=== PATIENT | male | born 1935 | race Caucasian/White ===

== ENCOUNTER → 2020-04-14 13:41 | Outpatient (BNVA) | payer MEDICARE, SELFPAY | PROVIDERS: PCP Internal Medicine; Visit Provider Internal Medicine Cardiovascular Disease | DX: Z76.89 Persons encountering health services in other specified circumstances (principal) ==

== ENCOUNTER 2020-10-08 14:13 | Emergency (ER) | payer MEDICARE, SELFPAY ==
[2020-10-08] VITALS (7 sets, daily range): BP systolic 139–155; BP diastolic 69–92; PULSE 60–75; RESP 14–16; TEMP 36.8–36.9; O2SAT 96–97; BMI 23.7
--- NOTE | ~2020-10-08 | CT_ITS ---
EXAMINATION: CT HEAD WITHOUT CONTRAST CLINICAL INFORMATION: Weakness and dizziness. On analysis. COMPARISON: None TECHNIQUE: Contiguous axial imaging was performed from the skull base to vertex without intravenous administration of contrast. This CT examination was performed using dose optimization techniques as appropriate, variously including the following: *Automated exposure control *Adjustment of mA and/or kV according to patient size (this includes techniques or standardized protocols for targeted exams where dose is matched to indication/reason for exam; i.e. extremities or head) *Use of iterative reconstruction technique DLP: 757 mGy-cm FINDINGS: There is no evidence of acute intracranial hemorrhage or territorial infarction. No abnormal mass effect or midline shift is appreciated. Wong-white differentiation is well preserved. No extra-axial fluid collections. The ventricular system and cortical sulci are prominent, consistent with age-appropriate volume loss. There are areas of low density in the periventricular and subcortical white matter, most consistent with sequelae of microvascular ischemic change. The osseous structures and soft tissues are normal. There are calcifications of the cavernous internal carotid arteries. Polypoid mucosal disease of the left maxillary sinus, partially visualized. Other visualized paranasal sinuses are well aerated. CT/CT head/brain wo con IMPRESSION: Chronic microvascular ischemic changes with no CT evidence of acute intracranial abnormality.
--- NOTE | ~2020-10-08 | XR_ITS ---
EXAMINATION: XR CHEST CLINICAL INFORMATION: Weakness COMPARISON: Chest radiograph 11/26/2016 TECHNIQUE: Portable upright AP view of the chest was obtained. FINDINGS: There are postsurgical changes since prior study with sternotomy wires, surgical clips, left atrial appendage clamp, and multilead AICD. The heart is normal in size and the vascularity is normal. There is no airspace consolidation or groundglass opacity or effusion. The hilar and mediastinal contours are unremarkable. No visible acute bony abnormality. XR/XR chest 1V IMPRESSION: Postsurgical changes. No acute intrathoracic disease.
--- NOTE | 2020-10-08 14:29 | ED_ITS ---
HPI - Weakness General Chief complaint: General Medical Stated complaint: WEAKNESS,? 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 denies falls notes chills and malaise MD Complaint: generalized weakness, lack of energy and difficulty walking Onset (ago): day(s) (about 1 hour ago per him) Duration: intermittent Location: generalized Migration: none Severity: moderate Quality: dull Relieving factors: none Exacerbating factors: movement Associated symptoms: fever/chills, loss of appetite and myalgias Related Data Home Medications Medication Instructions Recorded Confirmed apixaban [Eliquis] 5 mg PO BID 10/08/20 10/08/20 atorvastatin 10 mg PO DAILY 10/08/20 10/08/20 multivitamin 1 tab PO DAILY 10/08/20 10/08/20 zolpidem 5 mg PO BEDTIME 10/08/20 10/08/20 Previous Rx's Medication Instructions Recorded carvedilol 6.25 mg tablet 6.25 mg PO BID 90 Days #180 tab 05/04/20 lisinopril 10 mg tablet 10 mg PO DAILY 90 Days #90 tab 05/04/20 Allergies Allergy/AdvReac Type Severity Reaction Status Date / Time dust Allergy Unknown sneeze Uncoded 01/23/20 00:00 lawn Allergy Unknown sneeze Uncoded 01/23/20 00:00 Review of Systems Review of Systems: Constitutional : No Weight loss, No Fever, pos Chills, pos Fatigue, pos Malaise ENT/Mouth : No sore throat, No Rhinorrhea Eyes: No Eye Pain, No Swelling, No Redness Cardiovascular : No Chest Pain, No SOB, No Dyspnea on Exertion, No Orthopnea, No Edema, No Palpitations Respiratory : No Cough, No Sputum, No Wheezing Gastrointestinal : No Nausea, No Vomiting, No Diarrhea, No Constipation, No abdominal Pain, No Hematochezia, No Melena Genitourinary : No Dysuria, No Urinary Frequency, No Hematuria, Musculoskeletal : No joint pain, pos Myalgias, No Joint Swelling Skin : No Skin Lesions, No rash Neuro : pos Weakness, No Numbness, pos Dizziness, No Headache Psych : No Anxiety/Panic, No Depression Heme/Lymph: No Bruising, No Bleeding,No Lymphadenopathy Endocrine : No Polyuria, No Polydipsia All other systems reviewed and are negative [facility] Past Medical History Attestation statement: The following information was validated with the patient. Medical History High cholesterol HTN (hypertension) Hx of nursing home use of blood thinners Pacemaker Social History Social History (Updated 10/08/20 @ 14:48 by Marcia Mann DO) Alcohol intake: never Smoking Status: Never smoker Use of substances other than those prescribed or required for medical reasons: No Advance Directives: No Advance Directives Information Provided: No Physical Exam Vital Signs: Vital Signs: Last Vital Signs Temp 98.4 F 10/08/20 16:39 Pulse 64 10/08/20 16:39 Resp 16 10/08/20 16:39 BP 139/69 10/08/20 16:39 Pulse Ox 97 10/08/20 16:39 Body Mass Index 23.7 Appearance: Alert. Oriented X3. No acute distress. Feels warm to touch Eyes: Pupils equal, round and reactive to light. ENT: Pharynx normal. Neck: Normal inspection. Neck supple. CVS: Normal heart rate and rhythm. Pulses normal. Respiratory: No respiratory distress. Breath sounds normal. Abdomen: Soft and nontender. Skin: Skin warm and dry. Normal skin color. Normal skin turgor. Extremities: No lower extremity edema. No calf ttp Neuro: Oriented X 3. No motor deficit. No sensory deficit. no drift Course Course Course Narrative: pending UA and CT scan, repeat trop at 530pm no other source of weakness at this time will need ambulation trial prior to DC signed out to Dr. Howell pos change in BP with standing MDM - Weakness MDM Narrative Medical decision making narrative: 84 yo male with defib, cardiomyopathy, HPL, HTN here with feeling weak and dizzy, denies GIB symptoms, feels chills at this time will need labs, CXR, UA, COVID swab - orthostatic VS dispo per results and findings. Lab Data Result diagrams: 10/08/20 15:10 10/08/20 15:10 Labs: Lab Results 10/08/20 10/08/20 10/08/20 Range/Units 15:10 15:10 15:10 WBC 7.1 (4.8-10.8) X10*3/uL RBC 4.20 L (4.60-5.80) X10*6/uL Hgb 13.2 L (14.0-18.0) g/dl Hct 39.6 L (42-52) % MCV 94.3 (80-98) fL MCH 31.4 (27.0-33.0) pg MCHC 33.3 (31.0-36.0) g/dl RDW 12.9 (11.0-16.0) % Plt Count 217 (160-400) X10*3/uL MPV 9.3 L (9.4-12.4) fL Immature Gran % (Auto) 0.3 (0.0-0.4) % Neut % (Auto) 69.3 (45-73) % Lymph % (Auto) 18.4 L (20-40) % [place] % (Auto) 10.6 (2-11) % Eos % (Auto) 1.0 (0-4) % Baso % (Auto) 0.4 (0-2) % Lymph # (Auto) 1.3 (1.2-4.9) X10*3/uL [place] # (Auto) 0.8 (0.1-1.2) X10*3/uL Eos # (Auto) 0.1 (0.0-0.4) X10*3/uL Baso # (Auto) 0.0 (0.0-0.2) X10*3/uL Abs Immat Gran (auto) 0.02 (0.00-0.03) X10*3/uL Absolute Neuts (auto) 4.9 (2.0-8.3) X10*3/uL Absolute Nucleated RBC 0.000 (0.0-0.012) X10*3/uL Nucleated RBC % (auto) 0.0 (0.0-0.2) /100WBC PT (10.8-13.0) SEC INR (0.9-1.1) APTT (24.1-38.0) SEC Sodium 139 (135-145) mmol/L Potassium 4.2 (3.3-5.1) mmol/L Chloride 106 (96-108) mmol/L Carbon Dioxide 25 (22-29) mmol/L Anion Gap 12 (12-20) BUN 16 (9-16) mg/dL Creatinine 0.85 (0.5-1.4) mg/dL Estim Creat Clear Calc 78.7 Estimated GFR > 60 Random Glucose 106 (60-115) mg/dL Lactic Acid (0.5-2.0) mmol/L Calcium 9.0 (8.4-10.2) mg/dL Magnesium 2.1 (1.6-2.6) mg/dL Total Bilirubin 0.6 (0.0-1.0) mg/dL Direct Bilirubin 0.3 (0.0-0.5) mg/dL AST 22 (5-37) U/L ALT 15 (0-40) U/L Alkaline Phosphatase 79 (39-117) U/L Troponin I High Sens (<3.5-35.0) ng/L Total Protein 7.2 (6.5-8.0) g/dL Albumin 4.1 (3.5-5.0) g/dL Lipase (8-78) U/L COVID-19 (JF) Negative (Negative) COVID-19 Clin Com See Note 10/08/20 10/08/20 10/08/20 Range/Units 15:10 15:10 15:10 WBC (4.8-10.8) X10*3/uL RBC (4.60-5.80) X10*6/uL Hgb (14.0-18.0) g/dl Hct (42-52) % MCV (80-98) fL MCH (27.0-33.0) pg MCHC (31.0-36.0) g/dl RDW (11.0-16.0) % Plt Count (160-400) X10*3/uL MPV (9.4-12.4) fL Immature Gran % (Auto) (0.0-0.4) % Neut % (Auto) (45-73) % Lymph % (Auto) (20-40) % [place] % (Auto) (2-11) % Eos % (Auto) (0-4) % Baso % (Auto) (0-2) % Lymph # (Auto) (1.2-4.9) X10*3/uL [place] # (Auto) (0.1-1.2) X10*3/uL Eos # (Auto) (0.0-0.4) X10*3/uL Baso # (Auto) (0.0-0.2) X10*3/uL Abs Immat Gran (auto) (0.00-0.03) X10*3/uL Absolute Neuts (auto) (2.0-8.3) X10*3/uL Absolute Nucleated RBC (0.0-0.012) X10*3/uL Nucleated RBC % (auto) (0.0-0.2) /100WBC PT 18.0 H (10.8-13.0) SEC INR 1.5 H (0.9-1.1) APTT 45.8 H (24.1-38.0) SEC Sodium (135-145) mmol/L Potassium (3.3-5.1) mmol/L Chloride (96-108) mmol/L Carbon Dioxide (22-29) mmol/L Anion Gap (12-20) BUN (9-16) mg/dL Creatinine (0.5-1.4) mg/dL Estim Creat Clear Calc Estimated GFR Random Glucose (60-115) mg/dL Lactic Acid 0.9 (0.5-2.0) mmol/L Calcium (8.4-10.2) mg/dL Magnesium (1.6-2.6) mg/dL Total Bilirubin (0.0-1.0) mg/dL Direct Bilirubin (0.0-0.5) mg/dL AST (5-37) U/L ALT (0-40) U/L Alkaline Phosphatase (39-117) U/L Troponin I High Sens 6.9 (<3.5-35.0) ng/L Total Protein (6.5-8.0) g/dL Albumin (3.5-5.0) g/dL Lipase (8-78) U/L COVID-19 (JF) (Negative) COVID-19 Clin Com 10/08/20 Range/Units 15:10 WBC (4.8-10.8) X10*3/uL RBC (4.60-5.80) X10*6/uL Hgb (14.0-18.0) g/dl Hct (42-52) % MCV (80-98) fL MCH (27.0-33.0) pg MCHC (31.0-36.0) g/dl RDW (11.0-16.0) % Plt Count (160-400) X10*3/uL MPV (9.4-12.4) fL Immature Gran % (Auto) (0.0-0.4) % Neut % (Auto) (45-73) % Lymph % (Auto) (20-40) % [place] % (Auto) (2-11) % Eos % (Auto) (0-4) % Baso % (Auto) (0-2) % Lymph # (Auto) (1.2-4.9) X10*3/uL [place] # (Auto) (0.1-1.2) X10*3/uL Eos # (Auto) (0.0-0.4) X10*3/uL Baso # (Auto) (0.0-0.2) X10*3/uL Abs Immat Gran (auto) (0.00-0.03) X10*3/uL Absolute Neuts (auto) (2.0-8.3) X10*3/uL Absolute Nucleated RBC (0.0-0.012) X10*3/uL Nucleated RBC % (auto) (0.0-0.2) /100WBC PT (10.8-13.0) SEC INR (0.9-1.1) APTT (24.1-38.0) SEC Sodium (135-145) mmol/L Potassium (3.3-5.1) mmol/L Chloride (96-108) mmol/L Carbon Dioxide (22-29) mmol/L Anion Gap (12-20) BUN (9-16) mg/dL Creatinine (0.5-1.4) mg/dL Estim Creat Clear Calc Estimated GFR Random Glucose (60-115) mg/dL Lactic Acid (0.5-2.0) mmol/L Calcium (8.4-10.2) mg/dL Magnesium (1.6-2.6) mg/dL Total Bilirubin (0.0-1.0) mg/dL Direct Bilirubin (0.0-0.5) mg/dL AST (5-37) U/L ALT (0-40) U/L Alkaline Phosphatase (39-117) U/L Troponin I High Sens (<3.5-35.0) ng/L Total Protein (6.5-8.0) g/dL Albumin (3.5-5.0) g/dL Lipase 98 H (8-78) U/L COVID-19 (JF) (Negative) COVID-19 Clin Com ECG Data Attestation: I personally reviewed and interpreted this ECG as follows: ECG interpretation date: 10/08/20 ECG interpretation time: 15:59 Interpretation: Rate: 67 Rhythm: AV continuous paced [place]: left Normal P waves. Normal AAMIR. wide QRS complex. ST T wave : nonspecific, no DAVID qTC: prolonged prior studies: no acute ischemia The study has been interpreted contemporaneously by me. . Discharge Plan Discharge Clinical Impression: Weakness Instructions: Weakness (ED) Additional Instructions: return to ED for any worsening symptoms or concerns Prescriptions: No Action carvedilol 6.25 mg tablet 6.25 mg PO BID 90 Days Qty: 180 RF: 1 lisinopril 10 mg tablet 10 mg PO DAILY 90 Days Qty: 90 RF: 1 atorvastatin 10 mg tablet 10 mg PO DAILY RF: 0 zolpidem 5 mg tablet 5 mg PO BEDTIME RF: 0 Eliquis 5 mg tablet 5 mg PO BID RF: 0 multivitamin Tablet 1 tab PO DAILY RF: 0
--- NOTE | 2020-10-08 14:38 | ECG_ITS ---
Test Reason : SYNCOPE Blood Pressure : / mmHG Vent. Rate : 067 BPM Atrial Rate : 062 BPM P-R Int : 124 ms QRS Dur : 176 ms QT Int : 494 ms P-R-T Axes : 000 231 086 degrees QTc Int : 521 ms AV dual-paced rhythm Abnormal ECG When compared with ECG of 04-FEB-2017 05:05, Electronic ventricular pacemaker has replaced Sinus rhythm Referred By: Marcia Mann Electronically Signed By:CRISTIANO BRAVO
[2020-10-08 15:17] LABS: MANUAL DIFF FLAG NO
[2020-10-08 15:21] LABS: Basophils Percent Auto 0.4 % (0-2); Eosinophils Absolute Auto 0.1 X10*3/uL (0.0-0.4); Hematocrit 39.6 % (42-52); Hemoglobin 13.2 g/dl (14.0-18.0); Imm Gran Abs Auto 0.02 X10*3/uL (0.00-0.03); Imm Gran Pct Auto 0.3 % (0.0-0.4); Lymphocytes Absolute Auto 1.3 X10*3/uL (1.2-4.9); Lymphocytes Percent Auto 18.4 % (20-40); Mean Corpuscular HGB Conc 33.3 g/dl (31.0-36.0); Mean Corpuscular Hemoglobin 31.4 pg (27.0-33.0); Mean Corpuscular Volume 94.3 fL (80-98); Mean Platelet Volume 9.3 fL (9.4-12.4); Monocytes Absolute Auto 0.8 X10*3/uL (0.1-1.2); Monocytes Percent Auto 10.6 % (2-11); Neutrophils Absolute Auto 4.9 X10*3/uL (2.0-8.3); Neutrophils Percent Auto 69.3 % (45-73); Platelet Count 217 X10*3/uL (160-400); Red Cell Distribution Width 12.9 % (11.0-16.0); White Blood Count 7.1 X10*3/uL (4.8-10.8)
[2020-10-08 15:39] LABS: Lactic Acid 0.9 mmol/L (0.5-2.0)
[2020-10-08 15:42] LABS: COVID-19 Test Negative (Negative); IDNOW Serial# 9DD0AD1C
[2020-10-08 15:43] LABS: INTERNATIONAL NORM RATIO 1.5 (0.9-1.1)
[2020-10-08 15:44] LABS: Alanine Aminotransferase 15 U/L (0-40); Albumin Level 4.1 g/dL (3.5-5.0); Alkaline Phosphatase 79 U/L (39-117); Anion Gap 12 (12-20); Aspartate Amino Transferase 22 U/L (5-37); Bilirubin Direct 0.3 mg/dL (0.0-0.5); Bilirubin Total 0.6 mg/dL (0.0-1.0); Blood Urea Nitrogen 16 mg/dL (9-16); Carbon Dioxide 25 mmol/L (22-29); Chloride 106 mmol/L (96-108); Creatinine Clr Calc Pharmacy 78.7; Estimated Glomerular Filt Rate > 60; Glucose Random 106 mg/dL (60-115); Magnesium 2.1 mg/dL (1.6-2.6); Potassium 4.2 mmol/L (3.3-5.1); Sodium 139 mmol/L (135-145); Total Protein 7.2 g/dL (6.5-8.0)
[2020-10-08 15:46] LABS: Partial Thromboplastin Time 45.8 SEC (24.1-38.0)
[2020-10-08 15:49] LABS: Troponin-I High Sensitivity 6.9 ng/L (<3.5-35.0)
[2020-10-08 15:59] LABS: Lipase 98 U/L (8-78)
--- NOTE | 2020-10-08 16:58 | PC.NURSE ---
pt to ct at this time. urine sample being sent. pt aware of plan of care and denied having any questions.
[2020-10-08 17:08] LABS: Glucose Urine UA NEG (NEG); Leukocyte Esterase Urine NEG (NEG); Nitrite Urine NEG (NEG); PH 5.5 (5.0-8.0); Urine Blood TRACE (NEG); Urine Ketones NEG (NEG); Urine Protein NEG (NEG-TRACE)
--- NOTE | 2020-10-08 17:12 | PC.NURSE ---
nikunj- sandra called. updated on plan of care.
[2020-10-08] MEDS: 0.9 % Sodium Chloride 500 ML IV (17:17)
[2020-10-08 17:18] LABS: Appearance Urine CLEAR; Color Urine YELLOW
[2020-10-08 17:52] LABS: RBC Urine 0 /HPF (0); WBC Urine 0 /HPF (0-4)
[2020-10-08 18:20] LABS: Troponin-I High Sensitivity 8.5 ng/L (<3.5-35.0)
[2020-10-08] MEDS: Apixaban 5 MG TABLET PO (23:41)
[2020-10-08] MEDS: carvediloL 6.25 MG TABLET PO (23:41)
[2020-10-09] VITALS (7 sets, daily range): BP systolic 120–132; BP diastolic 57–65; PULSE 58–67; RESP 15–18; TEMP 36.8; O2SAT 96–98
[2020-10-09] MEDS: Zolpidem Tartrate 5 MG TABLET PO (01:08)
[2020-10-09] MEDS: Loratadine 10 MG TABLET PO (01:08)
[2020-10-09] MEDS: Acetaminophen 325 MG TABLET 650 MG PO (03:32)
--- NOTE | 2020-10-09 03:38 | PC.NURSE ---
patient requested tylenol for a mild headache, verbal order received from Dr Arevalo. Patient is aware that this RN attempted to contact a [facility] about his cat at home, with no answer, will attempt again in the morning.
--- NOTE | 2020-10-09 06:46 | PC.NURSE ---
Pt's niece Elva Resendez called for update, requests to be updated with plan for STR placement when information is available.
--- NOTE | 2020-10-09 09:10 | PC.NURSE ---
physical therapy at bedside to aleja soto
[2020-10-09] MEDS: carvediloL 6.25 MG TABLET PO (09:43)
[2020-10-09] MEDS: Multivitamin TABLET 1 TAB PO (09:43)
[2020-10-09] MEDS: Apixaban 5 MG TABLET PO (09:43)
[2020-10-09] MEDS: Atorvastatin Calcium 10 MG TABLET PO (09:43)
[2020-10-09] MEDS: lisinopriL 10 MG TABLET PO (09:44)
[2020-10-09] MEDS: Acetaminophen 325 MG TABLET 975 MG PO (11:41)
--- NOTE | 2020-10-09 13:02 | MHC.CM.ED ---
Received case management consult from Dr Mann. Patient came to the ER with weakness and dizziness. Work up essentially negative. Physical therapy eval completed. Acute rehab is recommended. Patient requested referral to [facility]. Referral made via [employer]. Patient can leave at 3pm. [facility] BLS booked. [facility] with chart. Patient, Mitra MARROQUIN and Dr Mann aware. Attempted to notify patient's niece, Elva via telephone at [phone]. Left message requesting return telephone call. Continue to monitor for d/c needs.
== END 2020-10-09 15:18 | disposition skilled nursing facility (03) ==
PROVIDERS: Emergency Provider Emergency Medicine; PCP Internal Medicine
DX: R53.1 Weakness (principal); R42 Dizziness and giddiness; Z20.822 Contact with and (suspected) exposure to COVID-19; R51.9 Headache, unspecified; R50.9 Fever, unspecified; I10 Essential (primary) hypertension; E78.5 Hyperlipidemia, unspecified; Z95.0 Presence of cardiac pacemaker; Z79.01 Long term (current) use of anticoagulants; Z79.02 Long term (current) use of antithrombotics/antiplatelets
CPT/HCPCS: 36415; 70450; 71045; 80048; 80076; 81001; 83605; 83690; 83735; 84484; 85025; 85610; 85730; 87040; 87147; 87205; 87635; 93005; 96360; 97162; 99284; 99285

== ENCOUNTER 2020-10-30 11:23 | Outpatient (REF) | payer MEDICARE, SELFPAY ==
[2020-10-30 12:22] LABS: MANUAL DIFF FLAG NO
[2020-10-30 12:26] LABS: Basophils Percent Auto 0.3 % (0-2); Eosinophils Absolute Auto 0.2 X10*3/uL (0.0-0.4); Eosinophils Percent Auto 2.3 % (0-4); Hematocrit 41.1 % (42-52); Hemoglobin 13.4 g/dl (14.0-18.0); Imm Gran Abs Auto 0.03 X10*3/uL (0.00-0.03); Imm Gran Pct Auto 0.4 % (0.0-0.4); Lymphocytes Absolute Auto 1.4 X10*3/uL (1.2-4.9); Lymphocytes Percent Auto 19.9 % (20-40); Mean Corpuscular HGB Conc 32.6 g/dl (31.0-36.0); Mean Corpuscular Hemoglobin 31.3 pg (27.0-33.0); Mean Platelet Volume 9.6 fL (9.4-12.4); Monocytes Absolute Auto 0.8 X10*3/uL (0.1-1.2); Neutrophils Absolute Auto 4.6 X10*3/uL (2.0-8.3); Neutrophils Percent Auto 66.1 % (45-73); Platelet Count 230 X10*3/uL (160-400); Red Blood Count 4.28 X10*6/uL (4.60-5.80); Red Cell Distribution Width 12.9 % (11.0-16.0); White Blood Count 6.9 X10*3/uL (4.8-10.8)
[2020-10-30 13:12] LABS: Alanine Aminotransferase 14 U/L (0-40); Albumin Level 4.2 g/dL (3.5-5.0); Alkaline Phosphatase 106 U/L (39-117); Anion Gap 12 (12-20); Aspartate Amino Transferase 22 U/L (5-37); Bilirubin Total 0.4 mg/dL (0.0-1.0); Blood Urea Nitrogen 14 mg/dL (9-16); C Reactive Protein 0.73 mg/dL (< or = 0.50); Calcium 9.2 mg/dL (8.4-10.2); Carbon Dioxide 24 mmol/L (22-29); Chloride 110 mmol/L (96-108); Estimated Glomerular Filt Rate > 60; Glucose Random 116 mg/dL (60-115); Potassium 4.3 mmol/L (3.3-5.1); Sodium 142 mmol/L (135-145); Total Protein 7.3 g/dL (6.5-8.0)
[2020-10-30 13:27] LABS: Free T4 (Free Thyroxine) 0.77 ng/dL (0.71-1.85); Thyroid Stimulating Hormone 0.76 uIU/mL (0.32-4.0)
== END 2020-10-30 11:24 | disposition home or self-care (01) ==
LOC: HO.LAB 11:23
PROVIDERS: PCP Internal Medicine; Visit Provider Internal Medicine
DX: R19.7 Diarrhea, unspecified (principal); K21.9 Gastro-esophageal reflux disease without esophagitis; I42.9 Cardiomyopathy, unspecified
CPT/HCPCS: 36415; 80053; 84439; 84443; 85025; 86140

== ENCOUNTER 2021-05-17 11:30 | Emergency (ER) | payer MEDICARE, SELFPAY ==
[2021-05-17 11:39] VITALS: BP 117/55; PULSE 63; RESP 19; TEMP 36.8; O2SAT 97; BMI 24.7
--- NOTE | 2021-05-17 14:06 | ED_ITS ---
HPI - General Adult General Chief complaint: General Medical Stated complaint: rectal bleeding, unbalance Time Seen by Provider: 05/17/21 14:06 Source: patient Mode of arrival: ambulatory Limitations: no limitations History of Present Illness HPI narrative: patient with rectal bleeding, has had problems with hemorrhoids in the past. Patient feels a mass there. He has had some constipation. There is a lot of irritation. Onset (ago): day(s) Severity: mild Pain Consistency: intermittent Relieving factors: none Exacerbating factors: none Related Data Home Medications Medication Instructions Recorded Confirmed apixaban 5 mg tablet (Eliquis) 5 mg PO BID 10/08/20 10/08/20 atorvastatin 10 mg tablet 10 mg PO DAILY 10/08/20 10/08/20 multivitamin 1 tab PO DAILY 10/08/20 10/08/20 zolpidem 5 mg tablet 5 mg PO BEDTIME 10/08/20 10/08/20 Previous Rx's Medication Instructions Recorded carvedilol 6.25 mg tablet 6.25 mg PO BID 90 Days #180 tab 05/04/20 lisinopril 10 mg tablet 10 mg PO DAILY 90 Days #90 tab 05/04/20 clotrimazole 1 % topical cream 1 appl TOPICAL BID 28 Days #90 g 05/17/21 (Clotrimazole AF) Allergies Allergy/AdvReac Type Severity Reaction Status Date / Time dust Allergy Unknown sneeze Uncoded 01/23/20 00:00 lawn Allergy Unknown sneeze Uncoded 01/23/20 00:00 Review of Systems Constitutional: Constitutional: Reports no additional constitutional complaints Eyes: Eyes: Reports no additional eye complaints ENT: Denies dizziness Cardiovascular: Cardiovascular: Reports no additional cardiovascular complaints Respiratory: Respiratory: Reports as per HPI Gastrointestinal: Gastrointestinal: Reports no additional gastrointestinal complaints Musculoskeletal: Musculoskeletal: Reports no additional musculoskeletal complaints Integumentary/Breasts: Skin/Breast: Denies rash Neurologic: Reports system reviewed and no additional complaints, except as documented, Denies dizziness and Denies Sensory deficit (Neuro) Psychiatric: Psychiatric: Denies anxiety PMFSH Past Medical History Medical History Bradycardia High cholesterol HTN (hypertension) Hx of halfway use of blood thinners Pacemaker Surgical History H/O hemorrhoidectomy History of colonoscopy Social History Social History Alcohol intake: never Use of substances other than those prescribed or required for medical reasons: No Advance Directives: No Advance Directives Information Provided: Yes Physical Exam Vital Signs: Vital Signs: Last Vital Signs Temp 98.2 F 05/17/21 11:39 Pulse 63 05/17/21 11:39 Resp 19 05/17/21 11:39 BP 117/55 L 05/17/21 11:39 Pulse Ox 97 05/17/21 11:39 Body Mass Index 24.7 Const: Other: elderly male, well appearing Nutritional Appearance: average body habitus Orientation/consciousness: oriented to person and patient oriented x3 Limitations: no limitations HENMT: Head: Yes normal to inspection Ears: external ears normal General nose exam: Normal external nose present Mouth: Normal oral and palatal mucosa present and oropharynx normal Throat: Yes posterior oropharynx normal Eyes: General: appearance normal, both eyes and all related structures Neck: Other: supple Neck: Yes normal visual inspection Chest: Chest palpation & inspection: normal inspection of the chest Resp: Auscultation: clear to auscultation bilaterally Cardio: Jugular venous distension: no JVD Rate: regular rate Rhythm: regular rhythm Heart sounds: S1 normal heart sound present and S2 normal heart sound present GI: Inspection: Yes normal to inspection Palpation (GI): Soft to palpation, nontender and No hepatosplenomegaly present Auscultation: normal bowel sounds : Other: rectal area with a lot of irritation/excoriation consistent with maya. Rectal exam negative for mass or fecal impaction Skin: General skin exam: no rashes or lesions noted Neuro: General: oriented to person and patient oriented x3 Cranial nerves: Yes CN's II-XII intact bilaterally Motor exam (neuro): 5/5 motor strength present throughout Sensory Exam: No Sensory deficit (Neuro) Extrem: General: Yes normal to inspection Psych: Appearance: grossly normal Course Reevaluation(s) Reevaluation #1: patient with evidence of perirectal candidiasis. will start lotrimin cream, no evidence of fecal impaction, hemorrhoids or GI bleed Time: 15:33 Medical Decision Making Lab Data Result diagrams: 05/17/21 14:43 05/17/21 14:43 Labs: Lab Results 05/17/21 05/17/21 Range/Units 14:43 14:43 WBC 8.4 (4.8-10.8) X10*3/uL RBC 4.11 L (4.60-5.80) X10*6/uL Hgb 12.8 L (14.0-18.0) g/dl Hct 38.7 L (42.0-52.0) % MCV 94.2 (80.0-98.0) fL MCH 31.1 (27.0-33.0) pg MCHC 33.1 (31.0-36.0) g/dl RDW 13.5 (11.0-16.0) % Plt Count 211 (160-400) X10*3/uL MPV 9.3 L (9.4-12.4) fL Immature Gran % (Auto) 0.2 (0.0-0.4) % Neut % (Auto) 71.8 (45-73) % Lymph % (Auto) 15.5 L (20-40) % [place] % (Auto) 10.8 (2-11) % Eos % (Auto) 1.5 (0-4) % Baso % (Auto) 0.2 (0-2) % Lymph # (Auto) 1.3 (1.2-4.9) X10*3/uL [place] # (Auto) 0.9 (0.1-1.2) X10*3/uL Eos # (Auto) 0.1 (0.0-0.4) X10*3/uL Baso # (Auto) 0.0 (0.0-0.2) X10*3/uL Abs Immat Gran (auto) 0.02 (0.00-0.03) X10*3/uL Absolute Neuts (auto) 6.0 (2.0-8.3) x10*3/uL Absolute Nucleated RBC 0.000 (0.0-0.012) X10*3/uL Nucleated RBC % (auto) 0.0 (0.0-0.2) /100WBC Sodium 138 (135-145) mmol/L Potassium 4.7 (3.3-5.1) mmol/L Chloride 109 H (96-108) mmol/L Carbon Dioxide 20 L (22-29) mmol/L Anion Gap 14 (12-20) BUN 19 H (9-16) mg/dL Creatinine 0.95 (0.5-1.4) mg/dL Estim Creat Clear Calc 67.2 Estimated GFR > 60 Random Glucose 95 (60-115) mg/dL Calcium 9.0 (8.4-10.2) mg/dL Discharge Plan Discharge Clinical Impression: Candidiasis of anus Patient Disposition: Home, Self-Care Instructions: Skin Yeast Infection (ED) Prescriptions: New clotrimazole [Clotrimazole AF] 1 % cream 1 appl topical BID 28 Days Qty: 90 RF: 0 No Action carvedilol 6.25 mg tablet 6.25 mg PO BID 90 Days Qty: 180 RF: 1 lisinopril 10 mg tablet 10 mg PO DAILY 90 Days Qty: 90 RF: 1 atorvastatin 10 mg tablet 10 mg PO DAILY RF: 0 zolpidem 5 mg tablet 5 mg PO BEDTIME RF: 0 Eliquis 5 mg tablet 5 mg PO BID RF: 0 multivitamin Tablet 1 tab PO DAILY RF: 0
[2021-05-17 14:50] LABS: MANUAL DIFF FLAG NO
[2021-05-17 14:53] LABS: Basophils Percent Auto 0.2 % (0-2); Eosinophils Absolute Auto 0.1 X10*3/uL (0.0-0.4); Eosinophils Percent Auto 1.5 % (0-4); Hematocrit 38.7 % (42.0-52.0); Hemoglobin 12.8 g/dl (14.0-18.0); Imm Gran Abs Auto 0.02 X10*3/uL (0.00-0.03); Imm Gran Pct Auto 0.2 % (0.0-0.4); Lymphocytes Absolute Auto 1.3 X10*3/uL (1.2-4.9); Lymphocytes Percent Auto 15.5 % (20-40); Mean Corpuscular HGB Conc 33.1 g/dl (31.0-36.0); Mean Corpuscular Hemoglobin 31.1 pg (27.0-33.0); Mean Corpuscular Volume 94.2 fL (80.0-98.0); Mean Platelet Volume 9.3 fL (9.4-12.4); Monocytes Absolute Auto 0.9 X10*3/uL (0.1-1.2); Monocytes Percent Auto 10.8 % (2-11); Neutrophils Percent Auto 71.8 % (45-73); Platelet Count 211 X10*3/uL (160-400); Red Blood Count 4.11 X10*6/uL (4.60-5.80); Red Cell Distribution Width 13.5 % (11.0-16.0); White Blood Count 8.4 X10*3/uL (4.8-10.8)
[2021-05-17 15:14] LABS: Anion Gap 14 (12-20); Blood Urea Nitrogen 19 mg/dL (9-16); Carbon Dioxide 20 mmol/L (22-29); Chloride 109 mmol/L (96-108); Creatinine Clr Calc Pharmacy 67.2; Estimated Glomerular Filt Rate > 60; Glucose Random 95 mg/dL (60-115); Potassium 4.7 mmol/L (3.3-5.1); Sodium 138 mmol/L (135-145)
[2021-05-17] MEDS: Clotrimazole 1 % Cream 15 GM TUBE 1 APPL TOPICAL (15:47)
== END 2021-05-17 15:52 | disposition home or self-care (01) ==
PROVIDERS: Emergency Provider Emergency Medicine; PCP Internal Medicine
DX: B37.2 Candidiasis of skin and nail (principal); I10 Essential (primary) hypertension; Z95.0 Presence of cardiac pacemaker
CPT/HCPCS: 36415; 80048; 85025; 99283; 99284

== ENCOUNTER 2022-03-09 12:34 | Day surgery (SDC) | payer MEDICARE, SELFPAY ==
[2022-03-03 13:27] VITALS: BMI 23.1
--- NOTE | 2022-03-08 10:48 | HO.ANESPROP2 ---
Documented by User: Suzette Mujica NP 03/08/22 14:49 HPI - Anesthesia Eval Consult details Narrative: 86yo M for Colonoscopy ICD in situ - last interrogation 06/2021. Nml function, no shocks. Was having diaphragmatic stimulation that resolved with adjustment. No problems according to 01/2022 telemedicine cardiac visit. Reviewed with Dr Baig. Rani for afib (ok to hold per PCP) Stable at 01/2022 cardiac visit (telemedicine) [facility] Past Medical History Medical History Atrial fibrillation Bradycardia CAD (coronary artery disease) High cholesterol HTN (hypertension) Hx of roasterman use of blood thinners Ischemic cardiomyopathy Pacemaker Surgical History Surgical History AICD (automatic cardioverter/defibrillator) present H/O hemorrhoidectomy History of colonoscopy History of esophagogastroduodenoscopy (EGD) History of surgery Hx laparoscopic cholecystectomy Hx of CABG Hx of endoscopic retrograde cholangiopancreatography Hx of hernia repair Hx of nasal septoplasty Social History Social History Alcohol intake: never Patient Tobacco Use Status: Former Tobacco user Are you DNR?: No Advance Directives: No Advance Directives Information Provided: Yes Recently lost weight without trying: No Nutrition Risks: No Nutritional Risk Meds Allergies Allergy/AdvReac Type Severity Reaction Status Date / Time grass pollen Allergy Intermediate Sneezing Verified 03/03/22 12:38 mite-Dermatophagoides Allergy Intermediate Sneezing Verified 03/03/22 12:38 farsavannah, alexis [dust mite - [place]] Home Medications Medication Instructions Recorded Confirmed Last Taken Type apixaban 5 mg tablet (Eliquis) 5 mg PO BID 10/08/20 03/03/22 03/06/22 History atorvastatin 10 mg tablet 10 mg PO DAILY 10/08/20 03/03/22 03/08/22 History multivitamin 1 tab PO DAILY 10/08/20 03/03/22 03/08/22 History zolpidem 5 mg tablet 5 mg PO BEDTIME 10/08/20 03/03/22 03/08/22 History Exam Exam Date and Time: March 08, 2022 1048 Height,Weight and Vital Signs: Height 6 ft 2 in Weight 81.647 kg Narrative Narrative: EKG 05/2021 A-sensed, V-paced with occasional PVC's ECHO 04/2021 LV poorly visualized. Apical views are foreshortened. LV size is normal. LV wall thickness is normal. Systolic function is moderately reduced. LVEF 30-40%. Moderate globabl hypokinesis of LV. LV filling pressures are indeterminate. MV appears mildly thickened. Mitral leaflet excursion is mildly reduced. Trace MR. No signif mitral stenosis. RV is normal in size. RV systolic function is moderately reduced. Pacer/ICD wire is seen in the RV Decreased LV systolic function compared with 08/2019 study ICD Interr 06/2021 on chart A-sensed, V-paced Mode: DDDR - 60 Was having diaphragmatic stimulation. Reprogrammed and resolved Assessment and Plan Assessment Anesthesia Assessment: Chart Reviewed Documented by User: Adrianna Cannon MD 03/09/22 13:58 [facility] Past Medical History Medical History Atrial fibrillation Bradycardia CAD (coronary artery disease) High cholesterol HTN (hypertension) Hx of roasterman use of blood thinners Ischemic cardiomyopathy Pacemaker Surgical History Surgical History AICD (automatic cardioverter/defibrillator) present H/O hemorrhoidectomy History of colonoscopy History of esophagogastroduodenoscopy (EGD) History of surgery Hx laparoscopic cholecystectomy Hx of CABG Hx of endoscopic retrograde cholangiopancreatography Hx of hernia repair Hx of nasal septoplasty History of Problems with Anesthesia: No Social History Social History Alcohol intake: never Patient Tobacco Use Status: Former Tobacco user Are you DNR?: No Advance Directives: No Advance Directives Information Provided: Yes Recently lost weight without trying: No Nutrition Risks: No Nutritional Risk Meds Allergies Allergy/AdvReac Type Severity Reaction Status Date / Time grass pollen Allergy Intermediate Sneezing Verified 03/03/22 12:38 mite-Dermatophagoides Allergy Intermediate Sneezing Verified 03/03/22 12:38 farinaealexis [dust mite - [place]] Home Medications Medication Instructions Recorded Confirmed Last Taken Type apixaban 5 mg tablet (Eliquis) 5 mg PO BID 10/08/20 03/03/22 03/06/22 History atorvastatin 10 mg tablet 10 mg PO DAILY 10/08/20 03/03/22 03/08/22 History multivitamin 1 tab PO DAILY 10/08/20 03/03/22 03/08/22 History zolpidem 5 mg tablet 5 mg PO BEDTIME 10/08/20 03/03/22 03/08/22 History Exam Airway Mallampati Class: III TM Dist: >3cm Neck ROM: Full Denture: Upper Partial: Lower Loose/Missing/Broken Teeth: Yes, Upper and Lower Heart: RRR Lungs: CTA Assessment and Plan Assessment Anesthesia Assessment: Anesthesia Plan Discussed Final Anesthetic Review History of Problems with Anesthesia: No NPO: Yes ASA Class: III Final Preanesthetic Review: Meds/Allgs Chart Reviewed, Consent Obtained/Reviewed and Anes Risks/Benef Reviewed Patient Risk: Intermediate Procedure Risk: Low Anesthetic Plan Anesthetic Plan: MAC: Disposition: Standard PACU
--- NOTE | 2022-03-09 | ECG_ITS ---
Test Reason : PREOP Blood Pressure : / mmHG Vent. Rate : 067 BPM Atrial Rate : 067 BPM P-R Int : 166 ms QRS Dur : 142 ms QT Int : 476 ms P-R-T Axes : 027 166 083 degrees QTc Int : 502 ms AV dual-paced rhythm Abnormal ECG When compared with ECG of 08-OCT-2020 15:44, No significant change was found Referred By: Suzette Mujica Electronically Signed By:MADISON RODRIGUEZ
[2022-03-09 13:14] LABS: Hematocrit 43.8 % (42.0-52.0); Hemoglobin 14.3 g/dl (14.0-18.0); Mean Corpuscular HGB Conc 32.6 g/dl (31.0-36.0); Mean Corpuscular Hemoglobin 30.8 pg (27.0-33.0); Mean Corpuscular Volume 94.4 fL (80.0-98.0); Mean Platelet Volume 9.3 fL (9.4-12.4); Platelet Count 230 X10*3/uL (160-400); Red Blood Count 4.64 X10*6/uL (4.60-5.80); Red Cell Distribution Width 12.8 % (11.0-16.0); White Blood Count 7.4 X10*3/uL (4.8-10.8)
[2022-03-09 13:21] VITALS: BP 112/54; PULSE 79; RESP 17; TEMP 36.1; O2SAT 98
[2022-03-09] MEDS: Lactated Ringers 1,000 ML 50 ML IVCONT (13:28)
[2022-03-09 13:34] LABS: Anion Gap 17 (12-20); Blood Urea Nitrogen 18 mg/dL (9-16); Calcium 9.4 mg/dL (8.4-10.2); Carbon Dioxide 23 mmol/L (22-29); Chloride 105 mmol/L (96-108); Creatinine Clr Calc Pharmacy 63.6; Estimated Glomerular Filt Rate > 60; Glucose Fasting 99 mg/dL (60-99); Potassium 4.2 mmol/L (3.3-5.1); Sodium 141 mmol/L (135-145)
--- NOTE | 2022-03-09 13:54 | MHC.SHP ---
Pre-Procedural Eval Section A Date of Service: 03/09/22 The patient is an INPATIENT: No Changes since office visit: No Cold of Flu in the past 2 weeks, No New Medical Problems, No Changes in Medication and No Patient answered all questions The History & Physical has been completed within 30 days and I have reviewed it.: Yes Section B Chief Complaint: rectal pain Allergies: Allergies Allergy/AdvReac Type Severity Reaction Status Date / Time grass pollen Allergy Intermediate Sneezing Verified 03/03/22 12:38 mite-Dermatophagoides Allergy Intermediate Sneezing Verified 03/03/22 12:38 farinae, alexis [dust mite - [place] Citizen [place]] Plan I have reviewed the history and physical and performed a pertinent physical examination on my patient. No changes have occurred unless specified.
--- NOTE | 2022-03-09 14:25 | PM.OP ---
Brief Operative Note Date of Service: 03/09/22 Pre-op diagnosis: rectal pain Post-op diagnosis: same Procedure: colonosocpy Surgeon: Mynor Aiken Anesthesia: MAC Was an Mobile Home Set Up Person used for this Procedure?: No Estimated blood loss (mL): 2 Pathology: other Condition: stable Disposition: PACU
[2022-03-09 14:28] VITALS: BP 86/32; PULSE 66; RESP 16; TEMP 37.2; O2SAT 97
[2022-03-09 14:43] VITALS: BP 115/57; PULSE 60; RESP 16; O2SAT 98
[2022-03-09 14:58] VITALS: BP 115/64; PULSE 60; RESP 16; O2SAT 98
[2022-03-09 15:13] VITALS: BP 129/58; PULSE 60; RESP 18; TEMP 36.6; O2SAT 99
--- NOTE | 2022-03-09 23:45 | OP_ITS ---
SURGEON: Mynor Aiken MD INDICATIONS: Rectal pain. PREOPERATIVE DIAGNOSIS: POSTOPERATIVE DIAGNOSIS: PROCEDURE PERFORMED: Colonoscopy with biopsy on 03/09/22. ESTIMATED BLOOD LOSS: COMPLICATIONS: ANESTHESIA: Monitored anesthesia care. ASSISTANTS: SPECIMENS: DESCRIPTION OF PROCEDURE: History and physical performed. The risks and benefits of the procedure were explained to the patient. Informed consent was obtained. The patient was placed in the left lateral decubitus position. A digital rectal exam was performed and was found to be normal. The Olympus pediatric video colonoscope was introduced into the rectum and advanced to the cecum without difficulty. The cecum was identified by transillumination, palpation, and identification of ileocecal valve. Examination was performed. The scope was removed. He tolerated the procedure well and was taken to recovery area in stable condition. FINDINGS: The terminal ileum was normal. The visualized colonic mucosa was normal. The quality of the prep was good. A single polyp measuring less than 5 mm was identified at the cecum. This was removed with the biopsy forceps. No other polyps were identified. There was moderate diverticulosis involving the sigmoid. Retroflexed examination was normal. IMPRESSION: Colon polyp. RECOMMENDATION: Follow up the biopsy results. MD IMTIAZ Plata/LUPE / [id number] MTDD
== END 2022-03-09 15:43 | disposition home or self-care (01) ==
PROVIDERS: Nurse Practitioner; PCP Internal Medicine; Visit Provider Internal Medicine Gastroenterology
PROC: 0DJD8ZZ Inspection of Lower Intestinal Tract, Via Natural or Artificial Opening Endoscopic (ICD-10-PCS; CPT 45378; principal; 2022-03-09 13:40)
DX: K62.89 Other specified diseases of anus and rectum (principal); D12.0 Benign neoplasm of cecum; K57.30 Diverticulosis of large intestine without perforation or abscess without bleeding; I25.10 Atherosclerotic heart disease of native coronary artery without angina pectoris; I10 Essential (primary) hypertension; Z95.1 Presence of aortocoronary bypass graft; Z95.810 Presence of automatic (implantable) cardiac defibrillator; I25.5 Ischemic cardiomyopathy; I48.91 Unspecified atrial fibrillation; E78.00 Pure hypercholesterolemia, unspecified; Z79.01 Long term (current) use of anticoagulants; Z79.899 Other long term (current) drug therapy; Z87.891 Personal history of nicotine dependence; Z98.890 Other specified postprocedural states
CPT/HCPCS: 45380; 36415; 80048; 85027; 88305; 93005

== ENCOUNTER 2022-07-09 04:45 | Observation (INO) | payer MEDICARE, SELFPAY ==
[2022-07-09] VITALS (13 sets, daily range): BP systolic 74–159; BP diastolic 44–75; PULSE 60–80; RESP 14–20; TEMP 36.6–36.9; O2SAT 96–98; BMI 24.0
--- NOTE | ~2022-07-09 | CT_ITS ---
EXAMINATION: NONCONTRAST HEAD CT NONCONTRAST CERVICAL SPINE CT INDICATION INFORMATION: Fall on blood thinners. COMPARISON: 10/08/2020 TECHNIQUE: Separate noncontrast CT examinations of the head and cervical spine were performed. Coronal and sagittal images were created for each examination at the technologist workstation. This CT examination was performed using dose optimization techniques as appropriate, variously including the following: *Automated exposure control *Adjustment of mA and/or kV according to patient size (this includes techniques or standardized protocols for targeted exams where dose is matched to indication/reason for exam; i.e. extremities or head) *Use of iterative reconstruction technique DLP: 1113 mGy-cm FINDINGS: Head: There is no evidence of acute intracranial hemorrhage or territorial infarction. No abnormal mass effect or midline shift is seen. Wong to white matter differentiation is well preserved. No extra-axial fluid collections are identified. No hydrocephalus. No significant volume loss. Patchy periventricular and deep white matter hypoattenuation is consistent with mild small vessel ischemic changes. Chronic left inferior temporal lobe infarct. Cavernous carotid calcifications. No acute osseous or soft tissue abnormality. The mastoid air cells and visualized portions of the paranasal sinuses are well aerated. Cervical spine: There is anatomic alignment of the vertebral bodies and posterior elements. The atlantoaxial and atlantooccipital articulations are intact. Vertebral body heights are maintained. Osseous and disc space height associated endplate osteophytes present C4-C5-C6 and C6-C7. Facet arthropathy throughout the cervical spine. No evidence of acute fracture. No prevertebral soft tissue swelling. Visualized portions of the lung apices are unremarkable. The thyroid gland is unremarkable. CT/CT cervical spine wo IV con IMPRESSION: * No acute intracranial findings. * No acute fracture or malalignment of the cervical spine.
--- NOTE | ~2022-07-09 | XR_ITS ---
EXAMINATION: XR CHEST CLINICAL INFORMATION: Cough COMPARISON: Chest x-ray October 08, 2020 TECHNIQUE: Frontal view of the chest was obtained. FINDINGS: Cardiac silhouette is normal in size. Multi lead pacemaker is stable in orientation. Left atrial appendage clip again noted. The lungs are adequately aerated. There is no lobar consolidation. No pleural effusion or pneumothorax. Degenerative changes of the spine and shoulders. XR/XR chest 1V IMPRESSION: No acute pulmonary pathology.
--- NOTE | 2022-07-09 04:48 | ECG_ITS ---
Test Reason : SYNCHOPE Blood Pressure : / mmHG Vent. Rate : 059 BPM Atrial Rate : 059 BPM P-R Int : 166 ms QRS Dur : 150 ms QT Int : 494 ms P-R-T Axes : 000 152 089 degrees QTc Int : 489 ms AV dual-paced rhythm with occasional ventricular-paced complexes Abnormal ECG When compared with ECG of 09-MAR-2022 12:50, Vent. rate has decreased BY 8 BPM Referred By: Adrianna Arevalo Electronically Signed By:CRISTIANO BRAVO
--- NOTE | 2022-07-09 05:24 | PC.NURSE ---
Patient is alert and oriented x4. Stated that he been having diarrhea for about 3 days now, mlft2xar been taking Immodium which wasn't very effective. Pt been also having sore throat for about a week now.
--- NOTE | 2022-07-09 05:33 | PC.NURSE ---
Patient is alert and oriented x4. Stated that he was using the bathroom and was ready to get up but fainted and fell He is not sure if he hit his head. Pt appears to be very pleasant and cooperative.
[2022-07-09] MEDS: 0.9 % Sodium Chloride 1,000 ML 999 ML IV ×2 (05:39→08:48)
--- NOTE | 2022-07-09 05:41 | PC.NURSE ---
Patient is on IV fluids, vitals WNL. Labs were drawn, unable to obtain urine. Patient belongings are placed in the bag and on the table next to his bed. No signs of resp distress, safety maintained.
[2022-07-09 05:44] LABS: Hematocrit 33.6 % (42.0-52.0); Hemoglobin 10.9 g/dl (14.0-18.0); Mean Corpuscular HGB Conc 32.4 g/dl (31.0-36.0); Mean Corpuscular Hemoglobin 31.1 pg (27.0-33.0); Platelet Count 167 X10*3/uL (160-400); Red Cell Distribution Width 13.4 % (11.0-16.0); White Blood Count 8.4 X10*3/uL (4.8-10.8)
[2022-07-09 05:51] LABS: COVID-19 Test Positive (Negative); IDNOW Serial# BCCEAD1C
[2022-07-09 05:52] LABS: INTERNATIONAL NORM RATIO 1.9 (0.9-1.1); Prothrombin Time 22.2 SEC (10.0-13.1)
[2022-07-09 05:56] LABS: Lactic Acid 1.7 mmol/L (0.5-2.0)
[2022-07-09 05:59] LABS: IDNOW Serial# 16C4AD1C; Influenza A Negative (Negative); Influenza B2 Negative (Negative)
--- NOTE | 2022-07-09 06:00 | ED_ITS ---
HPI - General Adult General Chief complaint: Nausea/Vomiting/Diarrhea Stated complaint: Syncopal Time Seen by Provider: 07/09/22 04:49 Source: patient Mode of arrival: EMS History of Present Illness HPI narrative: 86-year-old male who arrives via EMS with passing out on the toilet while he was having a bowel movement and positive loss of consciousness. Patient reports that he has had diarrhea in felt unwell for the past 3 days to included decrease in appetite. Patient also reports that he is on anticoagulation. EMS gave 1 L IVF. Related Data Home Medications Medication Instructions Recorded Confirmed apixaban 5 mg tablet (Eliquis) 5 mg PO BID 10/08/20 03/03/22 atorvastatin 10 mg tablet 10 mg PO DAILY 10/08/20 03/03/22 multivitamin 1 tab PO DAILY 10/08/20 03/03/22 zolpidem 5 mg tablet 5 mg PO BEDTIME 10/08/20 03/03/22 Previous Rx's Medication Instructions Recorded carvedilol 6.25 mg tablet 6.25 mg PO BID 90 days #180 tabs 05/04/20 clotrimazole 1 % topical cream 1 appl topical BID 4 weeks #90 05/17/21 (Clotrimazole AF) grams lisinopril 10 mg tablet 10 mg PO DAILY 30 days #30 tabs 09/13/21 Allergies Allergy/AdvReac Type Severity Reaction Status Date / Time grass pollen Allergy Intermediate Sneezing Verified 03/03/22 12:38 mite-Dermatophagoides Allergy Intermediate Sneezing Verified 03/03/22 12:38 farinae, alexis [dust mite - [place]] Review of Systems Review of Systems: Pertinent positives and negatives as stated in HPI PMFSH Past Medical History Source: nursing notes reviewed Medical History Atrial fibrillation Bradycardia CAD (coronary artery disease) High cholesterol HTN (hypertension) Hx of retirement use of blood thinners Ischemic cardiomyopathy Pacemaker Surgical History AICD (automatic cardioverter/defibrillator) present H/O hemorrhoidectomy History of colonoscopy History of esophagogastroduodenoscopy (EGD) History of surgery Hx laparoscopic cholecystectomy Hx of CABG Hx of endoscopic retrograde cholangiopancreatography Hx of hernia repair Hx of nasal septoplasty Social History Social History Alcohol intake: never Patient Tobacco Use Status: Former Tobacco user Advance Directives: No Advance Directives Information Provided: No Physical Exam ED Vital Signs: Vital Signs - 24 hr 07/09/22 04:56 07/09/22 06:14 Temperature 97.9 F 97.8 F Pulse Rate 61 64 Respiratory Rate 16 16 Blood Pressure 113/47 L Pulse Oximetry 96 Oxygen Delivery Method Room Air BMI result Body Mass Index 24.0 VITAL SIGNS: Reviewed. GENERAL: Chronically ill, frail, in no acute distress. HEAD: Normocephalic/atraumatic EYES: PERRLA, EOMI EARS: Ext canals without abnormality, TMs non-bulging and non-erythematous NOSE: Nares patent bilateral OROPHARYNX: no oral lesions noted, posterior pharynx clear NECK: Supple, no adenopathy LUNGS: Normal breath sounds. No adventitious sounds or accessory muscle use. SpO2<96> CARDIOVASCULAR: Paced rhythm without noted murmurs, no JVD or lower extremity edema. ABDOMEN: Soft, non-tender, non-distended with bowel sounds. PELVIS: Stable, nontender MUSCULOSKELETAL: No tenderness, deformities, or effusions noted on gross in spection. EXTREMITIES: No cyanosis, clubbing or edema. SKIN: Inspection of the skin reveals no rashes NEUROLOGIC: Alert and oriented x 4. Strength and sensation to light touch were grossly intact x 4. Medications Administered Discontinued Medications Generic Name Dose Route Start Last Admin Trade Name Freq PRN Reason Stop Dose Admin Sodium Chloride 1,000 mls @ 999 mls/hr 07/09/22 05:00 07/09/22 06:19 Ns IV 07/09/22 06:00 Infused .Q1H1M STEFANIA Infusion Medical Decision Making Medical Decision Making MDM Narrative: 86-year-old male presents after syncopal episode with loss of consciousness. Signed out to Dr Pacheco. Differential Diagnosis Differential Diagnoses: The differential diagnosis associated with the presentation includes Viral illness, dehydration Lab Data [facility] Lab Attestation statement: I reviewed the patient's lab results. Please see the discussion above 07/09/22 05:31 07/09/22 05:31 Labs: Lab Results 07/09/22 07/09/22 07/09/22 Range/Units 05:31 05:31 05:31 WBC 8.4 (4.8-10.8) X10*3/uL RBC 3.50 L D (4.60-5.80) X10*6/uL Hgb 10.9 L D (14.0-18.0) g/dl Hct 33.6 L D (42.0-52.0) % MCV 96.0 (80.0-98.0) fL MCH 31.1 (27.0-33.0) pg MCHC 32.4 (31.0-36.0) g/dl RDW 13.4 (11.0-16.0) % Plt Count 167 D (160-400) X10*3/uL MPV 9.0 L (9.4-12.4) fL Immature Gran % (Auto) Cancelled Neut % (Auto) Cancelled Lymph % (Auto) Cancelled [place] % (Auto) Cancelled Eos % (Auto) Cancelled Baso % (Auto) Cancelled Lymph # (Auto) Cancelled [place] # (Auto) Cancelled Eos # (Auto) Cancelled Baso # (Auto) Cancelled Abs Immat Gran (auto) Cancelled Absolute Neuts (auto) Cancelled Absolute Nucleated RBC 0.000 (0.0-0.012) X10*3/uL Nucleated RBC % (auto) 0.0 (0.0-0.2) /100WBC Neutrophils % (Manual) 87 H (45-73) % Band Neutrophils % 5 (3-5) % Lymphocytes % (Manual) 4 L (20-40) % Monocytes % (Manual) 4 (2-11) % Abs Neuts (Manual) 7.7 (2.0-8.3) X10*3/uL Lymphocytes # (Manual) 0.3 L (1.2-4.9) X10*3/uL Monocytes # (Manual) 0.3 (0.1-1.2) X10*3/uL Platelet Estimate NORMAL (NORMAL) Plt Morphology Comment NORMAL RBC Morphology NORMAL PT (10.0-13.1) SEC INR (0.9-1.1) Sodium 136 (135-145) mmol/L Potassium 4.5 (3.3-5.1) mmol/L Chloride 108 (96-108) mmol/L Carbon Dioxide 20 L (22-29) mmol/L Anion Gap 13 (12-20) BUN 14 (9-16) mg/dL Creatinine 1.10 (0.5-1.4) mg/dL Estim Creat Clear Calc 58.6 Estimated GFR > 60 Random Glucose 115 (60-115) mg/dL Lactic Acid (0.5-2.0) mmol/L Calcium 8.0 L D (8.4-10.2) mg/dL Magnesium 2.0 (1.6-2.6) mg/dL Total Bilirubin 0.5 (0.0-1.0) mg/dL AST 19 (5-37) U/L ALT 9 (0-40) U/L Alkaline Phosphatase 61 (39-117) U/L Troponin I High Sens (<3.5-35.0) ng/L Total Protein 6.1 L (6.5-8.0) g/dL Albumin 3.4 L (3.5-5.0) g/dL COVID-19 (JF) (Negative) COVID-19 Clin Com Influenza Type A (ANANDA) Negative (Negative) Influenza Type B (ANANDA) Negative (Negative) Influenza A & B Note See Note 07/09/22 07/09/22 07/09/22 Range/Units 05:31 05:31 05:31 WBC (4.8-10.8) X10*3/uL RBC (4.60-5.80) X10*6/uL Hgb (14.0-18.0) g/dl Hct (42.0-52.0) % MCV (80.0-98.0) fL MCH (27.0-33.0) pg MCHC (31.0-36.0) g/dl RDW (11.0-16.0) % Plt Count (160-400) X10*3/uL MPV (9.4-12.4) fL Immature Gran % (Auto) Neut % (Auto) Lymph % (Auto) [place] % (Auto) Eos % (Auto) Baso % (Auto) Lymph # (Auto) [place] # (Auto) Eos # (Auto) Baso # (Auto) Abs Immat Gran (auto) Absolute Neuts (auto) Absolute Nucleated RBC (0.0-0.012) X10*3/uL Nucleated RBC % (auto) (0.0-0.2) /100WBC Neutrophils % (Manual) (45-73) % Band Neutrophils % (3-5) % Lymphocytes % (Manual) (20-40) % Monocytes % (Manual) (2-11) % Abs Neuts (Manual) (2.0-8.3) X10*3/uL Lymphocytes # (Manual) (1.2-4.9) X10*3/uL Monocytes # (Manual) (0.1-1.2) X10*3/uL Platelet Estimate (NORMAL) Plt Morphology Comment RBC Morphology PT 22.2 H (10.0-13.1) SEC INR 1.9 H (0.9-1.1) Sodium (135-145) mmol/L Potassium (3.3-5.1) mmol/L Chloride (96-108) mmol/L Carbon Dioxide (22-29) mmol/L Anion Gap (12-20) BUN (9-16) mg/dL Creatinine (0.5-1.4) mg/dL Estim Creat Clear Calc Estimated GFR Random Glucose (60-115) mg/dL Lactic Acid 1.7 (0.5-2.0) mmol/L Calcium (8.4-10.2) mg/dL Magnesium (1.6-2.6) mg/dL Total Bilirubin (0.0-1.0) mg/dL AST (5-37) U/L ALT (0-40) U/L Alkaline Phosphatase (39-117) U/L Troponin I High Sens (<3.5-35.0) ng/L Total Protein (6.5-8.0) g/dL Albumin (3.5-5.0) g/dL COVID-19 (JF) Positive A (Negative) COVID-19 Clin Com See Note Influenza Type A (ANANDA) (Negative) Influenza Type B (ANANDA) (Negative) Influenza A & B Note 07/09/22 Range/Units 05:31 WBC (4.8-10.8) X10*3/uL RBC (4.60-5.80) X10*6/uL Hgb (14.0-18.0) g/dl Hct (42.0-52.0) % MCV (80.0-98.0) fL MCH (27.0-33.0) pg MCHC (31.0-36.0) g/dl RDW (11.0-16.0) % Plt Count (160-400) X10*3/uL MPV (9.4-12.4) fL Immature Gran % (Auto) Neut % (Auto) Lymph % (Auto) [place] % (Auto) Eos % (Auto) Baso % (Auto) Lymph # (Auto) [place] # (Auto) Eos # (Auto) Baso # (Auto) Abs Immat Gran (auto) Absolute Neuts (auto) Absolute Nucleated RBC (0.0-0.012) X10*3/uL Nucleated RBC % (auto) (0.0-0.2) /100WBC Neutrophils % (Manual) (45-73) % Band Neutrophils % (3-5) % Lymphocytes % (Manual) (20-40) % Monocytes % (Manual) (2-11) % Abs Neuts (Manual) (2.0-8.3) X10*3/uL Lymphocytes # (Manual) (1.2-4.9) X10*3/uL Monocytes # (Manual) (0.1-1.2) X10*3/uL Platelet Estimate (NORMAL) Plt Morphology Comment RBC Morphology PT (10.0-13.1) SEC INR (0.9-1.1) Sodium (135-145) mmol/L Potassium (3.3-5.1) mmol/L Chloride (96-108) mmol/L Carbon Dioxide (22-29) mmol/L Anion Gap (12-20) BUN (9-16) mg/dL Creatinine (0.5-1.4) mg/dL Estim Creat Clear Calc Estimated GFR Random Glucose (60-115) mg/dL Lactic Acid (0.5-2.0) mmol/L Calcium (8.4-10.2) mg/dL Magnesium (1.6-2.6) mg/dL Total Bilirubin (0.0-1.0) mg/dL AST (5-37) U/L ALT (0-40) U/L Alkaline Phosphatase (39-117) U/L Troponin I High Sens 9.0 (<3.5-35.0) ng/L Total Protein (6.5-8.0) g/dL Albumin (3.5-5.0) g/dL COVID-19 (JF) (Negative) COVID-19 Clin Com Influenza Type A (ANANDA) (Negative) Influenza Type B (ANANDA) (Negative) Influenza A & B Note Independent Interpretation I performed an independent interpretation of an: EKG Interpretation: AV dual paced rhythm, HR -59, no STEMI, IL is within normal limits, [id number] Radiology Impression Radiologist Impression: My interpretation is in agreement with radiology's impression of the imaging study. Chronic Conditions Patient?s care impacted by: Hypertension Critical Care Time Critical Care Time Critical Care Time: Yes Total Critical Care Time: 30 Attestation: I personally attest to this time spent taking care of the patient. Discharge Plan Discharge Clinical Impression: Syncope, vasovagal, Viral syndrome, Lab test positive for detection of COVID-19 virus, Moderate dehydration, Loss of consciousness Patient Disposition: Still a Patient Prescriptions: No Action carvedilol 6.25 mg tablet 6.25 mg PO BID 90 Days Qty: 180 1RF Rx Instructions: must administer with a meal/food lisinopril 10 mg tablet 10 mg PO DAILY 30 Days Qty: 30 0RF Rx Instructions: Must make cardiology appt for refills atorvastatin 10 mg tablet 10 mg PO DAILY zolpidem 5 mg tablet 5 mg PO BEDTIME Eliquis 5 mg tablet 5 mg PO BID multivitamin Tablet 1 tab PO DAILY clotrimazole [Clotrimazole AF] 1 % cream 1 appl topical BID 28 Days Qty: 90 0RF
[2022-07-09 06:01] LABS: Alanine Aminotransferase 9 U/L (0-40); Albumin Level 3.4 g/dL (3.5-5.0); Alkaline Phosphatase 61 U/L (39-117); Anion Gap 13 (12-20); Aspartate Amino Transferase 19 U/L (5-37); Bilirubin Total 0.5 mg/dL (0.0-1.0); Blood Urea Nitrogen 14 mg/dL (9-16); Carbon Dioxide 20 mmol/L (22-29); Chloride 108 mmol/L (96-108); Creatinine Clr Calc Pharmacy 58.6; Estimated Glomerular Filt Rate > 60; Glucose Random 115 mg/dL (60-115); Potassium 4.5 mmol/L (3.3-5.1); Sodium 136 mmol/L (135-145); Total Protein 6.1 g/dL (6.5-8.0)
--- NOTE | 2022-07-09 06:04 | PC.NURSE ---
Patient is alert and oriented. Tested positive for COVID, precautions initiated. Vitals are being monitored, no signs of resp distress. Patient remains to be on IV fluids, site looks dry and clean. So signs of infiltrations. Safety maintained
[2022-07-09 06:10] LABS: Band Neutrophils Percent 5 % (3-5); Lymphocytes Absolute Manual 0.3 X10*3/uL (1.2-4.9); Lymphocytes Percent Manual 4 % (20-40); Monocytes Absolute Manual 0.3 X10*3/uL (0.1-1.2); Monocytes Percent Manual 4 % (2-11); Neutrophils Absolute Manual 7.7 X10*3/uL (2.0-8.3); Neutrophils Percent Manual 87 % (45-73); Platelet Estimate NORMAL (NORMAL); Platelet Morphology Comment NORMAL; RBC Morphology NORMAL
--- NOTE | 2022-07-09 06:51 | PC.NURSE ---
pt has 141.00 inside his date book inside a clear plastic bag with his keys. verified with another rn and witness with ct.
--- NOTE | 2022-07-09 07:12 | PC.NURSE ---
C collar was removed
[2022-07-09 08:05] LABS: Appearance Urine Clear; Color Urine Yellow; Glucose Urine UA Negative (Negative); Leukocyte Esterase Urine Negative (Negative); Nitrite Urine Negative (Negative); PH 5.5 (5.0-9.0); Specific Gravity - Urine 1.015 (1.005-1.025); Urine Blood Negative (Negative); Urine Ketones Negative (Negative); Urine Protein Negative (Neg-Trace)
--- NOTE | 2022-07-09 08:30 | PHA.MEDREC ---
Pharmacy Consult ? Medication Reconciliation Pharmacy has completed the medication reconciliation.
[2022-07-09] MEDS: 0.9 % Sodium Chloride 1,000 ML 125 ML IVCONT ×2 (08:48→18:38)
[2022-07-09] MEDS: Acetaminophen 325 MG TABLET 975 MG PO (08:51)
[2022-07-09 09:36] LABS: Troponin-I High Sensitivity 10.1 ng/L (<3.5-35.0)
--- NOTE | 2022-07-09 10:11 | P.HPHOSP_ITS ---
History of Present Illness Date of Service: 07/09/22 Attending physician on admission: [facility] Chief Complaint: syncope 86-year-old male with history of paroxysmal atrial fibrillation anticoagulated with Eliquis, ischemic cardiomyopathy, AICD in place, hypertension, hyperlipidemia, coronary artery disease presented to the ED earlier this morning via EMS following a syncopal episode. The patient lives at home by himself and states that he was having a large bowel movement of watery diarrhea when he felt lightheaded and fell forward. He is unsure if he hit his head but feels he was unconscious for a brief period before he awoke and dragged himself to the phone to call 911. He feels he was on the ground for about 10 minutes total but cannot confirm this. States that over the last few days he has felt very weak, fatigued, with sore throat, dry cough, anorexia, decreased p.o. intake, and multiple episodes of watery diarrhea for about 3 days. 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 Most recently completed 10 day course of doxycycline on 06/17. Stool studies were ordered in the ED but have yet to be collected as he has not had a BM since arrival. He denies any fevers, chills, abdominal pain, nausea, vomiting, headache, melena, hematochezia, dysuria, increased urinary frequency, hematuria, shortness of breath, further episodes of lightheadedness, palpitations, or chest pains. In the ED, vital signs have been stable, no hypotension, hypoxia. EKG showed showed dual paced rhythm with occasional PVCs, rate 59. No leukocytosis. Mild normocytic anemia with H/H 10.9/33.6. Renal f unction electrolyte levels baseline except for CO2 of 20 likely related to diarrhea. Troponin unremarkable. Head and cervical CT without any acute abnormality. CXR negative. He is positive for COVID-19 but negative for influenza. He reports that he is vaccinated for COVID-19 with 2 boosters. Review of Systems Review of Systems: General: +fatigue, +generalized weakness. No fevers, malaise, unintentional weight loss HEENT: +sore throat. No nasal congestion, rhinorrhea, sinus pain, ear pain Cardiovascular: No chest pain, palpitations, or leg edema Respiratory: +cough. No shortness of breath, wheezing GI: +diarrhea. 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 Ischemic cardiomyopathy Pacemaker Surgical History AICD (automatic cardioverter/defibrillator) present H/O hemorrhoidectomy History of colonoscopy History of esophagogastroduodenoscopy (EGD) History of surgery Hx laparoscopic cholecystectomy Hx of CABG Hx of endoscopic retrograde cholangiopancreatography Hx of hernia repair Hx of nasal septoplasty Social History (Updated 07/09/22 @ 10:20 by ARIANNA Hilton) Household Members: None Housing: House Alcohol intake: never Patient Tobacco Use Status: Former Tobacco user Use of substances other than those prescribed or required for medical reasons: No Advance Directives: No Advance Directives Information Provided: No Meds Allergies Allergy/AdvReac Type Severity Reaction Status Date / Time grass pollen Allergy Intermediate Sneezing Verified 03/03/22 12:38 mite-Dermatophagoides Allergy Intermediate Sneezing Verified 03/03/22 12:38 farinae, alexis [dust mite - [place]] Active Medications: Current Medications Acetaminophen (Acetaminophen 325 Mg Tablet) 650 mg PO Q6H PRN PRN Reason: Pain, Mild (Pain Scale 1-3) Apixaban (Apixaban 5 Mg Tablet) 5 mg PO BID [facility] Atorvastatin Calcium (Atorvastatin Calcium 10 Mg Tablet) 10 mg PO DAILY [facility] Carvedilol (Carvedilol 6.25 Mg Tablet) 6.25 mg PO BID [facility]; Protocol Guaifenesin (Guaifenesin 200 Mg/10 Ml 10 Ml Liquid) 10 ml PO Q4H PRN PRN Reason: Cough Sodium Chloride (Ns) 1,000 mls @ 80 mls/hr IVCONT .[id number] [facility] Last Admin: 07/09/22 08:48 Dose: 125 mls/hr Lisinopril (Lisinopril 10 Mg Tablet) 10 mg PO DAILY [facility]; Protocol Multi-Ingred Medicated Throat Brewster (Throat Brewster, Medicated 177 Ml Bottle) 1 spray MUCOUS MEM Q2H PRN PRN Reason: Sore Throat Multivitamins/Vitamin C (Multivitamin Tablet) 1 tab PO DAILY [facility] Nystatin (Nystatin Cream 15 Gm Tube) 1 appl TOPICAL BID PRN; Protocol PRN Reason: Rash Ondansetron HCl (Ondansetron Hcl 4 Mg/2 Ml Vial) 4 mg IVPUSH Q8H PRN PRN Reason: Nausea and Vomiting Pharmacy Consult (Consult Rx Perform Med Rec) 1 each MISCELLANE ONCE PRN PRN Reason: Consult order Pharmacy Consult (Consult Rx Perform Med Rec) 1 each MISCELLANE ONCE PRN PRN Reason: Consult order Sodium Chloride (0.9 % Sodium Chloride Flush 3 Ml Syringe) 3 ml IVFLUSH QSHIFT [facility] Zolpidem Tartrate (Zolpidem Tartrate 5 Mg Tablet) 5 mg PO BEDTIME [facility] Home Medications Medication Instructions Recorded Confirmed Last Taken Type apixaban 5 mg tablet (Eliquis) 5 mg PO BID 10/08/20 07/09/22 03/06/22 History atorvastatin 10 mg tablet 10 mg PO DAILY 10/08/20 07/09/22 03/08/22 History multivitamin 1 tab PO DAILY 10/08/20 07/09/22 03/08/22 History zolpidem 5 mg tablet 5 mg PO BEDTIME 10/08/20 07/09/22 03/08/22 History nystatin 100,000 unit/gram topical 1 appl topical BID PRN Rash 07/09/22 07/09/22 Unknown History cream Physical Exam Vital Signs and Narrative: Vital Signs: Last Vital Signs Temp 98.2 F 07/09/22 09:20 Pulse 61 07/09/22 09:20 Resp 15 07/09/22 09:20 BP 117/53 L 07/09/22 09:20 Pulse Ox 98 07/09/22 09:20 O2 Del Method 07/09/22 09:20 BMI result Body Mass Index 24.0 Constitutional - Awake and Alert, No apparent distress Eyes - PERRLA, EOMI Mouth- Lips, tongue dry Cardiovascular - S1S2, RRR, No edema Respiratory - Normal lung expansion, Normal respiratory effort, No respiratory distress, CTA bilaterally Gastrointestinal - NT / ND; +BS; No rebound or guarding Extremities - no calf tenderness bilaterally, no swelling Skin - Warm/Dry, turgor appropriate Neurological - Alert & oriented x3, CN II-XII in tact, 5/5 strength BUE and BLE Psychological - Appropriate affect Results Labs 07/09/22 05:31 07/09/22 05:31 Labs: Laboratory Results - last 24 hr 07/09/22 07/09/22 07/09/22 05:31 05:31 05:31 MCV 96.0 MCH 31.1 MCHC 32.4 RDW 13.4 Plt Count 167 D MPV 9.0 L Immature Gran % (Auto) Cancelled Neut % (Auto) Cancelled Lymph % (Auto) Cancelled [place] % (Auto) Cancelled Eos % (Auto) Cancelled Baso % (Auto) Cancelled Lymph # (Auto) Cancelled [place] # (Auto) Cancelled Eos # (Auto) Cancelled Baso # (Auto) Cancelled Abs Immat Gran (auto) Cancelled Absolute Neuts (auto) Cancelled Absolute Nucleated RBC 0.000 Nucleated RBC % (auto) 0.0 Neutrophils % (Manual) 87 H Band Neutrophils % 5 Lymphocytes % (Manual) 4 L Monocytes % (Manual) 4 Abs Neuts (Manual) 7.7 Lymphocytes # (Manual) 0.3 L Monocytes # (Manual) 0.3 Platelet Estimate NORMAL Plt Morphology Comment NORMAL RBC Morphology NORMAL PT INR Anion Gap 13 Estim Creat Clear Calc 58.6 Estimated GFR > 60 Random Glucose 115 Lactic Acid Calcium 8.0 L D Magnesium 2.0 Total Bilirubin 0.5 AST 19 ALT 9 Alkaline Phosphatase 61 Total Creatine Kinase 122 Troponin I High Sens Total Protein 6.1 L Albumin 3.4 L Urine Color Urine Appearance Urine pH Ur Specific [place] Urine Protein Urine Glucose (UA) Urine Ketones Urine Blood Urine Nitrite Ur Leukocyte Esterase COVID-19 (JF) COVID-19 Clin Com Influenza Type A (ANANDA) Negative Influenza Type B (ANANDA) Negative Influenza A & B Note See Note 07/09/22 07/09/22 07/09/22 05:31 05:31 05:31 MCV MCH MCHC RDW Plt Count MPV Immature Gran % (Auto) Neut % (Auto) Lymph % (Auto) [place] % (Auto) Eos % (Auto) Baso % (Auto) Lymph # (Auto) [place] # (Auto) Eos # (Auto) Baso # (Auto) Abs Immat Gran (auto) Absolute Neuts (auto) Absolute Nucleated RBC Nucleated RBC % (auto) Neutrophils % (Manual) Band Neutrophils % Lymphocytes % (Manual) Monocytes % (Manual) Abs Neuts (Manual) Lymphocytes # (Manual) Monocytes # (Manual) Platelet Estimate Plt Morphology Comment RBC Morphology PT 22.2 H INR 1.9 H Anion Gap Estim Creat Clear Calc Estimated GFR Random Glucose Lactic Acid 1.7 Calcium Magnesium Total Bilirubin AST ALT Alkaline Phosphatase Total Creatine Kinase Troponin I High Sens Total Protein Albumin Urine Color Urine Appearance Urine pH Ur Specific [place] Urine Protein Urine Glucose (UA) Urine Ketones Urine Blood Urine Nitrite Ur Leukocyte Esterase COVID-19 (JF) Positive A COVID-19 Clin Com See Note Influenza Type A (ANANDA) Influenza Type B (ANANDA) Influenza A & B Note 07/09/22 07/09/22 07/09/22 05:31 07:57 09:06 MCV MCH MCHC RDW Plt Count MPV Immature Gran % (Auto) Neut % (Auto) Lymph % (Auto) [place] % (Auto) Eos % (Auto) Baso % (Auto) Lymph # (Auto) [place] # (Auto) Eos # (Auto) Baso # (Auto) Abs Immat Gran (auto) Absolute Neuts (auto) Absolute Nucleated RBC Nucleated RBC % (auto) Neutrophils % (Manual) Band Neutrophils % Lymphocytes % (Manual) Monocytes % (Manual) Abs Neuts (Manual) Lymphocytes # (Manual) Monocytes # (Manual) Platelet Estimate Plt Morphology Comment RBC Morphology PT INR Anion Gap Estim Creat Clear Calc Estimated GFR Random Glucose Lactic Acid Calcium Magnesium Total Bilirubin AST ALT Alkaline Phosphatase Total Creatine Kinase Troponin I High Sens 9.0 10.1 Total Protein Albumin Urine Color Yellow Urine Appearance Clear Urine pH 5.5 Ur Specific [place] 1.015 Urine Protein Negative Urine Glucose (UA) Negative Urine Ketones Negative Urine Blood Negative Urine Nitrite Negative Ur Leukocyte Esterase Negative COVID-19 (JF) COVID-19 Clin Com Influenza Type A (ANANDA) Influenza Type B (ANANDA) Influenza A & B Note Imaging Radiologist's Impressions: Impressions Cervical Spine CT 07/09/22 04:57 IMPRESSION: * No acute intracranial findings. * No acute fracture or malalignment of the cervical spine. Head CT 07/09/22 04:57 IMPRESSION: * No acute intracranial findings. * No acute fracture or malalignment of the cervical spine. Chest X-Ray 07/09/22 08:21 IMPRESSION: No acute pulmonary pathology. Assessment and Plan (1) Syncope, vasovagal: Status: Acute (2) Lab test positive for detection of COVID-19 virus: Status: Acute (3) Acute diarrhea: Status: Acute (4) Moderate dehydration: Status: Acute Plan 86-year-old male with history of paroxysmal atrial fibrillation anticoagulated with Eliquis, ischemic cardiomyopathy, AICD in place, hypertension, hyperlipidemia, coronary artery disease to be observed for vasovagal syncope. #Vasovagal syncope- secondary to dehydration/diarrhea - Orthostatics pending - EKG without significant arrhythmia, troponin negative. No significant anemia. Renal function and electrolytes unremarkable - continue IVF - observe on telemetry # acute diarrhea- ? Related to viral syndrome from COVID-19 versus infectious versus antibiotic related -Treated with multiple courses doxycycline over the last 3 months for foot infection, last completed 10 day course of doxycycline on 06/17 -stool studies pending -continue IVF for dehydration. Renal function and electrolyte levels normal except CO2 of 20 -follow BMP # COVID-19 -No hypoxia. Hold on remdesivir at this time due to mild symptoms. Decadron not indicated -Symptomatic management -PT eval # paroxysmal atrial fibrillation-rate controlled -continue carvedilol, Eliquis # CAD/ischemic cardiomyopathy -no anginal chest pain, troponin negative x2 -continue carvedilol, atorvastatin # hypertension-BP soft -continue carvedilol. Hold lisinopril for now, resume on discharge DVT prophylaxis-Eliquis Full code Time Spent With Patient Time: Total time managing care of this patient today ____ minutes. Quality Stroke Does the patient have a stroke diagnosis?: No VTE Prior VTE?: No VTE Risk Level:: Medical - moderate - high VTE Device Contraindication: Treatment Not Indicated VTE Drug Contraindication: N/A - Med Ordered
[2022-07-09] MEDS: carvediloL 6.25 MG TABLET PO ×2 (11:23→21:17)
[2022-07-09] MEDS: Atorvastatin Calcium 10 MG TABLET PO (11:23)
[2022-07-09] MEDS: Apixaban 5 MG TABLET PO ×2 (11:23→21:17)
[2022-07-09] MEDS: Throat Lozenge, Medicated LOZENGE 1 LOZENGE MUCOUS MEM (11:26)
[2022-07-09] MEDS: Zolpidem Tartrate 5 MG TABLET PO (21:17)
[2022-07-09] MEDS: Acetaminophen 325 MG TABLET 650 MG PO (21:21)
[2022-07-09] MEDS: guaiFENesin 200 MG/10 ML 10 ML LIQUID PO (21:21)
[2022-07-10] MEDS: guaiFENesin 200 MG/10 ML 10 ML LIQUID PO ×3 (02:11→18:41)
[2022-07-10 03:50] VITALS: BP 145/69; PULSE 80; RESP 18; TEMP 37.3; O2SAT 98
[2022-07-10 06:45] LABS: Alanine Aminotransferase 12 U/L (0-40); Albumin Level 3.5 g/dL (3.5-5.0); Alkaline Phosphatase 71 U/L (39-117); Anion Gap 12 (12-20); Aspartate Amino Transferase 27 U/L (5-37); Bilirubin Total 0.3 mg/dL (0.0-1.0); Blood Urea Nitrogen 18 mg/dL (9-16); Calcium 8.2 mg/dL (8.4-10.2); Carbon Dioxide 22 mmol/L (22-29); Chloride 108 mmol/L (96-108); Creatinine Clr Calc Pharmacy 83.8; Estimated Glomerular Filt Rate > 60; Glucose Random 103 mg/dL (60-115); Potassium 4.2 mmol/L (3.3-5.1); Sodium 138 mmol/L (135-145); Total Protein 6.3 g/dL (6.5-8.0)
[2022-07-10 08:00] VITALS: BP 140/87; PULSE 78; RESP 18; TEMP 37.2; O2SAT 98
[2022-07-10] MEDS: Multivitamin TABLET 1 TAB PO (08:54)
[2022-07-10] MEDS: Atorvastatin Calcium 10 MG TABLET PO (08:54)
[2022-07-10] MEDS: lisinopriL 10 MG TABLET PO (08:54)
[2022-07-10] MEDS: Apixaban 5 MG TABLET PO ×2 (08:54→21:22)
[2022-07-10] MEDS: carvediloL 6.25 MG TABLET PO ×2 (08:54→21:22)
[2022-07-10] MEDS: Throat Lozenge, Medicated LOZENGE 1 LOZENGE MUCOUS MEM ×2 (09:13→18:41)
[2022-07-10] MEDS: 0.9 % Sodium Chloride 1,000 ML 125 ML IVCONT (09:14)
--- NOTE | 2022-07-10 10:28 | MHC.CM.PN ---
Attempted to connect w/both listed HCP and primary contact in chart. Neither answered phone, nor do either have personalized voice mail for confidential voice message. CM to re-approach at a later date/time.
--- NOTE | 2022-07-10 11:04 | P.PNIM_ITS ---
Subjective Subjective Date of Service: 07/10/22 Interval History: Seen in follow up for vasovagal syncope, COVID-19 Interval history: Denies lightheadedness, syncope, sob, chest pain. Had single episode watery stool last night. Tolerating PO. Complains of cough, sore throat, nasal congestion Review of Systems Review of Systems: Yes all other systems are reviewed and are negative Physical Exam Vital Signs: Vital Signs: Last Vital Signs Temp 98.9 F 07/10/22 08:00 Pulse 78 07/10/22 08:00 Resp 18 07/10/22 08:00 BP 140/87 H 07/10/22 08:00 Pulse Ox 98 07/10/22 08:00 O2 Del Method 07/10/22 08:00 BMI result Body Mass Index 24.0 Constitutional - Awake and Alert, No apparent distress Eyes - PERRLA, EOMI Cardiovascular - S1S2, RRR, No edema Respiratory - Normal lung expansion, Normal respiratory effort, No respiratory distress, CTA bilaterally Gastrointestinal - NT / ND; +BS; No rebound or guarding Extremities - no calf tenderness bilaterally, no swelling Skin - Warm/Dry Neurological - Alert & oriented x3 Psychological - Appropriate affect Objective Data Active Medications Acetaminophen (Acetaminophen 325 Mg Tablet) 650 mg PO Q6H PRN PRN Reason: Pain, Mild (Pain Scale 1-3) Last Admin: 07/09/22 21:21 Dose: 650 mg Documented By: HAYLEE Apixaban (Apixaban 5 Mg Tablet) 5 mg PO BID [facility] Last Admin: 07/10/22 08:54 Dose: 5 mg Documented By: CORI Atorvastatin Calcium (Atorvastatin Calcium 10 Mg Tablet) 10 mg PO DAILY [facility] Last Admin: 07/10/22 08:54 Dose: 10 mg Documented By: CORI Benzocaine (Throat Lozenge, Medicated Lozenge) 1 lozenge MUCOUS MEM Q2H PRN PRN Reason: Sore Throat Last Admin: 07/10/22 09:13 Dose: 1 lozenge Documented By: CORI Carvedilol (Carvedilol 6.25 Mg Tablet) 6.25 mg PO BID [facility]; Protocol Last Admin: 07/10/22 08:54 Dose: 6.25 mg Documented By: CORI Guaifenesin (Guaifenesin 200 Mg/10 Ml 10 Ml Liquid) 10 ml PO Q4H PRN PRN Reason: Cough Last Admin: 07/10/22 09:13 Dose: 10 ml Documented By: CORI Sodium Chloride (Ns) 1,000 mls @ 80 mls/hr IVCONT .[id number] [facility] Last Admin: 07/10/22 09:14 Dose: 125 mls/hr Documented By: CORI Lisinopril (Lisinopril 10 Mg Tablet) 10 mg PO DAILY [facility]; Protocol Last Admin: 07/10/22 08:54 Dose: 10 mg Documented By: CORI Multivitamins/Vitamin C (Multivitamin Tablet) 1 tab PO DAILY [facility] Last Admin: 07/10/22 08:54 Dose: 1 tab Documented By: CORI Nystatin (Nystatin Cream 15 Gm Tube) 1 appl TOPICAL BID PRN; Protocol PRN Reason: Rash Ondansetron HCl (Ondansetron Hcl 4 Mg/2 Ml Vial) 4 mg IVPUSH Q8H PRN PRN Reason: Nausea and Vomiting Pharmacy Consult (Consult Rx Perform Med Rec) 1 each MISCELLANE ONCE PRN PRN Reason: Consult order Pharmacy Consult (Consult Rx Perform Med Rec) 1 each MISCELLANE ONCE PRN PRN Reason: Consult order Sodium Chloride (0.9 % Sodium Chloride Flush 3 Ml Syringe) 3 ml IVFLUSH QSHIFT [facility] Last Admin: 07/10/22 08:55 Dose: Not Given Documented By: CORI Non-Admin Reason: IV Running Zolpidem Tartrate (Zolpidem Tartrate 5 Mg Tablet) 5 mg PO BEDTIME [facility] Last Admin: 07/09/22 21:17 Dose: 5 mg Documented By: HAYLEE Labs 07/09/22 05:31 07/10/22 06:04 Labs: Laboratory Results - last 24 hr 07/10/22 06:04 Anion Gap 12 Estim Creat Clear Calc 83.8 Estimated GFR > 60 Random Glucose 103 Calcium 8.2 L Total Bilirubin 0.3 AST 27 ALT 12 Alkaline Phosphatase 71 Total Protein 6.3 L Albumin 3.5 Microbiology Microbiology Results: Microbiology 07/09/22 06:48 Blood Culture - Preliminary Blood - Venous No growth after 24 hours. 07/09/22 06:48 Blood Culture - Preliminary Blood - Venous No growth after 24 hours. Assessment and Plan (1) Syncope, vasovagal: Status: Acute (2) Acute diarrhea: Status: Acute (3) Lab test positive for detection of COVID-19 virus: Status: Acute Plan 86-year-old male with history of paroxysmal atrial fibrillation anticoagulated with Eliquis, ischemic cardiomyopathy, AICD in place, hypertension, hyperlipidemia, coronary artery disease to be observed for vasovagal syncope. #Vasovagal syncope- secondary to dehydration/diarrhea - Orthostatics negative - continue IVF - observe on telemetry- no arrhythmia noted # acute diarrhea- ?? Related to viral syndrome from COVID-19 versus infectious versus antibiotic related -Treated with multiple courses doxycycline over the last 3 months for foot infection, last completed 10 day course of doxycycline on 06/17 -stool studies pending -Renal function/lytes normal. Tolerating PO. DC IVF # COVID-19 -No hypoxia. Hold on remdesivir at this time due to mild symptoms. Decadron not indicated -Symptomatic management -PT eval # paroxysmal atrial fibrillation-rate controlled -continue carvedilol, Eliquis # CAD/ischemic cardiomyopathy -no anginal chest pain, troponin negative x2 -continue carvedilol, atorvastatin # hypertension-BP soft -continue home meds DVT prophylaxis- lovenox Full code Plan to dc later today likely pending stool studies. Will be home with services per PT Time Spent With Patient Time: Total time managing care of this patient today 25 minutes. Quality Stroke Does the patient have a stroke diagnosis?: No VTE Prior VTE?: No VTE Risk Level:: Medical - moderate - high VTE Device Contraindication: Treatment Not Indicated VTE Drug Contraindication: N/A - Med Ordered
[2022-07-10 12:00] VITALS: BP 120/70; PULSE 80; RESP 18; TEMP 37.1; O2SAT 98
[2022-07-10 16:00] VITALS: BP 129/69; PULSE 73; RESP 18; TEMP 36.9; O2SAT 98
--- NOTE | 2022-07-10 17:57 | PC.NURSE ---
pt was displaying high levels of anxiety around the bed alarm. Aftyer some discussion, it was agreed that the pt is refusing the alarm, but will ring appropriately
[2022-07-10 18:38] VITALS: TEMP 36.3
[2022-07-10 20:00] VITALS: BP 129/60; PULSE 77; RESP 20; TEMP 38.1; O2SAT 97
[2022-07-10] MEDS: Acetaminophen 325 MG TABLET 650 MG PO (21:22)
[2022-07-10] MEDS: Zolpidem Tartrate 5 MG TABLET PO (21:22)
[2022-07-11] VITALS (8 sets, daily range): BP systolic 110–155; BP diastolic 51–73; PULSE 61–80; RESP 20; TEMP 36.3–37.3; O2SAT 94–98
[2022-07-11] MEDS: 0.9 % Sodium Chloride Flush 3 ML SYRINGE IVFLUSH ×4 (00:18→21:37)
[2022-07-11 07:52] LABS: Glucose, Whole Blood 108 mg/dL (60-115)
[2022-07-11] MEDS: lisinopriL 10 MG TABLET PO (08:24)
[2022-07-11] MEDS: Apixaban 5 MG TABLET PO ×2 (08:24→21:37)
[2022-07-11] MEDS: carvediloL 6.25 MG TABLET PO ×2 (08:24→21:37)
[2022-07-11] MEDS: Fluticasone Propionate Nasal 16 GM SPRAY 1 SPRAY NOSTRIL-B (08:24)
[2022-07-11] MEDS: Multivitamin TABLET 1 TAB PO (08:24)
[2022-07-11] MEDS: Atorvastatin Calcium 10 MG TABLET PO (08:24)
--- NOTE | 2022-07-11 09:10 | MHC.CM.PN ---
Patient is Covid positive and not reachable by phone at room Extension 5[address]; CM spoke with Primary Contact/Niece/Nena @ [phone] and addressed GREWAL with her (original to be mailed to Nena and a copy to be placed on the chart). Patient lives alone in an apartment and PT is recommending home with services. CM has initiated and will follow for dc planning. PCP is Dr. Jan Deng.
--- NOTE | 2022-07-11 09:13 | MHC.CM.PN ---
CORRECTION! PATIENT IS HERE UNDER OBSERVATION, NOT INPATIENT.
--- NOTE | 2022-07-11 14:46 | MHC.CM.PN ---
PT is now recommending STR; CM will follow.
--- NOTE | 2022-07-11 15:10 | HO.PM.IMPN ---
Subjective Subjective Date of Service: 07/11/22 Interval History: Seen in follow up for COVID-19, vasovagal syncope Interval history: reports feeling unwell with chills, febrile to 100.6 last night. Has cough, sore throat, headache. Now feeling weak and unsteady on his feet. Review of Systems Review of Systems: Yes all other systems are reviewed and are negative Physical Exam Vital Signs: Vital Signs: Last Vital Signs Temp 97.8 F 07/11/22 11:41 Pulse 61 07/11/22 13:45 Resp 20 07/11/22 11:41 BP 129/67 07/11/22 13:45 Pulse Ox 97 07/11/22 13:45 O2 Del Method 07/11/22 11:41 BMI result Body Mass Index 24.0 Constitutional - Awake and Alert, No apparent distress Eyes - PERRLA, EOMI Cardiovascular - S1S2, RRR, No edema Respiratory - Normal lung expansion, Normal respiratory effort, No respiratory distress, CTA bilaterally Gastrointestinal - NT / ND; +BS; No rebound or guarding Extremities - no calf tenderness bilaterally, no swelling Skin - Warm/Dry Neurological - Alert & oriented x3 Psychological - Appropriate affect Objective Data Active Medications Acetaminophen (Acetaminophen 325 Mg Tablet) 650 mg PO Q6H PRN PRN Reason: Pain, Mild (Pain Scale 1-3) Last Admin: 07/10/22 21:22 Dose: 650 mg Documented By: USMAN Apixaban (Apixaban 5 Mg Tablet) 5 mg PO BID [facility] Last Admin: 07/11/22 08:24 Dose: 5 mg Documented By: ANIL Atorvastatin Calcium (Atorvastatin Calcium 10 Mg Tablet) 10 mg PO DAILY [facility] Last Admin: 07/11/22 08:24 Dose: 10 mg Documented By: ANIL Benzocaine (Throat Lozenge, Medicated Lozenge) 1 lozenge MUCOUS MEM Q2H PRN PRN Reason: Sore Throat Last Admin: 07/10/22 18:41 Dose: 1 lozenge Documented By: CORI Carvedilol (Carvedilol 6.25 Mg Tablet) 6.25 mg PO BID [facility]; Protocol Last Admin: 07/11/22 08:24 Dose: 6.25 mg Documented By: ANIL Fluticasone Propionate (Fluticasone Propionate Nasal 16 Gm [place]) 1 spray NOSTRIL-B DAILY [facility] Last Admin: 07/11/22 08:24 Dose: 1 spray Documented By: ANIL Guaifenesin (Guaifenesin 200 Mg/10 Ml 10 Ml Liquid) 10 ml PO Q4H PRN PRN Reason: Cough Last Admin: 07/10/22 18:41 Dose: 10 ml Documented By: SOLMAYEPE Lisinopril (Lisinopril 10 Mg Tablet) 10 mg PO DAILY [facility]; Protocol Last Admin: 07/11/22 08:24 Dose: 10 mg Documented By: ANIL Multivitamins/Vitamin C (Multivitamin Tablet) 1 tab PO DAILY [facility] Last Admin: 07/11/22 08:24 Dose: 1 tab Documented By: ANIL Nystatin (Nystatin Cream 15 Gm Tube) 1 appl TOPICAL BID PRN; Protocol PRN Reason: Rash Ondansetron HCl (Ondansetron Hcl 4 Mg/2 Ml Vial) 4 mg IVPUSH Q8H PRN PRN Reason: Nausea and Vomiting Pharmacy Consult (Consult Rx Perform Med Rec) 1 each MISCELLANE ONCE PRN PRN Reason: Consult order Pharmacy Consult (Consult Rx Perform Med Rec) 1 each MISCELLANE ONCE PRN PRN Reason: Consult order Sodium Chloride (0.9 % Sodium Chloride Flush 3 Ml Syringe) 3 ml IVFLUSH QSHIFT [facility] Last Admin: 07/11/22 08:25 Dose: 3 ml Documented By: ANIL Zolpidem Tartrate (Zolpidem Tartrate 5 Mg Tablet) 5 mg PO BEDTIME [facility] Last Admin: 07/10/22 21:22 Dose: 5 mg Documented By: USMAN Labs 07/09/22 05:31 07/10/22 06:04 Labs: Laboratory Results - last 24 hr 07/11/22 07:24 POC Glucose 108 Microbiology Microbiology Results: Microbiology 07/09/22 06:48 Blood Culture - Preliminary Blood - Venous No growth after 48 hours. 07/09/22 06:48 Blood Culture - Preliminary Blood - Venous No growth after 48 hours. Assessment and Plan (1) Syncope, vasovagal: Status: Acute (2) Acute diarrhea: Status: Acute (3) Lab test positive for detection of COVID-19 virus: Status: Acute Plan 86-year-old male with history of paroxysmal atrial fibrillation anticoagulated with Eliquis, ischemic cardiomyopathy, AICD in place, hypertension, hyperlipidemia, coronary artery disease to be observed for vasovagal syncope. #Vasovagal syncope- secondary to dehydration/diarrhea - Orthostatics negative. No recurrent episodes - continue IVF - observe on telemetry- no arrhythmia noted # acute diarrhea- resolved. Likely r/t COVID-19 -Treated with multiple courses doxycycline over the last 3 months for foot infection, last completed 10 day course of doxycycline on 06/17 -stool studies discontinued due to no BM x 24 hours -Renal function/lytes normal. Tolerating PO. # COVID-19 -No hypoxia. Hold on remdesivir at this time due to mild symptoms. Decadron not indicated -Symptomatic management -PT eval recommending STR # paroxysmal atrial fibrillation-rate controlled -continue carvedilol, Eliquis # CAD/ischemic cardiomyopathy -no anginal chest pain, troponin negative x2 -continue carvedilol, atorvastatin # hypertension-BP soft -continue home meds DVT prophylaxis- lovenox Full code Pt requires inpt stay at least 2 midnights for management of COVID-19 associated weakness pending placement to STR Time Spent With Patient Time: Total time managing care of this patient today 25 minutes. Quality Stroke Does the patient have a stroke diagnosis?: No VTE Prior VTE?: No VTE Risk Level:: Medical - moderate - high VTE Device Contraindication: Treatment Not Indicated VTE Drug Contraindication: N/A - Med Ordered
[2022-07-11] MEDS: Zolpidem Tartrate 5 MG TABLET PO (21:37)
[2022-07-11] MEDS: Acetaminophen 325 MG TABLET 650 MG PO (21:44)
[2022-07-11] MEDS: guaiFENesin 200 MG/10 ML 10 ML LIQUID PO (21:44)
[2022-07-12] MEDS: Throat Lozenge, Medicated LOZENGE 1 LOZENGE MUCOUS MEM ×2 (01:19→05:40)
[2022-07-12 03:33] VITALS: BP 138/65; PULSE 60; RESP 18; TEMP 37.1; O2SAT 97
[2022-07-12] MEDS: Acetaminophen 325 MG TABLET 650 MG PO ×2 (05:40→21:37)
[2022-07-12] MEDS: guaiFENesin 200 MG/10 ML 10 ML LIQUID PO ×2 (05:40→21:37)
[2022-07-12 07:56] VITALS: BP 146/74; PULSE 62; RESP 16; TEMP 36.2; O2SAT 98
[2022-07-12] MEDS: Atorvastatin Calcium 10 MG TABLET PO (10:21)
[2022-07-12] MEDS: lisinopriL 10 MG TABLET PO (10:21)
[2022-07-12] MEDS: carvediloL 6.25 MG TABLET PO ×2 (10:21→21:37)
[2022-07-12] MEDS: 0.9 % Sodium Chloride Flush 3 ML SYRINGE IVFLUSH ×2 (10:22→21:38)
[2022-07-12] MEDS: Multivitamin TABLET 1 TAB PO (10:22)
[2022-07-12] MEDS: Apixaban 5 MG TABLET PO ×2 (10:22→21:37)
[2022-07-12 11:41] VITALS: BP 133/76; PULSE 67; RESP 16; TEMP 36.5; O2SAT 97
--- NOTE | 2022-07-12 12:57 | MHC.CM.PN ---
PT is recommending STR. CM met with Patient at bedside to discuss dc planning. Patient is working with the Manager [employer] of his apartment complex to make arrangements for the feces to be cleaned up in his apartment. Patient is willing to go to STR and broad snf search referrals have been updated. No bed offers at this time. CM will follow. CM has updated [employer]/Claudia.
--- NOTE | 2022-07-12 14:09 | MHC.CM.PN ---
CM attempted to return a call to Patient at EXT [phone] but Patient did not answer the phone; CM will try again if time allows.
--- NOTE | 2022-07-12 14:34 | P.PNIM_ITS ---
Subjective Subjective Date of Service: 07/12/22 Interval History: Seen in follow up for COVID-19, vasovagal syncope Review of Systems Review of Systems: Yes all other systems are reviewed and are negative Physical Exam Vital Signs: Vital Signs: Last Vital Signs Temp 97.7 F 07/12/22 11:41 Pulse 67 07/12/22 11:41 Resp 16 07/12/22 11:41 BP 133/76 07/12/22 11:41 Pulse Ox 97 07/12/22 11:41 O2 Del Method 07/12/22 11:41 BMI result Body Mass Index 24.0 Appearing in no acute distress lung sounds are clear to auscultation heart regular rate rhythm, clear S1, S2 positive bowel sounds, abdomen is soft, nontender neuro patient is alert x3, no focal deficits Objective Data Active Medications Acetaminophen (Acetaminophen 325 Mg Tablet) 650 mg PO Q6H PRN PRN Reason: Pain, Mild (Pain Scale 1-3) Last Admin: 07/12/22 05:40 Dose: 650 mg Documented By: SHAUN Apixaban (Apixaban 5 Mg Tablet) 5 mg PO BID [facility] Last Admin: 07/12/22 10:22 Dose: 5 mg Documented By: VAMSI Atorvastatin Calcium (Atorvastatin Calcium 10 Mg Tablet) 10 mg PO DAILY [facility] Last Admin: 07/12/22 10:21 Dose: 10 mg Documented By: VAMSI Benzocaine (Throat Lozenge, Medicated Lozenge) 1 lozenge MUCOUS MEM Q2H PRN PRN Reason: Sore Throat Last Admin: 07/12/22 05:40 Dose: 1 lozenge Documented By: SHAUN Carvedilol (Carvedilol 6.25 Mg Tablet) 6.25 mg PO BID [facility]; Protocol Last Admin: 07/12/22 10:21 Dose: 6.25 mg Documented By: VAMSI Fluticasone Propionate (Fluticasone Propionate Nasal 16 Gm [place]) 1 spray NOSTRIL-B DAILY [facility] Last Admin: 07/12/22 10:23 Dose: Not Given Documented By: VAMSI Non-Admin Reason: na Guaifenesin (Guaifenesin 200 Mg/10 Ml 10 Ml Liquid) 10 ml PO Q4H PRN PRN Reason: Cough Last Admin: 07/12/22 05:40 Dose: 10 ml Documented By: SHAUN Lisinopril (Lisinopril 10 Mg Tablet) 10 mg PO DAILY [facility]; Protocol Last Admin: 07/12/22 10:21 Dose: 10 mg Documented By: VAMSI Multivitamins/Vitamin C (Multivitamin Tablet) 1 tab PO DAILY [facility] Last Admin: 07/12/22 10:22 Dose: 1 tab Documented By: VAMSI Nystatin (Nystatin Cream 15 Gm Tube) 1 appl TOPICAL BID PRN; Protocol PRN Reason: Rash Ondansetron HCl (Ondansetron Hcl 4 Mg/2 Ml Vial) 4 mg IVPUSH Q8H PRN PRN Reason: Nausea and Vomiting Pharmacy Consult (Consult Rx Perform Med Rec) 1 each MISCELLANE ONCE PRN PRN Reason: Consult order Pharmacy Consult (Consult Rx Perform Med Rec) 1 each MISCELLANE ONCE PRN PRN Reason: Consult order Sodium Chloride (0.9 % Sodium Chloride Flush 3 Ml Syringe) 3 ml IVFLUSH QSHIFT [facility] Last Admin: 07/12/22 10:22 Dose: 3 ml Documented By: VAMSI Zolpidem Tartrate (Zolpidem Tartrate 5 Mg Tablet) 5 mg PO BEDTIME [facility] Last Admin: 07/11/22 21:37 Dose: 5 mg Documented By: JANICEFS Labs 07/09/22 05:31 07/10/22 06:04 Assessment and Plan (1) Syncope, vasovagal: Status: Acute (2) Acute diarrhea: Status: Acute (3) Lab test positive for detection of COVID-19 virus: Status: Acute Plan 86-year-old male with history of paroxysmal atrial fibrillation anticoagulated with Eliquis, ischemic cardiomyopathy, AICD in place, hypertension, hyperlipidemia, coronary artery disease to be observed for vasovagal syncope. Vasovagal syncope- secondary to dehydration/diarrhea Orthostatics negative. No recurrent episodes Stop IVF observe on telemetry- no arrhythmia noted acute diarrhea- resolved. Likely r/t COVID-19 Treated with multiple courses doxycycline over the last 3 months for foot infection, last completed 10 day course of doxycycline on 06/17 stool studies discontinued due to no BM x 24 hours Renal function/lytes normal. Tolerating PO. COVID-19 pos 07/09/22 No hypoxia. Hold on remdesivir at this time due to mild symptoms. Decadron not indicated Symptomatic management PT eval recommending STR paroxysmal atrial fibrillation-rate controlled continue carvedilol, Eliquis CAD/ischemic cardiomyopathy no anginal chest pain, troponin negative x2 continue carvedilol, atorvastatin hypertension-BP soft continue home meds DVT prophylaxis- lovenox attending Dr. Arreguin Full code DISPO plan for dc to rehab continued hospitalization for management of COVID-19 associated weakness pending placement to STR Time Spent With Patient Time: Total time managing care of this patient today ____ minutes. Quality Stroke Does the patient have a stroke diagnosis?: No VTE Prior VTE?: No VTE Risk Level:: Medical - moderate - high VTE Device Contraindication: Treatment Not Indicated VTE Drug Contraindication: N/A - Med Ordered
[2022-07-12 15:14] VITALS: BP 139/62; PULSE 59; RESP 20; TEMP 36.3; O2SAT 96
[2022-07-12 19:08] VITALS: BP 122/60; PULSE 66; RESP 20; TEMP 36.6; O2SAT 98
[2022-07-12] MEDS: Zolpidem Tartrate 5 MG TABLET PO (21:37)
[2022-07-12 23:47] VITALS: BP 119/59; PULSE 80; RESP 20; TEMP 36.4; O2SAT 98
[2022-07-13 03:57] VITALS: BP 133/60; PULSE 73; RESP 20; TEMP 36.6; O2SAT 98
[2022-07-13 07:36] VITALS: BP 133/66; PULSE 77; RESP 12; TEMP 36.8; O2SAT 99
[2022-07-13] MEDS: Atorvastatin Calcium 10 MG TABLET PO (09:03)
[2022-07-13] MEDS: carvediloL 6.25 MG TABLET PO ×2 (09:03→20:47)
[2022-07-13] MEDS: Multivitamin TABLET 1 TAB PO (09:03)
[2022-07-13] MEDS: 0.9 % Sodium Chloride Flush 3 ML SYRINGE IVFLUSH (09:03)
[2022-07-13] MEDS: lisinopriL 10 MG TABLET PO (09:03)
[2022-07-13] MEDS: Apixaban 5 MG TABLET PO ×2 (09:03→20:47)
[2022-07-13] MEDS: Fluticasone Propionate Nasal 16 GM SPRAY 1 SPRAY NOSTRIL-B (09:04)
[2022-07-13 11:38] VITALS: BP 124/59; PULSE 75; RESP 12; TEMP 37.1; O2SAT 96
--- NOTE | 2022-07-13 11:40 | P.PNIM_ITS ---
Subjective Subjective Date of Service: 07/13/22 Interval History: Seen in follow up for COVID-19, vasovagal syncope Review of Systems Review of Systems: Yes all other systems are reviewed and are negative Physical Exam Vital Signs: Vital Signs: Last Vital Signs Temp 98.7 F 07/13/22 11:38 Pulse 75 07/13/22 11:38 Resp 12 07/13/22 11:38 BP 124/59 L 07/13/22 11:38 Pulse Ox 96 07/13/22 11:38 O2 Del Method 07/13/22 11:38 BMI result Body Mass Index 24.0 Appearing in no acute distress lung sounds are clear to auscultation heart regular rate rhythm, clear S1, S2 positive bowel sounds, abdomen is soft, nontender neuro patient is alert x3, no focal deficits Objective Data Active Medications Acetaminophen (Acetaminophen 325 Mg Tablet) 650 mg PO Q6H PRN PRN Reason: Pain, Mild (Pain Scale 1-3) Last Admin: 07/12/22 21:37 Dose: 650 mg Documented By: HAYLEE Apixaban (Apixaban 5 Mg Tablet) 5 mg PO BID [facility] Last Admin: 07/13/22 09:03 Dose: 5 mg Documented By: AGUSTO Atorvastatin Calcium (Atorvastatin Calcium 10 Mg Tablet) 10 mg PO DAILY [facility] Last Admin: 07/13/22 09:03 Dose: 10 mg Documented By: AGUSTO Benzocaine (Throat Lozenge, Medicated Lozenge) 1 lozenge MUCOUS MEM Q2H PRN PRN Reason: Sore Throat Last Admin: 07/12/22 05:40 Dose: 1 lozenge Documented By: SHAUN Carvedilol (Carvedilol 6.25 Mg Tablet) 6.25 mg PO BID [facility]; Protocol Last Admin: 07/13/22 09:03 Dose: 6.25 mg Documented By: AGUSTO Fluticasone Propionate (Fluticasone Propionate Nasal 16 Gm [place]) 1 spray NOSTRIL-B DAILY [facility] Last Admin: 07/13/22 09:04 Dose: 1 spray Documented By: AGUSTO Guaifenesin (Guaifenesin 200 Mg/10 Ml 10 Ml Liquid) 10 ml PO Q4H PRN PRN Reason: Cough Last Admin: 07/12/22 21:37 Dose: 10 ml Documented By: HAYLEE Lisinopril (Lisinopril 10 Mg Tablet) 10 mg PO DAILY [facility]; Protocol Last Admin: 07/13/22 09:03 Dose: 10 mg Documented By: AGUSTO Multivitamins/Vitamin C (Multivitamin Tablet) 1 tab PO DAILY [facility] Last Admin: 07/13/22 09:03 Dose: 1 tab Documented By: AGUSTO Nystatin (Nystatin Cream 15 Gm Tube) 1 appl TOPICAL BID PRN; Protocol PRN Reason: Rash Ondansetron HCl (Ondansetron Hcl 4 Mg/2 Ml Vial) 4 mg IVPUSH Q8H PRN PRN Reason: Nausea and Vomiting Pharmacy Consult (Consult Rx Perform Med Rec) 1 each MISCELLANE ONCE PRN PRN Reason: Consult order Pharmacy Consult (Consult Rx Perform Med Rec) 1 each MISCELLANE ONCE PRN PRN Reason: Consult order Sodium Chloride (0.9 % Sodium Chloride Flush 3 Ml Syringe) 3 ml IVFLUSH QSHIFT [facility] Last Admin: 07/13/22 09:03 Dose: 3 ml Documented By: AGUSTO Zolpidem Tartrate (Zolpidem Tartrate 5 Mg Tablet) 5 mg PO BEDTIME [facility] Last Admin: 07/12/22 21:37 Dose: 5 mg Documented By: HAYLEE Labs 07/09/22 05:31 07/10/22 06:04 Assessment and Plan (1) Syncope, vasovagal: Status: Acute (2) Acute diarrhea: Status: Acute (3) Lab test positive for detection of COVID-19 virus: Status: Acute Plan 86-year-old male with history of paroxysmal atrial fibrillation anticoagulated with Eliquis, ischemic cardiomyopathy, AICD in place, hypertension, hyperlipidemia, coronary artery disease to be observed for vasovagal syncope. Vasovagal syncope- secondary to dehydration/diarrhea. no further episodes Orthostatics negative. No recurrent episodes no arrhythmia noted on telemetry acute diarrhea Likely r/t COVID-19 Treated with multiple courses doxycycline over the last 3 months for foot infection, last completed 10 day course of doxycycline on 06/17 Renal function/lytes normal. Tolerating PO. check cdiff and stool studies COVID-19 pos 07/09/22, covid recovered 07/20/22 No hypoxia. Hold on remdesivir at this time due to mild symptoms. Decadron not indicated Symptomatic management PT eval recommending STR paroxysmal atrial fibrillation-rate controlled continue carvedilol, Eliquis CAD/ischemic cardiomyopathy no anginal chest pain, troponin negative x2 continue carvedilol, atorvastatin hypertension-BP soft continue home meds DVT prophylaxis- [place] attending Dr. Arreguin Full code DISPO plan for dc to rehab continued hospitalization for management of COVID-19 associated weakness pending placement to STR Time Spent With Patient Time: Total time managing care of this patient today ____ minutes. Quality Stroke Does the patient have a stroke diagnosis?: No VTE Prior VTE?: No VTE Risk Level:: Medical - moderate - high VTE Device Contraindication: Treatment Not Indicated VTE Drug Contraindication: N/A - Med Ordered
[2022-07-13 15:38] VITALS: BP 102/52; PULSE 72; RESP 15; TEMP 36.8; O2SAT 97
[2022-07-13] MEDS: Acetaminophen 325 MG TABLET 650 MG PO (15:55)
[2022-07-13] MEDS: guaiFENesin 200 MG/10 ML 10 ML LIQUID PO (15:55)
[2022-07-13 19:36] VITALS: BP 120/57; PULSE 64; RESP 17; TEMP 37; O2SAT 97
[2022-07-13] MEDS: Zolpidem Tartrate 5 MG TABLET PO (20:47)
[2022-07-14] VITALS (7 sets, daily range): BP systolic 104–140; BP diastolic 57–98; PULSE 66–74; RESP 16–20; TEMP 36.8–37; O2SAT 95–98
[2022-07-14 01:54] LABS: CDiff Gene PCR NEGATIVE (Negative)
[2022-07-14 09:49] LABS: Campylobacter Not Detected (Not Detect.)
[2022-07-14 09:50] LABS: Adenovirus F 40/41 Not Detected (Not Detect.); Astrovirus Not Detected (Not Detect.); Cryptosporidium Not Detected (Not Detect.); Cyclospora cayetanensis Not Detected (Not Detect.); E. coli EAEC Not Detected (Not Detect.); E. coli EPEC Not Detected (Not Detect.); E. coli ETEC Not Detected (Not Detect.); E. coli STEC Not Detected (Not Detect.); Entamoeba histolytica Not Detected (Not Detect.); Giardia lamblia Not Detected (Not Detect.); Plesiomonas shigelloides Not Detected (Not Detect.); Rotavirus A Not Detected (Not Detect.); Salmonella Not Detected (Not Detect.); Sapovirus Not Detected (Not Detect.); Shigella sp./EIEC Not Detected (Not Detect.); Vibrio Not Detected (Not Detect.); Vibrio Cholerae Not Detected (Not Detect.); Yersinia enterocolitica Not Detected (Not Detect.)
[2022-07-14] MEDS: Fluticasone Propionate Nasal 16 GM SPRAY 1 SPRAY NOSTRIL-B (09:53)
[2022-07-14] MEDS: lisinopriL 10 MG TABLET PO (09:53)
[2022-07-14] MEDS: Multivitamin TABLET 1 TAB PO (09:53)
[2022-07-14] MEDS: Atorvastatin Calcium 10 MG TABLET PO (09:53)
[2022-07-14] MEDS: carvediloL 6.25 MG TABLET PO ×2 (09:53→21:30)
[2022-07-14] MEDS: 0.9 % Sodium Chloride Flush 3 ML SYRINGE IVFLUSH (09:53)
[2022-07-14] MEDS: Apixaban 5 MG TABLET PO ×2 (09:53→21:30)
--- NOTE | 2022-07-14 09:55 | MHC.IC ---
Notified by lab, patient positive for Norovirus, has been on Contact isolation, strict adherence to gowns and gloves, hands must be washed with soap and water, patient equipment and surfaces should be cleaned with bleach.
[2022-07-14 10:03] LABS: Norovirus GI/GII Detected (Not Detect.)
--- NOTE | 2022-07-14 10:53 | MHC.IC ---
Patient is NOROVIRUS positive. Please use meticulous hand washing with soap and water after all contact and use BLEACH when sanitizing surfaces/equipment.
[2022-07-14 13:22] LABS: COVID-19 Test Positive (Negative); IDNOW Serial# BCCEAD1C
--- NOTE | 2022-07-14 14:16 | HO.PM.IMPN ---
Subjective Subjective Date of Service: 07/14/22 Interval History: seen and examined this morning Follow-up for COVID-19, diarrhea, syncope no further syncopal events. Patient denies shortness of breath, does report ongoing cough Reports persistent diarrhea we seems to be occurring 1-2 times daily. Denies associated abdominal pain, nausea, vomiting GI panel returned + for norovirus Review of Systems Review of Systems: Yes all other systems are reviewed and are negative Constitutional Constitutional: Denies chills and Denies fever(s) ENT Ears, Nose, Mouth, and Throat: Denies dizziness Cardiovascular Cardiovascular: Denies chest pain, Denies palpitations and Denies dyspnea Respiratory Respiratory: Reports cough and Denies dyspnea Gastrointestinal Gastrointestinal: Denies abdominal pain, Reports diarrhea, Denies nausea and Denies vomiting Neurologic Neurologic: Denies dizziness Endocrine Endocrine: Denies palpitations Physical Exam Vital Signs: Vital Signs: Last Vital Signs Temp 98.3 F 07/14/22 11:26 Pulse 67 07/14/22 11:26 Resp 20 07/14/22 11:26 BP 123/58 L 07/14/22 11:26 Pulse Ox 97 07/14/22 11:26 O2 Del Method 07/14/22 11:26 BMI result Body Mass Index 24.0 Const: General: cooperative, comfortable, no acute distress, alert and awake Nutritional Appearance: average body habitus Orientation/consciousness: patient oriented x3 Resp: Effort & Inspection: normal respiratory effort and able to speak in complete sentences Cardio: Rate: regular rate Heart sounds: S1 normal heart sound present and S2 normal heart sound present GI: Inspection: No distended Palpation (GI): Soft to palpation and nontender Neuro: General: patient oriented x3 and CN's II-XI intact bilaterally Extrem: General: Yes no pedal edema Objective Data Active Medications Acetaminophen (Acetaminophen 325 Mg Tablet) 650 mg PO Q6H PRN PRN Reason: Pain, Mild (Pain Scale 1-3) Last Admin: 07/13/22 15:55 Dose: 650 mg Documented By: AGUSTO Apixaban (Apixaban 5 Mg Tablet) 5 mg PO BID [facility] Last Admin: 07/14/22 09:53 Dose: 5 mg Documented By: AGUSTO Artificial Tears (Artificial Tears 15 Ml Drops) 2 drop EYE-BOTH Q4H PRN PRN Reason: Dry Eyes Atorvastatin Calcium (Atorvastatin Calcium 10 Mg Tablet) 10 mg PO DAILY [facility] Last Admin: 07/14/22 09:53 Dose: 10 mg Documented By: AGUSTO Benzocaine (Throat Lozenge, Medicated Lozenge) 1 lozenge MUCOUS MEM Q2H PRN PRN Reason: Sore Throat Last Admin: 07/12/22 05:40 Dose: 1 lozenge Documented By: SHAUN Carvedilol (Carvedilol 6.25 Mg Tablet) 6.25 mg PO BID [facility]; Protocol Last Admin: 07/14/22 09:53 Dose: 6.25 mg Documented By: AGUSTO Fluticasone Propionate (Fluticasone Propionate Nasal 16 Gm [place]) 1 spray NOSTRIL-B DAILY [facility] Last Admin: 07/14/22 09:53 Dose: 1 spray Documented By: AGUSTO Guaifenesin (Guaifenesin 200 Mg/10 Ml 10 Ml Liquid) 10 ml PO Q4H PRN PRN Reason: Cough Last Admin: 07/13/22 15:55 Dose: 10 ml Documented By: AGUSTO Lisinopril (Lisinopril 10 Mg Tablet) 10 mg PO DAILY [facility]; Protocol Last Admin: 07/14/22 09:53 Dose: 10 mg Documented By: AGUSTO Multivitamins/Vitamin C (Multivitamin Tablet) 1 tab PO DAILY [facility] Last Admin: 07/14/22 09:53 Dose: 1 tab Documented By: AGUSTO Nystatin (Nystatin Cream 15 Gm Tube) 1 appl TOPICAL BID PRN; Protocol PRN Reason: Rash Ondansetron HCl (Ondansetron Hcl 4 Mg/2 Ml Vial) 4 mg IVPUSH Q8H PRN PRN Reason: Nausea and Vomiting Pharmacy Consult (Consult Rx Perform Med Rec) 1 each MISCELLANE ONCE PRN PRN Reason: Consult order Pharmacy Consult (Consult Rx Perform Med Rec) 1 each MISCELLANE ONCE PRN PRN Reason: Consult order Sodium Chloride (0.9 % Sodium Chloride Flush 3 Ml Syringe) 3 ml IVFLUSH QSHIFT [facility] Last Admin: 07/14/22 13:59 Dose: Not Given Documented By: YESENIA-MARISELA Non-Admin Reason: No Access Zolpidem Tartrate (Zolpidem Tartrate 5 Mg Tablet) 5 mg PO BEDTIME [facility] Last Admin: 07/13/22 20:47 Dose: 5 mg Documented By: HARINDER Labs 07/09/22 05:31 07/10/22 06:04 Labs: Laboratory Results - last 24 hr 07/14/22 07/14/22 07/14/22 00:53 00:53 12:35 Stl C. cayetanensis PCR Not Detected Stool Rotavirus A PCR Not Detected Stl Adenov F 40/41 PCR Not Detected Stool Astrovirus (PCR) Not Detected Stool Campylobacter PCR Not Detected Stool Cryptosporidium PCR Not Detected Stl Sh Tox Pr E STEC PCR Not Detected Stool E coli O157 PCR Not applicable Stl Enterotoxigenic E PCR Not Detected Stool EPEC (PCR) Not Detected Stool EAEC (PCR) Not Detected Stl E. histolytica PCR Not Detected Stool Giardia Lamblia PCR Not Detected Stl P. shigelloides PCR Not Detected Stool Salmonella PCR Not Detected Stool Sapovirus (PCR) Not Detected Stl Shigella/EIEC PCR Not Detected St Y.enterocolitica PCR Not Detected Stool Vibrio (PCR) Not Detected Stl Vibrio cholerae PCR Not Detected Stl Norovirus GI/GII PCR Detected A C. difficile Tox B Gene NEGATIVE COVID-19 (JF) Positive A COVID-19 Clin Com See Note Microbiology Microbiology Results: Microbiology 07/09/22 06:48 Blood Culture - Final Blood - Venous No growth after 5 days. 07/09/22 06:48 Blood Culture - Final Blood - Venous No growth after 5 days. Assessment and Plan (1) Lab test positive for detection of COVID-19 virus: Status: Acute (2) Syncope, vasovagal: Status: Acute (3) Acute diarrhea: Status: Acute Plan 86-year-old male with history of paroxysmal atrial fibrillation anticoagulated with Eliquis, ischemic cardiomyopathy, AICD in place, hypertension, hyperlipidemia, coronary artery disease to be observed for vasovagal syncope. Vasovagal syncope- secondary to dehydration/diarrhea. no further episodes Orthostatics negative. No recurrent episodes no arrhythmia noted on telemetry acute diarrhea r/t Norovirus cdif negative GI panel +for norovirus treat symptomatically COVID-19 pos 07/09/22, covid recovered 07/20/22 repeat covid 07/14, still + No hypoxia. Hold on remdesivir at this time due to mild symptoms. Decadron not indicated Symptomatic management paroxysmal atrial fibrillation-rate controlled continue carvedilol, Eliquis CAD/ischemic cardiomyopathy no anginal chest pain, troponin negative x2 continue carvedilol, atorvastatin hypertension- continue lisiopril DVT prophylaxis- R[facility] attending Dr. Arreguin Full code DISPO plan for dc to rehab continued hospitalization for management of COVID-19 associated weakness pending placement to STR Time Spent With Patient Time: Total time managing care of this patient today ____ minutes. Quality Stroke Does the patient have a stroke diagnosis?: No VTE Prior VTE?: No VTE Risk Level:: Medical - moderate - high VTE Device Contraindication: Treatment Not Indicated VTE Drug Contraindication: N/A - Med Ordered
--- NOTE | 2022-07-14 16:48 | MHC.CM.PN ---
DP STR Joel recovered 07/20. PT REC [facility]harat [place] [facility]. Referral have been sent locally and east. Patient will transport via BLS.
[2022-07-14] MEDS: guaiFENesin 200 MG/10 ML 10 ML LIQUID PO (21:30)
[2022-07-14] MEDS: Acetaminophen 325 MG TABLET 650 MG PO (21:30)
[2022-07-15] VITALS (7 sets, daily range): BP systolic 105–131; BP diastolic 51–78; PULSE 61–76; RESP 18; TEMP 36.3–37.2; O2SAT 94–99
[2022-07-15] MEDS: Apixaban 5 MG TABLET PO ×2 (08:57→20:20)
[2022-07-15] MEDS: Multivitamin TABLET 1 TAB PO (09:00)
[2022-07-15] MEDS: Atorvastatin Calcium 10 MG TABLET PO (09:00)
[2022-07-15] MEDS: carvediloL 6.25 MG TABLET PO ×2 (09:00→20:20)
[2022-07-15] MEDS: lisinopriL 10 MG TABLET PO (09:00)
[2022-07-15] MEDS: Acetaminophen 325 MG TABLET 650 MG PO ×2 (09:07→20:20)
[2022-07-15] MEDS: guaiFENesin 200 MG/10 ML 10 ML LIQUID PO ×2 (09:08→20:20)
--- NOTE | 2022-07-15 11:54 | P.PNIM_ITS ---
Subjective Subjective Date of Service: 07/15/22 Interval History: seen and examined this morning follow up for covid 19, norovirus no Shortness of breath, cough no abdominal pain, vomiting, still with multiple episodes of nonbloody diarrhea Review of Systems Review of Systems: Yes all other systems are reviewed and are negative Constitutional Constitutional: Denies chills and Denies fever(s) Cardiovascular Cardiovascular: Denies chest pain, Denies palpitations and Denies dyspnea Respiratory Respiratory: Denies cough and Denies dyspnea Gastrointestinal Gastrointestinal: Denies abdominal pain and Reports diarrhea Endocrine Endocrine: Denies palpitations Physical Exam Vital Signs: Vital Signs: Last Vital Signs Temp 97.4 F 07/15/22 11:53 Pulse 72 07/15/22 11:53 Resp 18 07/15/22 11:53 BP 122/78 07/15/22 11:53 Pulse Ox 97 07/15/22 11:53 O2 Del Method 07/15/22 11:53 BMI result Body Mass Index 24.0 Const: General: cooperative, comfortable, no acute distress, alert and awake Nutritional Appearance: average body habitus Orientation/consciousness: patient oriented x3 Resp: Effort & Inspection: normal respiratory effort and able to speak in complete sentences Auscultation: clear to auscultation bilaterally Cardio: Rate: regular rate Heart sounds: S1 normal heart sound present and S2 normal heart sound present GI: Inspection: No distended Palpation (GI): Soft to palpation and nontender Neuro: General: patient oriented x3 and CN's II-XI intact bilaterally Extrem: General: Yes no pedal edema Objective Data Active Medications Acetaminophen (Acetaminophen 325 Mg Tablet) 650 mg PO Q6H PRN PRN Reason: Pain, Mild (Pain Scale 1-3) Last Admin: 07/15/22 09:07 Dose: 650 mg Documented By: BERTRAND Apixaban (Apixaban 5 Mg Tablet) 5 mg PO BID [facility] Last Admin: 07/15/22 08:57 Dose: 5 mg Documented By: BERTRAND Artificial Tears (Artificial Tears 15 Ml Drops) 2 drop EYE-BOTH Q4H PRN PRN Reason: Dry Eyes Atorvastatin Calcium (Atorvastatin Calcium 10 Mg Tablet) 10 mg PO DAILY [facility] Last Admin: 07/15/22 09:00 Dose: 10 mg Documented By: BERTRAND Benzocaine (Throat Lozenge, Medicated Lozenge) 1 lozenge MUCOUS MEM Q2H PRN PRN Reason: Sore Throat Last Admin: 07/12/22 05:40 Dose: 1 lozenge Documented By: SHAUN Carvedilol (Carvedilol 6.25 Mg Tablet) 6.25 mg PO BID [facility]; Protocol Last Admin: 07/15/22 09:00 Dose: 6.25 mg Documented By: BERTRAND Fluticasone Propionate (Fluticasone Propionate Nasal 16 Gm [place]) 1 spray NOSTRIL-B DAILY [facility] Last Admin: 07/14/22 09:53 Dose: 1 spray Documented By: AGUSTO Guaifenesin (Guaifenesin 200 Mg/10 Ml 10 Ml Liquid) 10 ml PO Q4H PRN PRN Reason: Cough Last Admin: 07/15/22 09:08 Dose: 10 ml Documented By: BERTRAND Lisinopril (Lisinopril 10 Mg Tablet) 10 mg PO DAILY [facility]; Protocol Last Admin: 07/15/22 09:00 Dose: 10 mg Documented By: BERTRAND Loperamide HCl (Loperamide Hcl 2 Mg Capsule) 2 mg PO TID [facility] Multivitamins/Vitamin C (Multivitamin Tablet) 1 tab PO DAILY [facility] Last Admin: 07/15/22 09:00 Dose: 1 tab Documented By: BERTRAND Nystatin (Nystatin Cream 15 Gm Tube) 1 appl TOPICAL BID PRN; Protocol PRN Reason: Rash Ondansetron HCl (Ondansetron Hcl 4 Mg/2 Ml Vial) 4 mg IVPUSH Q8H PRN PRN Reason: Nausea and Vomiting Pharmacy Consult (Consult Rx Perform Med Rec) 1 each MISCELLANE ONCE PRN PRN Reason: Consult order Pharmacy Consult (Consult Rx Perform Med Rec) 1 each MISCELLANE ONCE PRN PRN Reason: Consult order Sodium Chloride (0.9 % Sodium Chloride Flush 3 Ml Syringe) 3 ml IVFLUSH QSHIFT [facility] Last Admin: 07/15/22 09:05 Dose: Not Given Documented By: BERTRAND Non-Admin Reason: No Access Labs 07/09/22 05:31 07/10/22 06:04 Labs: Laboratory Results - last 24 hr 07/14/22 12:35 COVID-19 (JF) Positive A COVID-19 Clin Com See Note Microbiology Microbiology Results: Microbiology 07/09/22 06:48 Blood Culture - Final Blood - Venous No growth after 5 days. 07/09/22 06:48 Blood Culture - Final Blood - Venous No growth after 5 days. Assessment and Plan (1) Acute diarrhea: Status: Acute (2) Lab test positive for detection of COVID-19 virus: Status: Acute Plan 86-year-old male with history of paroxysmal atrial fibrillation anticoagulated with Eliquis, ischemic cardiomyopathy, AICD in place, hypertension, hyperlipidemia, coronary artery disease to be observed for vasovagal syncope. Vasovagal syncope- secondary to dehydration/diarrhea. no further episodes Orthostatics negative. No recurrent episodes no arrhythmia noted on telemetry acute diarrhea GI panel +for norovirus cdif negative treat symptomatically COVID-19 pos 07/09/22, covid recovered 07/20/22 repeat covid 07/14, still + No hypoxia. no hypoxia, decadron/remdesivir not indicated Symptomatic management paroxysmal atrial fibrillation-rate controlled continue carvedilol, Eliquis CAD/ischemic cardiomyopathy no anginal chest pain, troponin negative x2 continue carvedilol, atorvastatin hypertension- continue lisiopril DVT prophylaxis- Rani attending Dr. Arreguin Full code DISPO plan for dc to rehab continued hospitalization for management of COVID-19 associated weakness pending placement to [facility] Time Spent With Patient Time: Total time managing care of this patient today ____ minutes. Quality Stroke Does the patient have a stroke diagnosis?: No VTE Prior VTE?: No VTE Risk Level:: Medical - moderate - high VTE Device Contraindication: Treatment Not Indicated VTE Drug Contraindication: N/A - Med Ordered
[2022-07-15] MEDS: Loperamide HCl 2 MG CAPSULE PO ×3 (12:01→20:20)
--- NOTE | 2022-07-15 13:28 | MHC.CM.PN ---
Per [facility], who spoke with Niece/Nena today, HCP on file that names Agent as MIRI is not the most recent HCP(apparently Miri has and Nena is the HCP now). CM spoke with Patient (Joel calvo) at room extension [phone] regarding dc planning. Patient has a SNF bed offer at [facility] but Patient expressed his preference to return home with services instead. Patient did indicate that his Friend has paid a $300 bill for the cleaning bill for his apartment that Patient will repay at some point. CM relayed Patient's desire to go home to [facility] who indicated that Patient needs to be re-evaluated by PT and his diarrhea needs to improve before he is ready to be dc'd. CM will relay this information to Patient and continue to follow.
[2022-07-15] MEDS: Artificial Tears 15 ML DROPS 2 DROP EYE-BOTH (16:18)
[2022-07-15] MEDS: Zolpidem Tartrate 5 MG TABLET PO (20:20)
[2022-07-16 03:49] VITALS: BP 134/62; PULSE 61; RESP 18; TEMP 37; O2SAT 97
[2022-07-16 06:55] LABS: Hemoglobin 11.8 g/dl (14.0-18.0); Mean Corpuscular HGB Conc 32.8 g/dl (31.0-36.0); Mean Corpuscular Hemoglobin 30.7 pg (27.0-33.0); Mean Corpuscular Volume 93.8 fL (80.0-98.0); Mean Platelet Volume 9.1 fL (9.4-12.4); Platelet Count 268 X10*3/uL (160-400); Red Blood Count 3.84 X10*6/uL (4.60-5.80); Red Cell Distribution Width 13.2 % (11.0-16.0); White Blood Count 7.3 X10*3/uL (4.8-10.8)
[2022-07-16 07:12] LABS: Anion Gap 11 (12-20); Blood Urea Nitrogen 18 mg/dL (9-16); Calcium 9.1 mg/dL (8.4-10.2); Carbon Dioxide 25 mmol/L (22-29); Chloride 108 mmol/L (96-108); Creatinine Clr Calc Pharmacy 79.6; Estimated Glomerular Filt Rate > 60; Glucose Random 88 mg/dL (60-115); Potassium 4.2 mmol/L (3.3-5.1); Sodium 140 mmol/L (135-145)
[2022-07-16 07:51] VITALS: BP 127/60; PULSE 62; RESP 20; TEMP 36.8; O2SAT 98
[2022-07-16] MEDS: 0.9 % Sodium Chloride Flush 3 ML SYRINGE IVFLUSH (08:06)
[2022-07-16] MEDS: Atorvastatin Calcium 10 MG TABLET PO (08:06)
[2022-07-16] MEDS: Apixaban 5 MG TABLET PO ×2 (08:06→20:41)
[2022-07-16] MEDS: Loperamide HCl 2 MG CAPSULE PO ×3 (08:06→20:41)
[2022-07-16] MEDS: lisinopriL 10 MG TABLET PO (08:07)
[2022-07-16] MEDS: carvediloL 6.25 MG TABLET PO ×2 (08:07→20:41)
[2022-07-16] MEDS: Multivitamin TABLET 1 TAB PO (08:08)
[2022-07-16 12:00] VITALS: BP 163/79; PULSE 80; RESP 20; TEMP 36.6; O2SAT 98
--- NOTE | 2022-07-16 13:25 | P.PNIM_ITS ---
Subjective Subjective Date of Service: 07/16/22 Interval History: seen and examined this morning follow up for norovirus, covid 19 diarrhea improving no abdominal pain Review of Systems Review of Systems: Yes all other systems are reviewed and are negative Constitutional Constitutional: Denies chills and Denies fever(s) Cardiovascular Cardiovascular: Denies chest pain, Denies palpitations and Denies dyspnea Respiratory Respiratory: Reports cough and Denies dyspnea Gastrointestinal Gastrointestinal: Denies abdominal pain, Reports diarrhea, Denies nausea and Denies vomiting Endocrine Endocrine: Denies palpitations Physical Exam Vital Signs: Vital Signs: Last Vital Signs Temp 97.9 F 07/16/22 12:00 Pulse 80 07/16/22 12:00 Resp 20 07/16/22 12:00 BP 163/79 H 07/16/22 12:00 Pulse Ox 98 07/16/22 12:00 O2 Del Method 07/16/22 12:00 BMI result Body Mass Index 24.0 Const: General: cooperative, comfortable, no acute distress, alert and awake Nutritional Appearance: average body habitus Orientation/consciousness: patient oriented x3 Resp: Effort & Inspection: normal respiratory effort and able to speak in complete sentences Auscultation: clear to auscultation bilaterally Cardio: Rate: regular rate Heart sounds: S1 normal heart sound present and S2 normal heart sound present GI: Inspection: No distended Palpation (GI): Soft to palpation and nontender Neuro: General: patient oriented x3 and CN's II-XI intact bilaterally Extrem: General: Yes no pedal edema Objective Data Active Medications Acetaminophen (Acetaminophen 325 Mg Tablet) 650 mg PO Q6H PRN PRN Reason: Pain, Mild (Pain Scale 1-3) Last Admin: 07/15/22 20:20 Dose: 650 mg Documented By: AUSTYN Apixaban (Apixaban 5 Mg Tablet) 5 mg PO BID [facility] Last Admin: 07/16/22 08:06 Dose: 5 mg Documented By: NICK Artificial Tears (Artificial Tears 15 Ml Drops) 2 drop EYE-BOTH Q4H PRN PRN Reason: Dry Eyes Last Admin: 07/15/22 16:18 Dose: 2 drop Documented By: BERTRAND Atorvastatin Calcium (Atorvastatin Calcium 10 Mg Tablet) 10 mg PO DAILY [facility] Last Admin: 07/16/22 08:06 Dose: 10 mg Documented By: NICK Benzocaine (Throat Lozenge, Medicated Lozenge) 1 lozenge MUCOUS MEM Q2H PRN PRN Reason: Sore Throat Last Admin: 07/12/22 05:40 Dose: 1 lozenge Documented By: SHAUN Carvedilol (Carvedilol 6.25 Mg Tablet) 6.25 mg PO BID [facility]; Protocol Last Admin: 07/16/22 08:07 Dose: 6.25 mg Documented By: NICK Fluticasone Propionate (Fluticasone Propionate Nasal 16 Gm [place]) 1 spray NOSTRIL-B DAILY [facility] Last Admin: 07/15/22 18:01 Dose: Not Given Documented By: PHANLYM Non-Admin Reason: Previously Administered Guaifenesin (Guaifenesin 200 Mg/10 Ml 10 Ml Liquid) 10 ml PO Q4H PRN PRN Reason: Cough Last Admin: 07/15/22 20:20 Dose: 10 ml Documented By: AUSTYN Lisinopril (Lisinopril 10 Mg Tablet) 10 mg PO DAILY [facility]; Protocol Last Admin: 07/16/22 08:07 Dose: 10 mg Documented By: NICK Loperamide HCl (Loperamide Hcl 2 Mg Capsule) 2 mg PO TID [facility] Last Admin: 07/16/22 08:06 Dose: 2 mg Documented By: NICK Multivitamins/Vitamin C (Multivitamin Tablet) 1 tab PO DAILY [facility] Last Admin: 07/16/22 08:08 Dose: 1 tab Documented By: NICK Nystatin (Nystatin Cream 15 Gm Tube) 1 appl TOPICAL BID PRN; Protocol PRN Reason: Rash Ondansetron HCl (Ondansetron Hcl 4 Mg/2 Ml Vial) 4 mg IVPUSH Q8H PRN PRN Reason: Nausea and Vomiting Pharmacy Consult (Consult Rx Perform Med Rec) 1 each MISCELLANE ONCE PRN PRN Reason: Consult order Pharmacy Consult (Consult Rx Perform Med Rec) 1 each MISCELLANE ONCE PRN PRN Reason: Consult order Sodium Chloride (0.9 % Sodium Chloride Flush 3 Ml Syringe) 3 ml IVFLUSH QSHIFT [facility] Last Admin: 07/16/22 08:06 Dose: 3 ml Documented By: NICK Zolpidem Tartrate (Zolpidem Tartrate 5 Mg Tablet) 5 mg PO BEDTIME [facility] Last Admin: 07/15/22 20:20 Dose: 5 mg Documented By: AUSTYN Labs 07/16/22 06:16 07/16/22 06:16 Labs: Laboratory Results - last 24 hr 07/16/22 07/16/22 06:16 06:16 MCV 93.8 MCH 30.7 MCHC 32.8 RDW 13.2 Plt Count 268 D MPV 9.1 L Absolute Nucleated RBC 0.000 Nucleated RBC % (auto) 0.0 Anion Gap 11 L Estim Creat Clear Calc 79.6 Estimated GFR > 60 Random Glucose 88 Calcium 9.1 D Assessment and Plan (1) Norovirus: Status: Acute (2) Lab test positive for detection of COVID-19 virus: Status: Acute Plan 86-year-old male with history of paroxysmal atrial fibrillation anticoagulated with Eliquis, ischemic cardiomyopathy, AICD in place, hypertension, hyperlipidemia, coronary artery disease to be observed for vasovagal syncope. Vasovagal syncope- secondary to dehydration/diarrhea. no further episodes Orthostatics negative. No recurrent episodes no arrhythmia noted on telemetry acute diarrhea GI panel +for norovirus cdif negative treat symptomatically COVID-19 pos 07/09/22, covid recovered 07/20/22 repeat covid 07/14, still + No hypoxia. decadron/remdesivir not indicated Symptomatic management paroxysmal atrial fibrillation-rate controlled continue carvedilol, Eliquis CAD/ischemic cardiomyopathy no anginal chest pain, troponin negative x2 continue carvedilol, atorvastatin hypertension- continue lisinopril DVT prophylaxis- Rani attending Dr. Alexandra Full code DISPO plan for dc to rehab continued hospitalization for management of COVID-19 associated weakness pending placement to [facility] Time Spent With Patient Time: Total time managing care of this patient today ____ minutes. Quality Stroke Does the patient have a stroke diagnosis?: No VTE Prior VTE?: No VTE Risk Level:: Medical - moderate - high VTE Device Contraindication: Treatment Not Indicated VTE Drug Contraindication: N/A - Med Ordered
[2022-07-16 15:19] VITALS: BP 118/54; PULSE 61; RESP 20; TEMP 36.8; O2SAT 97
[2022-07-16] MEDS: Fluticasone Propionate Nasal 16 GM SPRAY 1 SPRAY NOSTRIL-B (16:30)
[2022-07-16 19:05] VITALS: BP 119/51; PULSE 63; RESP 20; TEMP 36.6; O2SAT 97
[2022-07-16] MEDS: guaiFENesin 200 MG/10 ML 10 ML LIQUID PO (20:41)
[2022-07-16] MEDS: Acetaminophen 325 MG TABLET 650 MG PO (20:41)
[2022-07-16] MEDS: Zolpidem Tartrate 5 MG TABLET PO (20:42)
[2022-07-16 23:45] VITALS: BP 119/49; PULSE 68; RESP 18; TEMP 36.6; O2SAT 98
[2022-07-17 03:03] VITALS: BP 102/48; PULSE 62; RESP 14; TEMP 36.7; O2SAT 94
[2022-07-17 08:00] VITALS: BP 133/65; PULSE 74; RESP 16; TEMP 36.3; O2SAT 98
[2022-07-17] MEDS: carvediloL 6.25 MG TABLET PO ×2 (09:24→20:28)
[2022-07-17] MEDS: Atorvastatin Calcium 10 MG TABLET PO (09:25)
[2022-07-17] MEDS: Apixaban 5 MG TABLET PO ×2 (09:25→20:28)
[2022-07-17] MEDS: Multivitamin TABLET 1 TAB PO (09:25)
[2022-07-17] MEDS: Loperamide HCl 2 MG CAPSULE PO ×3 (09:25→20:28)
[2022-07-17] MEDS: lisinopriL 10 MG TABLET PO (09:25)
[2022-07-17] MEDS: Fluticasone Propionate Nasal 16 GM SPRAY 1 SPRAY NOSTRIL-B (09:29)
--- NOTE | 2022-07-17 11:40 | P.PNIM_ITS ---
Subjective Subjective Date of Service: 07/17/22 Interval History: seen and examined this morning follow up for covid 19, norovirus diarrhea improving, no abdominal pain Review of Systems Review of Systems: Yes all other systems are reviewed and are negative Constitutional Constitutional: Denies chills and Denies fever(s) Cardiovascular Cardiovascular: Denies chest pain, Denies palpitations and Denies dyspnea Respiratory Respiratory: Denies cough and Denies dyspnea Gastrointestinal Gastrointestinal: Denies abdominal pain, Denies nausea and Denies vomiting Endocrine Endocrine: Denies palpitations Physical Exam Vital Signs: Vital Signs: Last Vital Signs Temp 97.3 F 07/17/22 08:00 Pulse 74 07/17/22 08:00 Resp 16 07/17/22 08:00 BP 133/65 07/17/22 08:00 Pulse Ox 98 07/17/22 08:00 O2 Del Method 07/17/22 08:00 BMI result Body Mass Index 24.0 Const: General: cooperative, comfortable, no acute distress, alert and awake Nutritional Appearance: average body habitus Orientation/consciousness: patient oriented x3 Resp: Effort & Inspection: normal respiratory effort and able to speak in complete sentences Auscultation: clear to auscultation bilaterally Cardio: Rate: regular rate Heart sounds: S1 normal heart sound present and S2 normal heart sound present GI: Inspection: No distended Palpation (GI): Soft to palpation and nontende r Neuro: General: patient oriented x3 and CN's II-XI intact bilaterally Extrem: General: Yes no pedal edema Objective Data Active Medications Acetaminophen (Acetaminophen 325 Mg Tablet) 650 mg PO Q6H PRN PRN Reason: Pain, Mild (Pain Scale 1-3) Last Admin: 07/16/22 20:41 Dose: 650 mg Documented By: AUSTYN Apixaban (Apixaban 5 Mg Tablet) 5 mg PO BID [facility] Last Admin: 07/17/22 09:25 Dose: 5 mg Documented By: NICK Artificial Tears (Artificial Tears 15 Ml Drops) 2 drop EYE-BOTH Q4H PRN PRN Reason: Dry Eyes Last Admin: 07/15/22 16:18 Dose: 2 drop Documented By: BERTRAND Atorvastatin Calcium (Atorvastatin Calcium 10 Mg Tablet) 10 mg PO DAILY [facility] Last Admin: 07/17/22 09:25 Dose: 10 mg Documented By: NICK Benzocaine (Throat Lozenge, Medicated Lozenge) 1 lozenge MUCOUS MEM Q2H PRN PRN Reason: Sore Throat Last Admin: 07/12/22 05:40 Dose: 1 lozenge Documented By: SHAUN Carvedilol (Carvedilol 6.25 Mg Tablet) 6.25 mg PO BID [facility]; Protocol Last Admin: 07/17/22 09:24 Dose: 6.25 mg Documented By: NICK Fluticasone Propionate (Fluticasone Propionate Nasal 16 Gm [place]) 1 spray NOSTRIL-B DAILY [facility] Last Admin: 07/17/22 09:29 Dose: 1 spray Documented By: NICK Guaifenesin (Guaifenesin 200 Mg/10 Ml 10 Ml Liquid) 10 ml PO Q4H PRN PRN Reason: Cough Last Admin: 07/16/22 20:41 Dose: 10 ml Documented By: AUSTYN Lisinopril (Lisinopril 10 Mg Tablet) 10 mg PO DAILY [facility]; Protocol Last Admin: 07/17/22 09:25 Dose: 10 mg Documented By: NICK Loperamide HCl (Loperamide Hcl 2 Mg Capsule) 2 mg PO TID [facility] Last Admin: 07/17/22 09:25 Dose: 2 mg Documented By: NICK Multivitamins/Vitamin C (Multivitamin Tablet) 1 tab PO DAILY [facility] Last Admin: 07/17/22 09:25 Dose: 1 tab Documented By: NICK Nystatin (Nystatin Cream 15 Gm Tube) 1 appl TOPICAL BID PRN; Protocol PRN Reason: Rash Ondansetron HCl (Ondansetron Hcl 4 Mg/2 Ml Vial) 4 mg IVPUSH Q8H PRN PRN Reason: Nausea and Vomiting Pharmacy Consult (Consult Rx Perform Med Rec) 1 each MISCELLANE ONCE PRN PRN Reason: Consult order Pharmacy Consult (Consult Rx Perform Med Rec) 1 each MISCELLANE ONCE PRN PRN Reason: Consult order Sodium Chloride (0.9 % Sodium Chloride Flush 3 Ml Syringe) 3 ml IVFLUSH QSHIFT [facility] Last Admin: 07/17/22 09:28 Dose: Not Given Documented By: NICK Non-Admin Reason: No Access Zolpidem Tartrate (Zolpidem Tartrate 5 Mg Tablet) 5 mg PO BEDTIME [facility] Last Admin: 07/16/22 20:42 Dose: 5 mg Documented By: AUSTYN Abarca 07/16/22 06:16 07/16/22 06:16 Assessment and Plan (1) Norovirus: Status: Acute (2) Lab test positive for detection of COVID-19 virus: Status: Acute Plan 86-year-old male with history of paroxysmal atrial fibrillation anticoagulated with Eliquis, ischemic cardiomyopathy, AICD in place, hypertension, hyperlipidemia, coronary artery disease to be observed for vasovagal syncope. Vasovagal syncope- secondary to dehydration/diarrhea. no further episodes Orthostatics negative. No recurrent episodes no arrhythmia noted on telemetry acute diarrhea. diarrhea improving GI panel +for norovirus cdif negative continue symptomatic treatment COVID-19 pos 07/09/22, covid recovered 07/20/22 repeat covid 07/14, still + No hypoxia. decadron/remdesivir not indicated Symptomatic management paroxysmal atrial fibrillation-rate controlled continue carvedilol, Eliquis CAD/ischemic cardiomyopathy no anginal chest pain, troponin negative x2 continue carvedilol, atorvastatin hypertension continue lisinopril DVT prophylaxis- Rani attending Dr. Vanegas Full code DISPO plan for dc to rehab continued hospitalization for management of COVID-19 associated weakness pending placement to [facility]. covid recovered 07/20 Time Spent With Patient Time: Total time managing care of this patient today ____ minutes. Quality Stroke Does the patient have a stroke diagnosis?: No VTE Prior VTE?: No VTE Risk Level:: Medical - moderate - high VTE Device Contraindication: Treatment Not Indicated VTE Drug Contraindication: N/A - Med Ordered
[2022-07-17 12:00] VITALS: BP 117/55; PULSE 63; RESP 14; TEMP 36.6; O2SAT 98
[2022-07-17 15:10] VITALS: BP 118/53; PULSE 69; RESP 20; TEMP 36.4; O2SAT 99
[2022-07-17 18:58] VITALS: BP 129/65; PULSE 72; RESP 20; TEMP 36.6; O2SAT 99
[2022-07-17] MEDS: Zolpidem Tartrate 5 MG TABLET PO (20:28)
[2022-07-18] VITALS (8 sets, daily range): BP systolic 102–140; BP diastolic 49–71; PULSE 60–74; RESP 15–19; TEMP 36.3–37.1; O2SAT 97–100
[2022-07-18] MEDS: Acetaminophen 325 MG TABLET 650 MG PO ×2 (00:34→15:07)
[2022-07-18] MEDS: guaiFENesin 200 MG/10 ML 10 ML LIQUID PO ×2 (00:37→15:06)
[2022-07-18] MEDS: lisinopriL 10 MG TABLET PO (09:49)
[2022-07-18] MEDS: Apixaban 5 MG TABLET PO ×2 (09:49→21:49)
[2022-07-18] MEDS: Loperamide HCl 2 MG CAPSULE PO ×3 (09:49→21:49)
[2022-07-18] MEDS: Multivitamin TABLET 1 TAB PO (09:49)
[2022-07-18] MEDS: carvediloL 6.25 MG TABLET PO ×2 (09:49→21:50)
[2022-07-18] MEDS: Atorvastatin Calcium 10 MG TABLET PO (09:49)
[2022-07-18] MEDS: Fluticasone Propionate Nasal 16 GM SPRAY 1 SPRAY NOSTRIL-B (09:51)
--- NOTE | 2022-07-18 12:35 | P.PNIM_ITS ---
Subjective Subjective Date of Service: 07/18/22 Interval History: seen and examined this morning follow up for covid 19, norovirus diarrhea resolved , no abdominal pain Review of Systems Review of Systems: Yes all other systems are reviewed and are negative Constitutional Constitutional: Denies chills and Denies fever(s) Cardiovascular Cardiovascular: Denies chest pain, Denies palpitations and Denies dyspnea Respiratory Respiratory: Denies cough and Denies dyspnea Gastrointestinal Gastrointestinal: Denies abdominal pain, Denies nausea and Denies vomiting Endocrine Endocrine: Denies palpitations Physical Exam Vital Signs: Vital Signs: Last Vital Signs Temp 97.3 F 07/18/22 11:48 Pulse 65 07/18/22 11:48 Resp 19 07/18/22 11:48 BP 112/49 L 07/18/22 11:48 Pulse Ox 100 07/18/22 11:48 O2 Del Method 07/18/22 11:48 O2 Flow Rate 3 07/18/22 00:00 BMI result Body Mass Index 24.0 Appearing in no acute distress lung sounds are clear to auscultation heart regular rate rhythm, clear S1, S2 positive bowel sounds, abdomen is soft, nontender neuro patient is alert x3, no focal deficits Objective Data Active Medications Acetaminophen (Acetaminophen 325 Mg Tablet) 650 mg PO Q6H PRN PRN Reason: Pain, Mild (Pain Scale 1-3) Last Admin: 07/18/22 00:34 Dose: 650 mg Documented By: HARINDER Apixaban (Apixaban 5 Mg Tablet) 5 mg PO BID [facility] Last Admin: 07/18/22 09:49 Dose: 5 mg Documented By: LAURA Artificial Tears (Artificial Tears 15 Ml Drops) 2 drop EYE-BOTH Q4H PRN PRN Reason: Dry Eyes Last Admin: 07/15/22 16:18 Dose: 2 drop Documented By: BERTRAND Atorvastatin Calcium (Atorvastatin Calcium 10 Mg Tablet) 10 mg PO DAILY [facility] Last Admin: 07/18/22 09:49 Dose: 10 mg Documented By: LAURA Benzocaine (Throat Lozenge, Medicated Lozenge) 1 lozenge MUCOUS MEM Q2H PRN PRN Reason: Sore Throat Last Admin: 07/12/22 05:40 Dose: 1 lozenge Documented By: SHAUN Carvedilol (Carvedilol 6.25 Mg Tablet) 6.25 mg PO BID [facility]; Protocol Last Admin: 07/18/22 09:49 Dose: 6.25 mg Documented By: LAURA Fluticasone Propionate (Fluticasone Propionate Nasal 16 Gm [place]) 1 spray NOSTRIL-B DAILY [facility] Last Admin: 07/18/22 09:51 Dose: 1 spray Documented By: LAURA Guaifenesin (Guaifenesin 200 Mg/10 Ml 10 Ml Liquid) 10 ml PO Q4H PRN PRN Reason: Cough Last Admin: 07/18/22 00:37 Dose: 10 ml Documented By: HARINDER Lisinopril (Lisinopril 10 Mg Tablet) 10 mg PO DAILY [facility]; Protocol Last Admin: 07/18/22 09:49 Dose: 10 mg Documented By: LAURA Loperamide HCl (Loperamide Hcl 2 Mg Capsule) 2 mg PO TID [facility] Last Admin: 07/18/22 09:49 Dose: 2 mg Documented By: LAURA Multivitamins/Vitamin C (Multivitamin Tablet) 1 tab PO DAILY [facility] Last Admin: 07/18/22 09:49 Dose: 1 tab Documented By: LAURA Nystatin (Nystatin Cream 15 Gm Tube) 1 appl TOPICAL BID PRN; Protocol PRN Reason: Rash Ondansetron HCl (Ondansetron Hcl 4 Mg/2 Ml Vial) 4 mg IVPUSH Q8H PRN PRN Reason: Nausea and Vomiting Pharmacy Consult (Consult Rx Perform Med Rec) 1 each MISCELLANE ONCE PRN PRN Reason: Consult order Pharmacy Consult (Consult Rx Perform Med Rec) 1 each MISCELLANE ONCE PRN PRN Reason: Consult order Sodium Chloride (0.9 % Sodium Chloride Flush 3 Ml Syringe) 3 ml IVFLUSH QSHIFT [facility] Last Admin: 07/18/22 09:59 Dose: Not Given Documented By: LAURA Non-Admin Reason: No Access Zolpidem Tartrate (Zolpidem Tartrate 5 Mg Tablet) 5 mg PO BEDTIME [facility] Last Admin: 07/17/22 20:28 Dose: 5 mg Documented By: HARINDER Labs 07/16/22 06:16 07/16/22 06:16 Assessment and Plan (1) Norovirus: Status: Acute (2) Lab test positive for detection of COVID-19 virus: Status: Acute Plan 86-year-old male with history of paroxysmal atrial fibrillation anticoagulated with Eliquis, ischemic cardiomyopathy, AICD in place, hypertension, hyperlipidemia, coronary artery disease to be observed for vasovagal syncope. Vasovagal syncope- secondary to dehydration/diarrhea. no further episodes Orthostatics negative. No recurrent episodes no arrhythmia noted on telemetry acute diarrhea. diarrhea resolved GI panel +for norovirus cdif negative continue symptomatic treatment COVID-19 pos 07/09/22, covid recovered 07/20/22 repeat covid 07/14, still + No hypoxia. decadron/remdesivir not indicated Symptomatic management paroxysmal atrial fibrillation-rate controlled continue carvedilol, Eliquis CAD/ischemic cardiomyopathy no anginal chest pain, troponin negative x2 continue carvedilol, atorvastatin hypertension continue lisinopril DVT prophylaxis- Rani attending Dr. Arreguin Full code DISPO plan for dc to rehab continued hospitalization for management of COVID-19 associated weakness pending placement to [facility]. covid recovered 07/20 Time Spent With Patient Time: Total time managing care of this patient today ____ minutes. Quality Stroke Does the patient have a stroke diagnosis?: No VTE Prior VTE?: No VTE Risk Level:: Medical - moderate - high VTE Device Contraindication: Treatment Not Indicated VTE Drug Contraindication: N/A - Med Ordered
[2022-07-18] MEDS: Zolpidem Tartrate 5 MG TABLET PO (21:50)
[2022-07-19 03:20] VITALS: BP 112/54; PULSE 66; RESP 18; TEMP 36.8; O2SAT 98
[2022-07-19 08:00] VITALS: BP 125/58; PULSE 71; RESP 20; TEMP 36.6; O2SAT 97
[2022-07-19] MEDS: Atorvastatin Calcium 10 MG TABLET PO (08:55)
[2022-07-19] MEDS: Loperamide HCl 2 MG CAPSULE PO (08:55)
[2022-07-19] MEDS: carvediloL 6.25 MG TABLET PO ×2 (08:55→21:29)
[2022-07-19] MEDS: Multivitamin TABLET 1 TAB PO (08:55)
[2022-07-19] MEDS: Apixaban 5 MG TABLET PO ×2 (08:55→21:29)
[2022-07-19] MEDS: lisinopriL 10 MG TABLET PO (08:55)
[2022-07-19 11:24] VITALS: BP 98/55; PULSE 74; RESP 20; TEMP 37; O2SAT 98
--- NOTE | 2022-07-19 11:29 | HO.PM.IMPN ---
Subjective Subjective Date of Service: 07/19/22 Interval History: seen and examined this morning follow up for covid 19, norovirus diarrhea resolved , no abdominal pain Review of Systems Review of Systems: Yes all other systems are reviewed and are negative Constitutional Constitutional: Denies chills and Denies fever(s) Cardiovascular Cardiovascular: Denies chest pain, Denies palpitations and Denies dyspnea Respiratory Respiratory: Denies cough and Denies dyspnea Gastrointestinal Gastrointestinal: Denies abdominal pain, Denies nausea and Denies vomiting Endocrine Endocrine: Denies palpitations Physical Exam Vital Signs: Vital Signs: Last Vital Signs Temp 97.9 F 07/19/22 08:00 Pulse 71 07/19/22 08:00 Resp 20 07/19/22 08:00 BP 125/58 L 07/19/22 08:00 Pulse Ox 97 07/19/22 08:00 O2 Del Method 07/19/22 08:00 O2 Flow Rate 3 07/18/22 00:00 BMI result Body Mass Index 24.0 Appearing in no acute distress lung sounds are clear to auscultation heart regular rate rhythm, clear S1, S2 positive bowel sounds, abdomen is soft, nontender neuro patient is alert x3, no focal deficits Objective Data Active Medications Acetaminophen (Acetaminophen 325 Mg Tablet) 650 mg PO Q6H PRN PRN Reason: Pain, Mild (Pain Scale 1-3) Last Admin: 07/18/22 15:07 Dose: 650 mg Documented By: LAURA Apixaban (Apixaban 5 Mg Tablet) 5 mg PO BID [facility] Last Admin: 07/19/22 08:55 Dose: 5 mg Documented By: KARO Artificial Tears (Artificial Tears 15 Ml Drops) 2 drop EYE-BOTH Q4H PRN PRN Reason: Dry Eyes Last Admin: 07/15/22 16:18 Dose: 2 drop Documented By: BERTRAND Atorvastatin Calcium (Atorvastatin Calcium 10 Mg Tablet) 10 mg PO DAILY [facility] Last Admin: 07/19/22 08:55 Dose: 10 mg Documented By: KARO Benzocaine (Throat Lozenge, Medicated Lozenge) 1 lozenge MUCOUS MEM Q2H PRN PRN Reason: Sore Throat Last Admin: 07/12/22 05:40 Dose: 1 lozenge Documented By: SHAUN Carvedilol (Carvedilol 6.25 Mg Tablet) 6.25 mg PO BID [facility]; Protocol Last Admin: 07/19/22 08:55 Dose: 6.25 mg Documented By: KARO Fluticasone Propionate (Fluticasone Propionate Nasal 16 Gm Deridder) 1 spray NOSTRIL-B DAILY [facility] Last Admin: 07/19/22 08:56 Dose: Not Given Documented By: KARO Non-Admin Reason: Patient Refused Guaifenesin (Guaifenesin 200 Mg/10 Ml 10 Ml Liquid) 10 ml PO Q4H PRN PRN Reason: Cough Last Admin: 07/18/22 15:06 Dose: 10 ml Documented By: LAURA Lisinopril (Lisinopril 10 Mg Tablet) 10 mg PO DAILY [facility]; Protocol Last Admin: 07/19/22 08:55 Dose: 10 mg Documented By: KARO Loperamide HCl (Loperamide Hcl 2 Mg Capsule) 2 mg PO TID [facility] Last Admin: 07/19/22 08:55 Dose: 2 mg Documented By: KARO Multivitamins/Vitamin C (Multivitamin Tablet) 1 tab PO DAILY [facility] Last Admin: 07/19/22 08:55 Dose: 1 tab Documented By: KARO Nystatin (Nystatin Cream 15 Gm Tube) 1 appl TOPICAL BID PRN; Protocol PRN Reason: Rash Ondansetron HCl (Ondansetron Hcl 4 Mg/2 Ml Vial) 4 mg IVPUSH Q8H PRN PRN Reason: Nausea and Vomiting Pharmacy Consult (Consult Rx Perform Med Rec) 1 each MISCELLANE ONCE PRN PRN Reason: Consult order Pharmacy Consult (Consult Rx Perform Med Rec) 1 each MISCELLANE ONCE PRN PRN Reason: Consult order Sodium Chloride (0.9 % Sodium Chloride Flush 3 Ml Syringe) 3 ml IVFLUSH QSHIFT [facility] Last Admin: 07/19/22 07:14 Dose: Not Given Documented By: KARO Non-Admin Reason: See Note Zolpidem Tartrate (Zolpidem Tartrate 5 Mg Tablet) 5 mg PO BEDTIME [facility] Last Admin: 07/18/22 21:50 Dose: 5 mg Documented By: JANNETH Abarca 07/16/22 06:16 07/16/22 06:16 Assessment and Plan (1) Norovirus: Status: Acute (2) Lab test positive for detection of COVID-19 virus: Status: Acute Plan 86-year-old male with history of paroxysmal atrial fibrillation anticoagulated with Eliquis, ischemic cardiomyopathy, AICD in place, hypertension, hyperlipidemia, coronary artery disease to be observed for vasovagal syncope. Vasovagal syncope- secondary to dehydration/diarrhea. no further episodes Orthostatics negative. No recurrent episodes no arrhythmia noted on telemetry acute diarrhea. diarrhea resolved GI panel +for norovirus cdif negative continue symptomatic treatment COVID-19 pos 07/09/22, covid recovered 07/20/22 repeat covid 07/14, still + No hypoxia. decadron/remdesivir not indicated Symptomatic management paroxysmal atrial fibrillation-rate controlled continue carvedilol, Eliquis CAD/ischemic cardiomyopathy no anginal chest pain, troponin negative x2 continue carvedilol, atorvastatin hypertension continue lisinopril DVT prophylaxis- [facility]ani attending Dr. Arreguin Full code DISPO plan for dc to rehab, covid recovered 07/20/22 continued hospitalization for management of COVID-19 associated weakness pending placement to STR. covid recovered 07/20 Time Spent With Patient Time: Total time managing care of this patient today ____ minutes. Quality Stroke Does the patient have a stroke diagnosis?: No VTE Prior VTE?: No VTE Risk Level:: Medical - moderate - high VTE Device Contraindication: Treatment Not Indicated VTE Drug Contraindication: N/A - Med Ordered
--- NOTE | 2022-07-19 14:34 | MHC.CM.PN ---
Patient will be considered Covid recovered tomorrow. Patient is anticipated to be medically cleared for dc tomorrow to SNF/STR. Patient will dc to his first choice SNF/[facility] of his 3 options ([facility] [place] also offered)tomorrow at 1 PM, via [facility]. Patient and his Niece/HCP/Nena @ [phone] are aware of and in agreement with the dc plan.
[2022-07-19 15:27] VITALS: BP 99/51; PULSE 70; RESP 16; TEMP 36.7; O2SAT 96
[2022-07-19] MEDS: Acetaminophen 325 MG TABLET 650 MG PO (16:00)
[2022-07-19] MEDS: guaiFENesin 200 MG/10 ML 10 ML LIQUID PO (16:01)
[2022-07-19 19:22] VITALS: BP 119/58; PULSE 62; RESP 17; TEMP 36.6; O2SAT 98
[2022-07-19] MEDS: Zolpidem Tartrate 5 MG TABLET PO (21:29)
[2022-07-19] MEDS: polyethylene glycoL 3350 17 GM POWD.PACK PO (21:29)
--- NOTE | 2022-07-19 22:04 | PC.NURSE ---
Patient in the bathroom digitally dis impacting himself ,stated that he is constipated now and has to remove the hard stool from his rectum. Pt stated that he has done it before at home. He refused fleet enema , DR. Piña was notified , Immodium was dc's and Miralax ordered x 1 dose for tonight. Pt agreed to Miralax .
[2022-07-19 23:03] VITALS: BP 134/62; PULSE 63; RESP 18; TEMP 36.8; O2SAT 99
[2022-07-20] MEDS: guaiFENesin 200 MG/10 ML 10 ML LIQUID PO (01:45)
[2022-07-20 03:59] VITALS: BP 141/67; PULSE 63; RESP 20; TEMP 36.7; O2SAT 98
[2022-07-20 07:41] VITALS: BP 119/58; PULSE 63; RESP 12; TEMP 36.6; O2SAT 97
--- NOTE | 2022-07-20 10:37 | P.DS_ITS ---
DS: Providers Provider Date of Service: 07/20/22 <Heather Jiang MD - Last Filed: 07/20/22 10:37> Date of admission: 07/09/22 10:05 <Claudia Cordova NP - Last Filed: 07/22/22 12:16> Primary care physician: Jan Deng MD <Claudia Cordova NP - Last Filed: 07/22/22 12:16> DS: Diagnosis Discharge Diagnosis (1) Norovirus: Status: Acute <Claudia Cordova NP - Last Filed: 07/22/22 12:16> (2) Lab test positive for detection of COVID-19 virus: Status: Acute <Claudia Cordova NP - Last Filed: 07/22/22 12:16> DS: Summary Hospital Course Hospital Course: HP as per admitting provider 86-year-old male with history of paroxysmal atrial fibrillation anticoagulated with Eliquis, ischemic cardiomyopathy, AICD in place, hypertension, hyperlipidemia, coronary artery disease presented to the ED earlier this morning via EMS following a syncopal episode.? The patient lives at home by himself and states that he was having a large bowel movement of watery diarrhea when he felt lightheaded and fell forward.? He is unsure if he hit his head but feels he was unconscious for a brief period before he awoke and dragged himself to the phone to call 911.? He feels he was on the ground for about 10 minutes total but cannot confirm this.? States that over the last few days he has felt very weak, fatigued, with sore throat, dry cough, anorexia, decreased p.o. intake, and multiple episodes of watery diarrhea for about 3 days.? Over last 3 months, he has been on multiple courses of doxycycline for a foot infection prescribed by his automatic maintainer.? Most recently completed 10 day course of doxycycline on 06/17.? Stool studies were ordered in the ED but have yet to be collected as he has not had a BM since arrival.? He denies any fevers, chills, abdominal pain, nausea, vomiting, headache, melena, hematochezia, dysuria, increased urinary frequency, hematuria, shortness of breath, further episodes of lightheadedness, palpitations, or chest pains.? In the ED, vital si gns have been stable, no hypotension, hypoxia.? EKG showed showed dual paced rhythm with occasional PVCs, rate 59.? No leukocytosis.? Mild normocytic anemia with H/H 10.9/33.6.? Renal function electrolyte levels baseline except for CO2 of 20 likely related to diarrhea.? Troponin unremarkable.? Head and cervical CT without any acute abnormality.? CXR negative.? He is positive for COVID-19 but negative for influenza.? He reports that he is vaccinated for COVID-19 with 2 boosters . Vasovagal syncope- secondary to dehydration/diarrhea. no further episodes, patient treated with IV fluids Orthostatics negative. No recurrent episodes,no arrhythmia noted on telemetry acute diarrhea.? diarrhea resolved., GI panel positive for norovirus patient was treated symptomatically with IV fluids, C diff negative , tolerating diet. COVID-19 pos 07/09/22, ,No hypoxia.? decadron/remdesivir not indicated. paroxysmal atrial fibrillation-rate controlled continue carvedilol, Eliquis CAD/ischemic cardiomyopathy no anginal chest pain, troponin negative x2 continue carvedilol, atorvastatin hypertension continue lisinopril <Claudia Cordova NP - Last Filed: 07/22/22 12:16> Time Spent with Patient Time attestation: Total time managing care of this patient today ____ minutes. <Claudia Cordova NP - Last Filed: 07/22/22 12:16> Discharge coordination time: Greater than 30 minutes <Heather Jiang MD - Last Filed: 07/20/22 10:37> Quality: Safe Use of Opioids Does Pt have an Active Cancer Diagnosis on the Problem List?: No <Heather Jiang MD - Last Filed: 07/20/22 10:37> Quality: Stroke Does the patient have a stroke diagnosis?: No <Heather Jiang MD - Last Filed: 07/20/22 10:37> Physical Exam Vital Signs: Vital Signs: Last Vital Signs Temp 98.1 F 07/19/22 15:27 Pulse 70 07/19/22 15:27 Resp 16 07/19/22 15:27 BP 99/51 L 07/19/22 15:27 Pulse Ox 96 07/19/22 15:27 O2 Del Method 07/19/22 15:27 O2 Flow Rate 3 07/18/22 00:00 BMI result Body Mass Index 24.0 <Claudia Cordova NP - Last Filed: 07/22/22 12:16> Const: Other: ?General awake alert x3, in no acute distress Neck no JVD ?lung sounds are clear to auscultation ?heart regular rate rhythm, clear? S1, S2 ?Abdomen soft nontender bowel sounds audible ?neuro patient is alert x3, no focal deficits Extremities no edema <Heather Jiang MD - Last Filed: 07/20/22 10:37> Discharge Plan Discharge Patient Disposition: er [facility] <Claudia Cordova NP - Last Filed: 07/22/22 12:16> Discharge Diagnosis: Vasovagal syncope Diarrhea COVID-19 Paroxysmal atrial fibrillation <Claudia Cordova NP - Last Filed: 07/22/22 12:16> Vasovagal syncope Diarrhea COVID-19 Paroxysmal atrial fibrillation <Heather Jiang MD - Last Filed: 07/20/22 10:37> [facility] [Outside] - 1 Week Jan Deng MD [Primary Care Provider] - 1 Week <Claudia Cordova NP - Last Filed: 07/22/22 12:16> Discharge Medications: New zolpidem 5 mg tablet 5 mg PO BEDTIME Qty: 14 0RF Continued carvedilol 6.25 mg tablet 6.25 mg PO BID 90 Days Qty: 180 1RF Rx Instructions: must administer with a meal/food lisinopril 10 mg tablet 10 mg PO DAILY 30 Days Qty: 30 0RF Rx Instructions: Must make cardiology appt for refills atorvastatin 10 mg tablet 10 mg PO DAILY zolpidem 5 mg tablet 5 mg PO BEDTIME Eliquis 5 mg tablet 5 mg PO BID multivitamin Tablet 1 tab PO DAILY nystatin 100,000 unit/gram cream 1 appl topical BID PRN (Reason: Rash) <Claudia Cordova NP - Last Filed: 07/22/22 12:16> Discharge Orders: Discharge Order (Routine); Ordered 07/20/22 Ordered By: Heather Jiang <Claudia Cordova NP - Last Filed: 07/22/22 12:16> Diet: Advance to usual diet <Claudia Cordova NP - Last Filed: 07/22/22 12:16> Advance to usual diet <Heather Jiang MD - Last Filed: 07/20/22 10:37> Activity on Discharge: As tolerated <Claudia Cordova NP - Last Filed: 07/22/22 12:16> As tolerated <Heather Jiang MD - Last Filed: 07/20/22 10:37> Stand Alone Forms: Patient Portal Discharge page <Claudia Cordova NP - Last Filed: 07/22/22 12:16> Care Plan Goals: complete resolution of symptoms <Claudia Cordova NP - Last Filed: 07/22/22 12:16> Health Concerns: Vasovagal syncope Diarrhea COVID-19 Paroxysmal atrial fibrillation <Claudia Cordova NP - Last Filed: 07/22/22 12:16> Plan of Treatment: Follow-up with primary care provider when discharged from short-term rehab Continue all medications intake as prescribed <Claudia Cordova NP - Last Filed: 07/22/22 12:16> Assessment: see discharge summary <Claudia Cordova NP - Last Filed: 07/22/22 12:16> Discharge Date/Time: 07/20/22 14:00 <Claudia Cordova NP - Last Filed: 07/22/22 12:16>
[2022-07-20] MEDS: lisinopriL 10 MG TABLET PO (11:09)
[2022-07-20] MEDS: Apixaban 5 MG TABLET PO (11:09)
[2022-07-20] MEDS: Atorvastatin Calcium 10 MG TABLET PO (11:09)
[2022-07-20] MEDS: carvediloL 6.25 MG TABLET PO (11:09)
[2022-07-20] MEDS: Multivitamin TABLET 1 TAB PO (11:10)
[2022-07-20] MEDS: Fluticasone Propionate Nasal 16 GM SPRAY 1 SPRAY NOSTRIL-B (11:10)
[2022-07-20 11:40] VITALS: BP 126/62; PULSE 63; RESP 20; TEMP 36.1; O2SAT 99
[2022-07-20 11:53] LABS: COVID-19 Test Positive (Negative); IDNOW Serial# 16C4AD1C
== END 2022-07-20 14:00 | disposition skilled nursing facility (03) ==
LOC: HO.ED 06:58 → HO.EDOVER 10:35 → HO.IMC 17:12
PROVIDERS: Internal Medicine; Nurse Practitioner Acute Care; Physician Assistant Medical; Student in an Organized Health Care Education/Training Program; Admitting Provider Physician Assistant; Emergency Provider Emergency Medicine Emergency Medical Services; PCP Internal Medicine; Visit Provider Hospitalist
DX: U07.1 COVID-19 (principal); R55 Syncope and collapse; R19.7 Diarrhea, unspecified; E86.0 Dehydration; R53.1 Weakness; D64.9 Anemia, unspecified; I10 Essential (primary) hypertension; E78.5 Hyperlipidemia, unspecified; I48.0 Paroxysmal atrial fibrillation; Z90.49 Acquired absence of other specified parts of digestive tract; Z95.0 Presence of cardiac pacemaker; Z95.1 Presence of aortocoronary bypass graft; Z79.2 Long term (current) use of antibiotics; Z79.01 Long term (current) use of anticoagulants; Z79.02 Long term (current) use of antithrombotics/antiplatelets; Z87.891 Personal history of nicotine dependence
CPT/HCPCS: 36415; 70450; 71045; 72125; 80048; 80053; 81003; 82550; 82947; 83605; 83735; 84484; 85007; 85025; 85027; 85610; 87040; 87493; 87502; 87507; 87635; 93005; 96360; 96361; 97116; 97161; 97530; 99222; 99285

== ENCOUNTER 2022-08-20 15:52 | Observation (INO) | payer MEDICARE, SELFPAY ==
--- NOTE | ~2022-08-20 | CT_ITS ---
EXAMINATION: CT ABDOMEN AND PELVIS WITHOUT CONTRAST CLINICAL INFORMATION: Diffuse abdominal pain COMPARISON: Previous CT of the abdomen and pelvis July 2016 TECHNIQUE: Multidetector volumetric imaging was performed from the superior aspect of the liver through the pubic symphysis. Sagittal and coronal reformatted images were obtained on the technologist's workstation. This CT examination was performed using dose optimization techniques as appropriate, variously including the following: *Automated exposure control *Adjustment of mA and/or kV according to patient size (this includes techniques or standardized protocols for targeted exams where dose is matched to indication/reason for exam; i.e. extremities or head) *Use of iterative reconstruction technique DLP: 509 mGy-cm FINDINGS: LUNG BASES: The visualized lung bases are clear. Pacemaker AICD devices partially visualized. LIVER, GALLBLADDER, AND BILIARY TREE: The liver is normal in size, shape, and attenuation. No focal hepatic lesion or biliary ductal dilatation is present. The gallbladder has been removed. PANCREAS: Unremarkable. SPLEEN: Unremarkable. ADRENAL GLANDS: Unremarkable. KIDNEYS AND URETERS: The right kidney is normal appearing. There is a 3 cm cyst in the upper pole of the left kidney. There is a 2.6 cm lesion exophytic to the posterior left kidney. Hounsfield units without contrast measure 14. This has small focus of wall calcification. This is slightly decreased in size from 2017 exam when this measured 3 cm. This may represent a minimally complex cyst. BLADDER: Unremarkable. GASTROINTESTINAL TRACT: There is severe constipation. There is diverticulosis of the colon. There is long segment wall thickening of the distal left colon and sigmoid colon. There is stranding of the surrounding fat and increased vascularity. Differential would include colitis and diverticulitis. No evidence of perforation or abscess. Small and large bowel is otherwise normal. The appendix is normal. ABDOMINAL WALL: No significant hernia is appreciated. LYMPH NODES: Normal. VASCULAR: Atherosclerotic disease. PELVIC VISCERA: Unremarkable. OSSEOUS STRUCTURES: Degenerative changes of the spine and hip joints. Right trochanteric bursitis. CT/CT abdomen pelvis wo IV con IMPRESSION: Severe constipation. Colitis or diverticulitis of the distal colon. Probable complex and simple left renal cysts. Follow-up renal ultrasound could be considered if clinically indicated. Fleischner guidelines were followed.
[2022-08-20 16:02] VITALS: BP 160/100; PULSE 88; O2SAT 97
[2022-08-20 16:07] VITALS: BP 111/50; PULSE 61; RESP 22; TEMP 36.6; O2SAT 96; BMI 21.9
--- NOTE | 2022-08-20 16:10 | ECG_ITS ---
Test Reason : WEAKNESS Blood Pressure : / mmHG Vent. Rate : 059 BPM Atrial Rate : 059 BPM P-R Int : 000 ms QRS Dur : 130 ms QT Int : 490 ms P-R-T Axes : 000 142 080 degrees QTc Int : 485 ms AV dual-paced rhythm Abnormal ECG When compared with ECG of 09-JUL-2022 04:59, No significant change was found Referred By: Generic ED Physician Electronically Signed By:Vicente Tellez
[2022-08-20 16:23] LABS: MANUAL DIFF FLAG NO
[2022-08-20 16:24] LABS: Basophils Percent Auto 0.4 % (0-2); Eosinophils Absolute Auto 0.1 X10*3/uL (0.0-0.4); Eosinophils Percent Auto 1.2 % (0-4); Hematocrit 40.4 % (42.0-52.0); Hemoglobin 13.4 g/dl (14.0-18.0); Imm Gran Abs Auto 0.03 X10*3/uL (0.00-0.03); Imm Gran Pct Auto 0.3 % (0.0-0.4); Lymphocytes Absolute Auto 1.6 X10*3/uL (1.2-4.9); Lymphocytes Percent Auto 16.1 % (20-40); Mean Corpuscular HGB Conc 33.2 g/dl (31.0-36.0); Mean Corpuscular Hemoglobin 31.2 pg (27.0-33.0); Mean Platelet Volume 8.9 fL (9.4-12.4); Monocytes Absolute Auto 0.9 X10*3/uL (0.1-1.2); Monocytes Percent Auto 9.5 % (2-11); Neutrophils Absolute Auto 7.1 x10*3/uL (2.0-8.3); Neutrophils Percent Auto 72.5 % (45-73); Platelet Count 265 X10*3/uL (160-400); Red Cell Distribution Width 12.9 % (11.0-16.0); White Blood Count 9.8 X10*3/uL (4.8-10.8)
--- NOTE | 2022-08-20 16:26 | ED.ABDPAIN ---
HPI - Abdominal Pain General Chief Complaint: Abdominal Pain Stated Complaint: abdominal pain Time Seen by Provider: 08/20/22 16:16 Source: patient, EMS, RN notes reviewed and old records reviewed Mode of arrival: EMS Limitations: no limitations History of Present Illness HPI narrative: 86-year-old male with history of paroxysmal AFib on Eliquis, ischemic cardiomyopathy, the ICD in place, HTN, hyperlipidemia, CAD, patient normally lives in independent living recently was hospitalized and discharged to rehab then discharged back to his independent living place started today with abdominal pain the patient described it as lower abdominal dull aching pain localized to the lower abdomen that has been constant all day today, associated with nausea and vomiting, no relieving factor, no aggravating factor, patient had a normal bowel movement yesterday that he required to self disimpact himself for constipation but had full bowel movement after, patient declines eating bad food or sick contact. Past surgical history is significant for cholecystectomy and hernia repair. Related Data Home Medications Medication Instructions Recorded Confirmed apixaban 5 mg tablet (Eliquis) 5 mg PO BID 10/08/20 07/09/22 atorvastatin 10 mg tablet 10 mg PO DAILY 10/08/20 07/09/22 multivitamin 1 tab PO DAILY 10/08/20 07/09/22 zolpidem 5 mg tablet 5 mg PO BEDTIME 10/08/20 07/09/22 nystatin 100,000 unit/gram topical 1 appl topical BID PRN Rash 07/09/22 07/09/22 cream ketoconazole 2 % topical cream 1 appl topical DAILY PRN Rash 08/20/22 Previous Rx's Medication Instructions Recorded carvedilol 6.25 mg tablet 6.25 mg PO BID 90 days #180 tabs 05/04/20 lisinopril 10 mg tablet 10 mg PO DAILY 30 days #30 tabs 09/13/21 Allergies Allergy/AdvReac Type Severity Reaction Status Date / Time grass pollen Allergy Intermediate Sneezing Verified 03/03/22 12:38 mite-Dermatophagoides Allergy Intermediate Sneezing Verified 03/03/22 12:38 alexis vaca [dust mite - [place]] Review of Systems Review of Systems All other systems are reviewed and are negative Constitutional: Reports as per HPI and Reports no additional constitutional complaints Eyes: Reports as per HPI and Reports no additional eye complaints Reports system reviewed and no additional complaints, except as documented Cardiovascular: Reports as per HPI and Reports no additional cardiovascular complaints Respiratory: Reports as per HPI and Reports no additional respiratory complaints Gastrointestinal: Reports as per HPI and Reports no additional gastrointestinal complaints Genitourinary: Reports no additional female genitourinary complaints Musculoskeletal: Reports no additional musculoskeletal complaints Skin/Breast: Reports system reviewed and no additional complaints, except as docu Psychiatric: Reports no additional psychiatric complaints Endocrine: Reports no additional endocrine complaints Hematologic/Lymphatic: Reports no additional hematologic/lymphatic complaints Allergic/Immunologic: Reports no additional allergic/immunologic complaints Reports system reviewed and no additional complaints, except as documented and Reports Abnormal speech present COUNT INCLUDES THE [facility] Past Medical History Medical History Atrial fibrillation Bradycardia CAD (coronary artery disease) High cholesterol HTN (hypertension) Hx of halfway use of blood thinners Ischemic cardiomyopathy Lab test positive for detection of COVID-19 virus Pacemaker Surgical History AICD (automatic cardioverter/defibrillator) present H/O hemorrhoidectomy History of colonoscopy History of esophagogastroduodenoscopy (EGD) History of surgery Hx laparoscopic cholecystectomy Hx of CABG Hx of endoscopic retrograde cholangiopancreatography Hx of hernia repair Hx of nasal septoplasty Social History Social History Household Members: None Housing: House Alcohol intake: never Patient Tobacco Use Status: Former Tobacco user Advance Directives: No Advance Directives Information Provided: No service: Yes Current occupational status: retired Physical Exam ED Vital Signs: Vital Signs - 24 hr 08/20/22 16:07 Temperature 97.8 F Pulse Rate 61 Respiratory Rate 22 H Blood Pressure 111/50 L Pulse Oximetry 96 Oxygen Delivery Method Room Air BMI result Body Mass Index 21.9 Vital signs have been reviewed as appeared to be correct. Blood pressure normal. Heart rate normal. Respiration rate normal. Temperature normal. Oxygen saturation normal. Appearance: Alert. Oriented X3. No acute distress. Head: Normal external exam. Normocephalic. Atraumatic. No Ervin signs noted. No raccoon eyes noted Eyes: PERRLA. EOMI. Conjunctiva and sclera normal. Eyelids normal. ENT: TM's Normal. Pharynx normal. Uvula midline. Moist mucous membranes. No trismus noted. No drooling noted. No muffled voice noted. Neck: Normal inspection. Neck supple. FROM. No adenopathy. Thyroid Normal. No meningeal signs. No neck mass noted. CVS: Normal heart rate and rhythm. Heart sound normal. No murmurs noted. Pulses normal throughout. Respiratory: No respiratory distress. Painless inspiration. Breath sounds normal. No wheezes/rales/rhonchi noted. Chest nontender. No accessory muscle usage noted or decreased air movement noted. Abdomen: Soft, no tenderness, no rebound tenderness, no guarding.. Bowel sounds normal in all 4 quadrants. No distention noted. No organomegaly noted. No visible injury noted. Back: No CVA tenderness. Full range of motion noted. Skin: Skin warm and dry. Normal skin color. Normal skin turgor. No rashes/lesions/lacerations noted. Extremities: No lower extremity edema. Extremities exhibit normal range of motion. Extremities nontender. Neuro: Oriented X 3. Cranial nerve exam: II-XII are grossly intact No motor deficit. No sensory deficit. Reflexes normal. Course Course Course Narrative: 86-year-old male came for evaluation of abdominal pain, workup revealed severe constipation and diverticulitis. Patient has no sepsis or septic shock will start the patient on Levaquin and Flagyl. Medical Decision Making Differential Diagnosis Differential Diagnoses: The differential diagnosis associated with the presentation includes Acute appendicitis, colitis, acute diverticulitis, small-bowel obstruction, incarcerated hernia. Admission/Observation Consideration of admission/observation: Escalation of care including admission/observation considered Consult Healthcare Provider Management of the patient was discussed with: Hospitalist Lab Data MDM Lab Attestation statement: I reviewed the patient's lab results. 08/20/22 16:17 08/20/22 16:17 Labs: Lab Results 08/20/22 08/20/22 08/20/22 Range/Units 16:17 16:17 16:17 WBC 9.8 (4.8-10.8) X10*3/uL RBC 4.30 L (4.60-5.80) X10*6/uL Hgb 13.4 L (14.0-18.0) g/dl Hct 40.4 L (42.0-52.0) % MCV 94.0 (80.0-98.0) fL MCH 31.2 (27.0-33.0) pg MCHC 33.2 (31.0-36.0) g/dl RDW 12.9 (11.0-16.0) % Plt Count 265 (160-400) X10*3/uL MPV 8.9 L (9.4-12.4) fL Immature Gran % (Auto) 0.3 (0.0-0.4) % Neut % (Auto) 72.5 (45-73) % Lymph % (Auto) 16.1 L (20-40) % Cowley % (Auto) 9.5 (2-11) % Eos % (Auto) 1.2 (0-4) % Baso % (Auto) 0.4 (0-2) % Lymph # (Auto) 1.6 (1.2-4.9) X10*3/uL Cowley # (Auto) 0.9 (0.1-1.2) X10*3/uL Eos # (Auto) 0.1 (0.0-0.4) X10*3/uL Baso # (Auto) 0.0 (0.0-0.2) X10*3/uL Abs Immat Gran (auto) 0.03 (0.00-0.03) X10*3/uL Absolute Neuts (auto) 7.1 (2.0-8.3) x10*3/uL Absolute Nucleated RBC 0.000 (0.0-0.012) X10*3/uL Nucleated RBC % (auto) 0.0 (0.0-0.2) /100WBC PT (10.0-13.1) SEC INR (0.9-1.1) Sodium 142 (135-145) mmol/L Potassium 4.7 (3.3-5.1) mmol/L Chloride 107 (96-108) mmol/L Carbon Dioxide 22 (22-29) mmol/L Anion Gap 18 (12-20) BUN 19 H (9-16) mg/dL Creatinine 1.03 (0.5-1.4) mg/dL Estim Creat Clear Calc 59.2 Estimated GFR > 60 Random Glucose 119 H (60-115) mg/dL Lactic Acid 2.3 H* (0.5-2.0) mmol/L Calcium 9.3 (8.4-10.2) mg/dL Total Bilirubin 0.9 (0.0-1.0) mg/dL Direct Bilirubin 0.2 (0.0-0.5) mg/dL AST 21 (5-37) U/L ALT 12 (0-40) U/L Alkaline Phosphatase 87 (39-117) U/L Troponin I High Sens (<3.5-35.0) ng/L Total Protein 7.4 (6.5-8.0) g/dL Albumin 4.1 (3.5-5.0) g/dL Lipase 22 (8-78) U/L COVID-19 (JF) (Negative) COVID-19 Clin Com 08/20/22 08/20/22 08/20/22 Range/Units 16:17 16:17 16:18 WBC (4.8-10.8) X10*3/uL RBC (4.60-5.80) X10*6/uL Hgb (14.0-18.0) g/dl Hct (42.0-52.0) % MCV (80.0-98.0) fL MCH (27.0-33.0) pg MCHC (31.0-36.0) g/dl RDW (11.0-16.0) % Plt Count (160-400) X10*3/uL MPV (9.4-12.4) fL Immature Gran % (Auto) (0.0-0.4) % Neut % (Auto) (45-73) % Lymph % (Auto) (20-40) % Cowley % (Auto) (2-11) % Eos % (Auto) (0-4) % Baso % (Auto) (0-2) % Lymph # (Auto) (1.2-4.9) X10*3/uL Cowley # (Auto) (0.1-1.2) X10*3/uL Eos # (Auto) (0.0-0.4) X10*3/uL Baso # (Auto) (0.0-0.2) X10*3/uL Abs Immat Gran (auto) (0.00-0.03) X10*3/uL Absolute Neuts (auto) (2.0-8.3) x10*3/uL Absolute Nucleated RBC (0.0-0.012) X10*3/uL Nucleated RBC % (auto) (0.0-0.2) /100WBC PT 14.2 H (10.0-13.1) SEC INR 1.2 H (0.9-1.1) Sodium (135-145) mmol/L Potassium (3.3-5.1) mmol/L Chloride (96-108) mmol/L Carbon Dioxide (22-29) mmol/L Anion Gap (12-20) BUN (9-16) mg/dL Creatinine (0.5-1.4) mg/dL Estim Creat Clear Calc Estimated GFR Random Glucose (60-115) mg/dL Lactic Acid (0.5-2.0) mmol/L Calcium (8.4-10.2) mg/dL Total Bilirubin (0.0-1.0) mg/dL Direct Bilirubin (0.0-0.5) mg/dL AST (5-37) U/L ALT (0-40) U/L Alkaline Phosphatase (39-117) U/L Troponin I High Sens 7.1 (<3.5-35.0) ng/L Total Protein (6.5-8.0) g/dL Albumin (3.5-5.0) g/dL Lipase (8-78) U/L COVID-19 (JF) Negative (Negative) COVID-19 Clin Com See Note Independent Interpretation I performed an independent interpretation of an: CT Scan (Abdomen:Severe constipation. Colitis or diverticulitis of the distal colon. Probable complex and simple left renal cysts. Follow-up renal ultrasound could be considered if clinically indicated. ) Radiology Impression Discussion of test interpretation with radiology: I have reviewed the radiologist's reading. Medications Administered Generic Name Dose Route Start Last Admin Trade Name Freq PRN Reason Stop Dose Admin Levofloxacin 750 mg in 150 mls @ 100 mls/hr 08/20/22 18:31 08/20/22 19:01 Levaquin IV 08/20/22 20:00 100 mls/hr ONCE ONE Administration Discontinued Medications Generic Name Dose Route Start Last Admin Trade Name Freq PRN Reason Stop Dose Admin Sodium Chloride 1,000 mls @ 999 mls/hr 08/20/22 16:42 08/20/22 18:18 Ns IV 08/20/22 17:42 999 mls/hr .Q1H1M ONE Administration Magnesium Hydroxide 30 ml 08/20/22 18:38 08/20/22 19:02 Milk Of Magnesia 30 Ml Oral.Susp PO 08/20/22 18:39 30 ml ONCE ONE Administration Metronidazole 500 mg 08/20/22 18:31 08/20/22 19:02 Metronidazole 500 Mg Tablet PO 08/20/22 18:32 500 mg ONCE ONE Administration Morphine Sulfate 2 mg 08/20/22 16:26 08/20/22 18:17 Morphine Sulfate 2 Mg/Ml Cartridge IVPUSH 08/20/22 16:27 2 mg ONCE ONE Administration Protocol Ondansetron HCl 4 mg 08/20/22 16:26 08/20/22 18:18 Ondansetron Hcl 4 Mg/2 Ml Vial IVPUSH 08/20/22 16:27 4 mg ONCE ONE Administration Discharge Plan Discharge Clinical Impression: Constipation, Diverticulitis Patient Disposition: Admitted As Inpatient
[2022-08-20 16:33] LABS: INTERNATIONAL NORM RATIO 1.2 (0.9-1.1); Prothrombin Time 14.2 SEC (10.0-13.1)
[2022-08-20 16:39] LABS: Lactic Acid 2.3 mmol/L (0.5-2.0)
[2022-08-20 16:46] LABS: COVID-19 Test Negative (Negative); IDNOW Serial# 16C4AD1C
[2022-08-20 16:46] LABS: Troponin-I High Sensitivity 7.1 ng/L (<3.5-35.0)
[2022-08-20 16:56] LABS: Anion Gap 18 (12-20)
[2022-08-20 16:57] LABS: Blood Urea Nitrogen 19 mg/dL (9-16); Calcium 9.3 mg/dL (8.4-10.2); Carbon Dioxide 22 mmol/L (22-29); Chloride 107 mmol/L (96-108); Creatinine Clr Calc Pharmacy 59.2; Estimated Glomerular Filt Rate > 60; Glucose Random 119 mg/dL (60-115); Lipase 22 U/L (8-78); Potassium 4.7 mmol/L (3.3-5.1); Sodium 142 mmol/L (135-145)
[2022-08-20 17:43] LABS: Alanine Aminotransferase 12 U/L (0-40); Albumin Level 4.1 g/dL (3.5-5.0); Alkaline Phosphatase 87 U/L (39-117); Aspartate Amino Transferase 21 U/L (5-37); Bilirubin Direct 0.2 mg/dL (0.0-0.5); Bilirubin Total 0.9 mg/dL (0.0-1.0); Total Protein 7.4 g/dL (6.5-8.0)
[2022-08-20] MEDS: Morphine Sulfate 2 MG/ML CARTRIDGE IVPUSH ×2 (18:17→22:32)
[2022-08-20] MEDS: 0.9 % Sodium Chloride 1,000 ML 999 ML IV (18:18)
[2022-08-20] MEDS: ondansetron HCL 4 MG/2 ML VIAL IVPUSH ×2 (18:18→22:32)
[2022-08-20 18:21] LABS: Reflex Lactate? Lactic Acid Added
[2022-08-20] MEDS: levoFLOXacin/D5W 750 MG/150 ML PIGGYBACK 100 MG IV (19:01)
[2022-08-20] MEDS: Milk of Magnesia 30 ML ORAL.SUSP PO (19:02)
[2022-08-20] MEDS: metroNIDAZOLE 500 MG TABLET PO (19:02)
--- NOTE | 2022-08-20 19:23 | PM.IMHP ---
History of Present Illness Date of Service: 08/20/22 Attending physician on admission: Anshul Piña Chief Complaint: abd pain 86-year-old male with history of paroxysmal atrial fibrillation anticoagulated with Eliquis, ischemic cardiomyopathy, AICD in place, hypertension, hyperlipidemia, coronary artery disease presented to the ED earlier today from home for evaluation of bilateral lower abdominal pain that started this morning. This is described as a dull ache that has been constant all day. There is associated nausea and vomiting and he is unable to identify any alleviating or exacerbating factors. Patient has been constipated and did manually disimpact himself yesterday followed by a full normal bowel movement. He denies eating any bad foods or sick contacts. On arrival VSS. No leukocytosis. Renal function baseline, electrolyte levels normal. Glucose 119, lactic acid 2.3. CT of the abdomen/pelvis shows severe constipation as well as colitis or diverticulitis of the distal colon. There is also incidentally seen complex and simple left renal cysts. In the ED, given Levaquin and metronidazole IV along with milk of magnesia and ondansetron. Unfortunately, pain has not been well controlled despite morphine administration and as result will be observed for further management of diverticulitis. Recent colonoscopy in 03/2022 did show moderate diverticulosis involving the sigmoid colon as well as a cecal polyp which was negative for high-grade dysplasia or carcinoma. Review of Systems Review of Systems: General: No fevers, malaise, unintentional weight loss HEENT: No blurred vision, diplopia. No sore throat, nasal congestion, rhinorrhea, sinus pain, ear pain Cardiovascular: No chest pain, palpitations, or leg edema Respiratory: No shortness of breath, wheezing, cough GI: + nausea + vomiting, + abdominal pain, + constipation. No diarrhea, melena, hematochezia : No dysuria, hematuria, increased urinary frequency, decreased urinary output MSK: No myalgia, back pain Neuro: No headaches, weakness, paresthesias Skin: No rashes or lesions 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 Ischemic cardiomyopathy Lab test positive for detection of COVID-19 virus Pacemaker Surgical History AICD (automatic cardioverter/defibrillator) present H/O hemorrhoidectomy History of colonoscopy History of esophagogastroduodenoscopy (EGD) History of surgery Hx laparoscopic cholecystectomy Hx of CABG Hx of endoscopic retrograde cholangiopancreatography Hx of hernia repair Hx of nasal septoplasty Social History Household Members: None Housing: House Alcohol intake: never Patient Tobacco Use Status: Former Tobacco user Advance Directives: No Advance Directives Information Provided: No service: Yes Current occupational status: retired Meds Allergies Allergy/AdvReac Type Severity Reaction Status Date / Time grass pollen Allergy Intermediate Sneezing Verified 03/03/22 12:38 mite-Dermatophagoides Allergy Intermediate Sneezing Verified 03/03/22 12:38 farinae, alexis [dust mite - [place]] Active Medications: Current Medications Levofloxacin (Levaquin) 750 mg in 150 mls @ 100 mls/hr IV ONCE ONE Stop: 08/20/22 20:00 Last Admin: 08/20/22 19:01 Dose: 100 mls/hr Pharmacy Consult (Consult Rx Perform Med Rec) 1 each MISCELLANE ONCE PRN PRN Reason: Consult order Home Medications Medication Instructions Recorded Confirmed Last Taken Type apixaban 5 mg tablet (Eliquis) 5 mg PO BID 10/08/20 07/09/22 03/06/22 History atorvastatin 10 mg tablet 10 mg PO DAILY 10/08/20 07/09/22 03/08/22 History multivitamin 1 tab PO DAILY 10/08/20 07/09/22 03/08/22 History zolpidem 5 mg tablet 5 mg PO BEDTIME 10/08/20 07/09/22 03/08/22 History nystatin 100,000 unit/gram topical 1 appl topical BID PRN Rash 07/09/22 07/09/22 Unknown History cream ketoconazole 2 % topical cream 1 appl topical DAILY PRN Rash 08/20/22 Unknown History Physical Exam Vital Signs and Narrative: Vital Signs: Last Vital Signs Temp 97.8 F 08/20/22 16:07 Pulse 61 08/20/22 16:07 Resp 22 H 08/20/22 16:07 BP 111/50 L 08/20/22 16:07 Pulse Ox 96 08/20/22 16:07 O2 Del Method 08/20/22 16:07 BMI result Body Mass Index 21.9 Constitutional - Awake and Alert, No apparent distress Eyes - PERRLA, EOMI Cardiovascular - S1S2, RRR, No edema Respiratory - Normal lung expansion, Normal respiratory effort, No respiratory distress, CTA bilaterally Gastrointestinal - mild LLQ ttp without guarding or rebound. ND; +BS Extremities - no calf tenderness bilaterally, no swelling Skin - Warm/Dry Neurological - Alert & oriented x3 Psychological - Appropriate affect Results Labs 08/20/22 16:17 08/20/22 16:17 Labs: Laboratory Results - last 24 hr 08/20/22 08/20/22 08/20/22 16:17 16:17 16:17 MCV 94.0 MCH 31.2 MCHC 33.2 RDW 12.9 Plt Count 265 MPV 8.9 L Immature Gran % (Auto) 0.3 Neut % (Auto) 72.5 Lymph % (Auto) 16.1 L Archer % (Auto) 9.5 Eos % (Auto) 1.2 Baso % (Auto) 0.4 Lymph # (Auto) 1.6 Archer # (Auto) 0.9 Eos # (Auto) 0.1 Baso # (Auto) 0.0 Abs Immat Gran (auto) 0.03 Absolute Neuts (auto) 7.1 Absolute Nucleated RBC 0.000 Nucleated RBC % (auto) 0.0 PT INR Anion Gap 18 Estim Creat Clear Calc 59.2 Estimated GFR > 60 Random Glucose 119 H Lactic Acid 2.3 H* Calcium 9.3 Total Bilirubin 0.9 Direct Bilirubin 0.2 AST 21 ALT 12 Alkaline Phosphatase 87 Troponin I High Sens Total Protein 7.4 Albumin 4.1 Lipase 22 COVID-19 (JF) COVID-19 Clin Com 08/20/22 08/20/22 08/20/22 16:17 16:17 16:18 MCV MCH MCHC RDW Plt Count MPV Immature Gran % (Auto) Neut % (Auto) Lymph % (Auto) Archer % (Auto) Eos % (Auto) Baso % (Auto) Lymph # (Auto) Archer # (Auto) Eos # (Auto) Baso # (Auto) Abs Immat Gran (auto) Absolute Neuts (auto) Absolute Nucleated RBC Nucleated RBC % (auto) PT 14.2 H INR 1.2 H Anion Gap Estim Creat Clear Calc Estimated GFR Random Glucose Lactic Acid Calcium Total Bilirubin Direct Bilirubin AST ALT Alkaline Phosphatase Troponin I High Sens 7.1 Total Protein Albumin Lipase COVID-19 (JF) Negative COVID-19 Clin Com See Note Imaging Radiologist's Impressions: Impressions Abdomen/Pelvis CT 08/20/22 17:20 IMPRESSION: Severe constipation. Colitis or diverticulitis of the distal colon. Probable complex and simple left renal cysts. Follow-up renal ultrasound could be considered if clinically indicated. Fleischner guidelines were followed. Assessment and Plan (1) Constipation: Status: Acute (2) Diverticulitis: Status: Acute Plan 86-year-old male with history of paroxysmal atrial fibrillation anticoagulated with Eliquis, ischemic cardiomyopathy, AICD in place, hypertension, hyperlipidemia, coronary artery disease to be observed for uncomplicated diverticulitis # acute uncomplicated diverticulitis -CT abdomen/pelvis showing severe constipation as well as colitis or diverticulitis of the distal colon. Patient known to have moderate diverticulosis on most recent colonoscopy in 03/2022 -continue IV Levaquin and metronidazole X 10 days (initiated 08/20) -to be observed given poorly controlled pain levels. Continue morphine 2 mg p.r.n. for severe pain -clear liquid diet, advanced as tolerated -ondansetron p.r.n. for nausea/vomiting # severe constipation -noted on CT abdomen/pelvis. Patient reports he self disimpact himself yesterday with a full bowel movement following -given milk of magnesia in the ED -Colace scheduled BID -Miralax prn # paroxysmal atrial fibrillation-rate controlled -continue carvedilol, Eliquis # CAD/ischemic cardiomyopathy -no anginal chest pain, troponin negative x2 -continue carvedilol, atorvastatin # hypertension-BP soft -continue carvedilol.? Hold lisinopril for now, resume on discharge DVT prophylaxis-Eliquis Full code Time Spent With Patient Time: Total time managing care of this patient today ____ minutes. Quality Stroke Does the patient have a stroke diagnosis?: No VTE Prior VTE?: No VTE Risk Level:: Medical - moderate - high VTE Device Contraindication: Treatment Not Indicated VTE Drug Contraindication: N/A - Med Ordered
[2022-08-20 19:57] VITALS: BP 129/76; PULSE 62; RESP 16; TEMP 36.3; O2SAT 99
[2022-08-20] MEDS: Docusate Sodium 100 MG CAPSULE PO (21:22)
[2022-08-20] MEDS: Apixaban 5 MG TABLET PO (21:22)
[2022-08-20 21:34] VITALS: BP 123/54; PULSE 66; RESP 16; TEMP 36.5; O2SAT 99
[2022-08-20 21:40] LABS: Appearance Urine Clear; Color Urine Yellow; Glucose Urine UA Negative (Negative); Leukocyte Esterase Urine Negative (Negative); Nitrite Urine Negative (Negative); PH 6.5 (5.0-9.0); Specific Gravity - Urine 1.015 (1.005-1.025); Urine Blood Negative (Negative); Urine Ketones Negative (Negative); Urine Protein Negative (Neg-Trace)
[2022-08-20] MEDS: Zolpidem Tartrate 5 MG TABLET PO (22:32)
--- NOTE | 2022-08-20 22:59 | PC.NURSE ---
attempted to give report call parked.
--- NOTE | 2022-08-20 23:03 | PC.NURSE ---
Report given to angélica ghotra.
[2022-08-20 23:34] VITALS: BMI 22.7
[2022-08-20 23:41] VITALS: BP 148/64; PULSE 65; RESP 18; TEMP 36.4; O2SAT 98
[2022-08-21 03:27] VITALS: BP 112/60; PULSE 62; RESP 17; TEMP 36.3; O2SAT 97
[2022-08-21] MEDS: metroNIDAZOLE/NS 500 MG/100 ML PIGGYBACK 100 MG IV ×3 (04:27→18:29)
[2022-08-21 06:38] LABS: MANUAL DIFF FLAG NO
[2022-08-21 06:42] LABS: Basophils Percent Auto 0.4 % (0-2); Eosinophils Absolute Auto 0.1 X10*3/uL (0.0-0.4); Eosinophils Percent Auto 1.5 % (0-4); Hematocrit 35.6 % (42.0-52.0); Hemoglobin 11.4 g/dl (14.0-18.0); Imm Gran Abs Auto 0.02 X10*3/uL (0.00-0.03); Imm Gran Pct Auto 0.2 % (0.0-0.4); Lymphocytes Absolute Auto 1.3 X10*3/uL (1.2-4.9); Lymphocytes Percent Auto 16.2 % (20-40); Mean Corpuscular Hemoglobin 30.5 pg (27.0-33.0); Mean Corpuscular Volume 95.2 fL (80.0-98.0); Monocytes Absolute Auto 0.9 X10*3/uL (0.1-1.2); Monocytes Percent Auto 10.3 % (2-11); Neutrophils Absolute Auto 5.9 x10*3/uL (2.0-8.3); Neutrophils Percent Auto 71.4 % (45-73); Platelet Count 214 X10*3/uL (160-400); Red Blood Count 3.74 X10*6/uL (4.60-5.80); White Blood Count 8.3 X10*3/uL (4.8-10.8)
[2022-08-21 06:59] LABS: Anion Gap 13 (12-20); Blood Urea Nitrogen 17 mg/dL (9-16); Calcium 8.4 mg/dL (8.4-10.2); Carbon Dioxide 24 mmol/L (22-29); Chloride 109 mmol/L (96-108); Creatinine Clr Calc Pharmacy 72.4; Estimated Glomerular Filt Rate > 60; Glucose Random 90 mg/dL (60-115); Potassium 4.1 mmol/L (3.3-5.1); Sodium 142 mmol/L (135-145)
[2022-08-21 08:33] VITALS: BP 139/65; PULSE 60; RESP 17; TEMP 36.8; O2SAT 98
--- NOTE | 2022-08-21 08:42 | PHA.MEDREC ---
Pharmacy Consult ? Medication Reconciliation Pharmacy has completed the medication reconciliation. Patient was somewhat unclear on home medications but was able to confirm when I asked him names based on claim history. He states he doesn't know doses but takes as directed by pharmacy so med rec was done using directions in claim history.
[2022-08-21] MEDS: Atorvastatin Calcium 10 MG TABLET PO (08:57)
[2022-08-21] MEDS: carvediloL 6.25 MG TABLET PO ×2 (08:57→19:40)
[2022-08-21] MEDS: polyethylene glycoL 3350 17 GM POWD.PACK PO (08:57)
[2022-08-21] MEDS: Apixaban 5 MG TABLET PO ×2 (08:57→19:40)
[2022-08-21] MEDS: 0.9 % Sodium Chloride Flush 3 ML SYRINGE IVFLUSH ×3 (08:57→16:52)
--- NOTE | 2022-08-21 11:42 | P.PNIM_ITS ---
Subjective Subjective Date of Service: 08/21/22 Review of Systems Follow-up diverticulitis Denies nausea, vomiting, diarrhea Intermittent abdominal pain Physical Exam Vital Signs: Vital Signs: Last Vital Signs Temp 98.2 F 08/21/22 08:33 Pulse 60 08/21/22 08:33 Resp 17 08/21/22 08:33 BP 139/65 08/21/22 08:33 Pulse Ox 98 08/21/22 08:33 O2 Del Method 08/21/22 08:33 BMI result Body Mass Index 22.7 Appearing in no acute distress lung sounds are clear to auscultation heart regular rate rhythm, clear S1, S2 positive bowel sounds, abdomen is soft, nontender neuro patient is alert x3, no focal deficits Objective Data Active Medications Acetaminophen (Acetaminophen 325 Mg Tablet) 650 mg PO Q6H PRN PRN Reason: Pain, Mild (Pain Scale 1-3) Apixaban (Apixaban 5 Mg Tablet) 5 mg PO BID [facility] Last Admin: 08/21/22 08:57 Dose: 5 mg Documented By: DANNA Atorvastatin Calcium (Atorvastatin Calcium 10 Mg Tablet) 10 mg PO DAILY [facility] Last Admin: 08/21/22 08:57 Dose: 10 mg Documented By: DANNA Carvedilol (Carvedilol 6.25 Mg Tablet) 6.25 mg PO BID [facility]; Protocol Last Admin: 08/21/22 08:57 Dose: 6.25 mg Documented By: DANNA Metronidazole (Flagyl) 500 mg in 100 mls @ 100 mls/hr IV Q8H [facility] Stop: 08/30/22 19:59 Last Infusion: 08/21/22 05:31 Dose: 0 mls/hr Documented By: ERICKSON Levofloxacin (Levaquin) 750 mg in 150 mls @ 100 mls/hr IV Q24H [facility] Morphine Sulfate (Morphine Sulfate 2 Mg/Ml Cartridge) 2 mg IVPUSH Q4H PRN; Protocol PRN Reason: Pain, Severe (Pain Scale 7-10) Last Admin: 08/20/22 22:32 Dose: 2 mg Documented By: RADHA Ondansetron HCl (Ondansetron Hcl 4 Mg/2 Ml Vial) 4 mg IVPUSH Q6H PRN PRN Reason: Nausea and Vomiting Last Admin: 02/18/23 22:32 Dose: 4 mg Documented By: RADHA Pharmacy Consult (Consult Rx Perform Med Rec) 1 each MISCELLANE ONCE PRN PRN Reason: Consult order Polyethylene Glycol (Polyethylene Glycol 3350 17 Gm Powd.Pack) 17 gm PO DAILY [facility] Last Admin: 08/21/22 08:57 Dose: 17 gm Documented By: DANNA Sodium Chloride (0.9 % Sodium Chloride Flush 3 Ml Syringe) 3 ml IVFLUSH QSHIFT [facility] Last Admin: 08/21/22 08:57 Dose: 3 ml Documented By: DANNA Zolpidem Tartrate (Zolpidem Tartrate 5 Mg Tablet) 5 mg PO BEDTIME [facility] Last Admin: 08/20/22 22:32 Dose: 5 mg Documented By: RADHA Labs 08/21/22 06:00 08/21/22 06:00 Labs: Laboratory Results - last 24 hr 08/20/22 08/20/22 08/20/22 16:17 16:17 16:17 MCV 94.0 MCH 31.2 MCHC 33.2 RDW 12.9 Plt Count 265 MPV 8.9 L Immature Gran % (Auto) 0.3 Neut % (Auto) 72.5 Lymph % (Auto) 16.1 L Barnes % (Auto) 9.5 Eos % (Auto) 1.2 Baso % (Auto) 0.4 Lymph # (Auto) 1.6 Barnes # (Auto) 0.9 Eos # (Auto) 0.1 Baso # (Auto) 0.0 Abs Immat Gran (auto) 0.03 Absolute Neuts (auto) 7.1 Absolute Nucleated RBC 0.000 Nucleated RBC % (auto) 0.0 PT INR Anion Gap 18 Estim Creat Clear Calc 59.2 Estimated GFR > 60 Random Glucose 119 H Lactic Acid 2.3 H* Lactic Acid F/U @ 2Hr Calcium 9.3 Total Bilirubin 0.9 Direct Bilirubin 0.2 AST 21 ALT 12 Alkaline Phosphatase 87 Troponin I High Sens Total Protein 7.4 Albumin 4.1 Lipase 22 Urine Color Urine Appearance Urine pH Ur Specific [place] Urine Protein Urine Glucose (UA) Urine Ketones Urine Blood Urine Nitrite Ur Leukocyte Esterase COVID-19 (JF) COVID-19 Clin Com 08/20/22 08/20/22 08/20/22 16:17 16:17 16:18 MCV MCH MCHC RDW Plt Count MPV Immature Gran % (Auto) Neut % (Auto) Lymph % (Auto) Barnes % (Auto) Eos % (Auto) Baso % (Auto) Lymph # (Auto) Barnes # (Auto) Eos # (Auto) Baso # (Auto) Abs Immat Gran (auto) Absolute Neuts (auto) Absolute Nucleated RBC Nucleated RBC % (auto) PT 14.2 H INR 1.2 H Anion Gap Estim Creat Clear Calc Estimated GFR Random Glucose Lactic Acid Lactic Acid F/U @ 2Hr Calcium Total Bilirubin Direct Bilirubin AST ALT Alkaline Phosphatase Troponin I High Sens 7.1 Total Protein Albumin Lipase Urine Color Urine Appearance Urine pH Ur Specific [place] Urine Protein Urine Glucose (UA) Urine Ketones Urine Blood Urine Nitrite Ur Leukocyte Esterase COVID-19 (JF) Negative COVID-19 [facility] Com See Note 08/20/22 08/20/22 08/20/22 20:30 21:33 21:33 MCV MCH MCHC RDW Plt Count MPV Immature Gran % (Auto) Neut % (Auto) Lymph % (Auto) Barnes % (Auto) Eos % (Auto) Baso % (Auto) Lymph # (Auto) Barnes # (Auto) Eos # (Auto) Baso # (Auto) Abs Immat Gran (auto) Absolute Neuts (auto) Absolute Nucleated RBC Nucleated RBC % (auto) PT INR Anion Gap Estim Creat Clear Calc Estimated GFR Random Glucose Lactic Acid Lactic Acid F/U @ 2Hr Cancelled 2.0 Calcium Total Bilirubin Direct Bilirubin AST ALT Alkaline Phosphatase Troponin I High Sens Total Protein Albumin Lipase Urine Color Yellow Urine Appearance Clear Urine pH 6.5 Ur Specific [place] 1.015 Urine Protein Negative Urine Glucose (UA) Negative Urine Ketones Negative Urine Blood Negative Urine Nitrite Negative Ur Leukocyte Esterase Negative COVID-19 (JF) COVID-[facility] 08/21/22 08/21/22 06:00 06:00 MCV 95.2 MCH 30.5 MCHC 32.0 RDW 13.0 Plt Count 214 MPV 9.0 L Immature Gran % (Auto) 0.2 Neut % (Auto) 71.4 Lymph % (Auto) 16.2 L Barnes % (Auto) 10.3 Eos % (Auto) 1.5 Baso % (Auto) 0.4 Lymph # (Auto) 1.3 Barnes # (Auto) 0.9 Eos # (Auto) 0.1 Baso # (Auto) 0.0 Abs Immat Gran (auto) 0.02 Absolute Neuts (auto) 5.9 Absolute Nucleated RBC 0.000 Nucleated RBC % (auto) 0.0 PT INR Anion Gap 13 Estim Creat Clear Calc 72.4 Estimated GFR > 60 Random Glucose 90 Lactic Acid Lactic Acid F/U @ 2Hr Calcium 8.4 D Total Bilirubin Direct Bilirubin AST ALT Alkaline Phosphatase Troponin I High Sens Total Protein Albumin Lipase Urine Color Urine Appearance Urine pH Ur Specific [place] Urine Protein Urine Glucose (UA) Urine Ketones Urine Blood Urine Nitrite Ur Leukocyte Esterase COVID-19 (JF) COVID-19 Clin Com Assessment and Plan (1) Norovirus: Status: Resolved (2) Lab test positive for detection of COVID-19 virus: Status: Inactive (3) Diverticulitis: Status: Acute Plan 86-year-old male with history of paroxysmal atrial fibrillation anticoagulated with Eliquis, ischemic cardiomyopathy, AICD in place, hypertension, hyperlipidemia, coronary artery disease to be observed for uncomplicated d iverticulitis Acute uncomplicated diverticulitis CT abdomen/pelvis showing severe constipation as well as colitis or diverticulitis of the distal colon.? continue IV Levaquin and metronidazole X 10 days (initiated 08/20) GI consult clear liquid diet pain management Severe constipation noted on CT abdomen/pelvis.? Patient reports he self disimpact himself yesterday with a full bowel movement following given milk of magnesia in the ED Colace scheduled BID Miralax prn paroxysmal atrial fibrillation-rate controlled continue carvedilol, Eliquis CAD/ischemic cardiomyopathy no anginal chest pain, troponin negative x2 continue carvedilol, atorvastatin hypertension-BP soft continue carvedilol.? Hold lisinopril for now, resume on discharge DVT prophylaxis-Rani Attending Dr. Thomas Full code OBS Time Spent With Patient Time: Total time managing care of this patient today ____ minutes. Quality Stroke Does the patient have a stroke diagnosis?: No VTE Prior VTE?: No VTE Risk Level:: Medical - moderate - high VTE Device Contraindication: Treatment Not Indicated VTE Drug Contraindication: N/A - Med Ordered
--- NOTE | 2022-08-21 15:25 | PM.GICN ---
History of Present Illness Data of Consult Service Date: 08/21/22 Requesting physician: Claudia Cordova Primary Care Provider: Jan Deng MD [facility] Reason for consult: Diverticulitis 86y.o M with PMH paroxysmal atrial fibrillation anticoagulated with Eliquis, ischemic cardiomyopathy, AICD in place, hypertension, hyperlipidemia, coronary artery disease who is currently admitted to the hospital for abdominal pain and was found to have abnormal CT imaging. History was obtained from the pt who states that he frequently develops constipation and fecal impaction. He was constipated leading up to the hospital admission as well despite an attempt to self disimpact, when he developed severe cramping and stabbing lower abdominal pain associated with nausea and vomiting. Also reported chills on the day of admission. Has known hx of diverticulosis and reports pain was reminscent of diverticulitis that occured almost 7 years ago. On arrival to the ER he was found to have evidence of hemoconcentration and ZEN along with a mildly elevated lactate. CT abd/pel showed FOS with colon wall thickening on the left side. He is currently being managed for both colitis as well as uncomplicated diverticulitis. Reports considerable improvement in sx with passage of 3-4 BMs since admission. Has been tolerating diet without any difficulty. Last colonoscopy was in 03/2022 (Dr Aiken): L sided diverticulosis. 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 Ischemic cardiomyopathy Lab test positive for detection of COVID-19 virus Pacemaker Surgical History Surgical History AICD (automatic cardioverter/defibrillator) present H/O hemorrhoidectomy History of colonoscopy History of esophagogastroduodenoscopy (EGD) History of surgery Hx laparoscopic cholecystectomy Hx of CABG Hx of endoscopic retrograde cholangiopancreatography Hx of hernia repair Hx of nasal septoplasty Social History Social History Household Members: None Housing: Apartment Do you presently have visiting nurse or other home services: Yes (twice a week) Alcohol intake: never Patient Tobacco Use Status: Former Tobacco user Quit Date: 30 years ago Tobacco use type: Cigarette and Cigar Years Smoked: 20 e-Cigarette/Vaping Use: Never Used Second Hand Smoke Exposure: No service: Yes Current occupational status: retired Meds Allergies Allergy/AdvReac Type Severity Reaction Status Date / Time grass pollen Allergy Intermediate Sneezing Verified 03/03/22 12:38 mite-Dermatophagoides Allergy Intermediate Sneezing Verified 03/03/22 12:38 farinae, alexis [dust mite - [place]] Active Medications: Current Medications Acetaminophen (Acetaminophen 325 Mg Tablet) 650 mg PO Q6H PRN PRN Reason: Pain, Mild (Pain Scale 1-3) Apixaban (Apixaban 5 Mg Tablet) 5 mg PO BID [facility] Last Admin: 08/21/22 08:57 Dose: 5 mg Atorvastatin Calcium (Atorvastatin Calcium 10 Mg Tablet) 10 mg PO DAILY [facility] Last Admin: 08/21/22 08:57 Dose: 10 mg Carvedilol (Carvedilol 6.25 Mg Tablet) 6.25 mg PO BID [facility]; Protocol Last Admin: 08/21/22 08:57 Dose: 6.25 mg Metronidazole (Flagyl) 500 mg in 100 mls @ 100 mls/hr IV Q8H [facility] Stop: 08/30/22 19:59 Last Infusion: 08/21/22 14:23 Dose: Infused Levofloxacin (Levaquin) 750 mg in 150 mls @ 100 mls/hr IV Q24H [facility] Morphine Sulfate (Morphine Sulfate 2 Mg/Ml Cartridge) 2 mg IVPUSH Q4H PRN; Protocol PRN Reason: Pain, Severe (Pain Scale 7-10) Last Admin: 08/20/22 22:32 Dose: 2 mg Ondansetron HCl (Ondansetron Hcl 4 Mg/2 Ml Vial) 4 mg IVPUSH Q6H PRN PRN Reason: Nausea and Vomiting Last Admin: 08/20/22 22:32 Dose: 4 mg Pharmacy Consult (Consult Rx Perform Med Rec) 1 each MISCELLANE ONCE PRN PRN Reason: Consult order Polyethylene Glycol (Polyethylene Glycol 3350 17 Gm Powd.Pack) 17 gm PO DAILY [facility] Last Admin: 08/21/22 08:57 Dose: 17 gm Sodium Chloride (0.9 % Sodium Chloride Flush 3 Ml Syringe) 3 ml IVFLUSH QSHIFT [facility] Last Admin: 08/21/22 08:57 Dose: 3 ml Zolpidem Tartrate (Zolpidem Tartrate 5 Mg Tablet) 5 mg PO BEDTIME [facility] Last Admin: 08/20/22 22:32 Dose: 5 mg Home Medications Medication Instructions Recorded Confirmed Last Taken Type apixaban 5 mg tablet (Eliquis) 5 mg PO BID 10/08/20 08/21/22 08/19/22 History atorvastatin 10 mg tablet 10 mg PO DAILY 10/08/20 08/21/22 08/19/22 History multivitamin 1 tab PO DAILY 10/08/20 08/21/22 08/19/22 History zolpidem 5 mg tablet 5 mg PO BEDTIME 10/08/20 08/21/22 08/19/22 History nystatin 100,000 unit/gram topical 1 appl topical BID PRN Rash 07/09/22 08/21/22 08/19/22 History cream ketoconazole 2 % topical cream 1 appl topical DAILY PRN Rash 08/20/22 08/21/22 08/19/22 History cetirizine 10 mg tablet 10 mg PO DAILY PRN Allergy Symptoms 08/21/22 08/21/22 Unknown History polyvinyl alcohol 1.4 % eye drops 1 drp ophthalmic (eye) BID PRN Dry 08/21/22 08/21/22 Unknown History Eye(S) Physical Exam Vital Signs: Vital Signs: Last Vital Signs Temp 98.2 F 08/21/22 08:33 Pulse 60 08/21/22 08:33 Resp 17 08/21/22 08:33 BP 139/65 08/21/22 08:33 Pulse Ox 98 08/21/22 08:33 O2 Del Method 08/21/22 08:33 BMI result Body Mass Index 22.7 Gen appear: NAD HEENT: nonicteric, no cervical lymphadenopathy Chest: CTA CVS: Regular S1/S2 Abd: soft, nontender, nondistended, bowel sounds + Ext: no peripheral edema Neuro: A/Ox3, noted to move all extremities spontaneously Psych: interacting appropriately Results Labs 08/21/22 06:00 08/21/22 06:00 Labs: Short CBC 08/20/22 08/21/22 Range/Units 16:17 06:00 WBC 9.8 8.3 (4.8-10.8) X10*3/uL Hgb 13.4 L 11.4 L (14.0-18.0) g/dl Hct 40.4 L 35.6 L (42.0-52.0) % Plt Count 265 214 (160-400) X10*3/uL BMP 08/20/22 08/21/22 16:17 06:00 Sodium 142 142 Potassium 4.7 4.1 Chloride 107 109 H Carbon Dioxide 22 24 BUN 19 H 17 H Creatinine 1.03 0.87 Calcium 9.3 8.4 D Liver Function 08/20/22 Range/Units 16:17 Total Bilirubin 0.9 (0.0-1.0) mg/dL Direct Bilirubin 0.2 (0.0-0.5) mg/dL AST 21 (5-37) U/L ALT 12 (0-40) U/L Alkaline Phosphatase 87 (39-117) U/L Albumin 4.1 (3.5-5.0) g/dL Urine 08/20/22 Range/Units 21:33 Urine Color Yellow Urine Appearance Clear Urine pH 6.5 (5.0-9.0) Ur Specific [place] 1.015 (1.005-1.025) Urine Protein Negative (Neg-Trace) mg/dL Urine Glucose (UA) Negative (Negative) mg/dL Assessment and Plan (1) Abdominal pain: Status: Acute (2) Constipation: Status: Acute (3) Abnormal abdominal CT scan: Status: Acute (4) Diverticulitis: Status: Acute (5) Colitis: Status: Acute Plan Ddx include stercoral colitis vs uncomplicated diverticulitis. Less likely to be infectious colitis as he did not have any assoc diarrhea (current diarrhea is post tx for constipation) or colon ischemia in the absence of hematochezia and similarly inflammatory colitis also low on DDx given findings on recent colonoscopy. Reassuring clinical course so far. Recommendations: - Agree with cont Abx - can be switched to PO as pt is tolerating oral intake. - Advance diet. - Currently pt reporting diarrhea since getting MOM. Can skip next 1-2 doses of miralax and then resume once daily. - Add fiber 20-25g daily - Consider addition of stimulant laxative such as bisacodyl or senna at the time of discharge to proactively avoid recurrent constipation. - No indication for repeat colonoscopy at this time. - Follow up with Dr Aiken as needed. Thank you for allowing me to participate in his care. Please do not hesitate to reach out for any questions or concerns. Time Spent With Patient Time: Total time managing care of this patient today ____ minutes. Procedures Date of Service Date of Service: 08/21/22
[2022-08-21 15:55] VITALS: BP 139/71; PULSE 66; RESP 15; TEMP 36.6; O2SAT 94
[2022-08-21] MEDS: levoFLOXacin/D5W 750 MG/150 ML PIGGYBACK 100 MG IV (19:40)
[2022-08-21] MEDS: Zolpidem Tartrate 5 MG TABLET PO (19:40)
[2022-08-21 19:45] VITALS: BP 149/69; PULSE 71; RESP 18; TEMP 37; O2SAT 98
--- NOTE | 2022-08-21 20:06 | PC.NURSE ---
Patient [id number] complained to the color making supervisor about not being treated well since he came to the [facility] from the ED. He was admitted to the floor last night (08/20) by the night nurse. During my shift today, first thing in the morning when I got in the room, he complained/he was mad about bed alarm since he had been put in high fall risk during admission. He said he is stable, has been walking at home without any device, and can frequent to the bathroom, so he doesn't need the alarm. I told him I would assess how he walks, in which he did walk steadily with a walker. I then put him on low fall risk, took the bed alarm off and informed the UPTWIST SPINNER. He also told the truck terminal manager and I that he doesn't want anybody frequenting his room because he needed to be left alone. We got in whenever there was need, responded all call bells whenever he called, did rounds all day and I constantly asked if he needed anything whenever I got into the room rounding or when giving medication. He at all times said he was fine and needed nothing, no pain. At no time did he mention any of these issues to either the CNAs or myself all day. He has been having cold attitude all along.
[2022-08-22] MEDS: 0.9 % Sodium Chloride Flush 3 ML SYRINGE IVFLUSH ×2 (00:33→10:08)
[2022-08-22] MEDS: Acetaminophen 325 MG TABLET 650 MG PO (00:33)
[2022-08-22 03:35] VITALS: BP 152/69; PULSE 60; RESP 18; TEMP 36.5; O2SAT 96
[2022-08-22] MEDS: metroNIDAZOLE/NS 500 MG/100 ML PIGGYBACK 100 MG IV (05:18)
[2022-08-22 08:00] VITALS: BP 156/73; PULSE 63; RESP 18; TEMP 36.5; O2SAT 100
--- NOTE | 2022-08-22 10:04 | PM.DS ---
DS: Providers Provider Date of Service: 08/22/22 Date of admission: 08/20/22 19:55 Primary care physician: Jan Deng MD Consults: 08/21/22 11:41 Consult to Gastroenterology Routine Consulting Provider: Marielena Loving Reason for consultation: diverticulitis Has provider been notified: No Attending physician on discharge: Fabricio Arreguin Discharging clinician: Claudia Cordova DS: Diagnosis Discharge Diagnosis (1) Abdominal pain: Status: Acute (2) Constipation: Status: Acute (3) Abnormal abdominal CT scan: Status: Acute (4) Diverticulitis: Status: Acute (5) Colitis: Status: Acute DS: Summary Hospital Course Hospital Course: HP as per admitting provider 86-year-old male with history of paroxysmal atrial fibrillation anticoagulated with Eliquis, ischemic cardiomyopathy, AICD in place, hypertension, hyperlipidemia, coronary artery disease presented to the ED earlier today from home for evaluation of bilateral lower abdominal pain that started this morning.? This is described as a dull ache that has been constant all day.? There is associated nausea and vomiting and he is unable to identify any alleviating or exacerbating factors.? Patient has been constipated and did manually disimpact himself yesterday followed by a full normal bowel movement.? He denies eating any bad foods or sick contacts. On arrival VSS.? No leukocytosis.? Renal function baseline, electrolyte levels normal.? Glucose 119, lactic acid 2.3.? CT of the abdomen/pelvis shows severe constipation as well as colitis or diverticulitis of the distal colon.? There is also incidentally seen complex and simple left renal cysts.? In the ED, given Levaquin and metronidazole IV along with milk of magnesia and ondansetron.? Unfortunately, pain has not been well controlled despite morphine administration and as result will be observed for further management of diverticulitis.? Recent colonoscopy in 03/2022 did show moderate diverticulosis involving the sigmoid colon as well as a cecal polyp which was negative for high-grade dysplasia or carcinoma . Acute uncomplicated diverticulitis. Symptoms more likely related to severe constipation versus diverticulitis. Treated with IV Levaquin and Flagyl. Will continue oral Levaquin and Flagyl for 5 more days. Seen and evaluated by GI, can follow up outpatient. Severe constipation. noted on CT abdomen/pelvis.? Patient reports he self disimpact himself yesterday with a full bowel movement following. given milk of magnesia in the ED bisacodyl to avoid constipation daily at bedtime paroxysmal atrial fibrillation-rate controlled. Continue carvedilol and Eliquis CAD/ischemic cardiomyopathy. Continue carvedilol on atorvastatin hypertension. Continue home medications Time Spent with Patient Time attestation: Total time managing care of this patient today ____ minutes. Discharge coordination time: Greater than 30 minutes Quality: Safe Use of Opioids Does Pt have an Active Cancer Diagnosis on the Problem List?: No Quality: Stroke Does the patient have a stroke diagnosis?: No Physical Exam Vital Signs: Vital Signs: Last Vital Signs Temp 97.7 F 08/22/22 08:00 Pulse 63 08/22/22 08:00 Resp 18 08/22/22 08:00 BP 156/73 H 08/22/22 08:00 Pulse Ox 100 08/22/22 08:00 O2 Del Method 08/22/22 08:00 BMI result Body Mass Index 22.7 Appearing in no acute distress head is normocephalic atraumatic eyes pupils are PERRLA sclera is anicteric mouth throat mucous membranes are intact and moist neck is supple no lymphadenopathy, no JVD noted lung sounds are clear to auscultation heart regular rate rhythm, clear S1, S2 positive bowel sounds, abdomen is soft, nontender neuro patient is alert x3, no focal deficits DS: Data Data Completed and Pending Labs on day of discharge: Preliminary micro results at discharge 08/20/22 17:57 Blood Culture - Preliminary Blood - Venous No growth after 24 hours. 08/20/22 16:17 Blood Culture - Preliminary Blood - Venous No growth after 24 hours. Discharge Plan Discharge Anticipated Discharge Date/Time: 08/22/22 09:52 Patient Disposition: Home, Self-Care Discharge Diagnosis: stercoral colitis versus colitis Referrals: Jan Deng MD [Primary Care Provider] - 1 Week Discharge Medications: New bisacodyl 5 mg tablet 5 mg PO BEDTIME 30 Days Qty: 30 0RF levofloxacin 500 mg tablet 500 mg PO DAILY Qty: 5 0RF metronidazole 500 mg tablet 500 mg PO Q8H Qty: 15 0RF Continued carvedilol 6.25 mg tablet 6.25 mg PO BID 90 Days Qty: 180 1RF Rx Instructions: must administer with a meal/food lisinopril 10 mg tablet 10 mg PO DAILY 30 Days Qty: 30 0RF Rx Instructions: Must make cardiology appt for refills atorvastatin 10 mg tablet 10 mg PO DAILY zolpidem 5 mg tablet 5 mg PO BEDTIME Eliquis 5 mg tablet 5 mg PO BID multivitamin Tablet 1 tab PO DAILY ketoconazole 2 % cream 1 appl topical DAILY PRN (Reason: Rash) cetirizine 10 mg Tablet 10 mg PO DAILY PRN (Reason: Allergy Symptoms) polyvinyl alcohol 1.4 % Drops 1 drp OPHTHALMIC (EYE) BID PRN (Reason: Dry Eye(S)) nystatin 100,000 unit/gram cream 1 appl topical BID PRN (Reason: Rash) Discharge Orders: Discharge Order (Routine); Ordered 08/22/22 Ordered By: Claudia Cordova Diet: Advance to usual diet Activity on Discharge: As tolerated Stand Alone Forms: Patient Portal Discharge page Care Plan Goals: complete resolution of symptoms Health Concerns: stercoral colitis versus colitis Plan of Treatment: follow-up with primary care provider as needed take all medications as prescribed Take bisacodyl to avoid constipation, increase fiber in diet Assessment: see discharge summary
[2022-08-22] MEDS: Atorvastatin Calcium 10 MG TABLET PO (10:08)
[2022-08-22] MEDS: Apixaban 5 MG TABLET PO (10:08)
[2022-08-22] MEDS: polyethylene glycoL 3350 17 GM POWD.PACK PO (10:08)
[2022-08-22] MEDS: carvediloL 6.25 MG TABLET PO (10:08)
--- NOTE | 2022-08-22 12:28 | MHC.CM.PN ---
PT BEING DISCHARGED TODAY HE LIVES ALONE AND IS INDEPENDENT WITH CARE NO DME AND NO SERVICES MING ARRANGED FOR 1240 PM OBS NOTICE DELIVERED
--- NOTE | 2022-09-12 13:29 | W.MHC.F2F ---
Service Date Service Date: 09/12/22 Encounter Date of encounter: 08/22/22 Reasons for Services Signs and symptoms assessed: Diverticulitis Reason for correction: CV/CP assess and/or care Reason for physical therapy: home safety and mobility Homebound: Leaving the home is medically contraindicated at this time without the asist of a device and/or another person due th the listed conditions above and below. Reason homebound: unsteady gait / fall risk Certification: Based on the above findings, I certify that this patient is confined to the home and needs intermittent correction care, physical therapy and/or speech therapy, or continues to need occupational therapy. The patient is under my care, and I have initiated the establishment of the plan of care. The patient will be followed by a physician who will periodically review the plan of care. Time Spent With Patient Time: Total time managing care of this patient today ____ minutes.
== END 2022-08-22 12:28 | disposition home or self-care (01) ==
LOC: HO.ED 19:40 → HO.EDOVER 20:11 → HO.S3 22:31
PROVIDERS: Admitting Provider Physician Assistant; Emergency Provider Emergency Medicine; PCP Internal Medicine; Visit Provider Nurse Practitioner Acute Care
DX: R10.9 Unspecified abdominal pain (principal); K59.00 Constipation, unspecified; K57.32 Diverticulitis of large intestine without perforation or abscess without bleeding; R93.5 Abnormal findings on diagnostic imaging of other abdominal regions, including retroperitoneum; K52.9 Noninfective gastroenteritis and colitis, unspecified; I48.0 Paroxysmal atrial fibrillation; I25.5 Ischemic cardiomyopathy; I10 Essential (primary) hypertension; I25.10 Atherosclerotic heart disease of native coronary artery without angina pectoris; E78.5 Hyperlipidemia, unspecified; Z79.01 Long term (current) use of anticoagulants; Z95.810 Presence of automatic (implantable) cardiac defibrillator; Z20.822 Contact with and (suspected) exposure to COVID-19
CPT/HCPCS: 36415; 74176; 80048; 80076; 81003; 83605; 83690; 84484; 85025; 85610; 87040; 87635; 93005; 96365; 96366; 96367; 96375; 99221; 99285; J1956; J2270; J2405

== ENCOUNTER 2023-05-15 08:51 | Inpatient (IN) | payer MEDICARE, SELFPAY ==
--- NOTE | ~2023-05-15 | XR_ITS ---
EXAMINATION: PORTABLE CHEST 1 VIEW CLINICAL INFORMATION: picc line placement. COMPARISON: 07/09/2022. TECHNIQUE: Portable frontal view of the chest was obtained. FINDINGS: The lungs are well expanded. No focal infiltrate, effusion, edema, or pneumothorax. Cardiac and mediastinal silhouettes are within normal limits for size. Patient is status post sternotomy and CABG with atrial appendage clip noted. Biventricular pacemaker/AICD is again seen with lead tips overlying the expected right atrium, right ventricle, and coronary sinus. Right arm PICC line tip projecting over the superior vena cava. No acute bony abnormality seen. XR/XR chest 1V IMPRESSION: Right arm PICC line tip projecting over the superior vena cava. Chronic appearing and postoperative changes otherwise.
--- NOTE | ~2023-05-15 | CT_ITS ---
EXAMINATION: CT of the left lower extremity without contrast INDICATION: Reason for Exam left leg pain swelling/cellulitis -r/o abscess COMPARISON: None TECHNIQUE: Multidetector volumetric imaging was obtained through the left lower extremity from the knee through the ankle without intravenous contrast. Multiplanar reformatted images in coronal and sagittal orientations were submitted. This CT examination was performed using dose optimization techniques as appropriate, variously including the following: *Automated exposure control *Adjustment of mA and/or kV according to patient size (this includes techniques or standardized protocols for targeted exams where dose is matched to indication/reason for exam; i.e. extremities or head) *Use of iterative reconstruction technique DLP: 346 mGy-cm FINDINGS: There is generalized soft tissue swelling in the left lower leg with marked edema signal in the subcutaneous fat. No subcutaneous gas. No discrete fluid collections are identified. Moderate fatty atrophy of the posterior compartment calf musculature and more mild to moderate fatty replacement of the anterior compartment musculature. No significant fascial fluid or pronounced inflammatory changes in the musculature and intramuscular fascial planes of the lower leg. There is thickening of the Achilles tendon at its mid substance consistent with tendinosis. No appreciable tendon tears on these images. Calcific atherosclerosis is present in the popliteal and runoff arteries. Osteoarthritis is present in the left knee. No acute osseous findings in this region. No appreciable knee joint effusion. No acute osseous findings in the tibia and fibula. There is mild osteoarthritis of the talocrural joint. Valgus angulation is present in the hindfoot. CT/CT lower leg LT wo IV con IMPRESSION: 1. Generalized soft tissue swelling in the left lower leg, most pronounced in the subcutaneous fat, consistent with the provided history of cellulitis. No appreciable abscess. No subcutaneous gas. 2. Achilles tendinosis. 3. 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
--- NOTE | ~2023-05-15 | US_ITS ---
EXAMINATION: LEFT LOWER EXTREMITY DEEP VENOUS ULTRASOUND CLINICAL INFORMATION: Left lower extremity pain and edema. COMPARISON: None. TECHNIQUE: Duplex Doppler imaging with compression maneuvers were performed of the left lower extremity deep venous system. Today's examination is mildly limited secondary to patient pain with compression. FINDINGS: The visualized common femoral, femoral and popliteal veins demonstrate normal compressibility and color flow without evidence of venous thrombosis. Visualized portions of the calf veins demonstrate normal color fill-in suggesting patency. There is no evidence of a Kathleen's cyst. US/US venous duplex LE LT IMPRESSION: No evidence of deep venous thrombosis involving the left lower extremity.
--- NOTE | ~2023-05-15 | XR_ITS ---
EXAMINATION: XR FOOT, LEFT CLINICAL INFORMATION: Great toe wound. Evaluate for osteomyelitis. COMPARISON: None available. TECHNIQUE: AP, lateral, and oblique views of the left foot. FINDINGS: Soft tissue swelling of the first toe with subcutaneous emphysema consistent with reported history of wound. The tuft of the first toe is mildly foreshortened with irregular cortical margins and erosive changes. There are moderate degenerative changes of the midfoot with a moderate sized plantar calcaneal enthesophytes. Prominent vascular calcifications. No gross ankle joint effusion. XR/XR foot LT 2V IMPRESSION: Soft tissue swelling of the first toe with subcutaneous emphysema. The tuft of the first toe is mildly foreshortened with irregular cortical margins and erosive changes. Findings are concerning for osteomyelitis. Clinical correlation recommended. MRI imaging can be obtained as clinically indicated.
[2023-05-15 08:52] VITALS: BP 127/61; PULSE 71; RESP 18; TEMP 36.6; O2SAT 98; BMI 23.1
--- NOTE | 2023-05-15 09:26 | ED_ITS ---
HPI - Extremity Problem General Chief complaint: Extremity Problem Stated complaint: L leg swelling/Bilateral leg pain Time Seen by Provider: 05/15/23 09:07 Source: patient Mode of arrival: ambulatory Limitations: no limitations History of Present Illness HPI Narrative: This is an 87-year-old male who has a past medical history of hypertension, high cholesterol, afib on eliquis, ischemic cardiomyopathy with ICD, coronary artery disease presents to the ER with complaints of left lower extremity pain increasing over the last 1 week. Patient reports pain is worse night time he is unable to sleep due to pain. He does report chronic swelling and discoloration to the left lower extremity. He does not believe that that is worse today. He denies any fevers, chills, chest pain, shortness of breath. Related Data Home Medications Medication Instructions Recorded Confirmed apixaban 5 mg tablet (Eliquis) 5 mg PO BID 10/08/20 08/21/22 atorvastatin 10 mg tablet 10 mg PO DAILY 10/08/20 08/21/22 multivitamin 1 tab PO DAILY 10/08/20 08/21/22 zolpidem 5 mg tablet 5 mg PO BEDTIME 10/08/20 08/21/22 nystatin 100,000 unit/gram topical 1 appl topical BID PRN Rash 07/09/22 08/21/22 cream ketoconazole 2 % topical cream 1 appl topical DAILY PRN Rash 08/20/22 08/21/22 cetirizine 10 mg tablet 10 mg PO DAILY PRN Allergy Symptoms 08/21/22 08/21/22 polyvinyl alcohol 1.4 % eye drops 1 drp ophthalmic (eye) BID PRN Dry 08/21/22 08/21/22 Eye(S) Previous Rx's Medication Instructions Recorded carvedilol 6.25 mg tablet 6.25 mg PO BID 90 days #180 tabs 05/04/20 lisinopril 10 mg tablet 10 mg PO DAILY 30 days #30 tabs 09/13/21 bisacodyl 5 mg tablet 5 mg PO BEDTIME 30 days #30 tabs 08/22/22 levofloxacin 500 mg tablet 500 mg PO DAILY #5 tabs 08/22/22 metronidazole 500 mg tablet 500 mg PO Q8H #15 tabs 08/22/22 Allergies Allergy/AdvReac Type Severity Reaction Status Date / Time grass pollen Allergy Intermediate Sneezing Verified 03/03/22 12:38 mite-Dermatophagoides Allergy Intermediate Sneezing Verified 03/03/22 12:38 alexis vaca [dust mite - [place]] Review of Systems 2 Review of Systems: Yes all other systems are reviewed and are negative Constitutional: Constitutional: Reports no additional constitutional complaints, Denies body ache(s), Denies chills, Denies fever(s), Denies headache(s) and Denies weakness Eyes: Eyes: Reports no additional eye complaints and Denies change in vision ENT: Reports system reviewed and no additional complaints, except as documented, Denies dizziness, Denies headache(s), Denies nasal congestion, Denies nasal discharge and Denies neck pain Cardiovascular: Cardiovascular: Reports no additional cardiovascular complaints, Denies chest pain, Reports leg edema and Denies dyspnea Respiratory: Respiratory: Reports no additional respiratory complaints, Denies cough and Denies dyspnea Gastrointestinal: Gastrointestinal: Reports no additional gastrointestinal complaints, Denies abdominal pain, Denies diarrhea, Denies nausea and Denies vomiting Genitourinary: Genitourinary: Denies urinary incontinence Musculoskeletal: Musculoskeletal: Reports no additional musculoskeletal complaints, Denies back pain, Denies arthralgias, Denies joint swelling, Denies neck pain, Denies numbness and Denies tingling Integumentary/Breasts: Skin/Breast: Reports system reviewed and no additional complaints, except as docu and Denies rash Neurologic: Reports system reviewed and no additional complaints, except as documented, Denies Abnormal speech present, Denies dizziness, Denies headache(s), Denies numbness, Denies tingling and Denies weakness [facility] Past Medical History Attestation statement: The following information was validated with the patient. 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 Pacemaker Surgical History Hx of nasal septoplasty History of esophagogastroduodenoscopy (EGD) Hx of endoscopic retrograde cholangiopancreatography Hx laparoscopic cholecystectomy History of surgery Hx of hernia repair AICD (automatic cardioverter/defibrillator) present Hx of CABG History of colonoscopy H/O hemorrhoidectomy Social History Social History Household Members: None Housing: Apartment Do you presently have visiting nurse or other home services: Yes (twice a week) Alcohol intake: never Patient Tobacco Use Status: Former Tobacco user Quit Date: 30 years ago Tobacco use type: Cigarette and Cigar Years Smoked: 20 e-Cigarette/Vaping Use: Never Used Second Hand Smoke Exposure: No Advance Directives: Yes Advance Directives on File: Yes Advance Directives Date on File: 03/10/22 service: Yes Current occupational status: retired Physical Exam 2 Vital Signs: Vital Signs: Last Vital Signs Temp 97.4 F 05/15/23 11:35 Pulse 64 05/15/23 11:35 Resp 15 05/15/23 11:35 BP 132/64 05/15/23 11:35 Pulse Ox 100 05/15/23 11:35 O2 Del Method Room Air 05/15/23 11:35 BMI result Body Mass Index 23.1 Const: General: cooperative, healthy appearing, comfortable and no acute distress Orientation/consciousness: patient oriented x3 Limitations: no limitations HEENT: Head: Yes normal to inspection Ears: hearing grossly normal bilaterally General nose exam: Normal external nose present Face and sinus: Yes normal facial exam Mouth: Normal oral and palatal mucosa present Throat: Yes posterior oropharynx normal Eyes: General: appearance normal, both eyes and all related structures P upils: Equal, round and reactive pupils present Neck: Neck: Yes normal visual inspection Chest: Chest palpation & inspection: normal inspection of the chest Resp: Effort & Inspection: normal respiratory effort Auscultation: clear to auscultation bilaterally Cardio: Rate: regular rate Rhythm: regular rhythm Peripheral pulses: P eripheral pulses 2+ throughout GI: Inspection: Yes normal to inspection Palpation (GI): Soft to palpation and nontender Auscultation: normal bowel sounds Back/Spine/Pelvis: Thoracic/Lumbar Spine: thoracic and lumbar spine normal to inspection Skin: General skin exam: no rashes or lesions noted Neuro: General: patient oriented x3, no focal motor deficits and normal sensation to monofilament Cranial nerves: Yes Equal, round and reactive pupils present Cognition (Neuro): normal cognition Speech: No Abnormal speech present Gait exam (Neuro): Normal gait present Motor exam (neuro): 5/5 motor strength present throughout Extrem: Other: The compartments are soft and compressible. There are normal DP and PT pulses. Normal sensation. Normal active and passive range of motion of the left lower extremity General: Yes normal to inspection Course Course Course Narrative: 1059- X-ray concerning for left great toe osteomyelitis. At this time infection is suspected. Antibiotics ordered. Medications Administered Generic Name Dose Route Start Last Admin Trade Name Freq PRN Reason Stop Dose Admin Vancomycin HCl 2,000 mg in 500 mls @ 250 mls/hr 05/15/23 10:59 05/15/23 11:37 Vancomycin/Ns IV 05/15/23 12:58 250 mls/hr ONCE ONE Administration Discontinued Medications Generic Name Dose Route Start Last Admin Trade Name Freq PRN Reason Stop Dose Admin Acetaminophen 975 mg 05/15/23 11:32 05/15/23 11:40 Acetaminophen 325 Mg Tablet PO 05/15/23 11:33 975 mg ONCE ONE Administration Oxycodone HCl 5 mg 05/15/23 11:32 05/15/23 11:40 Oxycodone Hcl Immed Release 5 Mg Tablet PO 05/15/23 11:33 5 mg ONCE ONE Administration Medical Decision Making Medical Decision Making [facility] Narrative: This is an 87-year-old male who has a past medical history of hypertension, high cholesterol, afib on eliquis, ischemic cardiomyopathy with ICD, coronary artery disease presents to the ER with complaints of left lower extremity pain increasing over the last 1 week. Patient reports pain is worse night time he is unable to sleep due to pain. He does report chronic swelling and discoloration to the left lower extremity. He does not believe that that is worse today. He denies any fevers, chills, chest pain, shortness of breath. See pictures in PE The compartments are soft and compressible. There are normal DP and PT pulses. Normal sensation. Normal active and passive range of motion of the left lower extremity patient reports he has been compliant with Eliquis so I doubt DVT however due to the amount of swelling I will obtain an ultrasound. Will also obtain labs. Will also obtain x-ray of left foot as patient has a wound over the great toe. Differential Diagnosis Differential Diagnoses: The differential diagnosis associated with the presentation includes cellulitis, DVT, osteomyelitis low concern for compartment syndrome, necrotizing fasciitis Admission/Observation Consideration of admission/observation: Escalation of care including admission/observation considered Osteomyelitis on x-ray requiring IV antibiotics Consult Healthcare Provider Management of the patient was discussed with: Hospitalist [phone]- call out to hospitalist discussed for admission Admitted by Dr Arreguin Lab Data MDM Lab Attestation statement: I reviewed the patient's lab results. elevated inflammatory markers otherwise at baseline 05/15/23 09:47 05/15/23 09:47 Labs: Lab Results 05/15/23 Range/Units 09:47 WBC 10.0 (4.8-10.8) X10*3/uL RBC 3.83 L (4.60-5.80) X10*6/uL Hgb 11.4 L (14.0-18.0) g/dl Hct 35.0 L (42.0-52.0) % MCV 91.4 (80.0-98.0) fL MCH 29.8 (27.0-33.0) pg MCHC 32.6 (31.0-36.0) g/dl RDW 14.1 (11.0-16.0) % Plt Count 348 D (160-400) X10*3/uL MPV 8.5 L (9.4-12.4) fL Immature Gran % (Auto) 1.1 H (0.0-0.4) % Neut % (Auto) 70.2 (45-73) % Lymph % (Auto) 17.8 L (20-40) % Murray % (Auto) 7.9 (2-11) % Eos % (Auto) 2.5 (0-4) % Baso % (Auto) 0.5 (0-2) % Lymph # (Auto) 1.8 (1.2-4.9) X10*3/uL Murray # (Auto) 0.8 (0.1-1.2) X10*3/uL Eos # (Auto) 0.3 (0.0-0.4) X10*3/uL Baso # (Auto) 0.1 (0.0-0.2) X10*3/uL Abs Immat Gran (auto) 0.11 H (0.00-0.03) X10*3/uL Absolute Neuts (auto) 7.0 (2.0-8.3) x10*3/uL Absolute Nucleated RBC 0.000 (0.0-0.012) X10*3/uL Nucleated RBC % (auto) 0.0 (0.0-0.2) /100WBC ESR 92 H (0-15) MM/HR Sodium 138 (135-145) mmol/L Potassium 4.4 (3.3-5.1) mmol/L Chloride 109 H (96-108) mmol/L Carbon Dioxide 18 L (22-29) mmol/L Anion Gap 15 (12-20) BUN 19 H (9-16) mg/dL Creatinine 0.98 (0.5-1.4) mg/dL Estim Creat Clear Calc 62.4 Estimated GFR > 60 Random Glucose 104 (60-115) mg/dL Lactic Acid 0.9 (0.5-2.0) mmol/L Calcium 9.7 D (8.4-10.2) mg/dL Total Bilirubin 0.3 (0.0-1.0) mg/dL Direct Bilirubin 0.1 (0.0-0.5) mg/dL AST 21 (5-37) U/L ALT 11 (0-40) U/L Alkaline Phosphatase 70 (39-117) U/L Total Creatine Kinase 68 (38-174) U/L C-Reactive Protein 4.23 H (< or = 0.50) mg/dL Total Protein 8.3 H (6.5-8.0) g/dL Albumin 3.9 (3.5-5.0) g/dL Independent Interpretation I performed an independent interpretation of an: Plain X-Ray and Ultrasound Interpretation: I independently reviewed the x-ray and the ultrasound agree with Radiology report Radiology Impression Discussion of test interpretation with radiology: I have reviewed the radiologist's reading. Radiologist Impression: [address] [address] XRay Report Signed Patient: James Araya MR#: [id number] : 1935 Acct:[id number] Age/Sex: 87 / M ADM Date: 05/15/23 Loc: .ED Attending Dr: Ordering Physician: Tiara Raygoza NP Date of Service: 05/15/23 Procedure(s): XR foot LT 2V Accession Number(s): [id number] cc: Jan Deng MD; Tiara Raygoza NP~ EXAMINATION: XR FOOT, LEFT CLINICAL INFORMATION: Great toe wound. Evaluate for osteomyelitis. COMPARISON: None available. TECHNIQUE: AP, lateral, and oblique views of the left foot. FINDINGS: Soft tissue swelling of the first toe with subcutaneous emphysema consistent with reported history of wound. The tuft of the first toe is mildly foreshortened with irregular cortical margins and erosive changes. There are moderate degenerative changes of the midfoot with a moderate sized plantar calcaneal enthesophytes. Prominent vascular calcifications. No gross ankle joint effusion. XR/XR foot LT 2V IMPRESSION: Soft tissue swelling of the first toe with subcutaneous emphysema. The tuft of the first toe is mildly foreshortened with irregular cortical margins and erosive changes. Findings are concerning for osteomyelitis. Clinical correlation recommended. MRI imaging can be obtained as clinically indicated. [place] [address] Ultrasound Report Signed Patient: James Araya MR#: [id number] : 1935 Acct:[id number] Age/Sex: 87 / M ADM Date: 05/15/23 Loc: .ED Attending Dr: Ordering Physician: Tiara Raygoza NP Date of Service: 05/15/23 Procedure(s): US venous duplex LE LT Accession Number(s): [id number] cc: Jan Deng MD; Tiara Raygoza NP~ EXAMINATION: LEFT LOWER EXTREMITY DEEP VENOUS ULTRASOUND CLINICAL INFORMATION: Left lower extremity pain and edema. COMPARISON: None. TECHNIQUE: Duplex Doppler imaging with compression maneuvers were performed of the left lower extremity deep venous system. Today's examination is mildly limited secondary to patient pain with compression. FINDINGS: The visualized common femoral, femoral and popliteal veins demonstrate normal compressibility and color flow without evidence of venous thrombosis. Visualized portions of the calf veins demonstrate normal color fill-in suggesting patency. There is no evidence of a Kathleen's cyst. US/US venous duplex LE LT IMPRESSION: No evidence of deep venous thrombosis involving the left lower extremity. Discharge Plan Discharge Clinical Impression: Osteomyelitis Patient Disposition: Admitted As Inpatient
[2023-05-15 09:52] LABS: MANUAL DIFF FLAG NO
[2023-05-15 09:55] LABS: Basophils Absolute Auto 0.1 X10*3/uL (0.0-0.2); Basophils Percent Auto 0.5 % (0-2); Eosinophils Absolute Auto 0.3 X10*3/uL (0.0-0.4); Eosinophils Percent Auto 2.5 % (0-4); Hemoglobin 11.4 g/dl (14.0-18.0); Imm Gran Abs Auto 0.11 X10*3/uL (0.00-0.03); Imm Gran Pct Auto 1.1 % (0.0-0.4); Lymphocytes Absolute Auto 1.8 X10*3/uL (1.2-4.9); Lymphocytes Percent Auto 17.8 % (20-40); Mean Corpuscular HGB Conc 32.6 g/dl (31.0-36.0); Mean Corpuscular Hemoglobin 29.8 pg (27.0-33.0); Mean Corpuscular Volume 91.4 fL (80.0-98.0); Mean Platelet Volume 8.5 fL (9.4-12.4); Monocytes Absolute Auto 0.8 X10*3/uL (0.1-1.2); Monocytes Percent Auto 7.9 % (2-11); Neutrophils Percent Auto 70.2 % (45-73); Platelet Count 348 X10*3/uL (160-400); Red Blood Count 3.83 X10*6/uL (4.60-5.80); Red Cell Distribution Width 14.1 % (11.0-16.0)
[2023-05-15 10:03] LABS: Lactic Acid 0.9 mmol/L (0.5-2.0)
[2023-05-15 10:09] LABS: Alanine Aminotransferase 11 U/L (0-40); Albumin Level 3.9 g/dL (3.5-5.0); Alkaline Phosphatase 70 U/L (39-117); Anion Gap 15 (12-20); Aspartate Amino Transferase 21 U/L (5-37); Bilirubin Direct 0.1 mg/dL (0.0-0.5); Bilirubin Total 0.3 mg/dL (0.0-1.0); Blood Urea Nitrogen 19 mg/dL (9-16); C Reactive Protein 4.23 mg/dL (< or = 0.50); Calcium 9.7 mg/dL (8.4-10.2); Carbon Dioxide 18 mmol/L (22-29); Chloride 109 mmol/L (96-108); Creatinine Clr Calc Pharmacy 62.4; Estimated Glomerular Filt Rate > 60; Glucose Random 104 mg/dL (60-115); Potassium 4.4 mmol/L (3.3-5.1); Sodium 138 mmol/L (135-145); Total Protein 8.3 g/dL (6.5-8.0)
[2023-05-15 10:33] LABS: Erythrocyte Sedimentation Rate 92 MM/HR (0-15)
[2023-05-15 11:35] VITALS: BP 132/64; PULSE 64; RESP 15; TEMP 36.3; O2SAT 100
[2023-05-15] MEDS: vancomycin/NS 2,000 MG/500 ML PLAST..BAG 250 MG IV (11:37)
[2023-05-15] MEDS: Acetaminophen 325 MG TABLET 975 MG PO (11:40)
[2023-05-15] MEDS: oxyCODONE HCl Immed Release 5 MG TABLET PO ×2 (11:40→17:08)
--- NOTE | 2023-05-15 11:42 | PC.NURSE ---
hospitalist at bedside to discuss pt care. pt medicated per aug, reports 10/10 left leg pain. left leg noted to be red and warm to touch.
--- NOTE | 2023-05-15 12:39 | PM.IMHP ---
History of Present Illness Date of Service: 05/15/23 Chief Complaint: foot pain This is an 87 year old male with a PMH of PAF on Eliquis, ICM, PPM , HTN, HLD and CAD who presents to the ED with complaints of L foot pain, swelling and erythema. The patient endorses that for the last 4-5 days prior to admission, he has had lower extremity pain. He reports that initially this was bothersome, but it has progressed to the patient where it is disturbing his sleep. He reports taking tylenol for pain without much help. He denies any trauma to the LLE. He denies any fevers or chills. He reports compliance with his Eliquis. On arrival, the patient was noted to have LLE swelling and erythema. Work up revealed an elevated ESR of 92. Imaging studies were consistent with osteo. He has been given IV vancomcyin and now will be admitted for further care. Review of Systems Review of Systems: Negative except HPI/interval history. 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 Pacemaker Surgical History Hx of nasal septoplasty History of esophagogastroduodenoscopy (EGD) Hx of endoscopic retrograde cholangiopancreatography Hx laparoscopic cholecystectomy History of surgery Hx of hernia repair AICD (automatic cardioverter/defibrillator) present Hx of CABG History of colonoscopy H/O hemorrhoidectomy Social History Household Members: None Housing: Apartment Do you presently have visiting nurse or other home services: Yes (twice a week) Alcohol intake: never Patient Tobacco Use Status: Former Tobacco user Quit Date: 30 years ago Tobacco use type: Cigarette and Cigar Years Smoked: 20 e-Cigarette/Vaping Use: Never Used Second Hand Smoke Exposure: No Advance Directives: Yes Advance Directives on File: Yes Advance Directives Date on File: 03/10/22 service: Yes Current occupational status: retired Meds Allergies Allergy/AdvReac Type Severity Reaction Status Date / Time grass pollen Allergy Intermediate Sneezing Verified 03/03/22 12:38 mite-Dermatophagoides Allergy Intermediate Sneezing Verified 03/03/22 12:38 farinaealexis [dust mite - [place]] Active Medications: Current Medications Vancomycin HCl (Vancomycin/Ns) 2,000 mg in 500 mls @ 250 mls/hr IV ONCE ONE Stop: 05/15/23 12:58 Last Admin: 05/15/23 11:37 Dose: 250 mls/hr Home Medications Medication Instructions Recorded Confirmed Last Taken Type apixaban 5 mg tablet (Eliquis) 5 mg PO BID 10/08/20 08/21/22 08/19/22 History atorvastatin 10 mg tablet 10 mg PO DAILY 10/08/20 08/21/22 08/19/22 History multivitamin 1 tab PO DAILY 10/08/20 08/21/22 08/19/22 History zolpidem 5 mg tablet 5 mg PO BEDTIME 10/08/20 08/21/22 08/19/22 History nystatin 100,000 unit/gram topical 1 appl topical BID PRN Rash 07/09/22 08/21/22 08/19/22 History cream ketoconazole 2 % topical cream 1 appl topical DAILY PRN Rash 08/20/22 08/21/22 08/19/22 History cetirizine 10 mg tablet 10 mg PO DAILY PRN Allergy Symptoms 08/21/22 08/21/22 Unknown History polyvinyl alcohol 1.4 % eye drops 1 drp ophthalmic (eye) BID PRN Dry 08/21/22 08/21/22 Unknown History Eye(S) Physical Exam Vital Signs and Narrative: Vital Signs: Last Vital Signs Temp 97.4 F 05/15/23 11:35 Pulse 64 05/15/23 11:35 Resp 15 05/15/23 11:35 BP 132/64 05/15/23 11:35 Pulse Ox 100 05/15/23 11:35 O2 Del Method Room Air 05/15/23 11:35 BMI result Body Mass Index 23.1 Const: Other: Constitutional - Awake and Alert, No apparent distress Eyes - PERRLA, EOMI Cardiovascular - S1S2, RRR, No edema Respiratory - Normal lung expansion, Normal respiratory effort, No respiratory distress, CTA bilaterally Gastrointestinal - NT / ND; +BS; No rebound or guarding - No CVA tenderness Extremities - no calf tenderness bilaterally, no swelling Musculoskeletal - Normal inspection, normal ROM Skin - LLE warmth, TTP and erythematous compared the RLE; LLE great toe with obvious fungal infection, surrounding cellulitis and an area of what appears to be old truma Neurological - Alert & oriented x3, No focal deficit Psychological - Appropriate affect Results Labs 05/15/23 09:47 05/15/23 09:47 Labs: Laboratory Results - last 24 hr 05/15/23 09:47 MCV 91.4 MCH 29.8 MCHC 32.6 RDW 14.1 Plt Count 348 D MPV 8.5 L Immature Gran % (Auto) 1.1 H Neut % (Auto) 70.2 Lymph % (Auto) 17.8 L [place] % (Auto) 7.9 Eos % (Auto) 2.5 Baso % (Auto) 0.5 Lymph # (Auto) 1.8 [place] # (Auto) 0.8 Eos # (Auto) 0.3 Baso # (Auto) 0.1 Abs Immat Gran (auto) 0.11 H Absolute Neuts (auto) 7.0 Absolute Nucleated RBC 0.000 Nucleated RBC % (auto) 0.0 ESR 92 H Anion Gap 15 Estim Creat Clear Calc 62.4 Estimated GFR > 60 Random Glucose 104 Lactic Acid 0.9 Calcium 9.7 D Total Bilirubin 0.3 Direct Bilirubin 0.1 AST 21 ALT 11 Alkaline Phosphatase 70 Total Creatine Kinase 68 C-Reactive Protein 4.23 H Total Protein 8.3 H Albumin 3.9 Imaging Radiologist's Impressions: Impressions Foot X-Ray 05/15/23 09:30 IMPRESSION: Soft tissue swelling of the first toe with subcutaneous emphysema. The tuft of the first toe is mildly foreshortened with irregular cortical margins and erosive changes. Findings are concerning for osteomyelitis. Clinical correlation recommended. MRI imaging can be obtained as clinically indicated. Venous Duplex 05/15/23 11:20 IMPRESSION: No evidence of deep venous thrombosis involving the left lower extremity. Assessment and Plan (1) Osteomyelitis: Status: Acute Plan 87 year old male with a PMH of CAD, PAF, PPM, HTN, HLD who presents to the hospital with a several day history of LLE swelling, pain and erythema who is found to have acute cellulitis and osteomyelitis. He will be admitted for further care. 1. Acute Osteomyelitis and cellulitis XR with evidence of osteo with concurrent elevated ESR Given vancomcyin in the ED, will continue and add Rocephin follow up culture data ID consult 2. PAF continue Eliquis and other home meds 3. CAD stable, continue home meds 4. HTN/HLD continue home meds Patient with significant LLE cellulitis and osteomyelitis and therefore, expected to require a mininum of 48-72 hours of IV antibiotics + expert consultation with ID. Therefore, admission expected to span at least 2 midnights and hence, will be admitted as inpatient. Quality Stroke Does the patient have a stroke diagnosis?: No VTE Prior VTE?: No VTE Risk Level:: Medical - moderate - high VTE Device Contraindication: Treatment Not Indicated VTE Drug Contraindication: N/A - Med Ordered
--- NOTE | 2023-05-15 13:20 | PC.NURSE ---
attempted to give report, S3 nurse will call back when available.
--- NOTE | 2023-05-15 13:41 | PC.NURSE ---
report given to S3 nurse.
--- NOTE | 2023-05-15 13:43 | PHA.MEDREC ---
Pharmacy Consult ? Medication Reconciliation Pharmacy has completed the medication reconciliation. Spoke to patient and verified medication list.
--- NOTE | 2023-05-15 13:59 | PC.NURSE ---
please contact pt friend Brittany @ [phone] with any questions regarding care of pt cat (jeff).
[2023-05-15 14:29] VITALS: BP 148/77; PULSE 64; RESP 12; TEMP 36.1; O2SAT 98
[2023-05-15 14:42] VITALS: BMI 23.8
[2023-05-15] MEDS: cefTRIAXone sodium 1 GM in 0.9 % Sodium Chloride 50 ML IV (14:42)
[2023-05-15] MEDS: lisinopriL 10 MG TABLET PO (15:31)
[2023-05-15] MEDS: Atorvastatin Calcium 10 MG TABLET PO (15:31)
[2023-05-15] MEDS: 0.9 % Sodium Chloride Flush 3 ML SYRINGE IVFLUSH ×2 (15:31→20:20)
--- NOTE | 2023-05-15 17:34 | PC.NURSE ---
Bart mishra sent home with Brittany, Pts friend.
[2023-05-15 19:03] VITALS: BP 115/57; PULSE 62; RESP 17; TEMP 36.4; O2SAT 98
[2023-05-15] MEDS: Apixaban 5 MG TABLET PO (20:20)
[2023-05-15] MEDS: bisacodyL 5 MG TABLET.DR PO (20:20)
[2023-05-15] MEDS: Zolpidem Tartrate 5 MG TABLET PO (20:20)
[2023-05-15] MEDS: carvediloL 6.25 MG TABLET PO (20:20)
[2023-05-15] MEDS: Acetaminophen 325 MG TABLET 650 MG PO (20:24)
[2023-05-15] MEDS: Morphine Sulfate 4 MG/ML CARTRIDGE IVPUSH (22:08)
[2023-05-16 03:07] VITALS: BP 135/76; PULSE 66; RESP 18; TEMP 35.9; O2SAT 95
--- NOTE | 2023-05-16 04:27 | PC.NURSE ---
pt left leg swollen warm to touch and red, pt starting with tylenol for pain 02/09, didn't work much. oxycodone is not due for next dose. notified and received morphine once dose. given by this nurse per MAR. after morphine comfortably resting throughout the night. will cont. monitor any changes.
[2023-05-16] MEDS: oxyCODONE HCl Immed Release 5 MG TABLET PO (06:11)
[2023-05-16 07:06] LABS: Anion Gap 13 (12-20); Blood Urea Nitrogen 15 mg/dL (9-16); Calcium 9.3 mg/dL (8.4-10.2); Carbon Dioxide 24 mmol/L (22-29); Chloride 105 mmol/L (96-108); Estimated Glomerular Filt Rate > 60; Glucose Random 96 mg/dL (60-115); Potassium 4.3 mmol/L (3.3-5.1); Sodium 138 mmol/L (135-145)
[2023-05-16 07:45] VITALS: BP 149/68; PULSE 67; RESP 16; TEMP 36.1; O2SAT 96
[2023-05-16] MEDS: Atorvastatin Calcium 10 MG TABLET PO (08:15)
[2023-05-16] MEDS: Apixaban 5 MG TABLET PO ×2 (08:15→20:19)
[2023-05-16] MEDS: carvediloL 6.25 MG TABLET PO ×2 (08:15→20:18)
[2023-05-16] MEDS: lisinopriL 10 MG TABLET PO (08:15)
[2023-05-16] MEDS: 0.9 % Sodium Chloride Flush 3 ML SYRINGE IVFLUSH ×3 (08:18→20:19)
[2023-05-16] MEDS: Docusate Sodium 100 MG CAPSULE PO ×2 (08:32→20:19)
[2023-05-16] MEDS: Morphine Sulfate 2 MG/ML CARTRIDGE IVPUSH ×2 (08:32→17:08)
--- NOTE | 2023-05-16 10:42 | MHC.CM.PN ---
pt lives in senior housing ,pt is independent ,has supportive friends will need [facility] van when dcd
[2023-05-16] MEDS: vancomycin HCL 1,250 MG in 0.9 % Sodium Chloride 250 ML 166.67 MG IV (11:22)
[2023-05-16] MEDS: cefTRIAXone sodium 1 GM in 0.9 % Sodium Chloride 50 ML IV (12:47)
--- NOTE | 2023-05-16 13:18 | HO.WOUND ---
Wound Consult: Initial 87yr old male admitted to [facility] on? No05/15/23 12:44 - See progress notes and H&P for detailed history. Bilateral Lower Legs - no wounds noted Left 4th toe intact web spaces Left Great Toe Callused Right Leg Great Toe - Intact Callused tissue - No wound noted Right Leg Etiology: Cellulitis Wound Bed: No open wounds noted Drainage / Odor: None No Induration, No Fluctuance, Observed Erythema and Warmth noted Pain: tender to touch Goals of Treatment: ? Elevate lower leg and moisturize tissue - defer to Treating provider as no wound noted. No topical interventions needed at this time - Defer to providers for treatment of Cellulitis and topical moisturizers for skin health.
--- NOTE | 2023-05-16 15:51 | P.PNIM_ITS ---
Subjective Subjective Date of Service: 05/16/23 Interval History: foot pain Review of Systems Patient has lower leg erythema no discharge or fluctuation, no fever. Physical Exam 2 Vital Signs: Vital Signs: Last Vital Signs Temp 97.0 F 05/16/23 07:45 Pulse 67 05/16/23 07:45 Resp 16 05/16/23 07:45 BP 149/68 H 05/16/23 07:45 Pulse Ox 96 05/16/23 07:45 O2 Del Method Room Air 05/16/23 07:45 BMI result Body Mass Index 23.8 Appearance: Alert.? Oriented X3.? cvs: rrr, [id number] , no murmur res: clear to auscultation ,no rhonchii or wheezing abd: no rebound or guarding ,nt, bs present. ext pulses present , erythematous compared the RLE; LLE great toe with obvious fungal infection, surrounding cellulitis and an area of what appears to be old truma neuro: axo3 , nonfocal. Objective Data Active Medications Acetaminophen (Acetaminophen 325 Mg Tablet) 650 mg PO Q6H PRN PRN Reason: Pain, Mild (Pain Scale 1-3) Last Admin: 05/15/23 20:24 Dose: 650 mg Documented By: ERICKSON Apixaban (Apixaban 5 Mg Tablet) 5 mg PO BID [facility] Last Admin: 05/16/23 08:15 Dose: 5 mg Documented By: RONNIE Atorvastatin Calcium (Atorvastatin Calcium 10 Mg Tablet) 10 mg PO DAILY [facility] Last Admin: 05/16/23 08:15 Dose: 10 mg Documented By: RONNIE Bisacodyl (Bisacodyl 5 Mg Tablet.) 5 mg PO BEDTIME [facility] Last Admin: 05/15/23 20:20 Dose: 5 mg Documented By: ERICKSON Carvedilol (Carvedilol 6.25 Mg Tablet) 6.25 mg PO BID [facility]; Protocol Last Admin: 05/16/23 08:15 Dose: 6.25 mg Documented By: RONNIE Docusate Sodium (Docusate Sodium 100 Mg Capsule) 100 mg PO BID [facility] Last Admin: 05/16/23 08:32 Dose: 100 mg Documented By: RONNIE Ceftriaxone Sodium 1 gm/ (Sodium Chloride) 50 mls @ 100 mls/hr IV Q24H [facility] Last Infusion: 05/16/23 15:02 Dose: Infused Documented By: RONNIE Vancomycin HCl 1,250 mg/ (Sodium Chloride) 250 mls @ 166.667 mls/hr IV Q24H [facility] Last Infusion: 05/16/23 15:02 Dose: Infused Documented By: RONNIE Loratadine (Loratadine 10 Mg Tablet) 10 mg PO DAILY PRN PRN Reason: Allergy Symptoms Morphine Sulfate (Morphine Sulfate 4 Mg/Ml Cartridge) 4 mg IVPUSH ONCE PRN; Protocol PRN Reason: Pain, Severe (Pain Scale 7-10) Last Admin: 05/15/23 22:08 Dose: 4 mg Documented By: ERICKSON Morphine Sulfate (Morphine Sulfate 2 Mg/Ml Cartridge) 2 mg IVPUSH Q3H PRN; Protocol PRN Reason: Pain, Mild (Pain Scale 1-3) Last Admin: 05/16/23 08:32 Dose: 2 mg Documented By: RONNIE Oxycodone HCl (Oxycodone Hcl Immed Release 5 Mg Tablet) 5 mg PO Q6H PRN PRN Reason: Pain, Severe (Pain Scale 7-10) Last Admin: 05/16/23 06:11 Dose: 5 mg Documented By: ERICKSON Pharmacy Consult (Consult Rx Vancomycin Dosing) 1 each MISCELLANE DAILY PRN PRN Reason: Consult order Polyethylene Glycol (Polyethylene Glycol 3350 17 Gm Powd.Pack) 17 gm PO DAILY PRN PRN Reason: Constipation Sodium Chloride (0.9 % Sodium Chloride Flush 3 Ml Syringe) 3 ml IVFLUSH QSHIFT [facility] Last Admin: 05/16/23 08:18 Dose: 3 ml Documented By: RONNIE Zolpidem Tartrate (Zolpidem Tartrate 5 Mg Tablet) 5 mg PO BEDTIME [facility] Last Admin: 05/15/23 20:20 Dose: 5 mg Documented By: ERICKSON Labs 05/15/23 09:47 05/16/23 05:56 Labs: Laboratory Results - last 24 hr 05/16/23 05/16/23 05:56 06:37 Hold Purple Top SEE NOTE Anion Gap 13 Estim Creat Clear Calc 78.0 Estimated GFR > 60 Random Glucose 96 Calcium 9.3 Microbiology Microbiology Results: Microbiology 05/15/23 10:00 Blood Culture - Preliminary Blood - Venous No growth after 24 hours. 05/15/23 09:47 Blood Culture - Preliminary Blood - Venous No growth after 24 hours. Assessment and Plan (1) Osteomyelitis: Status: Acute Plan 87 year old male with a PMH of CAD, PAF, PPM, HTN, HLD who presents to the hospital with a several day history of LLE swelling, pain and erythema who is found to have acute cellulitis and osteomyelitis. He will be admitted for further care. 1. Acute Osteomyelitis and cellulitis XR with evidence of osteo with concurrent elevated ESR follow up culture. on vancomcyin and Rocephin,pharmacy consulted for vanco ,pain managment with morphine/oxycodone and bowel regimen. added ID consult 2. PAF continue Eliquis and coreg. 3. CAD stable, apixiban,coreg,statin. 4. HTN/HLD as above-coreg/statin ongoing need for hospitlisation stay: LLE cellulitis and osteomyelitis : on iv antibiotics ,not improving yet,expected to require a mininum of 48-72 hours of IV antibiotics + expert consultation with ID. Quality Stroke Does the patient have a stroke diagnosis?: No VTE Prior VTE?: No VTE Risk Level:: Medical - moderate - high VTE Device Contraindication: Treatment Not Indicated VTE Drug Contraindication: N/A - Med Ordered
[2023-05-16 16:00] VITALS: BP 121/57; PULSE 65; RESP 16; TEMP 36.6; O2SAT 98
[2023-05-16 19:07] VITALS: BP 126/59; PULSE 70; RESP 17; TEMP 36.7; O2SAT 95
[2023-05-16] MEDS: Acetaminophen 325 MG TABLET 650 MG PO (20:18)
[2023-05-16] MEDS: Zolpidem Tartrate 5 MG TABLET PO (20:19)
[2023-05-16] MEDS: bisacodyL 5 MG TABLET.DR PO (20:19)
[2023-05-17] MEDS: Morphine Sulfate 2 MG/ML CARTRIDGE IVPUSH ×3 (01:14→23:14)
[2023-05-17 04:00] VITALS: BP 134/60; PULSE 63; RESP 18; TEMP 36.4; O2SAT 94
[2023-05-17 06:30] LABS: Creatinine Clr Calc Pharmacy 83.3; Estimated Glomerular Filt Rate > 60
[2023-05-17 07:45] VITALS: BP 131/61; PULSE 58; RESP 17; TEMP 36.3; O2SAT 95
[2023-05-17] MEDS: 0.9 % Sodium Chloride Flush 3 ML SYRINGE IVFLUSH ×3 (09:00→21:10)
[2023-05-17] MEDS: Docusate Sodium 100 MG CAPSULE PO ×2 (09:00→21:05)
[2023-05-17] MEDS: Apixaban 5 MG TABLET PO ×2 (09:00→21:05)
[2023-05-17] MEDS: Atorvastatin Calcium 10 MG TABLET PO (09:01)
[2023-05-17] MEDS: carvediloL 6.25 MG TABLET PO ×2 (09:01→21:05)
[2023-05-17 09:03] VITALS: PULSE 72
[2023-05-17 10:16] LABS: Vancomycin Trough 9.9 mcg/mL (10.0-20.0)
--- NOTE | 2023-05-17 10:54 | HE.PHANOTE ---
re: jose eo patients level came back this mornign at 9.9. patients indication is bone and joint therefore a greater trough/ AUC is needed. dose increased to 1000 mg Q12H, predicted AUC 558. Will get a level after two doses to ensure safety and efficacy
[2023-05-17] MEDS: vancomycin HCL 1,000 MG in 0.9 % Sodium Chloride 250 ML 270 MG IV (11:32)
[2023-05-17] MEDS: cefTRIAXone sodium 1 GM in 0.9 % Sodium Chloride 50 ML IV (12:32)
--- NOTE | 2023-05-17 15:00 | P.PNIM_ITS ---
Subjective Subjective Date of Service: 05/17/23 Interval History: foot pain Review of Systems Patient has lower leg erythema no discharge or fluctuation, no fever. Physical Exam 2 Vital Signs: Vital Signs: Last Vital Signs Temp 97.3 F 05/17/23 07:45 Pulse 72 05/17/23 09:03 Resp 17 05/17/23 07:45 BP 131/61 05/17/23 07:45 Pulse Ox 95 05/17/23 07:45 O2 Del Method Room Air 05/17/23 07:45 BMI result Body Mass Index 23.8 Appearance: Alert.? Oriented X3.? cvs: rrr, [id number] , no murmur res: clear to auscultation ,no rhonchii or wheezing abd: no rebound or guarding ,nt, bs present. ext pulses present , erythematous compared the RLE; LLE great toe with obvious fungal infection, surrounding cellulitis and an area of what appears to be old truma neuro: axo3 , nonfocal. Objective Data Active Medications Acetaminophen (Acetaminophen 325 Mg Tablet) 650 mg PO Q6H PRN PRN Reason: Pain, Mild (Pain Scale 1-3) Last Admin: 05/16/23 20:18 Dose: 650 mg Documented By: ERICKSON Apixaban (Apixaban 5 Mg Tablet) 5 mg PO BID [facility] Last Admin: 05/17/23 09:00 Dose: 5 mg Documented By: RAMYA Atorvastatin Calcium (Atorvastatin Calcium 10 Mg Tablet) 10 mg PO DAILY [facility] Last Admin: 05/17/23 09:01 Dose: 10 mg Documented By: RAMYA Bisacodyl (Bisacodyl 5 Mg Tablet.) 5 mg PO BEDTIME [facility] Last Admin: 05/16/23 20:19 Dose: 5 mg Documented By: ERICKSON Carvedilol (Carvedilol 6.25 Mg Tablet) 6.25 mg PO BID [facility]; Protocol Last Admin: 05/17/23 09:01 Dose: 6.25 mg Documented By: RAMYA Docusate Sodium (Docusate Sodium 100 Mg Capsule) 100 mg PO BID [facility] Last Admin: 05/17/23 09:00 Dose: 100 mg Documented By: RAMYA Ceftriaxone Sodium 1 gm/ (Sodium Chloride) 50 mls @ 100 mls/hr IV Q24H [facility] Last Infusion: 05/17/23 13:10 Dose: Infused Documented By: RAMYA Vancomycin HCl 1,000 mg/ (Sodium Chloride) 270 mls @ 270 mls/hr IV Q12H [facility] Last Infusion: 05/17/23 12:32 Dose: Infused Documented By: RAMYA Loratadine (Loratadine 10 Mg Tablet) 10 mg PO DAILY PRN PRN Reason: Allergy Symptoms Morphine Sulfate (Morphine Sulfate 4 Mg/Ml Cartridge) 4 mg IVPUSH ONCE PRN; Protocol PRN Reason: Pain, Severe (Pain Scale 7-10) Last Admin: 05/15/23 22:08 Dose: 4 mg Documented By: ERICKSON Morphine Sulfate (Morphine Sulfate 2 Mg/Ml Cartridge) 2 mg IVPUSH Q3H PRN; Protocol PRN Reason: Pain, Mild (Pain Scale 1-3) Last Admin: 05/17/23 09:01 Dose: 2 mg Documented By: RAMYA Oxycodone HCl (Oxycodone Hcl Immed Release 5 Mg Tablet) 5 mg PO Q6H PRN PRN Reason: Pain, Severe (Pain Scale 7-10) Last Admin: 05/16/23 06:11 Dose: 5 mg Documented By: ERICKSON Pharmacy Consult (Consult Rx Vancomycin Dosing) 1 each MISCELLANE DAILY PRN PRN Reason: Consult order Polyethylene Glycol (Polyethylene Glycol 3350 17 Gm Powd.Pack) 17 gm PO DAILY PRN PRN Reason: Constipation Sodium Chloride (0.9 % Sodium Chloride Flush 3 Ml Syringe) 3 ml IVFLUSH QSHIFT [facility] Last Admin: 05/17/23 09:00 Dose: 3 ml Documented By: RAMYA Zolpidem Tartrate (Zolpidem Tartrate 5 Mg Tablet) 5 mg PO BEDTIME [facility] Last Admin: 05/16/23 20:19 Dose: 5 mg Documented By: ERICKSON Labs 05/15/23 09:47 05/17/23 05:11 Labs: Laboratory Results - last 24 hr 05/17/23 05/17/23 05:11 09:48 Hold Purple Top SEE NOTE Estim Creat Clear Calc 83.3 Estimated GFR > 60 Vancomycin Trough 9.9 L Microbiology Microbiology Results: Microbiology 05/15/23 10:00 Blood Culture - Preliminary Blood - Venous No growth after 48 hours. 05/15/23 09:47 Blood Culture - Preliminary Blood - Venous No growth after 48 hours. Assessment and Plan (1) Osteomyelitis: Status: Acute Plan 87 year old male with a PMH of CAD, PAF, PPM, HTN, HLD who presents to the hospital with a several day history of LLE swelling, pain and erythema who is found to have acute cellulitis and osteomyelitis. He will be admitted for further care. 1. Acute Osteomyelitis and cellulitis XR with evidence of osteo with concurrent elevated ESR follow up culture. on vancomcyin and Rocephin,pharmacy consulted for vanco ,pain managment with morphine/oxycodone and bowel regimen. added ID consult 2. PAF continue Eliquis and coreg. 3. CAD stable, apixiban,coreg,statin. 4. HTN/HLD as above-coreg/statin ongoing need for hospitlisation stay: LLE cellulitis and osteomyelitis : on iv antibiotics ,not improving yet,expected to require a mininum of 48-72 hours of IV antibiotics + expert consultation with ID. Quality Stroke Does the patient have a stroke diagnosis?: No VTE Prior VTE?: No VTE Risk Level:: Medical - moderate - high VTE Device Contraindication: Treatment Not Indicated VTE Drug Contraindication: N/A - Med Ordered
[2023-05-17 15:42] VITALS: BP 116/73; PULSE 65; RESP 17; TEMP 36.4; O2SAT 96
--- NOTE | 2023-05-17 16:12 | P.CNID_ITS ---
History of Present Illness Data of Consult Service Date: 05/17/23 Requesting physician: Evelia Bojorquez Primary Care Provider: Jan Deng MD [facility] Reason for consult: left great toe OM He presents with left great toe redness and swelling. He has ESR 92 and OM concerns on XRay. Symptoms are present for last several days. Review of Systems 2 Review of Systems: Yes all other systems are reviewed and are negative PMFSH Past Medical History Medical History Lab test positive for detection of COVID-19 virus Ischemic cardiomyopathy Atrial fibrillation CAD (coronary artery disease) Bradycardia High cholesterol HTN (hypertension) Hx of penitentiary use of blood thinners Pacemaker Family History Family history: reviewed and not pertinent Surgical History Surgical History Hx of nasal septoplasty History of esophagogastroduodenoscopy (EGD) Hx of endoscopic retrograde cholangiopancreatography Hx laparoscopic cholecystectomy History of surgery Hx of hernia repair AICD (automatic cardioverter/defibrillator) present Hx of CABG History of colonoscopy H/O hemorrhoidectomy Social History Social History Household Members: None Housing: Apartment Housing Other:: SR. housing Do you presently have visiting nurse or other home services: No Alcohol intake: never Patient Tobacco Use Status: Former Tobacco user Quit Date: 30 years ago Tobacco use type: Cigarette and Cigar Years Smoked: 20 e-Cigarette/Vaping Use: Never Used Second Hand Smoke Exposure: No Advance Directives Date on File: 03/10/22 service: No Current occupational status: retired Meds Allergies Allergy/AdvReac Type Severity Reaction Status Date / Time grass pollen Allergy Intermediate Sneezing Verified 03/03/22 12:38 mite-Dermatophagoides Allergy Intermediate Sneezing Verified 03/03/22 12:38 faralexis nuñez [dust mite - [place]] Active Medications: Current Medications Acetaminophen (Acetaminophen 325 Mg Tablet) 650 mg PO Q6H PRN PRN Reason: Pain, Mild (Pain Scale 1-3) Last Admin: 05/16/23 20:18 Dose: 650 mg Apixaban (Apixaban 5 Mg Tablet) 5 mg PO BID [facility] Last Admin: 05/17/23 09:00 Dose: 5 mg Atorvastatin Calcium (Atorvastatin Calcium 10 Mg Tablet) 10 mg PO DAILY [facility] Last Admin: 05/17/23 09:01 Dose: 10 mg Bisacodyl (Bisacodyl 5 Mg Tablet.Dr) 5 mg PO BEDTIME [facility] Last Admin: 05/16/23 20:19 Dose: 5 mg Carvedilol (Carvedilol 6.25 Mg Tablet) 6.25 mg PO BID [facility]; Protocol Last Admin: 05/17/23 09:01 Dose: 6.25 mg Clotrimazole (Clotrimazole 1 % Cream 15 Gm Tube) 1 appl TOPICAL BID [facility]; Protocol Docusate Sodium (Docusate Sodium 100 Mg Capsule) 100 mg PO BID [facility] Last Admin: 05/17/23 09:00 Dose: 100 mg Meropenem 1 gm/ Sodium (Chloride) 100 mls @ 200 mls/hr IV Q8H [facility] Loratadine (Loratadine 10 Mg Tablet) 10 mg PO DAILY PRN PRN Reason: Allergy Symptoms Morphine Sulfate (Morphine Sulfate 4 Mg/Ml Cartridge) 4 mg IVPUSH ONCE PRN; Protocol PRN Reason: Pain, Severe (Pain Scale 7-10) Last Admin: 05/15/23 22:08 Dose: 4 mg Morphine Sulfate (Morphine Sulfate 2 Mg/Ml Cartridge) 2 mg IVPUSH Q3H PRN; Protocol PRN Reason: Pain, Mild (Pain Scale 1-3) Last Admin: 05/17/23 09:01 Dose: 2 mg Oxycodone HCl (Oxycodone Hcl Immed Release 5 Mg Tablet) 5 mg PO Q6H PRN PRN Reason: Pain, Severe (Pain Scale 7-10) Last Admin: 05/16/23 06:11 Dose: 5 mg Pharmacy Consult (Consult Rx Vancomycin Dosing) 1 each MISCELLANE DAILY PRN PRN Reason: Consult order Polyethylene Glycol (Polyethylene Glycol 3350 17 Gm Powd.Pack) 17 gm PO DAILY PRN PRN Reason: Constipation Sodium Chloride (0.9 % Sodium Chloride Flush 3 Ml Syringe) 3 ml IVFLUSH QSHIFT [facility] Last Admin: 05/17/23 15:14 Dose: 3 ml Zolpidem Tartrate (Zolpidem Tartrate 5 Mg Tablet) 5 mg PO BEDTIME [facility] Last Admin: 05/16/23 20:19 Dose: 5 mg Home Medications Medication Instructions Recorded Confirmed Last Taken Type apixaban 5 mg tablet (Eliquis) 5 mg PO BID 10/08/20 05/15/23 05/14/23 History atorvastatin 10 mg tablet 10 mg PO DAILY 10/08/20 05/15/23 05/14/23 History multivitamin 1 tab PO DAILY 10/08/20 05/15/23 05/14/23 History zolpidem 5 mg tablet 5 mg PO BEDTIME 10/08/20 05/15/23 05/14/23 History nystatin 100,000 unit/gram topical 1 appl topical BID PRN Rash 07/09/22 05/15/23 08/19/22 History cream cetirizine 10 mg tablet 10 mg PO DAILY PRN Allergy Symptoms 08/21/22 05/15/23 Unknown History polyvinyl alcohol 1.4 % eye drops 1 drp ophthalmic (eye) BID PRN Dry 08/21/22 05/15/23 Unknown History Eye(S) Physical Exam 2 Vital Signs: Vital Signs: Last Vital Signs Temp 97.5 F 05/17/23 15:42 Pulse 65 05/17/23 15:42 Resp 17 05/17/23 15:42 BP 116/73 05/17/23 15:42 Pulse Ox 96 05/17/23 15:42 O2 Del Method Room Air 05/17/23 15:42 BMI result Body Mass Index 23.8 Const: General: cooperative HEENT: Head: Yes normal to inspection Face and sinus: Yes normal facial exam Mouth: Normal oral and palatal mucosa present Teeth and gingiva: d entition normal Eyes: General: appearance normal, both eyes and all related structures P upils: Equal, round and reactive pupils present Resp: Effort & Inspection: normal respiratory effort Cardio: Rate: regular rate Rhythm: regular rhythm GI: Palpation (GI): Soft to palpation and nontender : General: Yes no CVA tenderness Back/Spine/Pelvis: Back: no CVA tenderness Skin: General skin exam: no rashes or lesions noted Neuro: General: moves all extremities Cranial nerves: Yes Equal, round and reactive pupils present Extrem: Other: swelling,erythema most prominent left great toe General: Yes normal to inspection Psych: Appearance: grossly normal Results Labs 05/15/23 09:47 05/17/23 05:11 Labs: BMP 05/17/23 05:11 Creatinine 0.74 Microbiology Microbiology Results: Microbiology 05/15/23 10:00 Blood - Venous Blood Culture - Preliminary No growth after 48 hours. 05/15/23 09:47 Blood - Venous Blood Culture - Preliminary No growth after 48 hours. Assessment and Plan (1) Osteomyelitis: Status: Acute There is concern over staph or strep and/or anerobes OM seen on XR so dont need MRI and also ESR is high. Plan Six weeks IV Ertapenem Weekly CBC and creatinine. Can see outpatient office.
[2023-05-17 19:48] VITALS: BP 140/64; PULSE 67; RESP 17; TEMP 36.5; O2SAT 98
[2023-05-17] MEDS: Zolpidem Tartrate 5 MG TABLET PO (21:04)
[2023-05-17] MEDS: bisacodyL 5 MG TABLET.DR PO (21:05)
[2023-05-17] MEDS: Clotrimazole 1 % Cream 15 GM TUBE 1 APPL TOPICAL (21:09)
[2023-05-18 03:23] VITALS: BP 135/61; PULSE 59; RESP 16; TEMP 36.1; O2SAT 98
[2023-05-18] MEDS: Morphine Sulfate 2 MG/ML CARTRIDGE IVPUSH ×2 (03:25→22:09)
[2023-05-18 06:13] LABS: Anion Gap 11 (12-20); Blood Urea Nitrogen 21 mg/dL (9-16); C Reactive Protein 1.11 mg/dL (< or = 0.50); Calcium 9.3 mg/dL (8.4-10.2); Carbon Dioxide 26 mmol/L (22-29); Chloride 106 mmol/L (96-108); Creatinine Clr Calc Pharmacy 89.3; Estimated Glomerular Filt Rate > 60; Glucose Random 92 mg/dL (60-115); Potassium 3.9 mmol/L (3.3-5.1); Sodium 139 mmol/L (135-145)
[2023-05-18 06:57] LABS: Erythrocyte Sedimentation Rate 89 MM/HR (0-15)
[2023-05-18 07:43] VITALS: BP 130/62; PULSE 60; RESP 17; TEMP 36.4; O2SAT 95
[2023-05-18] MEDS: carvediloL 6.25 MG TABLET PO ×2 (08:24→20:28)
[2023-05-18] MEDS: Atorvastatin Calcium 10 MG TABLET PO (08:24)
[2023-05-18] MEDS: Apixaban 5 MG TABLET PO ×2 (08:24→20:29)
[2023-05-18] MEDS: Clotrimazole 1 % Cream 15 GM TUBE 1 APPL TOPICAL ×2 (08:24→20:30)
[2023-05-18] MEDS: 0.9 % Sodium Chloride Flush 3 ML SYRINGE IVFLUSH ×2 (08:24→17:28)
[2023-05-18] MEDS: Docusate Sodium 100 MG CAPSULE PO ×2 (08:24→20:28)
[2023-05-18] MEDS: Lactated Ringers 1,000 ML 80 ML IVCONT (10:38)
--- NOTE | 2023-05-18 12:10 | P.CONOP_ITS ---
History of Present Illness HPI Consult date: 05/18/23 Chief complaint: Foot pain Narrative: This is an 87 year old male with a PMH of PAF on Eliquis, ICM, PPM , HTN, HLD and CAD who presented to the ED with complaints of L foot pain, swelling and erythema. He denies injury. Work up in the ED revealed an elevated ESR of 92. Imaging studies were consistent with osteo. He has been given IV vancomcyin and was admitted to the medical service for further evaluation. Orthopedics was consulted for further recommendations. 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 housing Do you presently have visiting nurse or other home services: No Alcohol intake: never Patient Tobacco Use Status: Former Tobacco user Quit Date: 30 years ago Tobacco use type: Cigarette and Cigar Years Smoked: 20 e-Cigarette/Vaping Use: Never Used Second Hand Smoke Exposure: No Advance Directives Date on File: 03/10/22 service: No Current occupational status: retired Meds Allergies Allergy/AdvReac Type Severity Reaction Status Date / Time grass pollen Allergy Intermediate Sneezing Verified 03/03/22 12:38 mite-Dermatophagoides Allergy Intermediate Sneezing Verified 03/03/22 12:38 farinae, alexis [dust mite - [place]] Active Medications: Current Medications Acetaminophen (Acetaminophen 325 Mg Tablet) 650 mg PO Q6H PRN PRN Reason: Pain, Mild (Pain Scale 1-3) Last Admin: 05/16/23 20:18 Dose: 650 mg Apixaban (Apixaban 5 Mg Tablet) 5 mg PO BID [facility] Last Admin: 05/18/23 08:24 Dose: 5 mg Atorvastatin Calcium (Atorvastatin Calcium 10 Mg Tablet) 10 mg PO DAILY [facility] Last Admin: 05/18/23 08:24 Dose: 10 mg Bisacodyl (Bisacodyl 5 Mg Tablet.Dr) 5 mg PO BEDTIME [facility] Last Admin: 05/17/23 21:05 Dose: 5 mg Carvedilol (Carvedilol 6.25 Mg Tablet) 6.25 mg PO BID [facility]; Protocol Last Admin: 05/18/23 08:24 Dose: 6.25 mg Clotrimazole (Clotrimazole 1 % Cream 15 Gm Tube) 1 appl TOPICAL BID [facility]; Protocol Last Admin: 05/18/23 08:24 Dose: 1 appl Docusate Sodium (Docusate Sodium 100 Mg Capsule) 100 mg PO BID [facility] Last Admin: 05/18/23 08:24 Dose: 100 mg Meropenem 1 gm/ Sodium (Chloride) 100 mls @ 200 mls/hr IV Q8H [facility] Last Infusion: 05/18/23 09:18 Dose: Infused Lactated Ringer's (Lr) 1,000 mls @ 80 mls/hr IVCONT .[id number] [facility] Last Admin: 05/18/23 10:38 Dose: 80 mls/hr Loratadine (Loratadine 10 Mg Tablet) 10 mg PO DAILY PRN PRN Reason: Allergy Symptoms Morphine Sulfate (Morphine Sulfate 4 Mg/Ml Cartridge) 4 mg IVPUSH ONCE PRN; Protocol PRN Reason: Pain, Severe (Pain Scale 7-10) Last Admin: 05/15/23 22:08 Dose: 4 mg Morphine Sulfate (Morphine Sulfate 2 Mg/Ml Cartridge) 2 mg IVPUSH Q3H PRN; Protocol PRN Reason: Pain, Mild (Pain Scale 1-3) Last Admin: 05/18/23 03:25 Dose: 2 mg Oxycodone HCl (Oxycodone Hcl Immed Release 5 Mg Tablet) 5 mg PO Q6H PRN PRN Reason: Pain, Severe (Pain Scale 7-10) Last Admin: 05/16/23 06:11 Dose: 5 mg Polyethylene Glycol (Polyethylene Glycol 3350 17 Gm Powd.Pack) 17 gm PO DAILY PRN PRN Reason: Constipation Sodium Chloride (0.9 % Sodium Chloride Flush 3 Ml Syringe) 3 ml IVFLUSH QSHIFT [facility] Last Admin: 05/18/23 08:24 Dose: 3 ml Zolpidem Tartrate (Zolpidem Tartrate 5 Mg Tablet) 5 mg PO BEDTIME [facility] Last Admin: 05/17/23 21:04 Dose: 5 mg Home Medications Medication Instructions Recorded Confirmed Last Taken Type apixaban 5 mg tablet (Eliquis) 5 mg PO BID 10/08/20 05/15/23 05/14/23 History atorvastatin 10 mg tablet 10 mg PO DAILY 10/08/20 05/15/23 05/14/23 History multivitamin 1 tab PO DAILY 10/08/20 05/15/23 05/14/23 History zolpidem 5 mg tablet 5 mg PO BEDTIME 10/08/20 05/15/23 05/14/23 History nystatin 100,000 unit/gram topical 1 appl topical BID PRN Rash 07/09/22 05/15/23 08/19/22 History cream cetirizine 10 mg tablet 10 mg PO DAILY PRN Allergy Symptoms 08/21/22 05/15/23 Unknown History polyvinyl alcohol 1.4 % eye drops 1 drp ophthalmic (eye) BID PRN Dry 08/21/22 05/15/23 Unknown History Eye(S) Physical Exam 2 Vital Signs: Vital Signs: Last Vital Signs Temp 97.5 F 05/18/23 07:43 Pulse 60 05/18/23 07:43 Resp 17 05/18/23 07:43 BP 130/62 05/18/23 07:43 Pulse Ox 95 05/18/23 07:43 O2 Del Method Room Air 05/18/23 07:43 BMI result Body Mass Index 23.8 Extrem: Other: Left lower extremity cellulitis presents with soft compartments and pulses present. Pain has good ROM of the knee and ankle. He can plantar and dorsi flex. NVI. Results Labs 05/15/23 09:47 05/18/23 05:09 Labs: Abnormal lab results 05/18/23 05/18/23 Range/Units 05:09 10:17 ESR 89 H (0-15) MM/HR Anion Gap 11 L (12-20) BUN 21 H (9-16) mg/dL C-Reactive Protein 1.11 H (< or = 0.50) mg/dL Random Vancomycin 9.0 L (15-20) mcg/mL H & H 05/15/23 Range/Units 09:47 Hgb 11.4 L (14.0-18.0) g/dl Hct 35.0 L (42.0-52.0) % All other labs normal. Assessment and Plan (1) Left leg cellulitis: Status: Acute Plan No evidence of compartment syndrome No surgical intervention warranted on an orthopedic standpoint Recommend elevation and wbat Procedures Date of Service Date of Service: 05/18/23
--- NOTE | 2023-05-18 13:17 | P.PNIM_ITS ---
Subjective Subjective Date of Service: 05/18/23 Interval History: leg cellulitis Review of Systems Patient leg swelling somewhat more than yesterday, also has erythema similar to yesterday. Still has significant pain No fevers Physical Exam 2 Vital Signs: Vital Signs: Last Vital Signs Temp 97.5 F 05/18/23 07:43 Pulse 60 05/18/23 07:43 Resp 17 05/18/23 07:43 BP 130/62 05/18/23 07:43 Pulse Ox 95 05/18/23 07:43 O2 Del Method Room Air 05/18/23 07:43 BMI result Body Mass Index 23.8 Appearance: Alert.? Oriented X3.? cvs: rrr, [id number] , no murmur res: clear to auscultation ,no rhonchii or wheezing abd: no rebound or guarding ,nt, bs present. ext pulses present , erythematous compared the RLE,swelling neuro: axo3 , nonfocal. Objective Data Active Medications Acetaminophen (Acetaminophen 325 Mg Tablet) 650 mg PO Q6H PRN PRN Reason: Pain, Mild (Pain Scale 1-3) Last Admin: 05/16/23 20:18 Dose: 650 mg Documented By: ERICKSON Apixaban (Apixaban 5 Mg Tablet) 5 mg PO BID [facility] Last Admin: 05/18/23 08:24 Dose: 5 mg Documented By: RAMYA Atorvastatin Calcium (Atorvastatin Calcium 10 Mg Tablet) 10 mg PO DAILY [facility] Last Admin: 05/18/23 08:24 Dose: 10 mg Documented By: RAMYA Bisacodyl (Bisacodyl 5 Mg Tablet.) 5 mg PO BEDTIME [facility] Last Admin: 05/17/23 21:05 Dose: 5 mg Documented By: YASMANY Carvedilol (Carvedilol 6.25 Mg Tablet) 6.25 mg PO BID [facility]; Protocol Last Admin: 05/18/23 08:24 Dose: 6.25 mg Documented By: RAMYA Clotrimazole (Clotrimazole 1 % Cream 15 Gm Tube) 1 appl TOPICAL BID [facility]; Protocol Last Admin: 05/18/23 08:24 Dose: 1 appl Documented By: RAMYA Docusate Sodium (Docusate Sodium 100 Mg Capsule) 100 mg PO BID [facility] Last Admin: 05/18/23 08:24 Dose: 100 mg Documented By: RAMYA Meropenem 1 gm/ Sodium (Chloride) 100 mls @ 200 mls/hr IV Q8H [facility] Last Infusion: 05/18/23 09:18 Dose: Infused Documented By: RAMYA Lactated Ringer's (Lr) 1,000 mls @ 80 mls/hr IVCONT .[id number] [facility] Last Admin: 05/18/23 10:38 Dose: 80 mls/hr Documented By: RAMYA Loratadine (Loratadine 10 Mg Tablet) 10 mg PO DAILY PRN PRN Reason: Allergy Symptoms Morphine Sulfate (Morphine Sulfate 4 Mg/Ml Cartridge) 4 mg IVPUSH ONCE PRN; Protocol PRN Reason: Pain, Severe (Pain Scale 7-10) Last Admin: 05/15/23 22:08 Dose: 4 mg Documented By: ERICKSON Morphine Sulfate (Morphine Sulfate 2 Mg/Ml Cartridge) 2 mg IVPUSH Q3H PRN; Protocol PRN Reason: Pain, Mild (Pain Scale 1-3) Last Admin: 05/18/23 03:25 Dose: 2 mg Documented By: YASMANY Oxycodone HCl (Oxycodone Hcl Immed Release 5 Mg Tablet) 5 mg PO Q6H PRN PRN Reason: Pain, Severe (Pain Scale 7-10) Last Admin: 05/16/23 06:11 Dose: 5 mg Documented By: ERICKSON Polyethylene Glycol (Polyethylene Glycol 3350 17 Gm Powd.Pack) 17 gm PO DAILY PRN PRN Reason: Constipation Sodium Chloride (0.9 % Sodium Chloride Flush 3 Ml Syringe) 3 ml IVFLUSH QSHIFT [facility] Last Admin: 05/18/23 08:24 Dose: 3 ml Documented By: RAMYA Zolpidem Tartrate (Zolpidem Tartrate 5 Mg Tablet) 5 mg PO BEDTIME [facility] Last Admin: 05/17/23 21:04 Dose: 5 mg Documented By: YASMANY Labs 05/15/23 09:47 05/18/23 05:09 Labs: Laboratory Results - last 24 hr 05/18/23 05/18/23 05:09 10:17 ESR 89 H Hold Purple Top SEE NOTE Anion Gap 11 L Estim Creat Clear Calc 89.3 Estimated GFR > 60 Random Glucose 92 Calcium 9.3 C-Reactive Protein 1.11 H Random Vancomycin 9.0 L Microbiology Microbiology Results: Microbiology 05/15/23 10:00 Blood Culture - Preliminary Blood - Venous No growth after 48 hours. 05/15/23 09:47 Blood Culture - Preliminary Blood - Venous No growth after 48 hours. Assessment and Plan (1) Left leg cellulitis: Status: Acute (2) Osteomyelitis: Status: Acute Plan 87 year old male with a PMH of CAD, PAF, PPM, HTN, HLD who presents to the hospital with a several day history of LLE swelling, pain and erythema who is found to have acute cellulitis and osteomyelitis. He will be admitted for further care. 1. Acute Osteomyelitis and cellulitis XR with evidence of osteo with concurrent elevated ESR follow up culture. some worsening of erythema/swellin added ct leg picc line ordered . continue meropenem,pain managment with morphine/oxycodone and bowel regimen. id eval noted-switched to meropenem,ortho evalpending 2. PAF continue Eliquis and coreg. 3. CAD stable, apixiban,coreg,statin. 4. HTN/HLD as above-coreg/statin ongoing need for hospitlisation stay: LLE cellulitis and osteomyelitis : on iv antibiotics ,not improving yet,expected to require of IV antibiotics , further wokrup with ct scan , orthopedic consultation, need picc line also for [facility] antibiotics. Quality Stroke Does the patient have a stroke diagnosis?: No VTE Prior VTE?: No VTE Risk Level:: Medical - moderate - high VTE Device Contraindication: Treatment Not Indicated VTE Drug Contraindication: N/A - Med Ordered
--- NOTE | 2023-05-18 16:11 | MHC.CM.PN ---
PT WILL NEED LT IV ABT PER MD ROUNDS. PT AGREEABLE TO SNF FOR THE DURATION OF THIS NO ONE TO ASSIST WITH IV. REFERRALS SENT. PT CHOOSES [facility] CHOICE. [facility] HAS OFFERED A BED WHEN MEDICALLY READY. CM WILL CONTINUE TO FOLLOW FOR DC PLAN/NEEDS.
--- NOTE | 2023-05-18 17:25 | P.PICC_ITS ---
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 Following completion of [place] Protocol the skin and soft tissues were anesthetized with 1% Lidocaine plain. Using ultrasound guidance, right basilic vein access was obtained. Over an 0.018 wire through peel-away sheath, a BARD 4fr single lumen PASV PICC line was positioned. Catheter length is 38cm internal length, 0cm external length, for a total trimmed length of 38cm. The procedure was performed in rm 272. Ultrasound was used to document vein patency and for needle entry. Vascular Hydro Generation Manager has not released the line for use awaiting offical read on portable CXR to verify placement and it is currently dressed with a StatLock, Tegaderm, and CHG disc. Verification has been performed for blood return and line patency. Arm Circumference: 28cm Equipment: BARD PowerPicc Solo Catheter Type: 4FR single lumen PASV Lot #: [id number]
[2023-05-18 19:27] VITALS: BP 129/63; PULSE 77; RESP 19; TEMP 36.7; O2SAT 96
[2023-05-18] MEDS: bisacodyL 5 MG TABLET.DR PO (20:28)
[2023-05-18] MEDS: Zolpidem Tartrate 5 MG TABLET PO (20:29)
[2023-05-19] MEDS: Lactated Ringers 1,000 ML 80 ML IVCONT (03:21)
[2023-05-19 03:48] VITALS: BP 143/64; PULSE 61; RESP 18; TEMP 36.3; O2SAT 99
[2023-05-19 06:39] LABS: Creatinine Clr Calc Pharmacy 94.8; Estimated Glomerular Filt Rate > 60
[2023-05-19 07:29] VITALS: BP 130/61; PULSE 58; RESP 16; TEMP 36.1; O2SAT 96
[2023-05-19] MEDS: 0.9 % Sodium Chloride Flush 3 ML SYRINGE IVFLUSH (07:30)
[2023-05-19] MEDS: Atorvastatin Calcium 10 MG TABLET PO (08:37)
[2023-05-19] MEDS: Apixaban 5 MG TABLET PO (08:37)
[2023-05-19] MEDS: carvediloL 6.25 MG TABLET PO (08:37)
[2023-05-19] MEDS: Clotrimazole 1 % Cream 15 GM TUBE 1 APPL TOPICAL (08:38)
[2023-05-19] MEDS: Morphine Sulfate 2 MG/ML CARTRIDGE IVPUSH (08:38)
--- NOTE | 2023-05-19 10:52 | MHC.CM.PN ---
pt to be dcd today to [facility] pts doug payne notified of dc
--- NOTE | 2023-05-19 11:06 | PM.DS ---
DS: Providers Provider Date of Service: 05/19/23 Date of admission: 05/15/23 12:44 Date of discharge: 05/19/23 Primary care physician: Jan Deng MD Consults: 05/15/23 14:22 Consult to Wound Care Routine Reason for consultation: left leg cellulitis. crack under 4th toe on left foot 05/16/23 16:00 Consult to Infectious Diseases Routine Consulting Provider: [facility] Reason for consultation: acute osteomyelitis 05/18/23 09:31 Consult to Orthopedics Routine Consulting Provider: [facility] Surgeons Reason for consultation: worsening left lower ext cellulitis /pain -?compartment vs abcess Has provider been notified: No Attending physician on discharge: Evelia Bojorquez Discharging clinician: Evelia Bojorquez DS: Diagnosis Discharge Diagnosis (1) Left leg cellulitis: Status: Acute (2) Osteomyelitis: Status: Acute DS: Summary Hospital Course Hospital Course: 87 year old male with a PMH of PAF on Eliquis, ICM, PPM , HTN, HLD and CAD who presents to the ED with complaints of L foot pain, swelling and erythema. The patient endorses that for the last 4-5 days prior to admission, he has had lower extremity pain. He reports that initially this was bothersome, but it has progressed to the patient where it is disturbing his sleep. He reports taking tylenol for pain without much help. He denies any trauma to the LLE. He denies any fevers or chills. He reports compliance with his Eliquis. On arrival, the patient was noted to have LLE swelling and erythema. Work up revealed an elevated ESR of 92. Imaging studies were consistent with osteo. He has been given IV vancomcyin and now will be admitted for further care. Hospital course: Patient was admitted for leg cellulitis and foot osteo left-sided: Found to have elevated ESR, foot x-ray shows acute osteomyelitis. ESR, CRP elevated, CT of the leg shows cellulitis.Patient was started on IV antibiotics, blood cultures sent, also given pain medication: With the IV antibiotics patient leg cellulitis and foot pain seems to be improving, subsequently patient blood culture came to be negative. ESR and CRP also improving. Patient case discussed with the ID: Recommended 6 week off ertapenem upon discharge. PICC line placed. Consider monitoring CBC, BMP, ESR, CRP, LFTs Q weekly while patient is on antibiotics. Patient will be to the rehab today. plan: Complete 6 week of ertapenem -end date 06/28. Consider monitoring CBC, BMP, ESR, CRP, LFTs Q weekly while patient is on antibiotics. Patient has venostasis like changes in the lower extremities consider follow-up outpatient with vascular for further management. Assessment plan coordination time spent 50 minute, discussed with the patient in detail length he understand and in agreement with the plan Time Attestation Discharge coordination time: Greater than 30 minutes Quality: Safe Use of Opioids Does Pt have an Active Cancer Diagnosis on the Problem List?: No Quality: Stroke Does the patient have a stroke diagnosis?: No Physical Exam Vital Signs: Vital Signs: Last Vital Signs Temp 97 F 05/19/23 07:29 Pulse 58 05/19/23 07:29 Resp 16 05/19/23 07:29 BP 130/61 05/19/23 07:29 Pulse Ox 96 05/19/23 07:29 O2 Del Method Room Air 05/19/23 07:29 BMI result Body Mass Index 23.8 Appearance: Alert.? Oriented X3.? cvs: rrr, [id number] , no murmur res: clear to auscultation ,no rhonchii or wheezing abd: no rebound or guarding ,nt, bs present. ext pulses present , erythematous and swelling improving significantly neuro: axo3 , nonfocal. DS: Data Data Completed and Pending Labs on day of discharge: Laboratory Results - last 24 hr 05/19/23 05/19/23 06:11 06:22 Hold Purple Top SEE NOTE Creatinine 0.65 Estim Creat Clear Calc 94.8 Estimated GFR > 60 Preliminary micro results at discharge 05/15/23 10:00 Blood Culture - Preliminary Blood - Venous No growth after 48 hours. 05/15/23 09:47 Blood Culture - Preliminary Blood - Venous No growth after 48 hours. Imaging Chest x-ray: Radiologist's impression: ITS Impressions Foot X-Ray 05/15/23 09:30 IMPRESSION: Soft tissue swelling of the first toe with subcutaneous emphysema. The tuft of the first toe is mildly foreshortened with irregular cortical margins and erosive changes. Findings are concerning for osteomyelitis. Clinical correlation recommended. MRI imaging can be obtained as clinically indicated. Venous Duplex 05/15/23 11:20 IMPRESSION: No evidence of deep venous thrombosis involving the left lower extremity. Lower Extremity CT 05/18/23 12:14 IMPRESSION: 1. Generalized soft tissue swelling in the left lower leg, most pronounced in the subcutaneous fat, consistent with the provided history of cellulitis. No appreciable abscess. No subcutaneous gas. 2. Achilles tendinosis. 3. 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 Chest X-Ray 05/18/23 17:04 IMPRESSION: Right arm PICC line tip projecting over the superior vena cava. Chronic appearing and postoperative changes otherwise. Discharge Plan Discharge Anticipated Discharge Date/Time: 05/19/23 10:28 Patient Disposition: er [facility] Discharge Diagnosis: left leg cellulitis ,Acute Osteomyelitis left foot Referrals: [facility] [Other] - 1 Week Jan Deng MD [Primary Care Provider] - 1 Week Discharge Medications: New clotrimazole 1 % Cream 1 appl topical BID Qty: 1 0RF Protocol: Apply to: Apply to: affected area ertapenem 1 gram recon soln 1 g IV DAILY Qty: 40 0RF Rx Instructions: end date 06/28/23. polyethylene glycol 3350 17 gram Powder In Packet 17 g PO DAILY PRN (Reason: Constipation) Qty: 30 0RF docusate sodium 100 mg Capsule 100 mg PO BID Qty: 30 0RF oxycodone 5 mg Tablet 5 mg PO Q6H PRN (Reason: Pain, Severe (Pain Scale 7-10)) Qty: 10 0RF Rx Instructions: Partial Fill upon patient request. Continued carvedilol 6.25 mg tablet 6.25 mg PO BID 90 Days Qty: 180 1RF Rx Instructions: must administer with a meal/food lisinopril 10 mg tablet 10 mg PO DAILY 30 Days Qty: 30 0RF Rx Instructions: Must make cardiology appt for refills atorvastatin 10 mg tablet 10 mg PO DAILY zolpidem 5 mg tablet 5 mg PO BEDTIME Eliquis 5 mg tablet 5 mg PO BID multivitamin Tablet 1 tab PO DAILY cetirizine 10 mg Tablet 10 mg PO DAILY PRN (Reason: Allergy Symptoms) polyvinyl alcohol 1.4 % Drops 1 drp OPHTHALMIC (EYE) BID PRN (Reason: Dry Eye(S)) bisacodyl 5 mg tablet 5 mg PO BEDTIME 30 Days Qty: 30 0RF nystatin 100,000 unit/gram cream 1 appl topical BID PRN (Reason: Rash) Discharge Orders: Discharge Order (Routine); Ordered 05/19/23 Ordered By: Evelia Bojorquez Diet: Advance to usual diet Activity on Discharge: As tolerated Stand Alone Forms: Patient Portal Discharge page Care Plan Goals: Patient was admitted for leg cellulitis and foot osteo left-sided: Found to have elevated ESR, foot x-ray shows acute osteomyelitis. ESR, CRP elevated, CT of the leg shows cellulitis.Patient was started on IV antibiotics, blood cultures sent, also given pain medication: With the IV antibiotics patient leg cellulitis and foot pain seems to be improving, subsequently patient blood culture came to be negative. ESR and CRP also improving. Patient case discussed with the ID: Recommended 6 week off ertapenem upon discharge. PICC line placed. Consider monitoring CBC, BMP, ESR, CRP, LFTs Q weekly while patient is on antibiotics. Patient will be to the rehab today. Health Concerns: As above. Plan of Treatment: As above. Assessment: As above. Patient Instructions: Osteomyelitis (DC)
[2023-05-19] MEDS: Ertapenem Sodium 1 GM in 0.9 % Sodium Chloride 50 ML IV (12:54)
--- NOTE | 2023-05-19 14:27 | P.PNIM_ITS ---
Subjective Subjective Date of Service: 05/22/23 Interval History: leg cellulitis Review of Systems Patient leg swelling ,erythema ,pain improving no fevers Physical Exam 2 Vital Signs: Vital Signs: Last Vital Signs Temp 97 F 05/19/23 07:29 Pulse 58 05/19/23 07:29 Resp 16 05/19/23 07:29 BP 130/61 05/19/23 07:29 Pulse Ox 96 05/19/23 07:29 O2 Del Method Room Air 05/19/23 07:29 BMI result Body Mass Index 23.8 Appearance: Alert.? Oriented X3.? cvs: rrr, [id number] , no murmur res: clear to auscultation ,no rhonchii or wheezing abd: no rebound or guarding ,nt, bs present. ext pulses present , erythematous/swelling improved significantly neuro: axo3 , nonfocal. Objective Data Active Medications Acetaminophen (Acetaminophen 325 Mg Tablet) 650 mg PO Q6H PRN PRN Reason: Pain, Mild (Pain Scale 1-3) Last Admin: 05/16/23 20:18 Dose: 650 mg Documented By: ERICKSON Apixaban (Apixaban 5 Mg Tablet) 5 mg PO BID [facility] Last Admin: 05/19/23 08:37 Dose: 5 mg Documented By: BERTO Atorvastatin Calcium (Atorvastatin Calcium 10 Mg Tablet) 10 mg PO DAILY [facility] Last Admin: 05/19/23 08:37 Dose: 10 mg Documented By: BERTO Bisacodyl (Bisacodyl 5 Mg Tablet.) 5 mg PO BEDTIME [facility] Last Admin: 05/18/23 20:28 Dose: 5 mg Documented By: YASMANY Carvedilol (Carvedilol 6.25 Mg Tablet) 6.25 mg PO BID [facility]; Protocol Last Admin: 05/19/23 08:37 Dose: 6.25 mg Documented By: BERTO Clotrimazole (Clotrimazole 1 % Cream 15 Gm Tube) 1 appl TOPICAL BID [facility]; Protocol Last Admin: 05/19/23 08:38 Dose: 1 appl Documented By: BERTO Docusate Sodium (Docusate Sodium 100 Mg Capsule) 100 mg PO BID [facility] Last Admin: 05/19/23 08:45 Dose: Not Given Documented By: BERTO Non-Admin Reason: loose stools Loratadine (Loratadine 10 Mg Tablet) 10 mg PO DAILY PRN PRN Reason: Allergy Symptoms Morphine Sulfate (Morphine Sulfate 4 Mg/Ml Cartridge) 4 mg IVPUSH ONCE PRN; Protocol PRN Reason: Pain, Severe (Pain Scale 7-10) Last Admin: 05/15/23 22:08 Dose: 4 mg Documented By: ERICKSON Morphine Sulfate (Morphine Sulfate 2 Mg/Ml Cartridge) 2 mg IVPUSH Q3H PRN; Protocol PRN Reason: Pain, Mild (Pain Scale 1-3) Last Admin: 05/19/23 08:38 Dose: 2 mg Documented By: BERTO Oxycodone HCl (Oxycodone Hcl Immed Release 5 Mg Tablet) 5 mg PO Q6H PRN PRN Reason: Pain, Severe (Pain Scale 7-10) Last Admin: 05/16/23 06:11 Dose: 5 mg Documented By: ERICKSON Polyethylene Glycol (Polyethylene Glycol 3350 17 Gm Powd.Pack) 17 gm PO DAILY PRN PRN Reason: Constipation Sodium Chloride (0.9 % Sodium Chloride Flush 3 Ml Syringe) 3 ml IVFLUSH QSHIFT [facility] Last Admin: 05/19/23 07:30 Dose: 3 ml Documented By: BERTO Sodium Chloride (0.9 % Sodium Chloride Flush 10 Ml Syringe) 5 ml IVFLUSH TID [facility] Last Admin: 05/19/23 07:30 Dose: Not Given Documented By: BERTO Non-Admin Reason: IV Running Zolpidem Tartrate (Zolpidem Tartrate 5 Mg Tablet) 5 mg PO BEDTIME [facility] Last Admin: 05/18/23 20:29 Dose: 5 mg Documented By: YASMANY Labs 05/15/23 09:47 05/19/23 06:11 Labs: Laboratory Results - last 24 hr 05/19/23 05/19/23 06:11 06:22 Hold Purple Top SEE NOTE Estim Creat Clear Calc 94.8 Estimated GFR > 60 Assessment and Plan (1) Left leg cellulitis: Status: Acute (2) Osteomyelitis: Status: Acute Plan 87 year old male with a PMH of CAD, PAF, PPM, HTN, HLD who presents to the hospital with a several day history of LLE swelling, pain and erythema who is found to have acute cellulitis and osteomyelitis. He will be admitted for further care. 1. Acute Osteomyelitis and cellulitis XR with evidence of osteo with concurrent elevated ESR follow up culture. added ct leg picc line ordered . continue meropenem,pain managment with morphine/oxycodone and bowel regimen. id eval noted-switched to meropenem,ortho evalpending 2. PAF continue Eliquis and coreg. 3. CAD stable, apixiban,coreg,statin. 4. HTN/HLD as above-coreg/statin ongoing need for hospitlisation stay: LLE cellulitis and osteomyelitis : on iv antibiotics ,not improving yet,expected to require of IV antibiotics , further wokrup with ct scan , orthopedic consultation, need picc line also for jail antibiotics. Quality Stroke Does the patient have a stroke diagnosis?: No VTE Prior VTE?: No VTE Risk Level:: Medical - moderate - high VTE Device Contraindication: Treatment Not Indicated VTE Drug Contraindication: N/A - Med Ordered
[2023-05-19 15:27] VITALS: BP 130/60; PULSE 76; RESP 18; TEMP 36.1; O2SAT 96
== END 2023-05-19 17:27 | disposition skilled nursing facility (03) | DRG 540 ==
LOC: HO.ED 11:23 → HO.EDOVER 12:44 → HO.S3 13:13
PROVIDERS: Nurse Practitioner Family; Admitting Provider Family Medicine; Emergency Provider Emergency Medicine; PCP Internal Medicine; Visit Provider Internal Medicine
PROC: 02HV33Z Insertion of Infusion Device into Superior Vena Cava, Percutaneous Approach (ICD-10-PCS; principal; 2023-05-18 12:00)
DX: M86.172 Other acute osteomyelitis, left ankle and foot (principal); L03.116 Cellulitis of left lower limb; I48.0 Paroxysmal atrial fibrillation; I10 Essential (primary) hypertension; E78.5 Hyperlipidemia, unspecified; I25.10 Atherosclerotic heart disease of native coronary artery without angina pectoris; Z95.810 Presence of automatic (implantable) cardiac defibrillator; Z95.1 Presence of aortocoronary bypass graft; Z79.01 Long term (current) use of anticoagulants; Z79.899 Other long term (current) drug therapy
CPT/HCPCS: 36415; 36573; 71045; 73620; 73700; 80048; 80076; 80202; 82550; 82565; 83605; 85025; 85652; 86140; 87040; 93971; 99285; C1751; C1894; J0696; J1335; J2185; J2270; J3370; J3371; J7120

== ENCOUNTER → 2023-05-15 12:44 | Outpatient (BNV) | payer MEDICARE, SELFPAY | PROVIDERS: Admitting Provider Family Medicine; Emergency Provider Emergency Medicine; PCP Internal Medicine; Visit Provider Family Medicine | DX: L03.116 Cellulitis of left lower limb (principal); M86.9 Osteomyelitis, unspecified | CPT/HCPCS: 99223; 99232; 99239 ==

== ENCOUNTER → 2023-05-15 12:44 | Outpatient (BNV) | payer MEDICARE, SELFPAY | PROVIDERS: Admitting Provider Family Medicine; Emergency Provider Emergency Medicine; PCP Internal Medicine; Visit Provider Internal Medicine | DX: M86.9 Osteomyelitis, unspecified (principal) | CPT/HCPCS: 99222 ==

== ENCOUNTER → 2023-05-15 12:44 | Outpatient (BNV) | payer MEDICARE, SELFPAY | PROVIDERS: Admitting Provider Family Medicine; Emergency Provider Emergency Medicine; PCP Internal Medicine; Visit Provider Physician Assistant | DX: L03.116 Cellulitis of left lower limb (principal) | CPT/HCPCS: 99221 ==

== ENCOUNTER 2023-12-11 14:27 | Outpatient (AMB) | payer MEDICARE, SELFPAY ==
--- NOTE | 2023-12-11 14:50 | MHC.OFFVIS ---
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 Allergies grass pollen Allergy (Intermediate, Verified 03/03/22 12:38) Sneezing mite-Dermatophagoides farinae, alexis [dust mite - [place]] Allergy (Intermediate, Verified 03/03/22 12:38) Sneezing Medication List - Last Reconciled 12/11/23 by Dion Amanda MD apixaban (Eliquis) 5 mg PO BID atorvastatin 10 mg PO DAILY bisacodyl 5 mg PO BEDTIME 30 days carvedilol 6.25 mg PO BID 90 days cetirizine 10 mg PO DAILY PRN clotrimazole 1% 1 appl See Protocol topical BID docusate sodium 100 mg PO BID lisinopril 10 mg PO DAILY 30 days meropenem 1 g IV Q8H 40 days multivitamin 1 tab PO DAILY nystatin 1 appl topical BID PRN polyethylene glycol 3350 17 grams PO DAILY PRN polyvinyl alcohol 1.4% 1 drp ophthalmic (eye) BID PRN zolpidem 5 mg PO BEDTIME HPI Comments Details: James comes for reestablishing his care with us due to proximity and ease of follow-up. He was being seen by [facility]. Patient was seen many years ago. Patient has prior history of three-vessel coronary artery bypass grafting in 2017 for crescendo angina subsequently having congestive heart failure and with reduced LV ejection fraction which had improved with medical therapy. However by most recent follow-up echo cardiogram at [facility] showed moderate LV systolic dysfunction with LVEF of 35-40%. He is status post biventricular ICD, Medtronic for left bundle-branch block and severe ischemic cardiomyopathy in the past. He has had pulse generator change. More recently he said he has been feeling well. He has history of paroxysmal atrial fibrillation as well. He denies any heart failure symptoms. Denies any orthopnea, PND, leg edema. Denies any lightheadedness, syncope, palpitations, ICD discharge. Denies any exertional chest pain. Takes all his medication currently on full oral anticoagulation. Denies any bleeding issues or neurologic events. 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 housing Do you presently have visiting nurse or other home services: No Alcohol intake: never Patient Tobacco Use Status: Former Tobacco user Tobacco use type: Cigarette and Cigar Years Smoked: 20 e-Cigarette/Vaping Use: Never Used Second Hand Smoke Exposure: No Advance Directives Date on File: 03/10/22 service: No Current occupational status: retired Review of Systems Const Denies chills, Denies daytime sleepiness, Denies fatigue, Denies fever(s), Denies frequent falls, Denies poor appetite, Denies snoring, Denies stops breathing during sleep, Denies weakness, Denies weight gain and Denies weight loss Eyes Denies loss of vision ENT Denies dizziness and Denies hearing loss Card Denies chest pain, Denies claudication, Denies leg edema, Denies lightheadedness, Denies palpitations, Denies dyspnea, Denies dyspnea on exertion and Denies orthopnea Resp Denies cough, Denies excessive phlegm production, Denies dyspnea, Denies dyspnea on exertion, Denies snoring and Denies wheezing GI Denies abdominal pain, Denies hematochezia, Denies change in bowel habits, Denies nausea and Denies vomiting Denies dysuria and Denies urinary frequency Musc Denies arthralgias, Denies muscle weakness, Denies numbness and Denies other (frequent falls) Skin/Breast Denies nail changes and Denies rash Neuro Denies Abnormal speech present, Denies dizziness, Denies frequent falls, Denies loss of vision, Denies memory loss, Denies numbness and Denies weakness Psych Denies depression and Denies memory loss Endo Denies fatigue and Denies palpitations Espinoza/Lymph Reports easy bruising and Reports other (anemia) Aller/Immun Denies wheezing Physical Exam Vital Signs: Last Vital Signs Pulse 67 12/11/23 14:51 BP 110/70 12/11/23 14:51 BMI result Body Mass Index 20.2 Const General: cooperative, comfortable, no acute distress, alert, awake and Physically active Nutritional Appearance: thin Orientation/consciousness: patient oriented x3 Limitations: no limitations HEENT Head: Yes normocephalic and Yes atraumatic Neck Neck: Yes trachea midline, Yes supple and Yes no JVD Resp Effort & Inspection: normal respiratory effort Auscultation: clear to auscultation bilaterally Cardio Jugular venous distension: no JVD Palpation: abnormal PMI displaced PMI Rate: regular rate Rhythm: regular rhythm Heart sounds: S1 normal heart sound present, S2 normal heart sound present, no click, no gallops, no murmurs and no rubs GI Auscultation: normal bowel sounds Skin General skin exam: no rashes or lesions noted Neuro General: patient oriented x3 and no focal motor deficits Speech: No Abnormal speech present Extrem General: Yes no clubbing, cyanosis or edema Psych Appearance: grossly normal Office Procedures Cardiac Device Check Cardiac Device Check Details: Biventricular Medtronic ICD in place. Programmed in DDDR at 60 beats per minute. Ventricular pacing noted 97% time although effective pacing noted at 79% time. Frequent PVCs noted. The burden has increased. No atrial fibrillation noted. LV pacing thresholds were reprogrammed to higher level to improve more effective pacing hopefully. Right atrial and RV pacing thresholds adequate. Pacing and shock lead impedance is stable. Battery life is at about 13 months 27620-LH Cardiac Device Check, multi lead implantable defibrillator Procedure code (CPT) selection complete EKG Details: EKG shows atrially sensed ventricualrly pacer rhythm [id number]-[id number], Complete Assessment & Plan Assessment & Plan (1) Ischemic cardiomyopathy: Code(s): I25.5 - Ischemic cardiomyopathy Category: Medical Plan: Patient as per rash records moderate LV systolic dysfunction secondary to ischemic cardiomyopathy. No current symptoms or signs of congestive heart failure. Continue neurohormonal modulation with carvedilol and lisinopril therapy. Signs and symptoms of heart failure were discussed. He understands and agrees. Advised to call me with any symptoms. Will continue monitor for heart failure parameters by remote monitoring. Will obtain echocardiogram in near future (2) CAD (coronary artery disease): Code(s): I25.10 - Atherosclerotic heart disease of [place] coronary artery without angina pectoris Category: Medical Plan: CAD with three-vessel coronary artery bypass grafting more than 5 years ago. No current symptoms of angina. Currently on full oral anticoagulation with Eliquis and therefore will hold off on aspirin therapy. Continue aggressive risk factor modification. Continue statin therapy with target goal LDL less than 60 mg/dL. Advise myocardial perfusion imaging for graft surveillance. (3) Paroxysmal atrial fibrillation: Code(s): I48.0 - Paroxysmal atrial fibrillation Category: Medical Plan: Paroxysmal atrial fibrillation the past. Currently with no episodes noted on the monitor. Will continue monitor by remote telemetry. Continue full oral anticoagulation, currently on Eliquis 5 mg b.i.d.. Quarterly renal function test should be pursued. No indication for antiarrhythmic drug therapy unless he has recurrent symptomatic episodes. (4) Biventricular ICD (implantable cardioverter-defibrillator) in place: Code(s): Z95.810 - Presence of automatic (implantable) cardiac defibrillator Category: Medical Plan: Biventricular ICD in place. Reprogrammed for adequate function. Will follow remotely. Follow up in the clinic in 6 months time. Thank you for allowing me to partake in his care Orders: Orders CA echo transthoracic complete 12/11/23 I25.5 - Ischemic cardiomyopathy CA lexiscan stress w dandy 12/11/23 I25.10 - Atherosclerotic heart disease of [place] coronary artery without angina pectoris Coding Level of Care Code Est Pt Level 4 (53308) Diagnoses Ischemic cardiomyopathy I25.5 CAD (coronary artery disease) I25.10 Paroxysmal atrial fibrillation I48.0 Biventricular ICD (implantable cardioverter-defibrillator) in place Z95.810 CPT Codes Cardiac Device Check - Cardiac Device 6: [id number]-FW Cardiac Device Check, multi lead implantable defibrillator ([id number]) EKG - CPT: 42574-[id number], Complete ([id number])
[2023-12-11 14:51] VITALS: BP 110/70; PULSE 67; BMI 20.2
== END 2023-12-11 15:29 | disposition home or self-care (01) ==
PROVIDERS: PCP Internal Medicine; Visit Provider Internal Medicine Cardiovascular Disease
DX: I25.5 Ischemic cardiomyopathy (principal); I48.0 Paroxysmal atrial fibrillation; I25.810 Atherosclerosis of coronary artery bypass graft(s) without angina pectoris; Z95.1 Presence of aortocoronary bypass graft; I49.3 Ventricular premature depolarization; Z95.810 Presence of automatic (implantable) cardiac defibrillator
CPT/HCPCS: 93010; 93284; 99214

== ENCOUNTER → 2023-12-11 14:27 | Outpatient (BNVA) | payer MEDICARE, SELFPAY | PROVIDERS: PCP Internal Medicine; Visit Provider Internal Medicine Cardiovascular Disease | DX: Z45.02 Encounter for adjustment and management of automatic implantable cardiac defibrillator (principal); I25.5 Ischemic cardiomyopathy; I25.10 Atherosclerotic heart disease of native coronary artery without angina pectoris; I48.0 Paroxysmal atrial fibrillation | CPT/HCPCS: 93005; 99212 ==

== ENCOUNTER → 2024-01-26 07:59 | Outpatient (REF) | payer MEDICARE, SELFPAY ==
--- NOTE | ~2024-01-26 | NM_ITS ---
Lexiscan Myocardial perfusion study Indication: Coronary artery disease Technique: The patient was brought in for a Lexiscan perfusion study on 01/26/2024 and was injected 0.4 mg of Lexiscan intravenously. Within a minute of this injection 24 mCi of sestamibi was given intravenously. Images were obtained using the SPECT gamma camera interlaced with the gating device. Images were obtained in supine position. Resting perfusion study was performed on 02/01/2024. Patient was administered 24 mCi of sestamibi intravenously at rest. Images were then obtained in supine position. Images were processed with the software and compared side to side in short axis, horizontal long axis and vertical long axis views. Total DLP 82mGy-cm. Findings: Raw acquisition reviewed. Arms by the patient's side. The stress perfusion study showed no significant perfusion abnormality. Both uncorrected as well as CT attenuation corrected images were reviewed. The gated study shows low normal LV systolic function with calculated LVEF of 53%. LV cavity is normal in size. The gated study shows globally mildly reduced wall thickening and contraction of segments. Resting study shows no significant perfusion abnormality. Gating at rest reveals normal wall motion with ejection fraction at 56%. The findings are consistent with no clear reversible or fixed perfusion abnormality. NM/NM dandy perf SPECT rest & str Impression: 1. Myocardial perfusion imaging study shows normal myocardial perfusion. 2. Gated LVEF is 53% during stress and 56% during rest. 3. Transient ischemic dilatation not present. EKG component of the test reported separately.
--- NOTE | 2024-01-26 08:03 | CA_ITS ---
Acquisition Time: 2024-01-26 09:16:51 Total Exercise Time: 00:02:00 Test Indications: I25.10 Medications: SEE H Protocol: LEXISCAN Max HR: 082 BPM 61% of Pred: 133 BPM Max BP: 122/066 mmHG Max Work Load: 1.0 METS Pharmacological stress test with Lexiscan injection while sitting without anginal symptoms, with isolated PVCs and vencticular cuplet, with normotensive response to injection, with nondiagnoisitic EKGs. Aminophylline 75mg IVP given tor everse Lexiscan. Nuclear images pending. Test reviewed with Dr. Chopra. Referred By: Dion Amanda Overread By: Kaila Parsons
--- NOTE | 2024-01-26 08:03 | CA_ITS ---
Transthoracic Echocardiogram Patient (Last, First, Middle): James Araya, Gender: Male Date of : 1935 Age: 88 Procedure Date: 01/26/2024 Procedure Type: Transthoracic Echocardiogram Location: OP Height: 187.96 cm Weight: 68.49 kg BSA: 1.93 m2 Heart Rate: bpm BP: 110 / 70 mmHg Kitchen Hand: MINA Referring MD: Dion Amanda MD Symptoms: I25.5 - Ischemic cardiomyopathy Study Quality: Fair ECG Rhythm: Sinus Conclusions: - The left ventricular systolic function is mild to moderately decreased. The calculated ejection fraction is 40% by biplane method. - The basal inferior and basal inferoseptal segments are akinetic. - No obvious valvular pathology seen on this study. Findings Left Ventricle Normal left ventricular cavity size. There is normal left ventricular wall thickness. The left ventricular systolic function is mild to moderately decreased. The calculated ejection fraction is 40% by biplane method. There is moderate global hypokinesis. Diastolic function is normal for age. Wall Motion Rest Echo Findings The basal inferior and basal inferoseptal segments are akinetic. Right Ventricle Normal right ventricular cavity size. There is mildly decreased right ventricular systolic function. There is an ICD wire seen in the right ventricle. Atria Both atria are normal in size. Aortic Valve There is a normal trileaflet aortic valve. There is no aortic valve stenosis. There is no aortic valve regurgitation. Mitral Valve The mitral valve appears normal. There is mild mitral valve regurgitation. There is no mitral valve stenosis. Pulmonic Valve The pulmonic valve is likely normal. Tricuspid Valve Normal tricuspid valve structure. There is trace tricuspid valve regurgitation. There is no evidence of pulmonary hypertension. Great Vessels The asc aorta and aortic arch are normal in size. Small plaque is seen in the sino tubular ridge. Venous The inferior vena cava is dilated and collapses greater than 50% with inspiration. Pericardium/Pleural There is no evidence of pericardial effusion. Prior Study Comparison Changes noted compared to prior study dated: 08/09/2019. Decrease in LVEF. See comment on wall motion. Recommendations, Care & Conclusions No obvious valvular pathology seen on this study. Measurements 2D Linear Measurements IVSd: 0.93 0.6-0.9/0.6-1.0 cm LVIDd: 5.02 3.9-5.3/4.2-5.9 cm LVIDd Index: 2.60 2.4-3.2/2.2-3.1 cm/m2 LVIDs: 4.04 2.0-3.6 cm LVPWd: 0.88 0.7-1.1 cm Ao Root: 3.50 2.1-3.5 cm LA Diam: 3.80 2.7-3.8/3.0-4.0 cm LAIDs Index: 1.97 1.5-2.3 cm/m2 LV Mass: 199.35 67-162/88-224 g LV Mass Index: 103.29 43-95/49-115 g/m2 LVOT Diam: 2.30 3.0+(-)1.3 cm 2D Systolic Function EF 4C: 37.80 >55% EF 2C: 42.50 >55% EF BiP: 40.10 >55% Mitral Valve MV Pk E: 0.63 MV PK A: 0.55 MV Decel Time: 282.00 E/A: 1.20 E'Lateral: 6.64 E'Medial: 7.40 E/E' Med: 8.60 E/E' Lat: 9.50 PHT: 83.00 MVA PHT: 2.65 Decel [place]: 2.25 Aortic Valve AoV Pk Edward: 1.19 AoV Mn Edward: 0.83 AoV VTI: 0.26 AoV Pk Grad: 6.00 Aov Mn Grad: 3.00 GEORGE Cont.VTI: 2.54 LVOT LVOT Pk Edward: 0.76 LVOT Mn Edward: 0.49 LVOT VTI: 0.16 LVOT Pk Grad: 2.00 LVOT Mn Grad: 1.00 LVOT Diam: 2.30 LVOT Area: 4.15 Diastolic Function MV Pk E: 0.63 MV Pk A: 0.55 E/A: 1.20 E'Medial: 7.40 E/E' Med: 8.60 E' Laterial: 6.64 E/E' Lat: 9.50 Right Ventricle TAPSE (mm): 19.00 TVS' Edward: 8.59 Tricuspid Valve TR Pk Edward: 2.04 TR Pk Grad: 17.00 RA Press: 8.00 RVSP: 25.00 Great Vessels Aorta Ao Root-2D: 3.50 2.0-3.7 cm Ao Asc: 3.30 2.1-3.4 cm Ao Arch: 2.80 Updated in Other Vendor System with Status of Final Junior Chopra MD electronically signed on 01/28/2024 10:23:31 AM with status of Final
== END ==
LOC: HO.CARD 07:59
PROVIDERS: PCP Internal Medicine; Visit Provider Internal Medicine Cardiovascular Disease
DX: I25.5 Ischemic cardiomyopathy (principal); I25.10 Atherosclerotic heart disease of native coronary artery without angina pectoris
CPT/HCPCS: 78452; 93017; 93306; A9500; J0280; J2785

== ENCOUNTER → 2024-01-26 08:03 | Outpatient (BNV) | payer MEDICARE, SELFPAY | PROVIDERS: PCP Internal Medicine; Visit Provider Nurse Practitioner | DX: I25.10 Atherosclerotic heart disease of native coronary artery without angina pectoris (principal) | CPT/HCPCS: 78452; 93016; 93018; 93350 ==

== ENCOUNTER 2024-03-11 11:04 | Outpatient (AMB) | payer MEDICARE, SELFPAY ==
--- NOTE | 2024-03-11 11:11 | A.OFFVIS_ITS ---
Vital Signs 03/11/24 11:12 Height 6 ft 2 in Weight 158 lb 11.725 oz BMI 20.4 BP 120/70 Blood Pressure Location Lt brachial Position Sitting Pulse 63 Intake Visit Reasons: 3 mth fu w/ Medtronic check Intake Note: 3 month follow-up with Medtronic check feeing ok Registered Nurse Renal Required: No Allergies grass pollen Allergy (Intermediate, Verified 03/03/22 12:38) Sneezing mite-Dermatophagoides farinae, alexis [dust mite - [place]] Allergy (Intermediate, Verified 03/03/22 12:38) Sneezing Medication List - Last Reconciled 03/11/24 by Dion Amanda MD apixaban (Eliquis) 5 mg PO BID atorvastatin 10 mg PO DAILY bisacodyl 5 mg PO BEDTIME 30 days carvedilol 6.25 mg PO BID 90 days cetirizine 10 mg PO DAILY PRN clotrimazole 1% 1 appl See Protocol topical BID docusate sodium 100 mg PO BID lisinopril 10 mg PO DAILY 30 days meropenem 1 g IV Q8H 40 days multivitamin 1 tab PO DAILY nystatin 1 appl topical BID PRN polyethylene glycol 3350 17 grams PO DAILY PRN polyvinyl alcohol 1.4% 1 drp ophthalmic (eye) BID PRN zolpidem 5 mg PO BEDTIME HPI Comments Details: James comes for follow-up. Overall he has no new cardiac symptoms. Denies any exertional chest pain. No worsening heart failure symptoms. Says feels more fatigued but he has been also losing some weight. Denies any prolonged palpitation irregular heartbeat. No lightheadedness, syncope. Takes all his medications. No bleeding issues or neurologic events. 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 housing Do you presently have visiting nurse or other home services: No Alcohol intake: never Patient Tobacco Use Status: Former Tobacco user Tobacco use type: Cigarette and Cigar Years Smoked: 20 e-Cigarette/Vaping Use: Never Used Second Hand Smoke Exposure: No Advance Directives Date on File: 03/10/22 service: No Current occupational status: retired Review of Systems Const Denies chills, Denies fatigue, Denies fever(s), Denies frequent falls, Denies weakness, Denies weight gain and Denies weight loss ENT Denies dizziness Card Denies chest pain, Denies leg edema, Denies lightheadedness, Denies palpitations, Denies dyspnea, Denies dyspnea on exertion, Denies orthopnea and Denies other (loss of consciousness) Resp Denies cough, Denies dyspnea and Denies dyspnea on exertion GI Denies hematochezia and Denies change in stool character Musc Denies abnormal gait, Denies muscle weakness, Denies numbness, Denies radiating pain into limb and Denies tingling Neuro Denies Abnormal speech present, Denies abnormal gait, Denies dizziness, Denies frequent falls, Denies numbness, Denies tingling and Denies weakness Endo Denies fatigue and Denies palpitations Physical Exam Vital Signs: Last Vital Signs Pulse 63 03/11/24 11:12 BP 120/70 03/11/24 11:12 BMI result Body Mass Index 20.4 Const General: cooperative, comfortable, no acute distress, alert, awake and Physically active Nutritional Appearance: thin and other (Frail) Orientation/consciousness: patient oriented x3 Limitations: no limitations HEENT Head: Yes normocephalic and Yes atraumatic Neck Neck: Yes trachea midline, Yes supple and Yes no JVD Resp Effort & Inspection: normal respiratory effort Auscultation: clear to auscultation bilaterally Cardio Jugular venous distension: no JVD Palpation: abnormal PMI displaced PMI Rate: regular rate Rhythm: regular rhythm Heart sounds: S1 normal heart sound present, S2 normal heart sound present, no click, no gallops, no murmurs and no rubs GI Auscultation: normal bowel sounds Skin General skin exam: no rashes or lesions noted Neuro General: patient oriented x3 and no focal motor deficits Speech: No Abnormal speech present Extrem General: Yes no clubbing, cyanosis or edema Psych Appearance: grossly normal Office Procedures Cardiac Device Check Cardiac Device Check Details: Biventricular Medtronic ICD in place. Programmed in DDDR at 60 beats per minute. No episodes of atrial fibrillation noted. Atrial sensitivity was low with adequate safety margin. Ventricular sensitivity could not be checked as patient was pacer dependent. RV pacing thresholds adequate and reprogrammed to enhance battery life. LV pacing thresholds are high and were reprogrammed to provide adequate safety margin. Atrial pacing thresholds adequate. Battery life is at about 10 months. Biventricular pacing about 97% of the time. [id number] Cardiac Device Check, multi lead implantable defibrillator Procedure code (CPT) selection complete Assessment & Plan Assessment & Plan (1) Ischemic cardiomyopathy: Code(s): I25.5 - Ischemic cardiomyopathy Category: Medical Plan: Ischemic cardiomyopathy with NYHA class 2 symptoms. Clinically no signs or symptoms of heart failure. Does not require additional diuretic therapy. Continue to monitor for signs and symptoms of heart failure. Encouraged to increase activity level. Continue current neurohormonal modulation with carvedilol and lisinopril. LV systolic function stable at about 40%. (2) CAD (coronary artery disease): Code(s): I25.10 - Atherosclerotic heart disease of [place] coronary artery without angina pectoris Category: Medical Plan: CAD with remote coronary artery bypass grafting with no recent symptoms suggestive of angina. Continue aggressive medical therapy. Continue Eliquis which has been used for atrial fibrillation. Will avoid using concomitant antiplatelet therapy to reduce bleeding risk. Continue statin therapy with target goal LDL less than 70 mg/dL. Blood pressure is currently well optimized. Advised to call me with any new symptoms. (3) Biventricular ICD (implantable cardioverter-defibrillator) in place: Code(s): Z95.810 - Presence of automatic (implantable) cardiac defibrillator Category: Medical Plan: Biventricular ICD in place with requiring higher pacing thresholds with LV and will need to continue monitor in the clinic. He does not want to do remote monitoring. Will follow up in the clinic in 3 months time on his request. (4) Paroxysmal atrial fibrillation: Code(s): I48.0 - Paroxysmal atrial fibrillation Category: Medical Plan: Paroxysmal atrial fibrillation which has remained stable. Has done well with rhythm control approach. No signs or symptoms of heart failure. Continue rhythm control approach. Does not require antiarrhythmic drug therapy at this point time. Continue monitor by pacer telemetry. Continue full oral anti coagulation, currently on Eliquis 5 mg b.i.d.. At least semi annual renal function test should be pursued. Will follow up in the clinic in 3 months time, sooner p.r.n.. Thank you for allowing me to partake in his care Orders: Orders Basic Metabolic Panel Today I48.0 - Paroxysmal atrial fibrillation Complete Blood Count no Diff Today I48.0 - Paroxysmal atrial fibrillation Coding Level of Care Code Est Pt Level 4 (07274) Diagnoses Ischemic cardiomyopathy I25.5 CAD (coronary artery disease) I25.10 Biventricular ICD (implantable cardioverter-defibrillator) in place Z95.810 Paroxysmal atrial fibrillation I48.0 CPT Codes Cardiac Device Check - Cardiac Device 6: 27318-[id number] Cardiac Device Check, multi lead implantable defibrillator ([id number])
[2024-03-11 11:12] VITALS: BP 120/70; PULSE 63; BMI 20.4
== END 2024-03-11 11:34 | disposition home or self-care (01) ==
PROVIDERS: PCP Internal Medicine; Visit Provider Internal Medicine Cardiovascular Disease
DX: I25.5 Ischemic cardiomyopathy (principal); I25.10 Atherosclerotic heart disease of native coronary artery without angina pectoris; Z95.810 Presence of automatic (implantable) cardiac defibrillator; I48.0 Paroxysmal atrial fibrillation
CPT/HCPCS: 93284; 99214

== ENCOUNTER → 2024-03-11 11:04 | Outpatient (BNVA) | payer MEDICARE, SELFPAY | PROVIDERS: PCP Internal Medicine; Visit Provider Internal Medicine Cardiovascular Disease | DX: Z45.02 Encounter for adjustment and management of automatic implantable cardiac defibrillator (principal); I25.5 Ischemic cardiomyopathy; I25.10 Atherosclerotic heart disease of native coronary artery without angina pectoris; I48.0 Paroxysmal atrial fibrillation | CPT/HCPCS: 99212 ==

== ENCOUNTER 2024-06-10 12:38 | Outpatient (AMB) | payer MEDICARE, SELFPAY ==
[2024-06-10 12:41] VITALS: BP 118/70; PULSE 68; BMI 20.7
--- NOTE | 2024-06-10 12:41 | A.OFFVIS_ITS ---
Vital Signs 06/10/24 12:41 Height 6 ft 2 in Weight 160 lb 14.999 oz BMI 20.7 BP 118/70 Blood Pressure Location Lt brachial Position Sitting Pulse 68 Pulse Source Pulse Oximeter Intake Visit Reasons: [facility] check Allergies grass pollen Allergy (Intermediate, Verified 03/03/22 12:38) Sneezing mite-Dermatophagoides farinae, alexis [dust mite - [place]] Allergy (Intermediate, Verified 03/03/22 12:38) Sneezing Medication List - Last Reconciled 06/10/24 by Dion Amanda MD apixaban (Eliquis) 5 mg PO BID atorvastatin 10 mg PO DAILY bisacodyl 5 mg PO BEDTIME 30 days carvedilol 6.25 mg PO BID 90 days cetirizine 10 mg PO DAILY PRN clotrimazole 1% 1 appl See Protocol topical BID docusate sodium 100 mg PO BID lisinopril 10 mg PO DAILY 30 days meropenem 1 g IV Q8H 40 days multivitamin 1 tab PO DAILY nystatin 1 appl topical BID PRN polyethylene glycol 3350 17 grams PO DAILY PRN polyvinyl alcohol 1.4% 1 drp ophthalmic (eye) BID PRN zolpidem 5 mg PO BEDTIME HPI Comments Details: James comes for follow-up. Overall he has been doing well. Comes for his device check. Denies any worsening heart failure symptoms. Limited activity level due to older age. However he has no falls. No bleeding issues or neurologic events. Denies any orthopnea, PND, leg edema. Denies any chest pain. No prolonged palpitation irregular heartbeat, lightheadedness, syncope, ICD discharge. 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 housing Do you presently have visiting nurse or other home services: No Alcohol intake: never Patient Tobacco Use Status: Former Tobacco user Tobacco use type: Cigarette and Cigar Years Smoked: 20 e-Cigarette/Vaping Use: Never Used Second Hand Smoke Exposure: No Advance Directives Date on File: 03/10/22 service: No Current occupational status: retired Review of Systems Const Denies weakness ENT Denies dizziness Card Denies chest pain, Denies chest pain with activity, Denies syncope, Denies rapid heart rate, Denies pedal edema, Denies edema, Denies leg edema, Denies lightheadedness, Denies palpitations, Denies dyspnea, Denies dyspnea on exertion and Denies orthopnea Resp Denies cough, Denies dyspnea and Denies dyspnea on exertion GI Denies hematochezia and Denies change in stool character Musc Denies abnormal gait, Denies muscle cramps, Denies muscle weakness, Denies numbness, Denies radiating pain into limb and Denies tingling Neuro Denies Abnormal speech present, Denies abnormal gait, Denies dizziness, Denies syncope, Denies numbness, Denies tingling and Denies weakness Endo Denies palpitations Physical Exam Vital Signs: Last Vital Signs Pulse 68 06/10/24 12:41 BP 118/70 06/10/24 12:41 BMI result Body Mass Index 20.7 Const General: cooperative, comfortable, no acute distress, alert, awake and Physically active Nutritional Appearance: thin and other (Frail) Orientation/consciousness: patient oriented x3 Limitations: no limitations HEENT Head: Yes normocephalic and Yes atraumatic Neck Neck: Yes trachea midline, Yes supple and Yes no JVD Resp Effort & Inspection: normal respiratory effort Auscultation: clear to auscultation bilaterally Cardio Jugular venous distension: no JVD Palpation: abnormal PMI displaced PMI Rate: regular rate Rhythm: regular rhythm Heart sounds: S1 normal heart sound present, S2 normal heart sound present, no click, no gallops, no murmurs and no rubs GI Auscultation: normal bowel sounds Skin General skin exam: no rashes or lesions noted Neuro General: patient oriented x3 and no focal motor deficits Speech: No Abnormal speech present Extrem General: Yes no clubbing, cyanosis or edema Psych Appearance: grossly normal Office Procedures Cardiac Device Check Cardiac Device Check Details: Biventricular Medtronic ICD in place. Programmed in DDDR at 60 beats per minute. Battery life is at 4 months. Biventricular pacing 98.7% of the time. Atrial pacing 28.2% time. No episodes of atrial fibrillation. Atrial and biventricular pacing thresholds are adequate. Pacing and shock lead impedance is stable. [id number] Cardiac Device Check, multi lead implantable defibrillator Procedure code (CPT) selection complete Assessment & Plan Assessment & Plan (1) CAD (coronary artery disease): Code(s): I25.10 - Atherosclerotic heart disease of [place] coronary artery without angina pectoris Category: Medical Plan: CAD status post remote coronary artery bypass grafting. Currently having no symptoms of angina. Currently on full oral anticoagulation, see below. Avoid aspirin therapy to reduce bleeding risk. Continue aggressive blood pressure control which is currently well optimized. Continue statin therapy with target goal LDL less than 70 mg/dL. Endo eyes to call me with any new symptoms. (2) Ischemic cardiomyopathy: Code(s): I25.5 - Ischemic cardiomyopathy Category: Medical Plan: Ischemic cardiomyopathy with moderate LV systolic dysfunction. Clinically e uvolemic and well compensated. Continue current neurohormonal modulation with carvedilol as well as lisinopril therapy. Currently not fluid overload and would avoid diuretic therapy. He was significant frailty related to aging. Encouraged to maintain activity level as tolerated. Signs and symptoms of heart failure were discussed. (3) Paroxysmal atrial fibrillation: Code(s): I48.0 - Paroxysmal atrial fibrillation Category: Medical Plan: Paroxysmal atrial fibrillation which has remained suppressed. Continue full oral anticoagulation Eliquis. Noted drop in hematocrit. This needs to be followed closely. If he continues to have significant drop in his hematocrit I would consider Hematology consultation and/or workup from GI perspective. Continue monitor renal function closely every 3 months. (4) Biventricular ICD (implantable cardioverter-defibrillator) in place: Code(s): Z95.810 - Presence of automatic (implantable) cardiac defibrillator Category: Medical Plan: Biventricular ICD in place, working well. Reprogrammed for adequate functioning. Follow up in 1 month's time due to low battery status. Patient wants to pursue pulse generator change. Will follow up in the clinic in 1 month's time for device check Coding Level of Care Code Est Pt Level 4 (84022) Diagnoses CAD (coronary artery disease) I25.10 Ischemic cardiomyopathy I25.5 Paroxysmal atrial fibrillation I48.0 Biventricular ICD (implantable cardioverter-defibrillator) in place Z95.810 CPT Codes Cardiac Device Check - Cardiac Device 6: [id number] Cardiac Device Check, multi lead implantable defibrillator ([id number])
--- OUTSIDE RECORDS SUMMARY | 2024-06-12 15:29 | XMS_ITS | Continuity of Care Document ---
Author Organization [facility] Address [address] [place] [address] [address] [place] [address] Phone Care Team Providers Care Oyster Farmer Name Role Phone Calin GUTIÉRREZ, ELVIE, Norberto [...] Providers Copied on Encounter [facility], [address] [place] [address] [address]Ramu [place], [id number], [place] tel:[phone] [facility] No Information 4 Calin GUTIÉRREZ, ROBBIN BERMEO. [address] [facility] [address], [place], [place], [id number] , [place]. tel:[phone] Office/Oupt E&M New Pt 30 Mins- CT & [place] [facility], [address] [place] [address] Dr Russell [address]Ramu [place], [id number], tel:[phone] [facility]R - LIZA [place] Body mass index [BMI] 21.0-21.9, adultChronic venous hypertension (idiopathic) without complications of bilateral lower extremity Apr- 4 Calin GUTIÉRREZ RVT, ROBBIN Thornton. [address] [facility], [address], [place], [place], [id number] , [place]. tel:[phone] Referring Provider: Marcia KELLER , [address] [facility] [address], [place], [address]. tel:[phone] 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 [address] [facility], [address], [place], [place], [id number] , [place]. tel:[phone] Referring Provider: Jan Deng MD, [address] [place] [address] [address], [place], [address]. tel:[phone] Family History Family Member Type Diagnosis Age At Onset No Information Payers Payer name Insurance type Covered constitution party ID Authoriza tion(s) Medicare LIZA ZHANG [id number] [facility] LIZA [id number] Social History Type Description Quantity Date Captured [...]
--- OUTSIDE RECORDS SUMMARY | 2024-06-12 15:29 | XMS_ITS | Clinical Summary ---
Author Organization Unknown Care Team Providers Care Director Of Strategic Sourcing Name Role Phone BRANDO GUTIÉRREZ, SNEHAL Unavailable Unavailable VIC RN, IFTIKHAR Unavailable Unavailab felicitas PERKINS LPN, TAMEKA Unavailable Unavail able ZOE PT, PRAKASH Unavailable Unavailable RUIZ KILN CHARGER, CHI Unavailable Unavailable SPAFFORD OT, SHANKAR Unavailable Unavailable Payers Payer Name Policy Type Policy Number Effective Date Expira tion Date MEDICARE.NGS.PDGM [id number] Problems Condition Name Condition Details Condition Category Status Onset Date Resolution Date Last Treatment Date Treating Clinician Comments 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, SUBS Active 2023-07 00:00: 00 CONTUSION OF LEFT LOWER LEG, SUBSEQUENT ENCOUNTER Active 2023-07 00:00: 00 ORTHOSTATIC HYPOTENSION Active 2023-07 00:00: 00 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 2023-07 00:00: 00 UNSPECIFIED ATRIAL FIBRILLATION Active 2023-07 00:00: 00 HYPERTENSIVE HEART DISEASE WITH HEART FAILURE Active 2023-07 00:00: 00 CHRONIC SYSTOLIC (CONGESTIVE) HEART FAILURE Active 2023-07 00:00: 00 ACUTE KIDNEY FAILURE, UNSPECIFIED Active 2023-07 00:00: 00 ISCHEMIC CARDIOMYOPAT HY Active 2023-07 00:00: 00 HYPERLIPIDEM IA, UNSPECIFIED Active 2023-07 00:00: 00 UNSPECIFIED PROTEIN-RITIKA ORION MALNUTRITION Active 2023-07 00:00: 00 INSOMNIA, UNSPECIFIED Active 2023-07 00:00: 00 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,ANT IB,INHIB Active 2023-07 00:00: 00 OTHER RETENTION OF URINE Active 2023-07 00:00: 00 ABNORMAL WEIGHT LOSS Active 2023-07 00:00: 00 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 (CURRENT) USE OF ANTICOAGULAN TS Active 2023-07 00:00: 00 PRESENCE OF AORTOCORONAR Y BYPASS GRAFT Active 2016-07 00:00: 00 PRESENCE OF AUTOMATIC (IMPLANTABLE ) CARDIAC DEFIBRILLATO R Active 2023-07 00:00: 00 PERSONAL HISTORY OF NICOTINE DEPENDENCE Active 2023-07 00:00: 00 HISTORY OF FALLING Active 2023-07 00:00: 00 Allergies, Adverse Reactions, Alerts Allergy Name Allergy Type Status Severity Reaction(s) Onset Date Inactive Date Treating Clinician Comments ENVIRONMENTA L ALLERGEN Propensity to adverse reactions Active 2023-07 08:16: 16 Medications Ordered Medication Name Filled Medication Name Start Date Stop Date Current Medication? Ordering Clinician Indication Dosage Frequency Signature (SIG) Comments Components Eliquis 5 mg tablet 2022-07 00:00: 00 07-02 00:00 :00 No [id number] Per instruc tions Per instructio ns (route: oral) Med Classific ation: Hematolog ical Agents Artificial Tears (PF) drops in a dropperette 2022-07 00:00: 00 05-09 23:59 :00 No [id number] DRY EYES 1 dropper ette DAILY 1 dropperett e DAILY (route: ophthalmic (eye)) Med Classific ation: Ophthalmi c Agents carvedilol 6.25 mg tablet 2022-07 00:00: 00 05-09 23:59 :00 No [id number] HTN 6.25 mg 2 TIMES DAILY 6.25 mg 2 TIMES DAILY (route: oral) Med Classific ation: Cardiovas cular Therapy Agents Colace 100 mg capsule 2022-07 00:00: 00 05-09 23:59 :00 No [id number] CONSTIPATIO N 100 mg 2 TIMES DAILY 100 mg 2 TIMES DAILY (route: oral) Med Classific ation: Gastroint estinal Therapy Agents Eliquis 5 mg tablet 2022-07 00:00: 00 05-09 23:59 :00 No [id number] ANTI PLATELET 5 mg 2 TIMES DAILY 5 mg 2 TIMES DAILY (route: oral) Med Classific ation: Hematolog ical Agents Lipitor 10 mg tablet 2022-07 00:00: 00 05-09 23:59 :00 No [id number] HIGH CHOLESTEROL 10 mg BEDTIME 10 mg BEDTIME (route: oral) Med Classific ation: Cardiovas cular Therapy Agents lisinopril 10 mg tablet 2022-07 00:00: 00 05-09 23:59 :00 No [id number] HTN 10 mg DAILY 10 mg DAILY (route: oral) Med Classific ation: Cardiovas cular Therapy Agents Milk of Magnesia 400 mg/5 mL oral suspension 2022-07 00:00: 00 05-09 23:59 :00 No [id number] CONSTIPATIO N 30 mL DAILY 30 mL DAILY (route: oral) Med Classific ation: Gastroint estinal Therapy Agents Multivitami n 50 Plus tablet 2022-07 00:00: 00 05-09 23:59 :00 No [id number] SUPPLEMENT 1 tablet DAILY 1 tablet DAILY (route: oral) Med Classific ation: Electroly te Balance-N utritiona l Products Tylenol 325 mg tablet 2022-07 00:00: 00 05-09 23:59 :00 No [id number] PAIN 650 mg EVERY 4 HOURS 650 mg EVERY 4 HOURS (route: oral) Med Classific ation: Analgesic , Anti-infl ammatory or Antipyret ic zolpidem 5 mg tablet 2022-07 00:00: 00 05-09 23:59 :00 No [id number] INSOMNIA 5 mg BEDTIME 5 mg BEDTIME (route: oral) Med Classific ation: Central Nervous System Agents clotrimazol e 1 % topical cream 07-04 00:00: 00 05-09 23:59 :00 No [id number] skin integrity Per instruc tions 2 TIMES DAILY Per instructio ns 2 TIMES DAILY (route: topical) Med Classific ation: Dermatolo gical Eliquis 2.5 mg tablet 2023-07 00:00: 00 Yes [id number] IRREGULAR HEARTBEAT 1 tablet 2 TIMES DAILY 1 tablet 2 TIMES DAILY (route: oral) Med Classific ation: Hematolog ical Agents atorvastati n 10 mg tablet 2023-07 00:00: 00 Yes [id number] HIGH LIPIDS 1 tablet BEDTIME 1 tablet BEDTIME (route: oral) Med Classific ation: Cardiovas cular Therapy Agents carvedilol 6.25 mg tablet 2023-07 00:00: 00 Yes [id number] HIGH BLOOD PRESSURE 1 tablet 2 TIMES DAILY 1 tablet 2 TIMES DAILY (route: oral) Med Classific ation: Cardiovas cular Therapy Agents lisinopril 10 mg tablet 2023-07 00:00: 00 05-28 00:00 :00 No [id number] Per instruc tions Per instructio ns (route: oral) Med Classific ation: Cardiovas cular Therapy Agents lisinopril 5 mg tablet 2023-07 00:00: 00 Yes [id number] HIGH BLOOD PRESSURE 1 tablet DAILY 1 tablet DAILY (route: oral) Med Classific ation: Cardiovas cular Therapy Agents zolpidem 5 mg tablet 2023-07 00:00: 00 Yes [id number] TROUBLE SLEEPING 1 tablet BEDTIME 1 tablet BEDTIME (route: oral) Med Classific ation: Central Nervous System Agents Eliquis 5 mg tablet 2023-07 00:00: 00 05-28 00:00 :00 No [id number] Per instruc tions TWICE A DAY Per instructio ns TWICE A DAY (route: oral) Med Classific ation: Hematolog ical Agents docusate sodium 100 mg capsule 2023-07 00:00: 00 Yes [id number] CHRONIC CONSTIPATIO N 1 capsule 2 TIMES DAILY 1 capsule 2 TIMES DAILY (route: oral) Med Classific ation: Gastroint estinal Therapy Agents Eye Health Plus Lutein 300 mcg-200 mg-27 mg-2 mg tablet 2023-07 00:00: 00 Yes [id number] SUPPLEMENT 1 tablet DAILY 1 tablet DAILY (route: oral) Med Classific ation: Electroly te Balance-N utritiona l Products loratadine 10 mg capsule 2023-07 00:00: 00 Yes [id number] EYE ALLERGIES 2 capsule DAILY 2 capsule DAILY (route: oral) Med Classific ation: Respirato ry Therapy Agents Men's 50 Plus Multivitami n 400 mcg-20 mcg-370 mcg tablet 2023-07 00:00: 00 Yes [id number] SUPPLEMENT 1 tablet DAILY 1 tablet DAILY (route: oral) Med Classific ation: Electroly te Balance-N utritiona l Products Systane (propylene glycol) 0.4 %-0.3 % eye drops 2023-07 00:00: 00 Yes [id number] DRY EYES 1 drops 2 TIMES DAILY 1 drops 2 TIMES DAILY (route: ophthalmic (eye)) Med Classific ation: Ophthalmi c Agents Tylenol Arthritis Pain 650 mg tablet,exte nded release 2023-07 00:00: 00 Yes [id number] PAIN 1 tablet EVERY 8 HOURS 1 tablet EVERY 8 HOURS (route: oral) Med Classific ation: Analgesic , Anti-infl ammatory or Antipyret ic Vital Signs Vital Name Observation Time Observation Value Commen ts Temperature 2024-06-05 13:32:00.000 98.6 [degF] Temperature 2024-06-04 13:55:00.000 97.7 [degF] Temperature 2024-05-28 14:56:00.000 97.9 [degF] BMI (%) 2024-05-28 14:56:00.000 20 kg/m2 Height 2024-05-28 14:56:00.000 74 [in_us] Pulse 2024-06-05 13:32:00.000 68 /min Pulse 2024-06-04 13:55:00.000 62 /min Pulse 2024-05-28 14:56:00.000 67 /min O2 Saturation (%) 2024-06-05 13:34:00.000 95 % O2 Saturation (%) 2024-06-04 13:56:00.000 96 % O2 Saturation (%) 2024-05-28 14:56:00.000 99 % Respirations 2024-06-05 13:32:00.000 18 /min Respirations 2024-06-04 13:55:00.000 18 /min Respirations 2024-05-28 14:56:00.000 17 /min Weight (lbs) 2024-06-05 13:34:00.000 164 [lb_av] Weight (lbs) 2024-06-04 13:55:00.000 164 [lb_av] Weight (lbs) 2024-05-28 14:56:00.000 159 [lb_av] Systolic Blood Pressure 2024-06-05 13:32:00.000 130 mm [Hg] Systolic Blood Pressure 2024-06-04 13:55:00.000 96 mm[ Hg] Systolic Blood Pressure 2024-05-28 14:56:00.000 102 mm [Hg] Diastolic Blood Pressure 2024-06-05 13:32:00.000 60 mm [Hg] Diastolic Blood Pressure 2024-06-04 13:55:00.000 52 mm [Hg] Diastolic Blood Pressure 2024-05-28 14:56:00.000 60 mm [Hg] Plan of Treatment Planned Activity Planned Date Details Comments Future Scheduled Test RN TO OBSE RVE, ASSESS, EVALUATE, AND DEVELOP AN INDIVIDUALIZED PLAN OF CARE. AGENCY MAY ACCEPT ORDERS FROM CONSULTING PHYSICIANS RN TO OBSERVE AND ASSESS, SOFTWARE DEPLOYMENT ENGINEER/FILM DRYING MACHINE OPERATOR TO OBSERVE FOR RISK FOR FALLS AND INSTRUCT IN FALL PREVENTION, HOME SAFETY, MEDICATION MANAGEMENT, INFECTION PREVENTION, AND NUTRITION MANAGEMENT. RN/SOFTWARE DEPLOYMENT ENGINEER/FILM DRYING MACHINE OPERATOR NURSE MAY PERFORM O2 SATURATION LEVEL ON ADMISSION AND PRN FOR RN TO ASSESS/SOFTWARE DEPLOYMENT ENGINEER TO OBSERVE PATIENT, WITH NOTIFICATION TO THE PHYSICIAN IF SATURATION IS 90% IN THE ABSENCE OF MORE SPECIFIC PARAMETERS FROM THE PHYSICIAN. AGENCY MAY PERFORM A RESUMPTION OF CARE VISIT FOLLOWING ANY HOSPITAL ADMISSION. RN/SOFTWARE DEPLOYMENT ENGINEER/FILM DRYING MACHINE OPERATOR TO MONITOR CO-MORBID CONDITIONS LISTED ON THE PLAN OF CARE AND ANY NEW CONDITIONS THAT PRESENT THEMSELVES DURING THIS EPISODE TO IDENTIFY CHANGES AND INTERVENE TO MINIMIZE COMPLICATIONS. [code = RN TO OBSERVE, ASSESS, EVALUATE, AND DEVELOP AN INDIVIDUALIZED PLAN OF CARE. AGENCY MAY ACCEPT ORDERS FROM CONSULTING PHYSICIANS RN TO OBSERVE AND ASSESS, SOFTWARE DEPLOYMENT ENGINEER/FILM DRYING MACHINE OPERATOR TO OBSERVE FOR RISK FOR FALLS AND INSTRUCT IN FALL PREVENTION, HOME SAFETY, MEDICATION MANAGEMENT, INFECTION PREVENTION, AND NUTRITION MANAGEMENT. RN/SOFTWARE DEPLOYMENT ENGINEER/FILM DRYING MACHINE OPERATOR NURSE MAY PERFORM O2 SATURATION LEVEL ON ADMISSION AND PRN FOR RN TO ASSESS/SOFTWARE DEPLOYMENT ENGINEER TO OBSERVE PATIENT, WITH NOTIFICATION TO THE PHYSICIAN IF SATURATION IS 90% IN THE ABSENCE OF MORE SPECIFIC PARAMETERS FROM THE PHYSICIAN. AGENCY MAY PERFORM A RESUMPTION OF CARE VISIT FOLLOWING ANY HOSPITAL ADMISSION. RN/SOFTWARE DEPLOYMENT ENGINEER/FILM DRYING MACHINE OPERATOR TO MONITOR CO-MORBID CONDITIONS LISTED ON THE PLAN OF CARE AND ANY NEW CONDITIONS THAT PRESENT THEMSELVES DURING THIS EPISODE TO IDENTIFY CHANGES AND INTERVENE TO MINIMIZE COMPLICATIONS.] Future Scheduled Test MEDICATION MANAGEMENT; RN/SOFTWARE DEPLOYMENT ENGINEER/FILM DRYING MACHINE OPERATOR TO REVIEW MEDICATIONS FOR INTERACTIONS, EFFECTIVENESS OF DRUG THERAPY, AND SIGNS/SYMPTOMS OF ADVERSE REACTIONS. MAY INSTRUCT AND REINFORCE MEDICATION TEACHING RELATED TO THE USE OF MEDICATIONS, DOSAGE, FREQUENCY, PURPOSE, SIDE EFFECTS, AND TO REPORT COMPLICATIONS. [code = MEDICATION MANAGEMENT; RN/SOFTWARE DEPLOYMENT ENGINEER/FILM DRYING MACHINE OPERATOR TO REVIEW MEDICATIONS FOR INTERACTIONS, EFFECTIVENESS OF DRUG THERAPY, AND SIGNS/SYMPTOMS OF ADVERSE REACTIONS. MAY INSTRUCT AND REINFORCE MEDICATION TEACHING RELATED TO THE USE OF MEDICATIONS, DOSAGE, FREQUENCY, PURPOSE, SIDE EFFECTS, AND TO REPORT COMPLICATIONS.] Future Scheduled Test RISK FOR H OSPITALIZATION; RN TO ASSESS/TEACH, FILM DRYING MACHINE OPERATOR/SOFTWARE DEPLOYMENT ENGINEER TO OBSERVE/TEACH PATIENT/CAREGIVER ON RISK FOR HOSPITALIZATION/EMERGENCY ROOM VISITS, TEACH SIGNS AND SYMPTOMS THAT PUT PATIENT AT RISK, WHEN TO NOTIFY NURSE/PHYSICIAN OF COMPLICATIONS/DECLINE, AND WHEN TO CALL 911. [code = RISK FOR HOSPITALIZATION; RN TO ASSESS/TEACH, FILM DRYING MACHINE OPERATOR/SOFTWARE DEPLOYMENT ENGINEER TO OBSERVE/TEACH PATIENT/CAREGIVER ON RISK FOR HOSPITALIZATION/EMERGENCY ROOM VISITS, TEACH SIGNS AND SYMPTOMS THAT PUT PATIENT AT RISK, WHEN TO NOTIFY NURSE/PHYSICIAN OF COMPLICATIONS/DECLINE, AND WHEN TO CALL 911.] Future Scheduled Test CARDIOVASC ULAR SYSTEM; RN TO ASSESS/TEACH, SOFTWARE DEPLOYMENT ENGINEER/FILM DRYING MACHINE OPERATOR TO OBSERVE/TEACH RELATED TO ALTERED CARDIOVASCULAR STATUS TO MINIMIZE COMPLICATIONS AND REDUCE HOSPITALIZATION. [code = CARDIOVASCULAR SYSTEM; RN TO ASSESS/TEACH, SOFTWARE DEPLOYMENT ENGINEER/FILM DRYING MACHINE OPERATOR TO OBSERVE/TEACH RELATED TO ALTERED CARDIOVASCULAR STATUS TO MINIMIZE COMPLICATIONS AND REDUCE HOSPITALIZATION.] Future Scheduled Test ACUTE MYOC ARDIAL INFARCT; RN TO ASSESS/TEACH, SOFTWARE DEPLOYMENT ENGINEER/FILM DRYING MACHINE OPERATOR TO OBSERVE/TEACH WARNING SIGNS AND SYMPTOMS TO AVOID HOSPITALIZATION. [code = ACUTE MYOCARDIAL INFARCT; RN TO ASSESS/TEACH, SOFTWARE DEPLOYMENT ENGINEER/FILM DRYING MACHINE OPERATOR TO OBSERVE/TEACH WARNING SIGNS AND SYMPTOMS TO AVOID HOSPITALIZATION.] Future Scheduled Test HYPERTENSI ON MANAGEMENT; RN TO ASSESS AND TEACH, SOFTWARE DEPLOYMENT ENGINEER/FILM DRYING MACHINE OPERATOR TO OBSERVE AND TEACH WARNING SIGNS AND SYMPTOMS TO AVOID HOSPITALIZATION. [code = HYPERTENSION MANAGEMENT; RN TO ASSESS AND TEACH, SOFTWARE DEPLOYMENT ENGINEER/FILM DRYING MACHINE OPERATOR TO OBSERVE AND TEACH WARNING SIGNS AND SYMPTOMS TO AVOID HOSPITALIZATION.] Future Scheduled Test HYPOTENSIO N MANAGEMENT; RN TO ASSESS AND TEACH/ SOFTWARE DEPLOYMENT ENGINEER /FILM DRYING MACHINE OPERATOR TO OBSERVE AND TEACH WARNING SIGNS AND SYMPTOMS TO AVOID HOSPITALIZATION. [code = HYPOTENSION MANAGEMENT; RN TO ASSESS AND TEACH/ SOFTWARE DEPLOYMENT ENGINEER /FILM DRYING MACHINE OPERATOR TO OBSERVE AND TEACH WARNING SIGNS AND SYMPTOMS TO AVOID HOSPITALIZATION.] Future Scheduled Test ARRHYTHMIA MANAGEMENT; RN TO ASSESS AND TEACH, SOFTWARE DEPLOYMENT ENGINEER/FILM DRYING MACHINE OPERATOR TO OBSERVE AND TEACH WARNING SIGNS AND SYMPTOMS TO AVOID HOSPITALIZATION. [code = ARRHYTHMIA MANAGEMENT; RN TO ASSESS AND TEACH, SOFTWARE DEPLOYMENT ENGINEER/FILM DRYING MACHINE OPERATOR TO OBSERVE AND TEACH WARNING SIGNS AND SYMPTOMS TO AVOID HOSPITALIZATION.] Future Scheduled Test SKIN INTEG RITY RN TO ASSESS AND TEACH, SOFTWARE DEPLOYMENT ENGINEER/FILM DRYING MACHINE OPERATOR TO OBSERVE AND TEACH INTEGUMENTARY STATUS TO IDENTIFY CHANGES AND INTERVENE TO MINIMIZE COMPLICATIONS. PROVIDE SKILLED TEACHING OF GENERAL WOUND AND SKIN CARE AND PREVENTION RELATED TO POTENTIAL FOR ALTERED SKIN INTEGRITY [code = SKIN INTEGRITY RN TO ASSESS AND TEACH, SOFTWARE DEPLOYMENT ENGINEER/FILM DRYING MACHINE OPERATOR TO OBSERVE AND TEACH INTEGUMENTARY STATUS TO IDENTIFY CHANGES AND INTERVENE TO MINIMIZE COMPLICATIONS. PROVIDE SKILLED TEACHING OF GENERAL WOUND AND SKIN CARE AND PREVENTION RELATED TO POTENTIAL FOR ALTERED SKIN INTEGRITY ] Future Scheduled Test PAIN MANAG EMENT; RN TO ASSESS AND TEACH, FILM DRYING MACHINE OPERATOR/SOFTWARE DEPLOYMENT ENGINEER TO OBSERVE AND TEACH AND PROVIDE EDUCATION ON PAIN MANAGEMENT TECHNIQUES. [code = PAIN MANAGEMENT; RN TO ASSESS AND TEACH, FILM DRYING MACHINE OPERATOR/SOFTWARE DEPLOYMENT ENGINEER TO OBSERVE AND TEACH AND PROVIDE EDUCATION ON PAIN MANAGEMENT TECHNIQUES.] Future Scheduled Test GASTROINTE STINAL MANAGEMENT; RN TO ASSESS AND TEACH, FILM DRYING MACHINE OPERATOR/SOFTWARE DEPLOYMENT ENGINEER TO OBSERVE AND TEACH RELATED TO ALTERED GASTROINTESTINAL STATUS TO MINIMIZE COMPLICATIONS AND REDUCE HOSPITALIZATION. [code = GASTROINTESTINAL MANAGEMENT; RN TO ASSESS AND TEACH, FILM DRYING MACHINE OPERATOR/SOFTWARE DEPLOYMENT ENGINEER TO OBSERVE AND TEACH RELATED TO ALTERED GASTROINTESTINAL STATUS TO MINIMIZE COMPLICATIONS AND REDUCE HOSPITALIZATION.] Future Scheduled Test FECAL IMPA CTION REMOVAL; RN TO ASSESS AND PREVENT NEED FOR MANUAL DISEMPACTIOM, FILM DRYING MACHINE OPERATOR/SOFTWARE DEPLOYMENT ENGINEER OBSERVE AND ADJUST BOWEL MEDICATIONS WITH PRIMARY CARE NEEDED.. [code = FECAL IMPACTION REMOVAL; RN TO ASSESS AND PREVENT NEED FOR MANUAL DISEMPACTIOM, FILM DRYING MACHINE OPERATOR/SOFTWARE DEPLOYMENT ENGINEER OBSERVE AND ADJUST BOWEL MEDICATIONS WITH PRIMARY CARE NEEDED..] Future Scheduled Test FALL REDUC TION MANAGEMENT; RN TO ASSESS AND TEACH, SOFTWARE DEPLOYMENT ENGINEER/FILM DRYING MACHINE OPERATOR TO OBSERVE AND TEACH ON EDUCATION AND INTERVENTION TO IDENTIFY FALL RISK FACTORS SUCH MEDICATIONS THAT MAY CAUSE DIZZINESS, CHRONIC DISEASES, PSYCHOLOGICAL FACTORS, AND EMPOWER/EDUCATE PATIENT/CAREGIVER TO MINIMIZE FALL RISK. [code = FALL REDUCTION MANAGEMENT; RN TO ASSESS AND TEACH, SOFTWARE DEPLOYMENT ENGINEER/FILM DRYING MACHINE OPERATOR TO OBSERVE AND TEACH ON EDUCATION AND INTERVENTION TO IDENTIFY FALL RISK FACTORS SUCH MEDICATIONS THAT MAY CAUSE DIZZINESS, CHRONIC DISEASES, PSYCHOLOGICAL FACTORS, AND EMPOWER/EDUCATE PATIENT/CAREGIVER TO MINIMIZE FALL RISK.] Goal Patient Goal - G ET BACK TO WALKING NORMAL, BETTER BALANCE FIX MEDICATIONS Goal Provider Goal - A PLAN OF CARE WILL BE ESTABLISHED THAT MEETS THE PATIENTS NEEDS. PATIENT WILL DEMONSTRATE OXYGEN SATURATION WITHIN NORMAL LIMITS OR PATIENTS OPTIMAL LEVEL ESTABLISHED BY THE PHYSICIAN THROUGHOUT CARE. CHANGES TO CO-MORBID CONDITIONS AND ANY NEW CONDITIONS WILL BE IDENTIFIED AND REPORTED TO THE PHYSICIAN. Goal Provider Goal - PATIENT/CAREGIVER TO VERBALIZE, AND CONSISTENTLY DEMONSTRATE EFFECTIVE, SAFE MANAGEMENT OF MEDICATION INCLUDING KNOWLEDGE OF EFFECTIVENESS, POTENTIAL SIDE EFFECTS AND DRUG REACTIONS AND WHEN TO CONTACT THE APPROPRIATE CARE PROVIDER. PATIENT/CAREGIVER WILL BE ABLE TO VERBALIZE UNDERSTANDING OF MEDICATION REGIMEN AND ACCURATELY TAKE MEDICATIONS PRESCRIBED WITHOUT ADVERSE EFFECTS BY EOE Goal Provider Goal - PATIENT/CAREGIVER WILL VERBALIZE UNDERSTANDING OF SIGNS AND SYMPTOMS THAT PUT THE PATIENT AT RISK FOR HOSPITALIZATION /EMERGENCY ROOM VISITS, WHEN TO NOTIFY NURSE/PHYSICIAN OF COMPLICATIONS/DECLINE AND WHEN TO CALL 911. Goal Provider Goal - PATIENT / CAREGIVER WILL VERBALIZE/DEMONSTRATE UNDERSTANDING OF MEASURES TO MANAGE ALTERED CARDIOVASCULAR STATUS BY Goal Provider Goal - PATIENT / CAREGIVER WILL VERBALIZE/DEMONSTRATE CARE AND SELF-MANAGEMENT OF AMI TO MINIMIZE COMPLICATIONS AND AVOID HOSPITALIZATION BY END OF EPISODE. Goal Provider Goal - PATIENT / CAREGIVER WILL VERBALIZE/DEMONSTRATE AN ABILITY TO ADHERE TO SELF-MANAGEMENT OF HTN TO MINIMIZE COMPLICATIONS AND AVOID HOSPITALIZATION BY END OF EPISODE. Goal Provider Goal - PATIENT/CAREGIVER WILL VERBALIZE/DEMONSTRATE ABILITY TO ADHERE TO SELF-MANAGEMENT OF HYPOTENSION TO MINIMIZE COMPLICATIONS AND AVOID HOSPITALIZATION BY THE END OF EPISODE. Goal Provider Goal - PATIENT / CAREGIVER WILL VERBALIZE/DEMONSTRATE AN ABILITY TO ADHERE TO SELF-MANAGEMENT OF HEART ARRHYTHMIA TO MINIMIZE COMPLICATIONS AND AVOID HOSPITALIZATION BY END OF EPISODE. Goal Provider Goal - CHANGES IN SKIN INTEGRITY STATUS WILL BE IDENTIFIED AND REPORTED TO THE PHYSICIAN FOR PROMPT INTERVENTION. PATIENT / CAREGIVER WILL VERBALIZE/DEMONSTRATE ADEQUATE KNOWLEDGE OF INTEGUMENTARY STATUS AND APPROPRIATE MEASURES TO PROMOTE SKIN INTEGRITY AND PREVENT INJURY BY EOE Goal Provider Goal - PATIENT / CAREGIVER WILL VERBALIZE / DEMONSTRATE UNDERSTANDING OF PAIN CONTROL MEASURES BY EOE Goal Provider Goal - PATIENT / CAREGIVER WILL VERBALIZE/DEMONSTRATE UNDERSTANDING OF MEASURES TO MANAGE ALTERED GASTROINTESTINAL STATUS BY END OF EPISODE. Goal Provider Goal - PATIENT IS FREE OF FECAL IMPACTION. Goal Provider Goal - PATIENT/CAREGIVER ABLE TO IDENTIFY FALL RISK FACTORS AND IMPLEMENT STRATEGIES TO MINIMIZE FALL RISK. PATIENT/CAREGIVER WILL VERBALIZE/DEMONSTRATE AN ABILITY TO ADHERE TO FALL REDUCTION SELF-MANAGEMENT AND LIFE-STYLE CHANGES AT DISCHARGE. PERSONAL GOAL(S) STATED BY PATIENT/CAREGIVER WILL BE MET BY EOE. Encounters Start Date/Time End Date/Time Encounter Type Admission Type Attending [facility] Care Department Encounter ID Discharge Date Discharge Status Discharge Condition Discharge Reason Percent Goals Met 2024-05-28 00:00:00 2024-07-26 00:00:00 Outpatient IFTIKHAR RAPP [facility] [id number] 27.78
== END 2024-06-10 13:24 | disposition home or self-care (01) ==
PROVIDERS: PCP Internal Medicine; Visit Provider Internal Medicine Cardiovascular Disease
DX: I25.10 Atherosclerotic heart disease of native coronary artery without angina pectoris (principal); I25.5 Ischemic cardiomyopathy; I48.0 Paroxysmal atrial fibrillation; Z95.810 Presence of automatic (implantable) cardiac defibrillator
CPT/HCPCS: 93284; 99214

== ENCOUNTER → 2024-06-10 12:38 | Outpatient (BNVA) | payer MEDICARE, SELFPAY | PROVIDERS: PCP Internal Medicine; Visit Provider Internal Medicine Cardiovascular Disease | DX: Z45.02 Encounter for adjustment and management of automatic implantable cardiac defibrillator (principal); I25.10 Atherosclerotic heart disease of native coronary artery without angina pectoris; I25.5 Ischemic cardiomyopathy; I48.0 Paroxysmal atrial fibrillation | CPT/HCPCS: 99212 ==

== ENCOUNTER → 2024-07-11 18:49 | Outpatient (BNV) | payer MEDICARE, SELFPAY | PROVIDERS: Emergency Provider Emergency Medicine; PCP Internal Medicine; Visit Provider Internal Medicine | DX: R94.31 Abnormal electrocardiogram [ECG] [EKG] (principal) | CPT/HCPCS: 93010 ==

== ENCOUNTER 2024-10-04 12:12 | Emergency (ER) | payer MEDICARE, SELFPAY ==
--- NOTE | ~2024-10-04 | CT_ITS ---
EXAMINATION: CT HEAD WITHOUT CONTRAST CLINICAL INFORMATION: Dizziness and lightheaded. COMPARISON: 07/09/2022, 10/08/2020. TECHNIQUE: Contiguous axial imaging was performed from the skull base to vertex without intravenous administration of contrast. This CT examination was performed using dose optimization techniques as appropriate, variously including the following: *Automated exposure control *Adjustment of mA and/or kV according to patient size (this includes techniques or standardized protocols for targeted exams where dose is matched to indication/reason for exam; i.e. extremities or head) *Use of iterative reconstruction technique FINDINGS: There is no evidence of intracranial hemorrhage or extra-axial fluid collection. There is no mass effect, or edema. No CT evidence of acute territorial infarct. Ventricles, sulci, and cisterns are normal in size and configuration for patient age. No hydrocephalus. No midline shift. Negative hyperdense MCA sign. Negative insular ribbon sign. Patchy periventricular and deep white matter hypoattenuation is consistent with mild small vessel ischemic changes. Normal pituitary. Mild atheromatous calcification of the bilateral carotid siphons and V4 segments vertebral arteries bilaterally. Globes and orbital contents image normally. There are bilateral lens replacements. No extracranial soft tissue abnormalities. The paranasal sinuses, mastoid air cells, and tympanic cavities are normally aerated. No suspicious bony abnormalities. There are no acute fractures evident. 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 There is radiopaque glue/embolization material within the bilateral middle meningeal arteries and their branches. CT/CT head/brain wo IV con IMPRESSION: No acute intracranial abnormalities. Electronically signed by: Jose Parsons MD 10/04/2024 03:26 PM EDT
--- NOTE | ~2024-10-04 | US_ITS ---
EXAMINATION: US TRIPLEX LOWER EXTREMITY, LEFT CLINICAL INFORMATION: Edema, left lower extremity. COMPARISON: May 15, 2023. TECHNIQUE: Color-flow triplex imaging with spectral analysis and compression Doppler were performed on the left lower extremity. FINDINGS: Respiratory variation, normal compression and augmented flow are noted throughout the interrogated common femoral vein, superficial femoral vein, profunda femoral vein, popliteal vein and midcalf peroneal and posterior tibial venous segments . There is no Kathleen's cyst. US/US venous duplex LE LT IMPRESSION: No acute deep venous thrombosis involving the left lower extremity. Negative for DVT. Electronically signed by: Tru Chen MD 10/04/2024 02:44 PM EDT
--- NOTE | ~2024-10-04 | XR_ITS ---
EXAMINATION: XR CHEST CLINICAL INFORMATION: dizziness COMPARISON: 05/18/2023, 07/09/2022. TECHNIQUE: Frontal view of the chest was obtained. FINDINGS: Left side 3-lead AICD device in place with leads extending into the right atrium, right ventricle, and coronary sinus. There is a left atrial appendage occlusion device in place. There is been a prior median sternotomy and CABG. Borderline cardiac enlargement. Mediastinal and hilar contours are normal. Aortic mural calcifications. The lungs are clear bilaterally. No pneumothorax or effusion. No focal osseous or soft tissue abnormality. There are degenerative changes in both shoulder joints and throughout the spine. Sternal wires appear intact and non-migrated. XR/XR chest 1V IMPRESSION: 1. 3-lead AICD device in place. 2. Prior median sternotomy and CABG. Borderline cardiac enlargement. 3. No active pulmonary disease. Electronically signed by: Jose Parsons MD 10/04/2024 03:08 PM EDT
[2024-10-04 12:20] VITALS: BP 125/82; PULSE 95; O2SAT 99; BMI 21.2
[2024-10-04 12:30] VITALS: BP 138/69; PULSE 59; RESP 18; TEMP 36.3; O2SAT 96
--- NOTE | 2024-10-04 13:35 | ECG_ITS ---
Test Reason : dizziness Blood Pressure : */* mmHG Vent. Rate : 63 BPM Atrial Rate : 63 BPM P-R Int : 164 ms QRS Dur : 154 ms QT Int : 472 ms P-R-T Axes : 249 129 100 degrees QTcB Int : 483 ms AV dual-paced rhythm Abnormal ECG When compared with ECG of 11-Jul-2024 18:59, No significant changes seen Referred By: Yessica Pozo Electronically Signed By: CRISTIANO BRAVO
[2024-10-04 14:06] LABS: Appearance Urine Clear; Color Urine Yellow; Glucose Urine UA Negative (Negative); Leukocyte Esterase Urine Negative (Negative); Nitrite Urine Negative (Negative); Specific Gravity - Urine 1.015 (1.005-1.025); Urine Blood Negative (Negative); Urine Ketones Negative (Negative); Urine Protein Negative (Neg-Trace)
--- NOTE | 2024-10-04 14:34 | ED.GENADULT ---
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 States bent down to pick something up off floor and when stood up felt lightheaded/room spinning dizzy, caught himself from falling, without head trauma or LOC. states lives home alone & is worried about safety. Does report headache. Denies other complaints at present including chest pain, shortness of breath, abdominal pain, nausea/vomiting, diarrhea Related Data Home Medications ?Medication ?Instructions ?Recorded ?Confirmed atorvastatin 10 mg tablet 10 mg PO DAILY 10/08/20 10/04/24 multivitamin 1 tab PO DAILY 10/08/20 10/04/24 zolpidem 5 mg tablet 5 mg PO BEDTIME PRN Insomnia 10/08/20 10/04/24 nystatin 100,000 unit/gram topical 1 appl topical BID PRN Rash 07/09/22 10/04/24 cream cetirizine 10 mg tablet 10 mg PO DAILY PRN Allergy Symptoms 08/21/22 10/04/24 polyvinyl alcohol 1.4 % eye drops 1 drp ophthalmic (eye) BID PRN Dry 12/11/23 10/04/24 Eye(S) acetaminophen 500 mg tablet 500 - 1,000 mg PO Q6H PRN Migraine 10/04/24 10/04/24 Headache apixaban 2.5 mg tablet (Eliquis) 2.5 mg PO BID 10/04/24 10/04/24 Previous Rx's ?Medication ?Instructions ?Recorded carvedilol 6.25 mg tablet 6.25 mg PO BID 90 days #180 tabs 05/04/20 lisinopril 10 mg tablet 10 mg PO DAILY 30 days #30 tabs 09/13/21 docusate sodium 100 mg capsule 100 mg PO BID #30 caps 05/19/23 polyethylene glycol 3350 17 gram 17 g PO DAILY PRN Constipation #30 05/19/23 oral powder packet ea Allergies Allergy/AdvReac Type Severity Reaction Status Date / Time grass pollen Allergy Intermediate Sneezing Verified 10/04/24 12:21 mite-Dermatophagoides Allergy Intermediate Sneezing Verified 10/04/24 12:21 farinae, alexis [dust mite - [place]] Review of Systems Review of Systems: Yes all other systems are reviewed and are negative Constitutional: Constitutional: Reports as per HPI Neurologic: Denies Abnormal speech present [facility] Past Medical History Attestation statement: The following information was validated with the patient. 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 housing Do you presently have visiting nurse or other home services: No Alcohol intake: never Patient Tobacco Use Status: Former Tobacco user Tobacco use type: Cigarette and Cigar Years Smoked: 20 Smoked in Last 30 Days: No e-Cigarette/Vaping Use: Never Used Second Hand Smoke Exposure: No Use of substances other than those prescribed or required for medical reasons: No Advance Directives: Yes Advance Directives on File: Yes Advance Directives Date on File: 03/10/22 Do you have a plan to hurt others: No Plan service: No Current occupational status: retired Physical Exam ED Vital Signs: Vital Signs - 24 hr 10/04/24 17:34 10/04/24 17:35 10/04/24 17:35 Temperature 98.2 F Pulse Rate 60 60 64 Respiratory Rate 16 Blood Pressure 140/77 H 140/77 H 150/81 H Pulse Oximetry 99 Oxygen Delivery Method Room Air 10/04/24 17:36 10/04/24 19:04 10/05/24 06:00 Temperature 97.4 F Pulse Rate 67 76 86 Respiratory Rate 18 18 Blood Pressure 162/84 H 134/69 152/54 H Pulse Oximetry 98 98 Oxygen Delivery Method Room Air Room Air 10/05/24 08:17 10/05/24 08:18 10/05/24 08:18 Temperature 97.6 F Pulse Rate 69 69 Respiratory Rate 18 Blood Pressure 141/59 H 141/59 H 141/59 H Pulse Oximetry 99 Oxygen Delivery Method Room Air 10/05/24 09:23 10/05/24 13:24 Temperature 97.3 F Pulse Rate 69 64 Respiratory Rate 20 Blood Pressure 141/59 H 111/60 Pulse Oximetry 99 Oxygen Delivery Method Room Air BMI result Body Mass Index 21.2 Const General: cooperative, healthy appearing and no acute distress Orientation/consciousness: patient oriented x3 Limitations: no limitations HENMT Head: Yes normal to inspection and Yes atraumatic Ears: hearing grossly normal bilaterally General nose exam: Normal external nose present Face and sinus: Yes normal facial exam Eyes General: appearance normal, both eyes and all related structures EOM: EOMs intact bilaterally Neck Neck: Yes normal visual inspection and Yes no meningeal signs Resp Effort & Inspection: normal respiratory effort and no respiratory distress Auscultation: clear to auscultation bilaterally Cardio Rate: regular rate Heart sounds: S1 normal heart sound present and S2 normal heart sound present GI Inspection: Yes normal to inspection Palpation (GI): Soft to palpation, nontender, no guarding and not rigid Back/Spine/Pelvis Other: No midline cervical/thoracic/lumbar spinous tenderness/step-off or deformity Skin Rashes: no rashes Wounds: no wounds Neuro General: patient oriented x3, gait normal, tone normal, moves all extremities, no meningeal signs, no focal motor deficits and CN's II-XI intact bilaterally Cranial nerves: Yes CN's II-XII intact bilaterally and Yes Bilaterally intact EOM present Cognition (Neuro): normal cognition Speech: No Abnormal speech present Gait exam (Neuro): Normal gait present Motor exam (neuro): 5/5 motor strength present throughout, Pronator motor function not present and no tremor noted Coordination: [id number] test normal Romberg Test: Negative Extrem Other: +LLE pitting edema with venous stasis changes. Neurovascularly intact distally bilaterally Course Course Course Narrative: -1540-- no leukocytosis. H&H stable. BUN acute on chronically elevated. Troponin negative -UA negative -COVID/flu/RSV negative XR chest 1V IMPRESSION: 1. 3-lead AICD device in place. 2. Prior median sternotomy and CABG. Borderline cardiac enlargement. 3. No active pulmonary disease. CT head/brain wo IV con IMPRESSION: No acute intracranial abnormalities. US venous duplex LE LT IMPRESSION: No acute deep venous thrombosis involving the left lower extremity. Negative for DVT. -physician observation initiated at 16:09 as patient needs more time to be evaluated by PT/case management [Obtained records from [facility] - in 04/22/2024 patient was found to have SAH s/p fall & on 05/08/[address] showed small bilateral frontal and parietal hematomas. Was referred to neuroendovascular surgery for bilateral MMA embolization which was performed on 05/10] -1900-- ED care transferred to ARIANNA Wilder pending PT/case management 10/05/2024 0757 - Physician observation continued. No overnight events per nursing staff. Vital signs within normal limits. Will continue to monitor pending PT Case Management disposition. Reevaluation(s) Reevaluation #1: Time: 14:41 Date: 10/05/24 Provider: ARIANNA Partida Patient was seen and evaluated by Physical therapy who recommended rehab however patient does not have a coughing stay. Acute rehab is unable to offer bed. He was willing to be discharged home with resumption of VNA services. His friend will be able to pick him up for a ride. Physician observation ended at 1441. Medications Administered Generic Name Dose Route Start Last Admin Trade Name Freq PRN Reason Stop Dose Admin Apixaban 2.5 mg 10/05/24 09:00 10/05/24 08:19 Apixaban 2.5 Mg Tablet PO 2.5 mg BID STEFANIA Administration Atorvastatin Calcium 10 mg 10/05/24 09:00 10/05/24 08:18 Atorvastatin Calcium 10 Mg Tablet PO 10 mg DAILY STEFANIA Administration Carvedilol 6.25 mg 10/05/24 09:00 10/05/24 08:18 Carvedilol 6.25 Mg Tablet PO 6.25 mg BID STEFANIA Administration Protocol Docusate Sodium 100 mg 10/05/24 09:00 10/05/24 08:18 Docusate Sodium 100 Mg Capsule PO 100 mg BID STEFANIA Administration Lisinopril 10 mg 10/05/24 09:00 10/05/24 08:18 Lisinopril 10 Mg Tablet PO 10 mg DAILY STEFANIA Administration Protocol Multivitamins/Vitamin C 1 tab 10/05/24 09:00 10/05/24 08:19 Multivitamin Tablet PO 1 tab DAILY STEFANIA Administration Medical Decision Making Medical Decision Making MDM Narrative: 88-year-old male with a past medical history read viral proximal AFib, pacemaker, ischemic cardiomyopathy, CAD, HTN, HLD, prior intracranial surgery (?May), presenting to the ED via EMS from home s/p fall noted lightheadedness test 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 On exam vital signs stable, NAD, nontoxic appearing, no focal neuro deficits, LLE pitting edema appreciated. Concern for orthostasis vs metabolic abnormalities vs atypical ACS vs infectious etiology. Concern for possible DVT with edema. Lower suspicion for PE. Rule out ICH. Unlikely dissection, intra-abdominal pathology Plan: EKG, labs, UA, CXR, head CT, re-evaluate Please refer to course for remaining clinical decision making, interpretation of labs/imaging results, and discussions with consultants and/or family members. Differential Diagnosis Differential Diagnoses: The differential diagnosis associated with the presentation includes As above Admission/Observation Consideration of admission/observation: Escalation of care including admission/observation considered Lab Data [facility] Lab Attestation statement: I reviewed the patient's lab results. 10/04/24 14:48 10/04/24 14:48 Labs: Lab Results 10/04/24 10/04/24 Range/Units 13:55 14:48 WBC 9.0 (4.8-10.8) X10*3/uL RBC 4.09 L (4.60-5.80) X10*6/uL Hgb 12.7 L (14.0-18.0) g/dl Hct 37.5 L (42.0-52.0) % MCV 91.7 (80.0-98.0) fL MCH 31.1 (27.0-33.0) pg MCHC 33.9 (31.0-36.0) g/dl RDW 14.7 (11.0-16.0) % Plt Count 209 (160-400) X10*3/uL MPV 9.2 L (9.4-12.4) fL Immature Gran % (Auto) 0.3 (0.0-0.4) % Neut % (Auto) 71.1 (45-73) % Lymph % (Auto) 15.4 L (20-40) % [place] % (Auto) 10.8 (2-11) % Eos % (Auto) 2.1 (0-4) % Baso % (Auto) 0.3 (0-2) % Lymph # (Auto) 1.4 (1.2-4.9) X10*3/uL [place] # (Auto) 1.0 (0.1-1.2) X10*3/uL Eos # (Auto) 0.2 (0.0-0.4) X10*3/uL Baso # (Auto) 0.0 (0.0-0.2) X10*3/uL Abs Immat Gran (auto) 0.03 (0.00-0.03) X10*3/uL Absolute Neuts (auto) 6.4 (2.0-8.3) x10*3/uL Absolute Nucleated RBC 0.000 (0.0-0.012) X10*3/uL Nucleated RBC % (auto) 0.0 (0.0-0.2) /100WBC Sodium 141 (135-145) mmol/L Potassium 4.6 (3.3-5.1) mmol/L Chloride 109 H (96-108) mmol/L Carbon Dioxide 26 (22-29) mmol/L Anion Gap 11 L (12-20) BUN 36 H (9-16) mg/dL Creatinine 0.85 (0.5-1.4) mg/dL Estim Creat Clear Calc 66.7 Estimated GFR > 60 Random Glucose 93 (60-115) mg/dL Calcium 9.4 (8.4-10.2) mg/dL Magnesium 2.3 (1.6-2.6) mg/dL Total Bilirubin 0.6 (0.0-1.0) mg/dL Direct Bilirubin 0.2 (0.0-0.5) mg/dL AST 25 (5-37) U/L ALT 12 (0-40) U/L Alkaline Phosphatase 71 (39-117) U/L Troponin I High Sens 4.5 (<3.5-35.0) ng/L B-Natriuretic Peptide 79 (<100) pg/mL Total Protein 7.5 (6.5-8.0) g/dL Albumin 4.2 (3.5-5.0) g/dL Urine Color Yellow Urine Appearance Clear Urine pH 6.0 (5.0-9.0) Ur Specific [place] 1.015 (1.005-1.025) Urine Protein Negative (Neg-Trace) mg/dL Urine Glucose (UA) Negative (Negative) mg/dL Urine Ketones Negative (Negative) mg/dL Urine Blood Negative (Negative) Urine Nitrite Negative (Negative) Ur Leukocyte Esterase Negative (Negative) Influenza Type A (PCR) NEGATIVE (Negative) Influenza Type B (PCR) NEGATIVE (Negative) RSV RNA Qual (PCR) NEGATIVE (Negative) SARS-CoV-2 RNA (RT-PCR) NEGATIVE (Negative) Independent Interpretation I performed an independent interpretation of an: EKG (My interpretation: AV dual-paced rate 63, AR interval 164, QTc 483, No STEMI), Plain X-Ray and CT Scan Radiology Impression Discussion of test interpretation with radiology: I have reviewed the radiologist's reading. Independent Historian Clinical information obtained from an independent historian. History obtained from or confirmed by: EMS External Record Review External record reviewed: Inpatient record, Office record, Outpatient record, Prior outpatient labs, Prior outpatient radiology, Primary care record and Outside ED record Tests considered The following testing was considered but not selected: As above Chronic Conditions Patient?s care impacted by: Other Social Determinants Patient?s care significantly limited by Social Determinants of Health including: Other Social Determinant of Health Discharge Plan Discharge Clinical Impression: Unsteady gait Patient Disposition: Home, Self-Care Instructions: Fall Prevention (ED), Fall Prevention for Older Adults (ED), Weakness (ED) Additional Instructions: You were seen in the emergency department in you did not qualify for hospital admission. Physical therapy saw you and recommended rehabilitation. Please continue VNA services at home. Follow-up with your primary care physician. Resume all medications as prescribed. If any new or worsening symptoms occur including but not limited to severe chest pain, shortness of breath, please seek emergent care. Prescriptions: No Action carvedilol 6.25 mg tablet 6.25 mg PO BID 90 Days Qty: 180 1RF Rx Instructions: must administer with a meal/food lisinopril 10 mg tablet 10 mg PO DAILY 30 Days Qty: 30 0RF Rx Instructions: Must make cardiology appt for refills atorvastatin 10 mg tablet 10 mg PO DAILY zolpidem 5 mg tablet 5 mg PO BEDTIME PRN (Reason: Insomnia) multivitamin Tablet 1 tab PO DAILY cetirizine 10 mg Tablet 10 mg PO DAILY PRN (Reason: Allergy Symptoms) polyvinyl alcohol 1.4 % drops 1 drp OPHTHALMIC (EYE) BID PRN (Reason: Dry Eye(S)) nystatin 100,000 unit/gram cream 1 appl topical BID PRN (Reason: Rash) polyethylene glycol 3350 17 gram Powder In Packet 17 g PO DAILY PRN (Reason: Constipation) Qty: 30 0RF docusate sodium 100 mg Capsule 100 mg PO BID Qty: 30 0RF Eliquis 2.5 mg tablet 2.5 mg PO BID acetaminophen 500 mg Tablet 500 - 1,000 mg PO Q6H PRN (Reason: Migraine Headache) Referrals: Bethany Wasserman [Outside] Print Language: Cymraes
--- OUTSIDE RECORDS SUMMARY | 2024-10-04 14:34 | XMS_ITS ---
Author Organization [facility] Care Team Providers Care Apartment Locator Name Role Phone Thao Condon Unavailable Unavailable Yahaira Toussaint Unavailable Unavailable Lety Bland Unavailable Unavailable Allergies and adverse reactions Code CodeSystem Substance Reaction Severity StartDate Concern Status Pollen Unknown 07/20/2022 active Grass Unknown 07/20/2022 active dust mites Unknown 07/20/2022 active Care Team Name Role Address Phone Organization Dates Yahaira Toussaint PCP [address] [facility] [address], [place], [phone], [facility] (Office): : [facility] 07/20/2022 - 08/05/2022 Thao [place], [phone], [facility] (Office): : [facility] 07/20/2022 - 08/05/2022 Lety Bland Attending Physician [address] [place] [address] [address], [place], [phone], [facility] (Office): : [facility] 07/20/2022 - 08/05/2022 Mental Status Section Date Assessment Total Score Description 08/05/2022 BIMS 15 cognitively int act CAM 0 No delirium ind icated 07/26/2022 BIMS 15 cognitively int act CAM 0 No delirium ind icated PHQ-9 02 minimal depress ion Problems Problem # Description Date of onset Resolved Date Code CodeSystem Concern Status 1 UNSPECIFIED FALL, SUBSEQUENT ENCOUNTER 07/21/[address] active 2 COVID-19 07/20/[address] active 3 DYSPHAGIA, OROPHARYNGEAL PHASE 07/20/[address] active 4 ESSENTIAL (PRIMARY) HYPERTENSION 07/20/[address] active 5 HYPERLIPIDEMIA, UNSPECIFIED 07/20/[address] active 6 ISCHEMIC CARDIOMYOPATHY 07/20/[address] active 7 PRESENCE OF CARDIAC PACEMAKER 07/20/[address] active 8 SYNCOPE AND COLLAPSE 07/20/[address] active 9 UNSPECIFIED ATRIAL FIBRILLATION 07/20/[address] active 10 UNSTEADINESS ON FEET 07/20/[address] active Reason for Referral No Reasons for Referral Entered Social History Social History Observation Description Start Date End Date Code Code System Current Smoking Status Tobacco smoking consumption unknown 438665226 SNOMED CT Sex Assigned At Male 1935 22565-5 [facility] Vital Signs Code Code System Vitals Name Values and Units Timing Information 9279-1 [facility] Respiratory Rate Value=17.0 Units=/m in 08/05/2022 8462-4 INC Blood Pressure-Diastolic Value=68 Un its=mmHg 08/05/2022 8480-6 LOINC Blood Pressure-Systolic Ljjbp=050 Un its=mmHg 08/05/2022 8310-5 INC Body Temperature Value=97.7 Units=?? F 08/05/2022 8867-4 INC Heart rate Value=76.0 Units=/min 08/2022 12807-8 INC O2 % BldC Oximetry Value=98.0 Units= % 08/05/2022 60857-9 LOINC Pain Level Value=0.0 08/05/2022 81859-5 LOINC Weight Vnszo=282.0 Units=Lbs 07/2022 8302-2 LOINC Height Value=73.0 Units=Inches 07/20/2022
--- OUTSIDE RECORDS SUMMARY | 2024-10-04 14:34 | XMS_ITS | Patient Health Record ---
Author Organization [facility] Address [address] [place] [address] Care Team Providers Care Exercise Equipment Specialist Name Role Phone Jan Deng MD Primary Care Provider Unavaila Mynor Harmon Jr Unavailable Allergies Allergen (clinical drug ingredient) Drug/Non Drug Allergy documented on EMR Reaction Allergy Type Onset Date Status Dust Mites Unknown Allergy Active lawns (uncoded) Unknown Allergy Acti ve Reason For Referral No Information Medications Medication SIG (Take, Route, Frequency, Duration) Notes Start Date End Date Status Carvedilol 6.25 MG TAKE 1 TABLET BY FRANKLIN TH TWICE A DAY Oral for 90 Active ZyrTEC 5 MG 1 tablet Orally Once a day for 30 day(s) 01/31/2022 Active Eliquis 5 MG Oral for 30 Activ e Nystatin 185956 UNIT/GM APPLY TO AFFECTE D AREA TWICE A DAY DIRECTED External for 30 Active MiraLax (colon prep) 17 GM/SCOOP mixed with Gatorade or Crystal Light Orally begin at 5:00 p.m. the day before the procedure for 1 day 01/31/2022 Active Zolpidem Tartrate 5 MG TAKE 1 TABLET BY MOUTH EVERY DAY Oral for 30 Active Lisinopril 10 MG TAKE 1 TABLET BY FRANKLIN TH EVERY DAY Oral for 90 Active Atorvastatin Calcium 10 MG TAKE 1 TABLET BY MOUTH EVERY DAY Oral for 90 Active Ketoconazole 2 % External for 15 Active Immunizations Vaccine Route Administration Date Status Comme nts Influenza Unknown 04/21/2021 Administered Social History Tobacco Use: Social History Observation Description Date Details (start date - stop date) Never Smoker NA - NA Tobacco Use/Smoking Question Answer Notes Patient is a nonsmoker Alcohol Screen Question Answer Notes Did you have a drink containing alcohol in the p ast year? No Points 0 Interpretation Negative Problems Problem Type SNOMED Code ICD Code Onset Dates Problem Status W/U Status Risk Notes Problem 895337113 residential (curre nt) use of anticoagulants (Z79.01) Active confirmed Problem 50683801 Rectal pain (K62.89) Active confirmed Plan Of Treatment Future Test Test Name Order Date COLONOSCOPY 01/31/2022 Insurance Providers Payer Name Payer Address Payer Phone Subscriber Number Group Number Insured Name Patient Relationship to Insured Coverage Start Date Coverage End Date MEDICARE OF [place] [address] [place] [address] [phone] [id number] WILMER ZAMORA Self - patient is the insured MED[employer] ATT[employer] CLAIMS [address] [place] [address] [id number] WILMER ZAMORA Self - patient is the insured Medical (General) History Medical History History ICD Code Coronary artery disease status post CABG Atrial fibrillation Ischemic cardiomyopathy, ICD placement Hemorrhoids Hypertension Elevated cholesterol Surgical History Surgery Date(Month/Year) hernia torn quadriceps varicose veins ankle tendons deviated septum hemmroidectomy x 2 ICD placement
[2024-10-04 14:52] LABS: MANUAL DIFF FLAG NO
[2024-10-04 14:55] LABS: Basophils Percent Auto 0.3 % (0-2); Eosinophils Absolute Auto 0.2 X10*3/uL (0.0-0.4); Eosinophils Percent Auto 2.1 % (0-4); Hematocrit 37.5 % (42.0-52.0); Hemoglobin 12.7 g/dl (14.0-18.0); Imm Gran Abs Auto 0.03 X10*3/uL (0.00-0.03); Imm Gran Pct Auto 0.3 % (0.0-0.4); Lymphocytes Absolute Auto 1.4 X10*3/uL (1.2-4.9); Lymphocytes Percent Auto 15.4 % (20-40); Mean Corpuscular HGB Conc 33.9 g/dl (31.0-36.0); Mean Corpuscular Hemoglobin 31.1 pg (27.0-33.0); Mean Corpuscular Volume 91.7 fL (80.0-98.0); Mean Platelet Volume 9.2 fL (9.4-12.4); Monocytes Percent Auto 10.8 % (2-11); Neutrophils Absolute Auto 6.4 x10*3/uL (2.0-8.3); Neutrophils Percent Auto 71.1 % (45-73); Platelet Count 209 X10*3/uL (160-400); Red Blood Count 4.09 X10*6/uL (4.60-5.80); Red Cell Distribution Width 14.7 % (11.0-16.0)
[2024-10-04 15:12] LABS: Alanine Aminotransferase 12 U/L (0-40); Albumin Level 4.2 g/dL (3.5-5.0); Alkaline Phosphatase 71 U/L (39-117); Anion Gap 11 (12-20); Aspartate Amino Transferase 25 U/L (5-37); Bilirubin Direct 0.2 mg/dL (0.0-0.5); Bilirubin Total 0.6 mg/dL (0.0-1.0); Blood Urea Nitrogen 36 mg/dL (9-16); Calcium 9.4 mg/dL (8.4-10.2); Carbon Dioxide 26 mmol/L (22-29); Chloride 109 mmol/L (96-108); Creatinine Clr Calc Pharmacy 66.7; Estimated Glomerular Filt Rate > 60; Glucose Random 93 mg/dL (60-115); Magnesium 2.3 mg/dL (1.6-2.6); Potassium 4.6 mmol/L (3.3-5.1); Sodium 141 mmol/L (135-145); Total Protein 7.5 g/dL (6.5-8.0)
[2024-10-04 15:15] LABS: B Type Natriuretic Peptide 79 pg/mL (<100)
[2024-10-04 15:25] LABS: Troponin-I High Sensitivity 4.5 ng/L (<3.5-35.0)
[2024-10-04 15:31] LABS: Influenza A PCR NEGATIVE (Negative); Influenza B PCR NEGATIVE (Negative); Resp Syncy Virus RNA Qual PCR NEGATIVE (Negative); SARS COV2 PCR INHOUSE NEGATIVE (Negative)
[2024-10-04 17:34] VITALS: BP 140/77; PULSE 60; RESP 16; TEMP 36.8; O2SAT 99
[2024-10-04 17:35] VITALS: BP 140/77; BP 150/81; PULSE 60; PULSE 64
[2024-10-04 17:36] VITALS: BP 162/84; PULSE 67
--- NOTE | 2024-10-04 18:46 | MHC.CM.ED ---
CM met with patient at the request of Yessica KELLER. Pt is A&Ox3. Lives alone. Is independent. Has a cane and walker that he occasionally uses in his home. He has no formal services, but private pays for [employer] when needed. Pt no longer drives. He does not have a qualifying stay for STR. Was last hospitalized at [facility] in May. Pt has seen in ED at [facility] in July and was discharged home with Bethany CHURCHILL. New HCP was made with patient because his previous HCP . HCP/niece Nena Arana ([phone]). Copies given. Uploaded into [facility] [employer] and [employer]. Pt is awaiting PT evaluation. Referrals made to acute rehabs. CM will follow for discharge planning.
[2024-10-04 19:04] VITALS: BP 134/69; PULSE 76; RESP 18; O2SAT 98
--- NOTE | 2024-10-04 21:28 | PHA.MEDREC ---
Addendum entered by Lopez Mcdonough mari 10/04/24 21:32: med rec reviewed Original Note: Pharmacy Consult ? Medication Reconciliation Pharmacy has completed the medication reconciliation. Spoke with patient and he was able to confirm his medications with me. Patient confirmed he is taking the Eliquis 2.5mg tab twice a day. He confirmed he last took his medications yesterday and was not able to take any today.
--- NOTE | 2024-10-04 22:39 | PC.NURSE ---
Patient is alert & oriented. Ambulates with walker, uses call hutson as instructed. Resting comfortably at this time. PT/CM. Care ongoing by this RN.
[2024-10-05] VITALS (7 sets, daily range): BP systolic 111–152; BP diastolic 54–70; PULSE 60–86; RESP 18–20; TEMP 36.3–36.4; O2SAT 98–99
[2024-10-05] MEDS: lisinopriL 10 MG TABLET PO (08:18)
[2024-10-05] MEDS: carvediloL 6.25 MG TABLET PO (08:18)
[2024-10-05] MEDS: Docusate Sodium 100 MG CAPSULE PO (08:18)
[2024-10-05] MEDS: Atorvastatin Calcium 10 MG TABLET PO (08:18)
[2024-10-05] MEDS: Apixaban 2.5 MG TABLET PO (08:19)
[2024-10-05] MEDS: Multivitamin TABLET 1 TAB PO (08:19)
--- NOTE | 2024-10-05 08:30 | PC.NURSE ---
Pt alert and oriented, breathing even and unlabored. Pt reporting headache which is chronic for him since his surgery back in May. Pt ambulated with 1 assist and walker to bathroom and able to urinate. Pt ate his breakfast. Provider alerted to order pts home meds (med rec was done yesterday). Pt took all his home meds whole with water, no issues.
--- NOTE | 2024-10-05 09:10 | PC.NURSE ---
PT at bedside doing eval
--- NOTE | 2024-10-05 10:13 | MHC.CM.ED ---
Addendum entered by Ameena Nails 10/05/24 12:16: [facility] not able to offer a bed. Met with patient in regards to discharge planning. Patient is not able to privately pay for STR at SNF. Patient agreeable to d/c home with resumption of VNA. Patient will call a friend for transportation home. Dinah MARROQUIN and Elmira KELLER aware. Original Note: Patient remains in ER overflow. Physical therapy eval completed. Acute rehab is recommended. [facility] is not able to offer a bed. Giorgio are reviewing. Continue to monitor for d/c needs.
--- NOTE | 2024-10-05 11:02 | PC.NURSE ---
Report received from CARA Thakur. Taken over care at this time.
--- NOTE | 2024-10-05 12:45 | PC.NURSE ---
Pt. watching tv and eating his sandwich, call hutson within reach. No c/o pain or distress at this time. All needs met at this time.
--- NOTE | 2024-10-05 15:18 | PC.NURSE ---
Friend to come p/u pt. at 1830. Pt. unsteady to be left in waiting room alone. Called friend Tasha to come to ED and pick up operator pt. in room over flow ed room 2.
== END 2024-10-05 18:46 | disposition home or self-care (01) ==
PROVIDERS: Physician Assistant; Emergency Provider Emergency Medicine
DX: R26.81 Unsteadiness on feet (principal); I25.10 Atherosclerotic heart disease of native coronary artery without angina pectoris; R60.0 Localized edema; I10 Essential (primary) hypertension; R42 Dizziness and giddiness; R94.31 Abnormal electrocardiogram [ECG] [EKG]; Z03.818 Encounter for observation for suspected exposure to other biological agents ruled out; Z79.899 Other long term (current) drug therapy; Z87.891 Personal history of nicotine dependence
CPT/HCPCS: 0241U; 36415; 70450; 71045; 80048; 80076; 81003; 83735; 83880; 84484; 85025; 93005; 93971; 97162; 99285

== ENCOUNTER → 2024-10-04 13:34 | Outpatient (BNV) | payer MEDICARE, SELFPAY | PROVIDERS: Emergency Provider Emergency Medicine; Visit Provider Radiology Diagnostic Radiology | DX: R42 Dizziness and giddiness (principal); R22.41 Localized swelling, mass and lump, right lower limb | CPT/HCPCS: 70450; 71045; 93971 ==

== ENCOUNTER → 2024-10-04 13:35 | Outpatient (BNV) | payer MEDICARE, SELFPAY | PROVIDERS: Emergency Provider Emergency Medicine; Visit Provider Internal Medicine | DX: R94.31 Abnormal electrocardiogram [ECG] [EKG] (principal); Z95.0 Presence of cardiac pacemaker | CPT/HCPCS: 93010 ==

== ENCOUNTER 2024-10-11 13:48 | Outpatient (AMB) | payer MEDICARE, SELFPAY ==
--- OUTSIDE RECORDS SUMMARY | 2024-10-11 14:10 | XMS_ITS | Patient Health Record ---
[facility] Organization [facility] Address [address] [place] [address] Care Team Providers Care Occupational Health Nurse Supervisor Name Role Phone Jan Deng MD Primary Care Provider Unavaila Mynor Harmon Jr Unavailable [phone] Allergies Allergen (clinical drug ingredient) Drug/Non Drug [...] MG Oral for 30 Activ e Nystatin 744220 UNIT/GM APPLY TO AFFECTE D AREA TWICE [...] Problem Status W/U Status Risk Notes Problem [id number] FPC (curre nt) use of anticoagulants (Z79.01) Active confirmed Problem [id number] Rectal pain (K62.89) Active confirmed Plan Of Treatment Future Test Test Name Order Date COLONOSCOPY 01/31/2022 Insurance Providers Payer Name Payer Address Payer Phone Subscriber Number Group Number Insured Name Patient Relationship to Insured Coverage Start Date Coverage End Date MEDICARE OF [place] [address] [place] [address] [id number] WILMER ZAMORA Self - patient is the insured [employer] ATTN CLAIMS [address] [place] [address] [id number] WILMER ZAMORA Self - patient is the insured Medical (General) History Medical History History ICD Code Coronary artery disease status post CABG Atrial fibrillation Ischemic cardiomyopathy, ICD placement Hemorrhoids Hypertension Elevated cholesterol Surgical History Surgery Date(Month/Year) hernia torn quadriceps varicose veins ankle tendons deviated septum hemmroidectomy x 2 ICD placement
--- OUTSIDE RECORDS SUMMARY | 2024-10-11 14:10 | XMS_ITS | Continuity of Care Document ---
Author Organization [facility] Address [address] [place] [address] [address] [place] [address] Phone Care Team Providers Care Instructional Specialist Name Role Phone Calin GUTIÉRREZ, ELVIE, Norberto [...] Providers Copied on Encounter [facility], [address] [place] [address] [address], [id number], [place] tel:[phone] [facility] No Information 4 Calin GUTIÉRREZ, ROBBIN BERMEO. [address] [facility] [address], [place], [place], [id number] , [place]. tel:[phone] Office/Oupt E&M New Pt 30 Mins- [place] & [place] [facility], [address] [place] [address] [address], [id number], tel:[phone] [facility] - LIZA Roger [place] Body mass index [BMI] 21.0-21.9, adultChronic venous hypertension (idiopathic) without complications of bilateral lower extremity Apr- 4 Calin GUTIÉRREZ RVT, ROBBIN Thornton. [address] [facility], [address], [place], [place], [id number] , [place]. tel:[phone] Referring Provider: Marcia KELLER , [address] [facility] [address], [place], [address]. tel:[phone] [facility], [address] [facility] [address], [place], [id number], [place] tel:[phone] [facility] Acacia [place] Chronic venous hypertension (idiopathic) with other complications of bilateral lower extremity 4 Calin GUTIÉRREZ RVT, ROBBIN Thornton. [address] [facility], [address], [place], [place], [id number] , [place]. tel:[phone] Referring Provider: Jan Deng MD, [address] [place] [address] [address], [place], [address]. tel:[phone] Family History Family Member Type Diagnosis Age At Onset No Information Payers Payer name Insurance type Covered democrat ID Authoriza tion(s) Medicare LIZA ZHANG [id number] [facility] LIZA [id number] Social History Type Description Quantity Date Captured [...]
--- NOTE | 2024-10-11 14:50 | MHC.OFFVIS ---
Intake Visit Reasons: medtronic device check- ? battery (Ruth) Allergies grass pollen Allergy (Intermediate, Verified 10/04/24 12:21) Sneezing mite-Dermatophagoides farinae, alexis [dust mite - [place]] Allergy (Intermediate, Verified 10/04/24 12:21) Sneezing PFSH Medical History Biventricular ICD (implantable cardioverter-defibrillator) in place Paroxysmal atrial fibrillation Lab test positive for detection of COVID-19 virus Ischemic cardiomyopathy Atrial fibrillation CAD (coronary artery disease) Bradycardia High cholesterol HTN (hypertension) Hx of long-term use of blood thinners Pacemaker Surgical History Hx of nasal septoplasty History of esophagogastroduodenoscopy (EGD) Hx of endoscopic retrograde cholangiopancreatography Hx laparoscopic cholecystectomy History of surgery Hx of hernia repair AICD (automatic cardioverter/defibrillator) present Hx of CABG History of colonoscopy H/O hemorrhoidectomy Social History Household Members: None Housing: Apartment Housing Other:: SR. housing Do you presently have visiting nurse or other home services: No Alcohol intake: never Patient Tobacco Use Status: Former Tobacco user Tobacco use type: Cigarette and Cigar Years Smoked: 20 e-Cigarette/Vaping Use: Never Used Second Hand Smoke Exposure: No Advance Directives Date on File: 03/10/22 service: No Current occupational status: retired Office Procedures Cardiac Device Check Cardiac Device Check Details: Medtronic Bi V ICD interrogation today shows battery 1 month to [employer], atrial threshold 0.75 volts at 0.4 milliseconds,, DDDR mode, low rate 60, no VT or VF, patient activities 0.2 hours per day, total V paced 99.3%. device recheck plan for 2 weeks. [id number] Cardiac Device Check, multi lead implantable defibrillator Procedure code (CPT) selection complete Assessment & Plan Assessment & Plan (1) Biventricular ICD (implantable cardioverter-defibrillator) in place: Code(s): Z95.810 - Presence of automatic (implantable) cardiac defibrillator Category: Medical Plan: battery check Coding Level of Care Code Procedure Only Diagnoses Biventricular ICD (implantable cardioverter-defibrillator) in place Z95.810 CPT Codes Cardiac Device Check - Cardiac Device 6: 49391-[id number] Cardiac Device Check, multi lead implantable defibrillator ([id number])
== END 2024-10-11 14:16 | disposition home or self-care (01) ==
LOC: HO.HCS 13:49
PROVIDERS: Visit Provider Internal Medicine Cardiovascular Disease
DX: Z45.010 Encounter for checking and testing of cardiac pacemaker pulse generator [battery] (principal)
CPT/HCPCS: 93284

== ENCOUNTER → 2024-10-11 13:48 | Outpatient (BNVA) | payer MEDICARE, SELFPAY | PROVIDERS: Visit Provider Internal Medicine Cardiovascular Disease | DX: Z13.89 Encounter for screening for other disorder (principal) ==

== ENCOUNTER 2024-10-25 14:46 | Outpatient (AMB) | payer MEDICARE, SELFPAY ==
--- OUTSIDE RECORDS SUMMARY | 2024-10-25 15:31 | XMS_ITS | Encounter Summary ---
Author Organization [facility] Address [address] [place] [address] Care Team Providers Care Calender Wind Up Tender Name Role Phone Physician, Pcp Unknown Primary Care Provider Grace vailable Reason for Visit * Reason Comments Weakness - Generalized Headache 03/12, po sitive for eliquis. Encounter Details Date Type Department Care Team (Late st Contact Info) Description 10/19/2024 8:29 PM EDT - 10/20/2024 6:01 AM EDT Emergency [facility] Emergency [address] [place] [id number] Ananth Sinha MD [address] [place] [address] Other headache syndrome (Primary Dx); Dizziness Discharge Disposition: Home or Self Care Social History Tobacco Use Types Packs/Day Years Used Date Smoking Tobacco: Never Assessed Sex and Gender Information Value Date Recorded Sex Assigned at Not on file Legal Sex Male 10:07 PM EST Gender Identity Not on file Sexual Orientation Not on file documented as of this encounter Last Filed Vital Signs Vital Sign Reading Time Taken Comments Blood Pressure 119/54 10/20/2024 5:12 AM EDT Pulse 71 10/20/2024 5:12 AM EDT Temperature 36.7 ??C (98 ??F) 10/20/2024 5:12 AM EDT Respiratory Rate 17 10/20/2024 5:12 AM EDT Oxygen Saturation 96% 10/20/2024 5:12 AM EDT Inhaled Oxygen Concentration - - Weight 77.1 kg (170 lb) 10/19/2024 9:39 PM EDT Height 175.3 cm (5' 9 ) 10/19/2024 9:39 PM EDT Body Mass Index 25.1 10/19/2024 9:39 PM EDT documented in this encounter Discharge Instructions * Discharge Instructions* Ananth Sinha MD - 10/20/2024 2:07 AM EDT Your workup today was reassuring. Your blood work shows no significant abnormalities. Your head CT was normal. Alternate Tylenol and ibuprofen as needed for pain relief -Take 600 mg of ibuprofen every 6 hours (do not exceed 2400 mg in 24 hrs) -Take 1000 mg of Tylenol every 6 hours (do not exceed 4000 mg in 24 hrs) -Stack these on top of each other as discussed (ie: Ibuprofen at 9 AM, Tylenol at noon, ibuprofen at 3 PM, Tylenol at 6 PM, etc) Follow up with your primary provider. Call tomorrow for an appointment. Return to Emergency Department if your symptoms worsen, don't improve, or any other concerns. Get well soon! Thank you for coming to the [facility] Emergency Department today. Our entire team works together to provide you with the best care possible. Examination and treatment you received in the emergency department has been rendered on an EMERGENCY basis only. It is not intended to be a substitute for or an effort to provide complete medical care. You should follow-up with your primary care provider. Please report to your physician any new or remaining problems, because it is impossible to recognize and treat all elements of injury or illness in a single emergency department visit. In the event that you're unable to obtain a followup appointment in a timely fashion, OR you are not getting any better, OR you are getting worse, OR you develop any symptoms of concern, please return here immediately for further evaluation. The emergency department is open 24 hours a day, 7 days aweek. Your discharge report is based on information that was available when you were in the emergency department. * Attachments The following attachments cannot be sent through Care Everywhere. * Headache (Thai) * Dizziness (Thai) documented in this encounter Discharge Disposition Disposition Code Departure Means Destination Comment s Home or Self Care With caregiver. documented in this encounter Progress Notes * Mary Kay Hardwick RN - 10/19/2024 9:40 PM EDT Pt states he has hx of a brain bleed and states he recently had brain surgery. Pt lower left leg red/slightly swollen. States he had cellulitis in the past and was treated with IV abx during a hospital stay. C/o 9/10 headache at this time, denies dizziness. * Mary Kay Hardwick RN - 10/19/2024 8:34 PM EDT Per Ems, pt stood up and became dizzy/anxious and called for an ambulance. Pt has cardiac hx, pt unable to elaborate. Per ems, pt is a poor historian. Pt has a pacemaker. Denies n/v, denies cp. Denies dizziness at this time. Pt c/o headache 9/10 at this time. Pt positive for Eliquis. * Ananth Sinha MD - 10/19/2024 8:27 PM EDT Emergency Medicine Note Patient Name: James Araya Initial Evaluation: 10/19/2024 : 1935 Patient's PCP: Pcp Unknown Physician Emergency Physician: Ananth Sinha MD History of Present Illness Chief Complaint: Chief Complaint Patient presents with Weakness - Generalized Headache 9/10, positive for eliquis. HPI: 88-year-old male, history of intracranial surgery, presents with headache and dizziness. Patient states he has been having intermittent headaches, left frontal, he is concerned because he stateshe recently had intracranial surgery. Patient also states that he stood up and was feeling dizzy/lightheaded, he sat right back down because he was worried he might pass out. He then called EMS and was brought to the ED for evaluation. He is not currently having a headache, is not feeling dizzy at this time, he has no medical complaints at the moment. He is not having any fever, no chest pain, noshortness of breath, no nausea/vomiting/diarrhea. Does take Eliquis. ROS: I have performed a ROS with the pertinent positives and negatives documented in the history ofpresent illness. Previous History No past medical history on file. No past surgical history on file. No family history on file. has No Known Allergies. No current facility-administered medications on file prior to encounter. No current outpatient medications on file prior to encounter. Physical Exam ED Triage Vitals [10/19/242034] Temp Heart Rate Resp BP 36.5 ??C (97.7 ??F) 70 -- 117/58 SpO2 Temp src Heart Rate Source Patient Position 93 % -- -- -- BP Location FiO2 (%) -- -- General: Well-appearing, well nourished, in no acute distress HEENT: PERRL, EOMI, external ears and nose appear unremarkable, airway is patent Neck: Supple, full range of motion Chest: Clear to auscultation; no evidence of respiratory distress Circulatory: RRR, extremities well perfused Abdomen: Non-distended, Non-Tender Extremities: Normal ROM, No edema Skin: Warm and dry Neuro: Alert and oriented, no focal deficits, cranial nerves II through XII intact, strength is 5 out of 5, bilateral upper and lower extremities, age-appropriate Results Labs Reviewed BASIC METABOLIC PANEL - Abnormal Result Value Sodium 140 Potassium 4.0 Chloride 106 CO2 27 Anion Gap 7 Glucose 100 BUN 28 (*) Creatinine 1.41 (*) eGFR 48 (*) BUN/Creatinine Ratio 19.9 Calcium 9.7 CBC WITH AUTO DIFFERENTIAL - Abnormal WBC 8.7 RBC 3.90 (*) Hemoglobin 12.0 (*) Hematocrit 36.3 (*) MCV 92.6 MCH 30.6 MCHC 33.1 RDW 14.6 Platelets 246 MPV 10.6 NRBC 0.0 NRBC Absolute 0.00 Neutrophils Relative 68.2 Lymphocytes Relative 16.9 Monocytes Relative 10.4 Eosinophils Relative 3.6 Basophils Relative 0.6 Immature Granulocytes Relative 0.3 Neutrophils Absolute 5.91 Lymphocytes Absolute 1.46 Monocytes Absolute 0.90 Eosinophils Absolute 0.31 Basophils Absolute 0.05 Immature Granulocytes Absolute 0.03 MAGNESIUM - Normal Magnesium 2.1 CBC AND DIFFERENTIAL Narrative: The following orders were created for panel order CBC and differential. Procedure Abnormality Status --------- ------ CBC auto differential[[id number]] Abnormal Final result Please view results for these tests on the individual orders. POCT GLUCOSE, BLOOD Abnormal Labs Reviewed BASIC METABOLIC PANEL - Abnormal; Notable for the following components: Result Value BUN 28 (*) Creatinine 1.41 (*) eGFR 48 (*) All other components within normal limits CBC WITH AUTO DIFFERENTIAL - Abnormal; Notable for the following components: RBC 3.90 (*) Hemoglobin 12.0 (*) Hematocrit 36.3 (*) All other components within normal limits CT Head wo Contrast Final Result Impression: 1. No acute intracranial hemorrhage. 2. Cerebral volume loss. This document has been electronically signed by: Ann Corley MD on 10/20/2024 00:08:47 XR Chest 2 Views (Results Pending) I have discussed the incidental/abnormal imaging and/or lab abnormalities with the patient and haveinstructed them the need for further evaluation and workup with their primary care doctor. I have provided the patient with a paper copy of the abnormality. The laboratory results, imaging results and other diagnostic exam results were reviewed in the EMR. EKG Interpretation Critical Care Time None ? Medical Decision Making Medications sodium chloride 0.9 % bolus 500 mL (500 mL intravenous New Bag 10/20/2448) acetaminophen (TYLENOL) tablet 1,000 mg (1,000 mg oral Given 10/20/244) 88-year-old male, history of recent intracranial surgery, presents with headache and dizziness. Potential etiologies for this patient's symptoms include but not limited to subarachnoid hemorrhage, subdural hematoma, CVA/TIA, cardiac dysrhythmia, migraine headache, tension headache, cluster headache, dehydration, electrolyte normality. Patient is clinical well-appearing, he is neurologically intact, no obvious infectious symptoms or sequela noted on physical exam. He states his headache is dramatically improved, he is no longer feeling dizzy. Patient had blood work completed while he was in the waiting room, blood work shows no significant abnormalities. Patient had a CT of his head which was negative for acute intracranial abnormality. Patient's chest x-ray shows no evidence of pneumonia as read by me. His EKG shows no signs of ischemia. No further workup is clinically indicated at thistime. Patient will be given p.o. Tylenol and 500 cc normal saline bolus to see if this improves hisheadache. Patient understands and agrees with this plan. ED Course as of 10/20/24 0210 Sun Oct 20, 2024 0209 Patient's blood work shows no significant abnormality. Head CT shows no acute abnormality. Chest x-ray shows no acute abnormality as read by me. Patient's headache is resolved after the Tylenol and the IV fluids. He had a successful ambulation trial in the emergency department and he is requesting discharge home. [SM] ED Course User Index [SM] Ananth Sinha MD Clinical Impressions as of 10/20/24 0210 Other headache syndrome Dizziness Procedures Procedures Diagnosis 1. Other headache syndrome 2. Dizziness Disposition Discharge ED Prescriptions None Physician Attestation Ananth Sinha MD 10/19/24 2324 Ananth Sinha MD 10/20/24 0030 Ananth Sinha MD 10/20/24 0210 documented in this encounter Plan of Treatment Not on file documented as of this encounter Procedures Procedure Name Priority Date/Time Associated Diagnosis Comments ECG ANNOTATED 10/21/2024 CT HEAD WO CONTRAST STAT 10/19/2024 1 1:32 PM EDT XR CHEST 2 VIEWS STAT 10/19/2024 10:0 4 PM EDT ECG 12-LEAD STAT 10/19/2024 9:35 PM EDT CBC WITH AUTO DIFFERENTIAL STAT 10/19/2024 9:32 PM EDT CBC AND DIFFERENTIAL STAT 10/19/2024 9:32 PM EDT MAGNESIUM STAT 10/19/2024 9:32 PM EDT BASIC METABOLIC PANEL STAT 10/19/2024 9:32 PM EDT documented in this encounter Results * ECG-Annotated (10/21/2024) us Provider Onbase ECG ORDERABLES Final Result * CT Head wo Contrast (10/19/2024 11:32 PM EDT) Anatomical Region Laterality Modality Head and Neck Computed Tomogra phy 10/20/2024 12:0 8 AM EDT Impressions 10/20/2024 12:08 AM EDT Impression: 1. No acute intracranial hemorrhage. 2. Cerebral volume loss. This document has been electronically signed by: Ann Corley MD on 10/20/2024 00:08:47 Narrative 10/20/2024 12:08 AM EDT INDICATION: Headache, new or worsening (Age >= 50y) Exam: CT Brain without contrast Comparison: None Clinical history: Headache, new or worsening Findings: No acute intracranial hemorrhage. Cerebral volume loss. No abnormal extra-axial fluid collections. No intracranial mass No midline shift. Branching radiodense material seen in the middle cranial fossa bilaterally likely represents embolization material. No skull fracture. Procedure Note Ann Corley MD - 10/20/2024 INDICATION: Headache, new or worsening (Age >= 50y) Exam: CT Brain without contrast Comparison: None Clinical history: Headache, new or worsening Findings: No acute intracranial hemorrhage. Cerebral volume loss. No abnormal extra-axial fluid collections. No intracranial mass No midline shift. Branching radiodense material seen in the middle cranial fossabilaterally likely represents embolization material. No skull fracture. IMPRESSION: Impression: 1. No acute intracranial hemorrhage. 2. Cerebral volume loss. This document has been electronically signed by: Ann Corley MD on 10/20/2024 00:08:47 Akshat Ruffin MD IMG CT PROCEDURES Final R esult * XR Chest 2 Views (10/19/2024 10:04 PM EDT) Anatomical Region Laterality Modality Body Radiographic Kyra ging 10/20/2024 10:2 9 AM EDT Impressions 10/20/2024 10:30 AM EDT Impression: No active pulmonary process identified. Telerad ARIANNA ([id number]) -------- FINAL REPORT -------- Dictated By: Holly Mora Dictated Date: 10/20/2024 10:29 ET Assigned Physician: Holly Mora Reviewed and Electronically Signed By: Holly Mora Signed Date: 10/20/2024 10:30 ET Workstation ID: [id number] Transcribed By: Self Edit Transcribed Date: 10/20/2024 10:29 ET Narrative 10/20/2024 10:30 AM EDT History: Chest pain. Comparison: No previous imaging at this institution. Findings: Upright AP and lateral views of the chest. The cardiac silhouette is normal in size. A left subclavian transvenous ICD is noted, with leads terminating in the expected locations of the right atrium, right ventricle and coronary sinus. A left atrial appendage flow restrictor is noted. Sternal sutures and mediastinal clips are consistent with coronary artery surgery. Hilar contours and pulmonary vascularity are within normal limits. The lungs are clear. The costophrenic angles are sharp. Procedure Note Holly Mora MD - 10/20/2024 History: Chest pain. Comparison: No previous imaging at this institution. Findings: Upright AP and lateral views of the chest. The cardiac silhouette isnormal in size. A left subclavian transvenous ICD is noted, with leadsterminating in the expected locations of the right atrium, right ventricleand coronary sinus. A left atrial appendage flow restrictor is noted.Sternal sutures and mediastinal clips are consistent with coronary arterysurgery. Hilar contours and pulmonary vascularity are within normal limits. Thelungs are clear. The costophrenic angles are sharp. IMPRESSION: Impression: No active pulmonary process identified. Suzanne KELLER ([id number]) -------- FINAL REPORT -------- Dictated By: Holly Mora Dictated Date: 10/20/2024 10:29 ET Assigned Physician: Holly Mora Reviewed and Electronically Signed By: Holly Mora Signed Date: 10/20/2024 10:30 ET Workstation ID: [id number] Transcribed By: Self Edit Transcribed Date: 10/20/2024 10:29 ET us Danni KELLER IMG XR PROCEDURES Final Result * ECG 12 lead (10/19/2024 9:35 PM EDT) Ventricular Rate ECG 68 BPM GEMUSE Atrial Rate 68 BPM GEMUSE P-R Interval 168 ms GEMUSE QRS Duration 150 ms GEMUSE Q-T Interval 452 ms GEMUSE QTc 480 ms GEMUSE P Wave [place] 100 degrees GEMUSE R [place] 144 degrees GEMUSE T [place] 77 degrees GEMUSE ECG Interpretation AV dual-paced rhythm No previous ECGs available Confirmed by KIKI AGUILERA ([id number]) on 10/20/2024 1:59:18 PM GEMUSE 10/19/2024 9:35 PM EDT 10/20/2024 1:59 PM EDT us Danni KELLER ECG ORDERABLES Final Result GEMUSE * (ABNORMAL) CBC auto differential (10/19/2024 9:32 PM EDT) WBC 8.7 4.8 - 10.8 K/mcL LAB HEMETOLOGY METHOD 10/19/2024 10:[address] [facility] RBC 3.90(L) 4.50 - 5.50 M/[facility] LAB HEMETOLOGY METHOD 10/19/2024 10:[address] [facility] Hemoglobin 12.0(L) 13.5 - 17.5 g/dL LAB HEMETOLOGY METHOD 10/19/2024 10:18 PM [facility] Hematocrit 36.3(L) 42.0 - 54.0 % LAB HEMETOLOGY METHOD 10/19/2024 10:[address] [facility] MCV 92.6 79.0 - 98.0 FL LAB HEMETOLOGY METHOD 10/19/2024 10:[address] [facility] MCH 30.6 27.0 - 32.0 pcg LAB HEMETOLOGY [facility] MCHC 33.1 32.0 - 37.0 g/dL LAB HEMETOLOGY METHOD 10/19/2024 10:[address] [facility] RDW 14.6 11.0 - 15.0 % LAB HEMETOLOGY METHOD 10/19/2024 10:[address] [facility] Platelets 246 130 - 400 K/mcL LAB HEMETOLOGY METHOD 10/19/2024 10:18 PM [facility] MPV 10.6 7.0 - 11.0 FL LAB HEMETOLOGY METHOD 10/19/2024 10:[address] [facility] NRBC 0.0 <1.0 % LAB HEMETOLOGY METHOD 10/19/2024 10:18 PM [facility] NRBC Absolute 0.00 <0.10 K/[facility] LAB HEMETOLOGY METHOD 10/19/2024 10:18 PM [facility] Neutrophils Relative 68.2 % LAB HEMETOLOGY METHOD 10/19/2024 10:18 PM [facility] Lymphocytes Relative 16.9 % LAB HEMETOLOGY METHOD 10/19/2024 10:18 PM [facility] Monocytes Relative 10.4 % LAB HEMETOLOGY METHOD 10/19/2024 10:18 PM [facility] Eosinophils Relative 3.6 % LAB HEMETOLOGY METHOD 10/19/2024 10:18 PM [facility] Basophils Relative 0.6 % LAB HEMETOLOGY METHOD 10/19/2024 10:18 PM [facility] Immature Granulocytes Relative 0.3 % LAB HEMETOLOGY METHOD 10/19/2024 10:18 PM [facility] Neutrophils Absolute 5.91 1.50 - 7.00 K/mcL LAB HEMETOLOGY METHOD 10/19/2024 10:18 PM [facility] Lymphocytes Absolute 1.46 1.00 - 5.00 K/mcL LAB HEMETOLOGY METHOD 10/19/2024 10:[address] [facility] Monocytes Absolute 0.90 0.20 - 1.00 K/mcL LAB HEMETOLOGY METHOD 10/19/2024 10:[address] [facility] Eosinophils Absolute 0.31 0.00 - 0.50 K/mcL LAB HEMETOLOGY METHOD 10/19/2024 10:[address] [facility] Basophils Absolute 0.05 0.00 - 0.20 K/mcL LAB HEMETOLOGY METHOD 10/19/2024 10:[address] [facility] Immature Granulocytes Absolute 0.03 0.00 - 0.03 K/mcL LAB HEMETOLOGY METHOD 10/19/2024 10:[address] [facility] Blood Venous blood specimen / Unknown Venipuncture / Unknown 10/19/2024 9:32 PM EDT 10/19/2024 10:12 PM EDT Danni KELLER LAB BLOOD ORDERABLES Final Resu lt Performing Organization Address City/[facility]/ZIP Co de Phone Number [facility] [address] [place] [address], [place] [phone] * Magnesium (10/19/2024 9:32 PM EDT) [facility] Magnesium 2.1 1.9 - 2.6 mg/dL LAB CHEMISTRY METHOD 10/19/2024 10:[address] [facility] Blood Venous blood specimen / Unknown Venipuncture / Unknown 10/19/2024 9:32 PM EDT 10/19/2024 10:12 PM EDT Danni KELLER LAB BLOOD ORDERABLES Final Resu lt Performing Organization Address City/[facility]/ZIP Co de Phone Number [facility] [address] [place] [address], [place] [phone] * (ABNORMAL) Basic metabolic panel (10/19/2024 9:32 PM EDT) Sodium 140 133 - 145 mmol/L LAB CHEMISTRY METHOD 10/19/2024 10:36 PM [facility] Potassium 4.0 3.5 - 5.5 mmol/L LAB CHEMISTRY METHOD 10/19/2024 10:36 PM [facility] Chloride 106 96 - 110 mmol/L LAB CHEMISTRY METHOD 10/19/2024 10:36 PM [facility] CO2 27 21 - 32 mmol/L LAB CHEMISTRY METHOD 10/19/2024 10:36 PM [facility] Anion Gap 7 3 - 11 LAB CHEMISTRY METHOD 10/19/2024 10:36 PM [facility] Glucose 100 70 - 100 mg/dL LAB CHEMISTRY METHOD 10/19/2024 10:36 PM [facility] BUN 28(H) 5 - 25 mg/dL LAB CHEMISTRY METHOD 10/19/2024 10:36 PM [facility] Creatinine 1.41(H) 0.70 - 1.30 mg/dL LAB CHEMISTRY METHOD 10/19/2024 10:36 PM [facility] eGFR 48(L) >=60 mL/min/1. 73m2 LAB CHEMISTRY METHOD 10/19/2024 10:36 PM [facility] Comment:Calculation based on the??Chronic Kidney Disease Epidemiology Collaboration (CKD-EPI) equation refit??without adjustment for race. BUN/Creatinine Ratio 19.9 LAB CHEMISTRY METHOD 10/19/2024 10:36 PM [facility] Calcium 9.7 8.5 - 10.5 mg/dL LAB CHEMISTRY METHOD 10/19/2024 10:36 PM [facility] Blood Venous blood specimen / Unknown Venipuncture / Unknown 10/19/2024 9:32 PM EDT 10/19/2024 10:12 PM EDT us Danni KELLER LAB BLOOD ORDERABLES Final Resu lt [facility] [address] [facility] [place] [address], documented in this encounter Visit Diagnoses Diagnosis Other headache syndrome- Primary Dizziness Dizziness and giddiness documented in this encounter Administered Medications Inactive Administered Medications - up to 3 most recent administrations Medication Order MAR Action Action Date Dose Rate Site acetaminophen (TYLENOL) tablet 1,000 mg 1,000 mg, oral, Once, On 10/20/24 at 0028, For 1 dose Given 10/20/2024 12:44 AM EDT 1,000 mg sodium chloride 0.9 % bolus 500 mL 500 mL, intravenous, at 2,000 mL/hr, Administer over 15 Minutes, Once, On 10/20/24 at 0028, For 1 dose New Bag 10/20/2024 12:49 AM EDT 500 mL 2000 mL/hr documented in this encounter Active and Recently Administered Medications Times are shown in EDT. Scheduled Medication Order 10/18/2024 10/19/2024 10/20/2024 acetaminophen (TYLENOL) tablet 1,000 mg (COMPLETED) 1,000 mg, oral, Once, On 10/20/24 at 0028, For 1 dose 0044 (Given - Provid er: Mary Kay Hardwick RN) sodium chloride 0.9 % bolus 500 mL (COMPLETED) 500 mL, intravenous, at 2,000 mL/hr, Administer over 15 Minutes, Once, On 10/20/24 at 0028, For 1 dose 0049 (New Bag - Prov ider: Mary Kay Hardwick, RN)[id number] (Stopped - Provider: Fara Bhandari RN) documented in this encounter Care Teams Calender Wind Up Tender Relationship Specialty Start Date End Date Physician, Pcp Unknown PCP - General 10/19/24 documented as of this encounter
--- OUTSIDE RECORDS SUMMARY | 2024-10-25 15:31 | XMS_ITS | Clinical Summary ---
Author Organization [facility] Address [address] [place] [address] Phone Care Team Providers Care President & Ceo Name Role Phone Physician, Pcp Unknown Primary Care Provider Grace vailable Allergies No known active allergies Encounters Date Type Department Care Team Description 10/19/2024 8:29 PM EDT - 10/20/2024 6:01 AM EDT Emergency [facility] Emergency [address] [place] [address] Ananth Sinha MD Other headache syndrome (Primary Dx); Dizziness Discharge Disposition: Home or Self Care from Last 3 Months Social History Tobacco Use Types Packs/Day Years Used Date Smoking Tobacco: Never Assessed Sex and Gender Information Value Date Recorded Sex Assigned at Not on file Legal Sex Male 10:07 PM EST Gender Identity Not on file Sexual Orientation Not on file Last Filed Vital Signs Vital Sign Reading [...] Mass Index 25.1 10/19/2024 9:39 PM EDT Plan of Treatment Health Maintenance Due Date Last Done Comments DTaP,Tdap,and Td Vaccines (1 - Tdap) 11/13/1954 Pneumococcal Vaccine: 50+ Years (1 of 1 - PCV) 1986 Zoster Vaccines (1 of 2) 1986 RSV Immunization Adult Patients (1 - 1-dose 75+ series) 11/13/2011 COVID-19 Vaccine ( season) 2024 04/06/2023, 05/09/2022, 11/23/2021, Additional history exists Cholesterol Screening (Lipid Panel) 10/19/2024 Depression Screening 10/19/2024 Falls Risk Assessment 10/19/2024 Medicare Annual Wellness Visit 10/19/2024 Social Influencers of Health Screening 10/19/2024 Hypertension/CHF/CAD Annual BMP Blood Test 10/19/2025 10/19/2024 Influenza Vaccine Completed 05/23/2024, , 04/22/2021, Additional history exists HIB Vaccines Aged Out No longer eligi ble based on patient's age to complete this topic HPV Vaccines Aged Out No longer eligi ble based on patient's age to complete this topic Hepatitis A Vaccines Aged Out No long er eligible based on patient's age to complete this topic Hepatitis B Vaccines Aged Out No long er eligible based on patient's age to complete this topic IPV Vaccines Aged Out No longer eligi ble based on patient's age to complete this topic MMR Vaccines Aged Out No longer eligi ble based on patient's age to complete this topic Meningococcal ACWY Vaccine Aged Out N o longer eligible based on patient's age to complete this topic Meningococcal B Vaccine Aged Out No l onger eligible based on patient's age to complete this topic RSV Immunization Patients Under 20 months Aged Out No longer eligible based on patient's age to complete this topic Varicella Vaccines Aged Out No longer eligible based on patient's age to complete this topic Procedures Procedure Name Priority Date/Time Associated Diagnosis Comments ECG ANNOTATED 10/21/2024 CT HEAD WO CONTRAST STAT 10/19/2024 1 1:32 PM EDT XR CHEST 2 VIEWS STAT 10/19/2024 10:0 4 PM EDT ECG 12-LEAD STAT 10/19/2024 9:35 PM EDT CBC WITH AUTO DIFFERENTIAL STAT 10/19/2024 9:32 PM EDT MAGNESIUM STAT 10/19/2024 9:32 PM EDT BASIC METABOLIC PANEL STAT 10/19/2024 9:32 PM EDT CBC AND DIFFERENTIAL STAT 10/19/2024 9:32 PM EDT from Last 3 Months Results * ECG-Annotated (10/21/2024) us Provider Onbase MD ECG ORDERABLES Final Result * CT Head [...] by: Ann Corley MD on 10/20/2024 00:08:47 us Akshat Ruffin MD IMG CT PROCEDURES Final R esult * XR Chest 2 Views (10/19/2024 10:04 PM EDT) Anatomical Region Laterality Modality Body Radiographic Kyra ging 10/20/2024 10:2 9 AM EDT Impressions 10/20/2024 10:30 AM EDT Impression: No active pulmonary process identified. Telerad PA ([id number]) -------- FINAL REPORT -------- Dictated By: Holly Mora Dictated Date: 10/20/2024 10:29 ET Assigned Physician: Holly Mora Reviewed and Electronically Signed By: Holly Mora Signed Date: 10/20/2024 10:30 ET Workstation ID: [id number] Transcribed By: Self Edit Transcribed Date: 10/20/2024 [...] No active pulmonary process identified. Suzanne KELLER ([id number]) -------- FINAL REPORT -------- Dictated By: Holly Mora Dictated Date: 10/20/2024 10:29 ET Assigned Physician: Holly Mora Reviewed and Electronically Signed By: Holly Mora Signed Date: 10/20/2024 10:30 ET Workstation ID: [id number] Transcribed By: Self Edit Transcribed Date: 10/20/2024 10:29 ET Danni KELLER IMG XR PROCEDURES Final Result * ECG 12 lead (10/19/2024 9:35 PM EDT) Ventricular Rate ECG 68 BPM GEMUSE Atrial Rate 68 BPM GEMUSE P-R Interval 168 ms GEMUSE QRS Duration 150 ms GEMUSE Q-T Interval 452 ms GEMUSE QTc 480 ms GEMUSE P Wave [place] 100 degrees GEMUSE R [place] 144 degrees GEMUSE T [place] 77 degrees GEMUSE ECG Interpretation AV dual-paced rhythm No previous ECGs available Confirmed by KIKI AGUILERA ([id number]) on 10/20/2024 1:59:18 PM GEMUSE 10/19/2024 9:35 PM EDT 10/20/2024 1:59 PM EDT Danni KELLER ECG ORDERABLES Final Result GEMUSE * (ABNORMAL) CBC auto differential (10/19/2024 9:32 PM EDT) WBC 8.7 4.8 - 10.8 K/mcL LAB HEMETOLOGY METHOD 10/19/2024 10:18 PM EDT [facility] RBC 3.90(L) 4.50 - 5.50 M/mcL LAB HEMETOLOGY METHOD 10/19/2024 10:18 PM EDT [facility] Hemoglobin 12.0(L) 13.5 - 17.5 g/dL LAB HEMETOLOGY METHOD 10/19/2024 10:18 PM EDT [facility] Hematocrit 36.3(L) 42.0 - 54.0 % LAB HEMETOLOGY METHOD 10/19/2024 10:18 PM EDT [facility] MCV 92.6 79.0 - 98.0 FL LAB [facility]ETOLOGY [facility] MCH 30.6 27.0 - 32.0 pcg LAB HEMETOLOGY METHOD 10/19/2024 10:18 PM EDT [facility] MCHC 33.1 32.0 - 37.0 g/dL LAB HEMETOLOGY METHOD 10/19/2024 10:18 PM [facility] RDW 14.6 11.0 - 15.0 % LAB HEMETOLOGY METHOD 10/19/2024 10:18 PM [facility] Platelets 246 130 - 400 K/mcL LAB HEMETOLOGY METHOD 10/19/2024 10:18 PM EDT [facility] MPV 10.6 7.0 - 11.0 FL LAB HEMETOLOGY METHOD 10/19/2024 10:18 PM [facility] NRBC 0.0 <1.0 % LAB HEMETOLOGY METHOD 10/19/2024 10:18 PM [facility] NRBC Absolute 0.00 <0.10 K/mcL LAB HEMETOLOGY METHOD 10/19/2024 10:18 PM EDT [facility] Neutrophils Relative 68.2 % LAB HEMETOLOGY METHOD 10/19/2024 10:18 PM EDT [facility] Lymphocytes Relative 16.9 % LAB HEMETOLOGY [facility] Monocytes Relative 10.4 % LAB HEMETOLOGY METHOD 10/19/2024 10:18 PM EDT [facility] Eosinophils Relative 3.6 % LAB HEMETOLOGY METHOD 10/19/2024 10:18 PM EDT [facility] Basophils Relative 0.6 % LAB HEMETOLOGY METHOD 10/19/2024 10:18 PM EDT [facility] Immature Granulocytes Relative 0.3 % LAB HEMETOLOGY METHOD 10/19/2024 10:18 PM EDT [facility] Neutrophils Absolute 5.91 1.50 - 7.00 K/mcL LAB HEMETOLOGY METHOD 10/19/2024 10:18 PM EDT [facility] Lymphocytes Absolute 1.46 1.00 - 5.00 K/mcL LAB HEMETOLOGY METHOD 10/19/2024 10:18 PM EDT [facility] Monocytes Absolute 0.90 0.20 - 1.00 K/mcL LAB HEMETOLOGY METHOD 10/19/2024 10:18 PM EDT [facility] Eosinophils Absolute 0.31 0.00 - 0.50 K/mcL LAB HEMETOLOGY METHOD 10/19/2024 10:18 PM EDT [facility] Basophils Absolute 0.05 0.00 - 0.20 K/mcL LAB HEMETOLOGY METHOD 10/19/2024 10:18 PM EDT [facility] Immature Granulocytes Absolute 0.03 0.00 - 0.03 K/mcL LAB HEMETOLOGY METHOD 10/19/2024 10:18 PM EDT [facility] Blood Venous blood specimen / Unknown Venipuncture / Unknown 10/19/2024 9:32 PM EDT 10/19/2024 10:12 PM EDT us Danni KELLER LAB BLOOD ORDERABLES Final Resu lt [facility] [address] [place] [address], * Magnesium (10/19/2024 9:32 PM EDT) Pathologist [facility] Magnesium 2.1 1.9 - 2.6 mg/dL LAB CHEMISTRY METHOD 10/19/2024 10:36 PM T [facility] Blood Venous blood specimen / Unknown Venipuncture / Unknown 10/19/2024 9:32 PM EDT 10/19/2024 10:12 PM EDT us Danni KELLER LAB BLOOD ORDERABLES Final Resu lt [facility] [address] [place] [address], * (ABNORMAL) Basic metabolic panel (10/19/2024 9:32 PM EDT) [facility] Sodium 140 133 - 145 mmol/L LAB [...] 73m2 LAB CHEMISTRY METHOD 10/19/2024 10:36 PM EDT [facility] Comment:Calculation based on the??Chronic Kidney Disease Epidemiology Collaboration (CKD-EPI) equation refit??without adjustment for race. BUN/Creatinine Ratio 19.9 LAB CHEMISTRY METHOD 10/19/2024 10:36 PM EDT [facility] Calcium 9.7 8.5 - 10.5 mg/dL LAB CHEMISTRY METHOD 10/19/2024 10:36 PM EDT [facility] Blood Venous blood specimen / Unknown Venipuncture / Unknown 10/19/2024 9:32 PM EDT 10/19/2024 10:12 PM EDT us Danni KELLER LAB BLOOD ORDERABLES Final Resu lt [facility] [address] [place] [address], from Last 3 Months Insurance MEDICARE [facility] Care Teams President & Ceo Relationship Specialty Start Date End Date Physician, Pcp Unknown PCP - General 10/19/24
--- NOTE | 2024-10-25 17:41 | A.OFFVIS_ITS ---
Intake Visit Reasons: ? 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 housing Do you presently have visiting nurse or other home services: No Alcohol intake: never Patient Tobacco Use Status: Former Tobacco user Tobacco use type: Cigarette and Cigar Years Smoked: 20 e-Cigarette/Vaping Use: Never Used Second Hand Smoke Exposure: No Advance Directives Date on File: 03/10/22 service: No Current occupational status: retired Office Procedures Cardiac Device Check Cardiac Device Check Details: Medtronic Bi V ICD interrogation today shows battery 1 month, DDDR mode low rate 60, no recent alerts, no therapies, settings reviewed, V paced 98.8%. - planning for office recheck in 1 month. 59848-CX Cardiac Device Check, multi lead implantable defibrillator Procedure code (CPT) selection complete Assessment & Plan Assessment & Plan (1) Biventricular ICD (implantable cardioverter-defibrillator) in place: Code(s): Z95.810 - Presence of automatic (implantable) cardiac defibrillator Category: Medical Plan: battery check - device check Coding Level of Care Code Procedure Only Diagnoses Biventricular ICD (implantable cardioverter-defibrillator) in place Z95.810 CPT Codes Cardiac Device Check - Cardiac Device 6: 94087-KW Cardiac Device Check, multi lead implantable defibrillator ([id number])
== END 2024-10-25 15:13 | disposition home or self-care (01) ==
LOC: HO.HCS 14:47
PROVIDERS: Visit Provider Nurse Practitioner Family
DX: Z45.010 Encounter for checking and testing of cardiac pacemaker pulse generator [battery] (principal)
CPT/HCPCS: 93284

== ENCOUNTER → 2024-10-25 14:46 | Outpatient (BNVA) | payer MEDICARE, SELFPAY | PROVIDERS: Visit Provider Nurse Practitioner Family ==

== ENCOUNTER → 2024-10-25 23:59 | Outpatient (BNV) | payer MEDICARE, SELFPAY ==
--- NOTE | 2024-11-12 17:05 | A.OFFVIS_ITS ---
Intake Visit Reasons: ? 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 housing Do you presently have visiting nurse or other home services: No Alcohol intake: never Patient Tobacco Use Status: Former Tobacco user Tobacco use type: Cigarette and Cigar Years Smoked: 20 e-Cigarette/Vaping Use: Never Used Second Hand Smoke Exposure: No Advance Directives Date on File: 03/10/22 service: No Current occupational status: retired Office Procedures Cardiac Device Check Cardiac Device Check Details: Remote ICD report generated 10/25/2024. Battery life is at VIDEO GAME [employer]KER. Action has been taken to refer patient for replacement [id number] Cardiac Interrogation, implant defibrillator w/interim Procedure code (CPT) selection complete Assessment & Plan Assessment & Plan (1) Biventricular ICD (implantable cardioverter-defibrillator) in place: Code(s): Z95.810 - Presence of automatic (implantable) cardiac defibrillator Category: Medical Plan: See above Coding Level of Care Code Procedure Only Diagnoses Biventricular ICD (implantable cardioverter-defibrillator) in place Z95.810 CPT Codes Cardiac Device Check - Cardiac Device 13: [id number] Cardiac Interrogation, implant defibrillator w/interim ([id number])
== END ==
PROVIDERS: Visit Provider Internal Medicine Cardiovascular Disease
DX: Z45.010 Encounter for checking and testing of cardiac pacemaker pulse generator [battery] (principal)
CPT/HCPCS: 93295

== ENCOUNTER 2024-11-08 14:47 | Outpatient (AMB) | payer MEDICARE, SELFPAY ==
--- OUTSIDE RECORDS SUMMARY | 2024-11-08 14:50 | XMS_ITS | Patient Health Record ---
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 Problem [id number] Rectal pain (K62.89) Active confirmed Plan Of Treatment Future Test Test Name Order Date COLONOSCOPY 01/31/2022 Insurance Providers Payer Name Payer Address Payer Phone Subscriber Number Group Number Insured Name Patient Relationship to Insured Coverage Start Date Coverage End Date MEDICARE OF [place] [address] [place] [address] [id number] WILMER ZAMORA Self - patient is the insured MEDEX ATTN CLAIMS [address] [place] [address] [phone] [id number] WILMER ZAMORA Self - patient is the insured Medical (General) History Medical History History ICD Code Coronary artery disease status post CABG Atrial fibrillation Ischemic cardiomyopathy, ICD placement Hemorrhoids Hypertension Elevated cholesterol Surgical History Surgery Date(Month/Year) hernia torn quadriceps varicose veins ankle tendons deviated septum hemmroidectomy x 2 ICD placement
--- OUTSIDE RECORDS SUMMARY | 2024-11-08 14:50 | XMS_ITS | Continuity of Care Document ---
Author Organization [facility] Address [address] [place] [address] [address] [place] [address] Phone Care Team Providers Care Die Baker Name Role Phone Calin GUTIÉRREZ, ELVIE, Norberto [...] Providers Copied on Encounter [facility], [address] [place] [address] [address], [id number], [place] tel:[phone] [facility] No Information 4 Calin GUTIÉRREZ, ROBBIN BERMEO. [address] [facility] [address], [place], [place], [id number] , [place]. tel:[phone] Office/Oupt E&M New Pt 30 Mins- CT & [place] [facility], [address] [place] [address] [address]Ramu [place], [id number], tel:[phone] CVR - LIZA [place] Body mass index [BMI] 21.0-21.9, adultChronic venous hypertension (idiopathic) without complications of bilateral lower extremity Apr- 4 Calin GUTIÉRREZ RVT, ROBBIN Thornton. [address] [facility], [address], [place], [place], [id number] , [place]. tel:[phone] Referring Provider: Marcia KELLER , [address] [facility] [address], [place], [address]. tel:[phone] [facility], [address] [facility] [address], [place], [id number], [place] tel:[phone] CVR [facility] Acacia [place] Chronic venous hypertension (idiopathic) with other complications of bilateral lower extremity 4 Calin GUTIÉRREZ RVT, ROBBIN Thornton. [address] [facility], [address], [place], [place], [id number] , [place]. tel:[phone] Referring Provider: Jan Deng MD, [address] [place] [address] [address], [place], [address]. tel:[phone] Family History Family Member Type Diagnosis Age At Onset No Information Payers Payer name Insurance type Covered libertarian ID Authoriza tion(s) Medicare LIZA ZHANG [id number] [facility] LIZA [id number] Social History Type Description Quantity Date Captured [...]
--- OUTSIDE RECORDS SUMMARY | 2024-11-08 14:50 | XMS_ITS | Clinical Summary ---
Author Organization [facility] Address [address] [place] [address] Phone Care Team Providers Care Air Traffic Systems Technician Name Role Phone Physician, Pcp Unknown Primary Care Provider Grace vailable Allergies No known active allergies Encounters Date Type Department Care Team Description 10/19/2024 8:29 PM EDT - 10/20/2024 6:01 AM EDT Emergency [facility] Emergency [address] [place] [address] Ananth Sinha MD Other headache [...] No active pulmonary process identified. Telerad PA ([id number]) -------- FINAL REPORT -------- Dictated By: Holly Mora Dictated Date: 10/20/2024 10:29 ET Assigned Physician: Holly Mora Reviewed and Electronically Signed By: Holly Mora Signed Date: 10/20/2024 10:30 ET Workstation ID: [id number] Transcribed By: Self Edit Transcribed Date: 10/20/2024 [...] No active pulmonary process identified. Suzanne KELLER ([id number]) -------- FINAL REPORT -------- Dictated By: Holyl Mora Dictated Date: 10/20/2024 10:29 ET Assigned Physician: Holly Mora Reviewed and Electronically Signed By: Holly Mora Signed Date: 10/20/2024 10:30 ET Workstation ID: [id number] Transcribed By: Self Edit Transcribed Date: 10/20/2024 10:29 ET Danni KELLER IMG XR PROCEDURES Final Result * ECG 12 lead (10/19/2024 9:35 PM EDT) Ventricular Rate ECG 68 BPM GEMUSE Atrial Rate 68 BPM GEMUSE P-R Interval 168 ms GEMUSE QRS Duration 150 ms GEMUSE Q-T Interval 452 ms GEMUSE QTc 480 ms GEMUSE P Wave [place] 100 degrees GEMUSE R [place] 144 degrees GEMUSE T [place] 77 degrees GEMUSE ECG Interpretation AV dual-paced rhythm No previous ECGs available Confirmed by KIKI AGUILERA ([id number]) on 10/20/2024 1:59:18 PM GEMUSE 10/19/2024 9:35 PM EDT 10/20/2024 1:59 PM EDT Danni KELLER ECG ORDERABLES Final Result GEMUSE * (ABNORMAL) CBC auto differential (10/19/2024 9:32 PM EDT) WBC 8.7 4.8 - 10.8 K/mcL LAB HEMETOLOGY METHOD 10/19/2024 10:18 PM EDT [facility] RBC 3.90(L) 4.50 - 5.50 M/mcL LAB HEMETOLOGY METHOD 10/19/2024 10:18 PM EDT [facility] Hemoglobin 12.0(L) 13.5 - 17.5 g/dL LAB HEMETOLOGY METHOD 10/19/2024 10:18 PM EDT [facility] Hematocrit 36.3(L) 42.0 - 54.0 % LAB HEMETOLOGY METHOD 10/19/2024 10:18 PM EDT [facility] MCV 92.6 79.0 - 98.0 FL LAB HEMETOLOGY METHOD [facility] MCH 30.6 27.0 - 32.0 pcg LAB HEMETOLOGY METHOD 10/19/2024 10:18 PM EDT [facility] MCHC 33.1 32.0 - 37.0 g/dL LAB HEMETOLOGY METHOD 10/19/2024 10:18 PM [facility] RDW 14.6 11.0 - 15.0 % LAB HEMETOLOGY METHOD 10/19/2024 10:18 PM [facility] Platelets 246 130 - 400 K/mcL LAB HEMETOLOGY METHOD 10/19/2024 10:18 PM EDT [facility] MPV 10.6 7.0 - 11.0 FL LAB HEMETOLOGY METHOD 10/19/2024 10:18 PM [facility] NRBC 0.0 <1.0 % LAB HEMETOLOGY METHOD 10/19/2024 10:18 PM [facility] NRBC Absolute 0.00 <0.10 K/mcL LAB HEMETOLOGY METHOD 10/19/2024 10:18 PM EDT [facility] Neutrophils Relative 68.2 % LAB HEMETOLOGY METHOD 10/19/2024 10:18 PM EDT [facility] Lymphocytes Relative 16.9 % LAB HEMETOLOGY METHOD [facility]2024 [facility] Monocytes Relative 10.4 % LAB HEMETOLOGY METHOD 10/19/2024 10:18 PM EDT [facility] Eosinophils Relative 3.6 % LAB HEMETOLOGY METHOD 10/19/2024 10:18 PM EDT [facility] Basophils Relative 0.6 % LAB HEMETOLOGY METHOD 10/19/2024 10:18 PM EDT [facility] Immature Granulocytes Relative 0.3 % LAB HEMETOLOGY METHOD 10/19/2024 10:18 PM EDT [facility] Neutrophils Absolute 5.91 1.50 - 7.00 K/mcL LAB HEMETOLOGY METHOD 10/19/2024 10:18 PM EDT [facility] Lymphocytes Absolute 1.46 1.00 - 5.00 K/mcL LAB HEMETOLOGY METHOD 10/19/2024 10:18 PM EDT [facility] Monocytes Absolute 0.90 0.20 - 1.00 K/mcL LAB HEMETOLOGY METHOD 10/19/2024 10:18 PM EDT [facility] Eosinophils Absolute 0.31 0.00 - 0.50 K/mcL LAB HEMETOLOGY METHOD 10/19/2024 10:18 PM EDT [facility] Basophils Absolute 0.05 0.00 - 0.20 K/mcL LAB HEMETOLOGY METHOD 10/19/2024 10:18 PM EDT [facility] Immature Granulocytes Absolute 0.03 0.00 - 0.03 K/mcL LAB HEMETOLOGY METHOD 10/19/2024 10:18 PM EDT [facility] Blood Venous blood specimen / Unknown Venipuncture / Unknown 10/19/2024 9:32 PM EDT 10/19/2024 10:12 PM EDT us Danni KELLER LAB BLOOD ORDERABLES Final Resu lt [facility] [address] [place] [address], * Magnesium (10/19/2024 9:32 PM EDT) Pathologist [facility] Magnesium 2.1 1.9 - 2.6 mg/dL LAB CHEMISTRY METHOD 10/19/2024 10:36 PM T [facility] Blood Venous blood specimen / Unknown Venipuncture / Unknown 10/19/2024 9:32 PM EDT 10/19/2024 10:12 PM EDT us Danni KELLER LAB BLOOD ORDERABLES Final Resu lt [facility] [address] [place] [address], * (ABNORMAL) Basic metabolic panel (10/19/2024 9:32 PM EDT) [facility] Sodium 140 133 - 145 mmol/L LAB [...] LAB CHEMISTRY METHOD 10/19/2024 10:36 PM EDT [facility] Comment:Calculation based on the??Chronic Kidney Disease Epidemiology Collaboration (CKD-EPI) equation refit??without adjustment for race. BUN/Creatinine Ratio 19.9 LAB CHEMISTRY METHOD 10/19/2024 10:36 PM EDT [facility] Calcium 9.7 8.5 - 10.5 mg/dL LAB CHEMISTRY METHOD 10/19/2024 10:36 PM EDT [facility] Blood Venous blood specimen / Unknown Venipuncture / Unknown 10/19/2024 9:32 PM EDT 10/19/2024 10:12 PM EDT us Danni KELLER LAB BLOOD ORDERABLES Final Resu lt [facility] [address] [place] [address], from Last 3 Months Insurance MEDICARE [facility] Care Teams Air Traffic Systems Technician Relationship Specialty Start Date End Date Physician, Pcp Unknown PCP - General 10/19/24
--- NOTE | 2024-11-08 18:07 | MHC.OFFVIS ---
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 housing Do you presently have visiting nurse or other home services: No Alcohol intake: never Patient Tobacco Use Status: Former Tobacco user Tobacco use type: Cigarette and Cigar Years Smoked: 20 e-Cigarette/Vaping Use: Never Used Second Hand Smoke Exposure: No Advance Directives Date on File: 03/10/22 service: No Current occupational status: retired Office Procedures Cardiac Device Check Cardiac Device Check Details: Medtronic Bi V ICD interrogation today shows battery at BUSINESS TECHNOLOGY TEACHER on 10/30/24. Device functioning normally 54303-[id number] Cardiac Device Check, multi lead implantable defibrillator Procedure code (CPT) selection complete Assessment & Plan Assessment & Plan (1) Biventricular ICD (implantable cardioverter-defibrillator) in place: Code(s): Z95.810 - Presence of automatic (implantable) cardiac defibrillator Category: Medical Plan: Device at BUSINESS TECHNOLOGY TEACHER. Dr Amanda notified. Will refer to EP for generator change to be done in next few weeks. Pt aware and agreeable to plan Coding Level of Care Code Procedure Only Diagnoses Biventricular ICD (implantable cardioverter-defibrillator) in place Z95.810 CPT Codes Cardiac Device Check - Cardiac Device 6: 04758-YF Cardiac Device Check, multi lead implantable defibrillator ([id number])
== END 2024-11-08 15:00 | disposition home or self-care (01) ==
LOC: HO.HCS 14:48
PROVIDERS: Visit Provider Nurse Practitioner Family
DX: Z45.010 Encounter for checking and testing of cardiac pacemaker pulse generator [battery] (principal)
CPT/HCPCS: 93284

== ENCOUNTER → 2024-11-08 14:47 | Outpatient (BNVA) | payer MEDICARE, SELFPAY | PROVIDERS: Visit Provider Nurse Practitioner Family ==

== ENCOUNTER → 2024-11-08 23:59 | Outpatient (BNV) | payer MEDICARE, SELFPAY ==
--- NOTE | 2024-11-12 17:02 | A.OFFVIS_ITS ---
Intake Visit Reasons: ? 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 housing Do you presently have visiting nurse or other home services: No Alcohol intake: never Patient Tobacco Use Status: Former Tobacco user Tobacco use type: Cigarette and Cigar Years Smoked: 20 e-Cigarette/Vaping Use: Never Used Second Hand Smoke Exposure: No Advance Directives Date on File: 03/10/22 service: No Current occupational status: retired Office Procedures Cardiac Device Check Cardiac Device Check Details: Remote heart failure report generated 11/08/2024. Heart failure parameters are stable [id number] Cardiac Device Interrogation, cardio physiologic monitor Procedure code (CPT) selection complete Assessment & Plan Assessment & Plan (1) Biventricular ICD (implantable cardioverter-defibrillator) in place: Code(s): Z95.810 - Presence of automatic (implantable) cardiac defibrillator Category: Medical Plan: See above Coding Level of Care Code Procedure Only Diagnoses Biventricular ICD (implantable cardioverter-defibrillator) in place Z95.810 CPT Codes Cardiac Device Check - Cardiac Device 15: [id number] Cardiac Device Interrogation, cardio physiologic monitor ([id number])
== END ==
PROVIDERS: Visit Provider Internal Medicine Cardiovascular Disease
DX: Z45.010 Encounter for checking and testing of cardiac pacemaker pulse generator [battery] (principal)
CPT/HCPCS: 93297

== ENCOUNTER 2024-12-27 11:45 | Outpatient (AMB) | payer MEDICARE, SELFPAY ==
--- NOTE | 2024-12-27 11:13 | MHC.PC.OV ---
Vital Signs 12/27/24 11:37 Height 6 ft 2 in Weight 190 lb BMI 24.4 BP 130/80 Blood Pressure Location Lt brachial Position Sitting Pulse 71 Pulse Source Pulse Oximeter Temp 97.5 F Temp Source Axillary Pulse Oximetry (%) 98 Oxygen Delivery Method Room Air Intake Visit Reasons: Routine Hand Mixer Required: No Accompanied by: Self / Same As Patient Allergies grass pollen Allergy (Intermediate, Verified 12/27/24 11:15) Sneezing mite-Dermatophagoides farinae, alexis (dust mite - [place]) Allergy (Intermediate, Verified 12/27/24 11:15) Sneezing Tobacco use date assessed: 12/27/24 Fall risk assessment: No Falls in past year Last assessed Fall Risk: 12/27/24 Dental Screening Dental Screen Date: 12/27/24 Did you have a dental visit in the last 12 months?: Yes Did you have a dental problem in the last 6 months where you did not have access to dental care?: No HPI HPI Comments History of Present Illness Details 89-year-old male with a past medical history of AFib, pacemaker, ischemic cardiomyopathy, CAD, HTN, HLD, prior intracranial surgery (?May), presenting for follow up Patient was in the ER in October after fall. He has experience a few falls in the past year. CV: Follows with Dr Amanda, Dr Lunsford. On lipitor, coreg, lisinopril, now decreased dose of eliquis. Sometimes lightheaded upon standing Insomnia is stable on zolpidem. ROS CONSTITUTIONAL: Denies weight loss, fever and chills. HEENT: Denies changes in vision and hearing. RESPIRATORY: Denies SOB and cough. CV: Denies palpitations and CP GI: Denies abdominal pain, nausea, vomiting and diarrhea. : Denies dysuria and urinary frequency. MSK: Denies new myalgia and joint pain. SKIN: Denies rash and pruritus. NEUROLOGICAL: Denies headache PSYCHIATRIC: Denies recent changes in mood. PHYSICAL EXAM: GENERAL: Alert and oriented x 3. NAD EYES: EOMI. Anicteric. HENT: Moist mucous membranes. No scleral icterus. No cervical lymphadenopathy. LUNGS: Clear to auscultation bilaterally. CARDIOVASCULAR: Regular rate and rhythm. No murmur. No JVD. ABDOMEN: Soft, non-tender +bs EXTREMITIES: No edema. Non-tender. SKIN: No rashes or lesions. Warm. NEUROLOGIC: No focal neurological deficits. CN II-XII grossly intact PSYCHIATRIC: Cooperative. 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 Father No problems noted. Social History Household Members: None Housing: Apartment Housing Other:: SR. housing Do you presently have visiting nurse or other home services: No Alcohol intake: never Patient Tobacco Use Status: Former Tobacco user Tobacco use type: Cigarette and Cigar Years Smoked: 20 e-Cigarette/Vaping Use: Never Used Second Hand Smoke Exposure: No Advance Directives Date on File: 03/10/22 service: No Current occupational status: retired Cognitive needs: No Hearing needs: No Vision needs: Yes (reading glasses) Questionnaire PHQ-9 Over the last 2 weeks, how often have you been bothered by any of the following problems? 1. Little interest or pleasure in doing things: not at all 2. Feeling down, depressed, or hopeless: not at all 3. Trouble falling or staying asleep, or sleeping too much: not at all 4. Feeling tired or having little energy: not at all 5. Poor appetite or overeating: not at all 6. Feeling bad about yourself - or that you are a failure or have let yourself or your family down: not at all 7. Trouble concentrating on things, such as reading the newspaper or watching television: not at all 8. Moving or speaking so slowly that other people could have noticed. Or the opposite - being so fidgety or restless that you have been moving around a lot more than usual: not at all 9. Thoughts that you would be better off or of hurting yourself in some way: not at all Total score: 0 Depression Screening Interpretation: Negative Depression Screening Done: Yes 99787 - PHQ-9 Billing: Yes Source: Developed by Drs. Norberto Winter, Bhumika Thomas, Durga Mcgill and colleagues, with an educational jania from [employer]. Thrive Questionnaire Date Thrive assessed: 12/27/24 I am a: Patient Within the past 12 months, did the food you bought not last and you didn't have the money to get more?: Never true Within the past 12 months, did you worry whether your food would run out before you got money to buy more?: Never true Do you have trouble paying for medicines?: No Do you have trouble getting transportation to medical appointments?: No Do you have trouble paying your heating and electricity bill?: No Do you have trouble taking care of your child, family member or friend?: No Do you have trouble with day-to-day activities such as bathing, preparing meals, shopping, managing finances, etc.?: No Are you currently unemployed and looking for a job?: No Are you interested in more education?: No THRIVE Score: 0 AUDIT C Alcohol Use Questionnaire (AUDIT-C) 1. How often do you have a drink containing alcohol?: Never 3. How often do you have six or more drinks on one occasion?: Never Total Score: 0 YVONNE-7 AMB Questionnaire YVONNE-7 Date YVONNE - 7 assessed: 12/27/24 Feeling nervous, anxious, or on edge: 0 = Not at all Not being able to stop or control worryin = Not at all Worrying too much about different things: 0 = Not at all Trouble relaxin = Not at all Being so restless that it is hard to sit still: 0 = Not at all Becoming easily annoyed or irritable: 0 = Not at all Feeling afraid as if something awful might happen: 0 = Not at all Total YVONNE-7 score (0-4 normal; 5-9 mild; 10-14 moderate; 15-21 severe): 0 Source: Developed by Drs. Norberto Winter, Bhumika Thomas, Durga Mcgill and colleagues, with an educational jania from [employer]. Physical exam (Primary Care) Vital Signs: Last Vital Signs Temp 97.5 F 12/27/24 11:37 Pulse 71 12/27/24 11:37 BP 130/80 12/27/24 11:37 Pulse Ox 98 12/27/24 11:37 Oxygen Delivery Method Room Air 12/27/24 11:37 BMI result Body Mass Index 24.4 Tobacco/Smoking Status: Tobacco use Status Tobacco use date assessed 12/27/24 12/27/24 11:18 Patient Tobacco Use Status Former Tobacco user 12/27/24 11:14 Tobacco use type Cigarette,Cigar 12/27/24 11:14 e-Cigarette/Vaping Use Never Used 12/27/24 11:14 PHQ-9: PHQ-9 Score PHQ-9: Total score 0 12/29/24 10:19 Depression Screening Interpretation: Negative Thrive Assessment: Date of Thrive Assessment Date Thrive assessed 12/27/24 12/27/24 11:18 Coding Level of Care Code New Pt Level 4 (83894) Complex EM visit Add On G2211 Diagnoses Coronary artery disease involving coronary bypass graft of [place] heart without angina pectoris I25.810 Coronary Disease-Associated Artery/Lesion type: bypass graft [place] vs. transplanted heart: [place] heart Associated angina: without angina Additional Codes PHQ-9 - 72194 - PHQ-9 Billing: Yes ([id number]) Assessment & Plan Assessment & Plan (1) CAD (coronary artery disease): Code(s): I25.10 - Atherosclerotic heart disease of [place] coronary artery without angina pectoris Category: Medical Qualifiers: Coronary Disease-Associated Artery/Lesion type: bypass graft [place] vs. transplanted heart: [place] heart Associated angina: without angina Qualified Code(s): I25.810 - Atherosclerosis of coronary artery bypass graft(s) without angina pectoris Plan 89 year old with CAD, afib to establish care past medical, surgical, social reviewed CV- continue current medications Insomnia-stable on zolpidema Orders: Orders Lipid Panel 12/27/24 I25.10 - Atherosclerotic heart disease of [place] coronary artery without angina pectoris, I25.5 - Ischemic cardiomyopathy Comprehensive Met. Panel 12/27/24 I25.10 - Atherosclerotic heart disease of [place] coronary artery without angina pectoris, I25.5 - Ischemic cardiomyopathy
[2024-12-27 11:37] VITALS: BP 130/80; PULSE 71; TEMP 36.4; O2SAT 98; BMI 24.4
--- OUTSIDE RECORDS SUMMARY | 2024-12-27 12:54 | XMS_ITS | Clinical Summary ---
Author Organization [facility] Address [address] [place] [address] Phone Care Team Providers Care Pet Training Instructor Name Role Phone Physician, Pcp Unknown Primary Care Provider Grace vailable Allergies No known active allergies Encounters Date Type Department Care Team Description 10/19/2024 8:29 PM EDT - 10/20/2024 6:[address] [facility] [address] [place] [address] Ananth Sinha MD Other headache [...] 71 10/20/2024 5:12 AM EDT Temperature 36.7 C (98 F) 10/20/2024 5:12 AM EDT Respiratory Rate 17 [...] No active pulmonary process identified. Telerad ARIANNA ([id number]) -------- FINAL REPORT -------- Dictated By: Holly Mora Dictated Date: 10/20/2024 10:29 ET Assigned Physician: Holly Mora Reviewed and Electronically Signed By: Holly Mora Signed Date: 10/20/2024 10:30 ET Workstation ID: [id number] Transcribed By: Self Edit Transcribed Date: 10/20/2024 [...] No active pulmonary process identified. Suzanne KELLER ([id number]) -------- FINAL REPORT -------- Dictated By: Holly Mora Dictated Date: 10/20/2024 10:29 ET Assigned Physician: Holly Mora Reviewed and Electronically Signed By: Holly Mora Signed Date: 10/20/2024 10:30 ET Workstation ID: [id number] Transcribed By: Self Edit Transcribed Date: 10/20/2024 10:29 ET Danni KELLER IMG XR PROCEDURES Final Result * ECG 12 lead (10/19/2024 9:35 PM EDT) Pathologist [facility] Ventricular Rate ECG 68 BPM GEMUSE Atrial Rate 68 BPM GEMUSE P-R Interval 168 ms GEMUSE QRS Duration 150 ms GEMUSE Q-T Interval 452 ms GEMUSE QTc 480 ms GEMUSE P Wave [place] 100 degrees GEMUSE R [place] 144 degrees GEMUSE T [place] 77 degrees GEMUSE ECG Interpretation AV dual-paced rhythm No previous ECGs available Confirmed by KIKI AGUILERA ([id number]) on 10/20/2024 1:59:18 PM GEMUSE 10/19/2024 9:35 PM EDT 10/20/2024 1:59 PM EDT Danni KELLER ECG ORDERABLES Final Result GEMUSE * (ABNORMAL) CBC auto differential (10/19/2024 9:32 PM EDT) Pathologist [facility] WBC 8.7 4.8 - 10.8 K/mcL LAB HEMETOLOGY METHOD 10/19/2024 10:18 PM EDT [facility] RBC 3.90(L) 4.50 - 5.50 M/mcL LAB HEMETOLOGY METHOD 10/19/2024 10:18 PM EDT [facility] Hemoglobin 12.0(L) 13.5 - 17.5 g/dL LAB HEMETOLOGY METHOD 10/19/2024 10:18 PM EDT [facility] Hematocrit 36.3(L) 42.0 - 54.0 % LAB [facility] MCV 92.6 79.0 - 98.0 FL LAB [facility]OLOGY [facility] MCH 30.6 27.0 - 32.0 pcg LAB HEMETOLOGY METHOD [facility] MCHC 33.1 32.0 - 37.0 g/dL LAB HEMETOLOGY METHOD 10/19/2024 10:18 PM [facility] RDW 14.6 11.0 - 15.0 % LAB HEMETOLOGY METHOD 10/19/2024 10:18 PM [facility] Platelets 246 130 - 400 K/mcL LAB HEMETOLOGY [facility] MPV 10.6 7.0 - 11.0 FL LAB HEMETOLOGY METHOD 10/19/2024 10:18 PM [facility] NRBC 0.0 <1.0 % LAB HEMETOLOGY METHOD 10/19/2024 10:18 PM [facility] NRBC Absolute 0.00 <0.10 K/mcL LAB HEMETOLOGY METHOD 10/19/2024 10:18 PM [facility] Neutrophils Relative 68.2 % LAB HEMETOLOGY METHOD [facility] Lymphocytes Relative 16.9 % LAB HEMETOLOGY METHOD 10/19/2024 10:18 PM [facility] Monocytes Relative 10.4 % LAB HEMETOLOGY METHOD 10/19/2024 10:18 PM [facility] Eosinophils Relative 3.6 % LAB HEMETOLOGY METHOD 10/19/2024 10:18 PM EDT [facility] Basophils Relative 0.6 % LAB HEMETOLOGY METHOD 10/19/2024 10:18 PM EDT [facility] Immature Granulocytes Relative 0.3 % LAB HEMETOLOGY METHOD 10/19/2024 10:18 PM EDT [facility] Neutrophils Absolute 5.91 1.50 - 7.00 K/mcL LAB HEMETOLOGY METHOD 10/19/2024 10:18 PM EDT [facility] Lymphocytes Absolute 1.46 1.00 - 5.00 K/mcL LAB HEMETOLOGY METHOD 10/19/2024 10:18 PM EDT [facility] Monocytes Absolute 0.90 0.20 - 1.00 K/mcL LAB HEMETOLOGY METHOD 10/19/2024 10:18 PM EDT [facility] Eosinophils Absolute 0.31 0.00 - 0.50 K/mcL LAB HEMETOLOGY METHOD 10/19/2024 10:18 PM EDT [facility] Basophils Absolute 0.05 0.00 - 0.20 K/mcL LAB HEMETOLOGY METHOD 10/19/2024 10:18 PM EDT [facility] Immature Granulocytes Absolute 0.03 0.00 - 0.03 K/mcL LAB HEMETOLOGY METHOD 10/19/2024 10:18 PM EDT [facility] Blood Venous blood specimen / Unknown Venipuncture / Unknown 10/19/2024 9:32 PM EDT 10/19/2024 10:12 PM EDT us Danni KELLER LAB BLOOD ORDERABLES Final Resu lt [facility] [address] [place] [address], * Magnesium (10/19/2024 9:32 PM EDT) Pathologist [facility] Magnesium 2.1 1.9 - 2.6 mg/dL LAB CHEMISTRY METHOD 10/19/2024 10:36 PM T [facility] Blood Venous blood specimen / Unknown Venipuncture / Unknown 10/19/2024 9:32 PM EDT 10/19/2024 10:12 PM EDT us Danni KELLER LAB BLOOD ORDERABLES Final Resu lt [facility] [address] [place] [address], * (ABNORMAL) Basic metabolic panel (10/19/2024 9:32 PM EDT) [facility] Sodium 140 133 - 145 mmol/L LAB CHEMISTRY METHOD 10/19/2024 10:36 PM [facility] Potassium 4.0 3.5 - 5.5 mmol/L LAB CHEMISTRY METHOD 10/19/2024 10:36 PM [facility] Chloride 106 96 - 110 mmol/L LAB CHEMISTRY METHOD 10/19/2024 10:36 PM [facility] CO2 27 21 - 32 mmol/L LAB CHEMISTRY METHOD 10/19/2024 10:36 PM [facility] Anion Gap 7 3 - 11 LAB CHEMISTRY METHOD 10/19/2024 10:36 PM [facility] Glucose 100 70 - 100 mg/dL LAB CHEMISTRY METHOD 10/19/2024 10:36 PM [facility] BUN 28(H) 5 - 25 mg/dL LAB CHEMISTRY METHOD 10/19/2024 10:36 PM [facility] Creatinine 1.41(H) 0.70 - 1.30 mg/dL LAB CHEMISTRY METHOD 10/19/2024 10:36 PM [facility] eGFR 48(L) >=60 mL/min/1. 73m2 LAB CHEMISTRY METHOD 10/19/2024 10:36 PM EDT [facility] Comment:Calculation based on the Chronic Kidney Disease Epidemiology Collaboration (CKD-EPI) equation refit without adjustment for race. BUN/Creatinine Ratio 19.9 LAB CHEMISTRY METHOD 10/19/2024 10:36 PM EDT [facility] Calcium 9.7 8.5 - 10.5 mg/dL LAB CHEMISTRY METHOD 10/19/2024 10:36 PM EDT [facility] Blood Venous blood specimen / Unknown Venipuncture / Unknown 10/19/2024 9:32 PM EDT 10/19/2024 10:12 PM EDT us Danni KELLER LAB BLOOD ORDERABLES Final Resu lt [facility] [address] [place] [address], from Last 3 Months Insurance MEDICARE [facility] Care Teams Pet Training Instructor Relationship Specialty Start Date End Date Physician, Pcp Unknown PCP - General 10/19/24
== END 2024-12-27 12:06 | disposition home or self-care (01) ==
PROVIDERS: Visit Provider Internal Medicine
DX: I25.810 Atherosclerosis of coronary artery bypass graft(s) without angina pectoris (principal)

== ENCOUNTER → 2024-12-27 11:45 | Outpatient (BNVA) | payer MEDICARE, SELFPAY | PROVIDERS: Visit Provider Internal Medicine | DX: I25.810 Atherosclerosis of coronary artery bypass graft(s) without angina pectoris (principal); I25.5 Ischemic cardiomyopathy; I48.91 Unspecified atrial fibrillation; G47.00 Insomnia, unspecified; I10 Essential (primary) hypertension; Z79.01 Long term (current) use of anticoagulants; Z79.899 Other long term (current) drug therapy; Z95.0 Presence of cardiac pacemaker; Z13.31 Encounter for screening for depression; Z13.30 Encounter for screening examination for mental health and behavioral disorders, unspecified | CPT/HCPCS: 96127; 99202 ==

== ENCOUNTER 2025-01-15 12:13 | Day surgery (SDC) | payer MEDICARE, SELFPAY ==
--- OUTSIDE RECORDS SUMMARY | 2024-04-19 11:10 | XMS_ITS | Continuity of Care Document ---
Author Organization [facility] Address [address] [place] [address] [address] [place] [address] Phone Care Team Providers Care Corporate Scheduler Name Role Phone Calin GUTIÉRREZ, ELVIE, Norberto SIEGEL Unavailable U navailable Allergies, Adverse Reactions, Alerts Substance Reaction Status Criticality No Known Allergies Active No Inform ation Medications Medication Instructions Dosage Effective Dates (start - stop) Status Comments atorvastatin 20 mg tablet - Acti ve lisinopril 2.5 mg tablet - Activ e Eliquis 2.5 mg tablet - Active carvedilol 25 mg tablet - Active Procedures Procedure Date Office/Oupt E&M New Pt 30 Mins- CT & [place] Duplex Scan-extrem Veins; Comp- CT & [place] Advance Directives Directive Yes / No Effective Date File Name No Information Encounters Encounter Description Practice Location Reason(s) For Visit Diagnoses Date Provider Providers Copied on Encounter [facility], [address] [place] [address] [address], [id number], [place] tel:[phone] [facility] No Information 4 Calin GUTIÉRREZ, ROBBIN BERMEO. [address] [facility] [address], [place], [place], [id number] , [place]. tel:[phone] Office/Oupt E&M New Pt 30 Mins- CT & [place] [facility], [address] [place] [address] Dr Russell [address]Ram[place], [id number], tel:[phone] [facility] - LIZA [place] Body mass index [BMI] 21.0-21.9, adultChronic venous hypertension (idiopathic) without complications of bilateral lower extremity Apr- 4 Calin GUTIÉRREZ RVT, ROBBIN Thornton. [address] [facility], [address], [place], [place], [id number] , [place]. tel:[phone] Referring Provider: Marcia KELLER , [address] [facility] [address], [place], [address]. tel:[phone] [facility], [address] [facility] [address], [place], [id number], [place] tel:[phone] [facility]R [facility] [place] Chronic venous hypertension (idiopathic) with other complications of bilateral lower extremity 4 Calin GUTIÉRREZ RVT, ROBBIN Thornton. [address] [facility], [address], [place], [place], [id number] , [place]. tel:[phone] Referring Provider: Jan Deng MD, [address] [place] [address] [address], [place], [address]. tel:[phone] Family History Family Member Type Diagnosis Age At Onset No Information Payers Payer name Insurance type Covered constitution party ID Authoriza tion(s) Medicare LIZA ZHANG [id number] [facility] LIZA [id number] Social History Type Description Quantity Date Captured Comments Sex Male Smoking Status No Information Chief Complaint And Reason For Visit No Information Reason For Referral Reason For Referral No Information Plan Of Treatment Date Type Action Status Goal Tobacco cessation counseling completed Goal Diet education completed History Of Present Illness Encounter Date Complaint History Of Prese nt Illness No Information Functional Status Date Functional Assessmen t No Information Instructions Date Instruction Additional Infor mation Giving Encouragement to Exercise Related to Body mass index [BMI] 21.0-21.9, adult Diet education Related to Body mass index [BMI] 21.0-21.9, adult Patient education booklet given Related to Chrn Vns Hypertnsn w/o Compl; BILAT Assessments Type Assessment Date No Information Patient Care Teams Name Effective Dates (start - stop) Status Members No Information
--- OUTSIDE RECORDS SUMMARY | 2025-01-08 07:31 | XMS_ITS | Clinical Summary ---
Author Organization [facility] Address [address] [place] [address] Phone Care Team Providers Care Machine Wiper Name Role Phone Physician, Pcp Unknown Primary Care Provider Grace vailable Allergies No known active allergies Encounters Date Type Department Care Team Description 10/19/2024 8:29 PM EDT - 10/20/2024 6:01 AM EDT Emergency [facility] Emergency [address] [place] [address] Ananth Sinha MD Other headache [...] 10/19/2024 Social Influencers of Health Screening 10/19/2024 Influenza Vaccine (#1) 2025 , 05/09/2022, 04/22/2021, Additional history exists Hypertension/CHF/CAD Annual BMP Blood Test 10/19/2025 10/19/2024 HIB Vaccines Aged Out No longer eligi [...] No active pulmonary process identified. Telerad ARIANNA ([id number]) -------- FINAL REPORT -------- Dictated By: Holly Mora Dictated Date: 10/20/2024 10:29 ET Assigned Physician: Holly Mora Reviewed and Electronically Signed By: Holly Mora Signed Date: 10/20/2024 10:30 ET Workstation ID: [id number] Transcribed By: Self Edit Transcribed Date: 10/20/2024 [...] IMPRESSION: Impression: No active pulmonary process identified. Telethuy KELLER ([id number]) -------- FINAL REPORT -------- Dictated By: Holly Mora Dictated Date: 10/20/2024 10:29 ET Assigned Physician: Holly Mora Reviewed and Electronically Signed By: Holly Mora Signed Date: 10/20/2024 10:30 ET Workstation ID: [id number] Transcribed By: Self Edit Transcribed Date: 10/20/2024 10:29 ET Danni KELLER IMG XR PROCEDURES Final Result * ECG 12 lead (10/19/2024 9:35 PM EDT) Pathologist [facility] Ventricular Rate ECG 68 BPM GEMUSE Atrial Rate 68 BPM GEMUSE P-R Interval 168 ms GEMUSE QRS Duration 150 ms GEMUSE Q-T Interval 452 ms GEMUSE QTc 480 ms GEMUSE P Wave [place] 100 degrees GEMUSE R [place] 144 degrees GEMUSE T [place] 77 degrees GEMUSE ECG Interpretation AV dual-paced rhythm No previous ECGs available Confirmed by KIKI AGUILERA ([id number]) on 10/20/2024 1:59:18 PM GEMUSE 10/19/2024 9:35 PM EDT 10/20/2024 1:59 PM EDT Danni KELLER ECG ORDERABLES Final Result GEMUSE * (ABNORMAL) CBC auto differential (10/19/2024 9:32 PM EDT) Pathologist [facility] WBC 8.7 4.8 - 10.8 K/mcL LAB HEMETOLOGY METHOD 10/19/2024 10:18 PM EDT [facility] RBC 3.90(L) 4.50 - 5.50 M/mcL LAB HEMETOLOGY METHOD 10/19/2024 10:18 PM EDT [facility] Hemoglobin 12.0(L) 13.5 - 17.5 g/dL LAB HEMETOLOGY METHOD 10/19/2024 10:18 PM [facility] Hematocrit 36.3(L) 42.0 - 54.0 % LAB HEMETOLOGY METHOD 10/19/2024 10:18 PM [facility] MCV 92.6 79.0 - 98.0 FL LAB HEMETOLOGY METHOD 10/19/2024 10:18 PM [facility] MCH 30.6 27.0 - 32.0 pcg LAB HEMETOLOGY METHOD 10/19/2024 10:18 PM [facility] MCHC 33.1 32.0 - 37.0 g/dL LAB HEMETOLOGY METHOD 10/19/2024 10:18 PM [facility] RDW 14.6 11.0 - 15.0 % LAB HEMETOLOGY METHOD 10/19/2024 10:18 PM [facility] Platelets 246 130 - 400 K/mcL LAB HEMETOLOGY METHOD 10/19/2024 10:18 PM [facility] MPV 10.6 7.0 - 11.0 FL LAB HEMETOLOGY METHOD 10/19/2024 10:18 PM [facility] NRBC 0.0 <1.0 % LAB HEMETOLOGY METHOD 10/19/2024 10:18 PM [facility] NRBC Absolute 0.00 <0.10 K/mcL LAB HEMETOLOGY METHOD 10/19/2024 10:18 PM [facility] Neutrophils Relative 68.2 % LAB HEMETOLOGY METHOD 10/19/2024 10:18 PM [facility] Lymphocytes Relative 16.9 % LAB HEMETOLOGY METHOD 10/19/2024 10:18 PM [facility] Monocytes Relative 10.4 % LAB HEMETOLOGY METHOD 10/19/2024 10:18 PM [facility] Eosinophils Relative 3.6 % LAB HEMETOLOGY METHOD 10/19/2024 10:18 PM EDT [facility] Basophils Relative 0.6 % LAB HEMETOLOGY METHOD 10/19/2024 10:18 PM EDT [facility] Immature Granulocytes Relative 0.3 % LAB HEMETOLOGY METHOD 10/19/2024 10:18 PM EDT [facility] Neutrophils Absolute 5.91 1.50 - 7.00 K/mcL LAB HEMETOLOGY METHOD 10/19/2024 10:18 PM EDT [facility] Lymphocytes Absolute 1.46 1.00 - 5.00 K/mcL LAB HEMETOLOGY METHOD 10/19/2024 10:18 PM EDT [facility] Monocytes Absolute 0.90 0.20 - 1.00 K/mcL LAB HEMETOLOGY METHOD 10/19/2024 10:18 PM EDT [facility] Eosinophils Absolute 0.31 0.00 - 0.50 K/mcL LAB HEMETOLOGY METHOD 10/19/2024 10:18 PM EDT [facility] Basophils Absolute 0.05 0.00 - 0.20 K/mcL LAB HEMETOLOGY METHOD 10/19/2024 10:18 PM EDT [facility] Immature Granulocytes Absolute 0.03 0.00 - 0.03 K/mcL LAB HEMETOLOGY METHOD 10/19/2024 10:18 PM EDT [facility] Blood Venous blood specimen / Unknown Venipuncture / Unknown 10/19/2024 9:32 PM EDT 10/19/2024 10:12 PM EDT us Danni KELLER LAB BLOOD ORDERABLES Final Resu lt [facility] [address] [place] [address], * Magnesium (10/19/2024 9:32 PM EDT) Pathologist [facility] Magnesium 2.1 1.9 - 2.6 mg/dL LAB CHEMISTRY METHOD 10/19/2024 10:36 PM [facility] Blood Venous blood specimen / Unknown Venipuncture / Unknown 10/19/2024 9:32 PM EDT 10/19/2024 10:12 PM EDT us Danni KELLER LAB BLOOD ORDERABLES Final Resu lt [facility] [address] [place] [address], * (ABNORMAL) Basic metabolic panel (10/19/2024 9:32 PM EDT) Pathologist [facility] Sodium 140 133 - 145 mmol/L LAB CHEMISTRY METHOD 10/19/2024 10:36 PM [facility] Potassium 4.0 3.5 - 5.5 mmol/L LAB CHEMISTRY METHOD 10/19/2024 10:36 PM [facility] Chloride 106 96 - 110 mmol/L LAB CHEMISTRY METHOD 10/19/2024 10:36 PM [facility] CO2 27 21 - 32 mmol/L LAB CHEMISTRY METHOD 10/19/2024 10:36 PM [facility] Anion Gap 7 3 - 11 LAB CHEMISTRY METHOD 10/19/2024 10:36 PM [facility] Glucose 100 70 - 100 mg/dL LAB CHEMISTRY METHOD 10/19/2024 10:36 PM [facility] BUN 28(H) 5 - 25 mg/dL LAB CHEMISTRY METHOD 10/19/2024 10:36 PM [facility] Creatinine 1.41(H) 0.70 - 1.30 mg/dL LAB CHEMISTRY METHOD 10/19/2024 10:36 PM [facility] eGFR 48(L) >=60 mL/min/1. 73m2 LAB CHEMISTRY METHOD 10/19/2024 10:36 PM EDT [facility] Comment:Calculation based on the Chronic Kidney Disease Epidemiology Collaboration (CKD-EPI) equation refit without adjustment for race. BUN/Creatinine Ratio 19.9 LAB CHEMISTRY METHOD 10/19/2024 10:36 PM EDT [facility] Calcium 9.7 8.5 - 10.5 mg/dL LAB CHEMISTRY METHOD 10/19/2024 10:36 PM EDT [facility] Blood Venous blood specimen / Unknown Venipuncture / Unknown 10/19/2024 9:32 PM EDT 10/19/2024 10:12 PM EDT us Danni KELLER LAB BLOOD ORDERABLES Final Resu lt [facility] [address] [place] [address], from Last 3 Months Insurance MEDICARE [facility] Care Teams Machine Wiper Relationship Specialty Start Date End Date Physician, Pcp Unknown PCP - General 10/19/24
--- OUTSIDE RECORDS SUMMARY | 2025-01-08 07:31 | XMS_ITS | Patient Health Record ---
Author Organization [facility] Address [address] [place] [address] Care Team Providers Care Mineral Economist Name Role Phone Jan Deng MD Primary [...] MG Oral for 30 Activ e Nystatin [id number] UNIT/GM APPLY TO AFFECTE D AREA TWICE [...] Problem Status W/U Status Risk Notes Problem [id number] intermediate card tender (curre nt) use of anticoagulants (Z79.01) Active confirmed Problem [id number] Rectal pain (K62.89) Active confirmed Plan Of Treatment Future Test Test Name Order Date COLONOSCOPY 01/31/2022 Insurance Providers Payer Name Payer Address Payer Phone Subscriber Number Group Number Insured Name Patient Relationship to Insured Coverage Start Date Coverage End Date MEDICARE OF [place] [address] [place] [address] [id number] WILMER ZAMORA Self - patient is the insured [employer] ATT[employer] CLAIMS [address] [place] [address] [id number] WILMER ZAMORA Self - patient is the insured Medical (General) History Medical History History ICD Code Coronary artery disease status post CABG Atrial fibrillation Ischemic cardiomyopathy, ICD placement Hemorrhoids Hypertension Elevated cholesterol Surgical History Surgery Date(Month/Year) hernia torn quadriceps varicose veins ankle tendons deviated septum hemmroidectomy x 2 ICD placement
[2025-01-15] VITALS (17 sets, daily range): BP systolic 119–159; BP diastolic 68–91; PULSE 63–78; RESP 16–20; TEMP 36.7–37.1; O2SAT 92–97; BMI 24.4
--- NOTE | 2025-01-15 12:55 | PC.NURSE ---
Dr. Lunsford aware that patient drank a glass of orange juice at 10:00 this a.m. Stated okay to proceed. No interventions.
--- NOTE | 2025-01-15 15:02 | PC.NURSE ---
report given to leah furniture inspector to give report to OR nurse at this time. consent, orders and 24 hour are completed antibiotic at bedside.
--- NOTE | 2025-01-15 16:59 | W.PM.OPN ---
Operative Note Operative Note Date of Service: 01/15/25 Narrative: Indication: Biventricular ICD Generator CECILIA Cardiomyopathy Summary: 1. Generator replacement of Medtronic Biventricular ICD (CPT 85657) 2. Moderate sedation provided by vt for 52 minutes (CPT 39665, +[id number] x3) Narrative: Patient presented to the EP lab in a fasting, nonsedated state after written informed consent was verified. The procedure was performed under moderate sedation provided by vt. 2g IV Ancef was administered prior to skin incision. The patient was prepped and draped in the usual sterile manner. A 1-inch incision was made over the existing ICD generator. The ICD pocket was exposed using a combination of electrocautery and blunt dissection. The existing generator was removed from the pocket. The new ROAD EQUIPMENT OPERATOR-D generator was brought to the field. The leads were detached from the existing generator and inserted into the respective ports of the new generator. The leads were secured in the header using the provided torque wrench. The pocket was flushed with an antibiotic irrigant. Any bleeders within the pocket were controlled with electrocautery. The leads were wrapped underneath the new generator and the generator was placed back within the existing pocket. A TYRX envelope was placed within the pocket. ROAD EQUIPMENT OPERATOR-D testing showed lead parameters to be within the desirable range. Pacing vector was changed to a more optimal vector as suggested by [employer]. The pocket was closed in two layers using 2-0 followed by 4-0 V-Loc. Dermabond was applied over the incision site. Gauze and tegaderm dressing were then placed over the incision site. Patient was then transported back to recovery in a stable condition. Recommendations: 1. Keep chest incision site dry for 7 days. 2. Remove the gauze and Tegaderm dressing after 4 days. 3. Follow up in clinic in 1-2 weeks for incision site check. 4. Discharge home after 60 mins if patient remains stable. 5. Take antibiotic as instructed. 6. Resume Eliquis on 01/18/25 evening.
== END 2025-01-15 18:19 | disposition home or self-care (01) ==
PROVIDERS: Visit Provider Student in an Organized Health Care Education/Training Program
DX: Z45.02 Encounter for adjustment and management of automatic implantable cardiac defibrillator (principal); I42.9 Cardiomyopathy, unspecified
CPT/HCPCS: 33217; 33264; C1882; C1889; J0690; J2003; J2250; J3010; J3374; Q9967

== ENCOUNTER 2025-04-25 15:01 | Outpatient (AMB) | payer MEDICARE, SELFPAY ==
--- NOTE | 2025-04-25 14:57 | A.OFFPC_ITS ---
Vital Signs 04/25/25 15:07 Height 6 ft 3 in Weight 87.685 kg BMI 24.2 BP 138/76 Blood Pressure Location Lt brachial Position Sitting Pulse 84 Pulse Source Pulse Oximeter Temp 97.7 F Temp Source Temporal Artery Scan Pulse Oximetry (%) 98 Oxygen Delivery Method Room Air Intake Visit Reasons: 4 month f/u Print Manager Required: No Accompanied by: Self / Same As Patient Allergies grass pollen Allergy (Intermediate, Verified 04/25/25 14:57) Sneezing mite-Dermatophagoides farinae, alexis (dust mite - [place]) Allergy (Intermediate, Verified 04/25/25 14:57) Sneezing Tobacco use date assessed: 04/25/25 Fall risk assessment: No Falls in past year Last assessed Fall Risk: 04/25/25 Dental Screening Dental Screen Date: 04/25/25 Did you have a dental visit in the last 12 months?: No Did you have a dental problem in the last 6 months where you did not have access to dental care?: No HPI HPI Comments History of Present Illness Details 89-year-old male with a past medical his tory of AFib, pacemaker, ischemic cardiomyopathy, CAD, HTN, HLD, prior intracranial surgery (?May), presenting for follow up CV: Follows with Dr Amanda, Dr Lunsford. On lipitor, coreg, lisinopril, now decreased dose of eliquis. Sometimes lightheaded upon standing. ICD in place Insomnia is stable on zolpidem. ROS: see hpi PHYSICAL EXAM: GENERAL: Alert and oriented x 3. NAD EYES: EOMI. Anicteric. HENT: Moist mucous membranes. No scleral icterus. No cervical lymphadenopathy. LUNGS: Clear to auscultation bilaterally. CARDIOVASCULAR: Regular rate and rhythm. No murmur. No JVD. +1 edema LLE ABDOMEN: Soft, non-tender +bs EXTREMITIES: No edema. Non-tender. SKIN: No rashes or lesions. Warm. Venous stasis dermatitis NEUROLOGIC: No focal neurological deficits. CN II-XII grossly intact PSYCHIATRIC: Cooperative. Appropriate mood and affect [facility] Medical History Biventricular ICD (implantable cardioverter-defibrillator) in place Paroxysmal atrial fibrillation Lab test positive for detection of COVID-19 virus Ischemic cardiomyopathy Atrial fibrillation CAD (coronary artery disease) Bradycardia High cholesterol HTN (hypertension) Hx of intermediate frame tender use of blood thinners Pacemaker Surgical History Hx of nasal septoplasty History of esophagogastroduodenoscopy (EGD) Hx of endoscopic retrograde cholangiopancreatography Hx laparoscopic cholecystectomy History of surgery Hx of hernia repair AICD (automatic cardioverter/defibrillator) present Hx of CABG History of colonoscopy H/O hemorrhoidectomy Family History Mother No problems noted. Father No problems noted. Social History Household Members: None Housing: Apartment Housing Other:: SR. housing Are you a primary critical care transport nurse to a significant other at home: No Do you presently have visiting nurse or other home services: No Alcohol intake: never Patient Tobacco Use Status: Former Tobacco user Tobacco use type: Cigarette and Cigar Years Smoked: 20 e-Cigarette/Vaping Use: Never Used Second Hand Smoke Exposure: No Advance Directives Date on File: 03/10/22 service: No Current occupational status: retired Cognitive needs: No Hearing needs: No Vision needs: Yes (reading glasses) Questionnaire PHQ-9 Over the last 2 weeks, how often have you been bothered by any of the following problems? 1. Little interest or pleasure in doing things: not at all 2. Feeling down, depressed, or hopeless: not at all 3. Trouble falling or staying asleep, or sleeping too much: not at all 4. Feeling tired or having little energy: not at all 5. Poor appetite or overeating: not at all 6. Feeling bad about yourself - or that you are a failure or have let yourself or your family down: not at all 7. Trouble concentrating on things, such as reading the newspaper or watching television: not at all 8. Moving or speaking so slowly that other people could have noticed. Or the opposite - being so fidgety or restless that you have been moving around a lot more than usual: not at all 9. Thoughts that you would be better off or of hurting yourself in some way: not at all Total score: 0 Source: Developed by Drs. Norberto Winter, Bhumika Thomas, Durga Mcgill and colleagues, with an educational jania from [employer]. Thrive Questionnaire Date Thrive assessed: 04/25/25 I am a: Patient Within the past 12 months, did the food you bought not last and you didn't have the money to get more?: Never true Within the past 12 months, did you worry whether your food would run out before you got money to buy more?: Never true Do you have trouble paying for medicines?: No Do you have trouble getting transportation to medical appointments?: No Do you have trouble paying your heating and electricity bill?: No Do you have trouble taking care of your child, family member or friend?: No Do you have trouble with day-to-day activities such as bathing, preparing meals, shopping, managing finances, etc.?: No Are you currently unemployed and looking for a job?: No Are you interested in more education?: No THRIVE Score: 0 AUDIT C Alcohol Use Questionnaire (AUDIT-C) 1. How often do you have a drink containing alcohol?: Never 3. How often do you have six or more drinks on one occasion?: Never Total Score: 0 YVONNE-7 AMB Questionnaire YVONNE-7 Date YVONNE - 7 assessed: 04/25/25 Feeling nervous, anxious, or on edge: 0 = Not at all Not being able to stop or control worryin = Not at all Worrying too much about different things: 0 = Not at all Trouble relaxin = Not at all Being so restless that it is hard to sit still: 0 = Not at all Becoming easily annoyed or irritable: 0 = Not at all Feeling afraid as if something awful might happen: 0 = Not at all Total YVONNE-7 score (0-4 normal; 5-9 mild; 10-14 moderate; 15-21 severe): 0 Source: Developed by Drs. Norberto Winter, Bhumika Thomas, Durga Mcgill and colleagues, with an educational jania from [employer]. Physical exam (Primary Care) Vital Signs: Last Vital Signs Temp 97.7 F 04/25/25 15:07 Pulse 84 04/25/25 15:07 BP 138/76 04/25/25 15:07 Pulse Ox 98 04/25/25 15:07 Oxygen Delivery Method Room Air 04/25/25 15:07 BMI result Body Mass Index 24.2 Tobacco/Smoking Status: Tobacco use Status Tobacco use date assessed 04/25/25 04/25/25 14:58 Patient Tobacco Use Status Former Tobacco user 04/25/25 14:58 Tobacco use type Cigarette,Cigar 04/25/25 14:58 e-Cigarette/Vaping Use Never Used 04/25/25 14:58 PHQ-9: PHQ-9 Score PHQ-9: Total score 0 04/25/25 15:13 Thrive Assessment: Date of Thrive Assessment Date Thrive assessed 04/25/25 04/25/25 14:58 Coding Level of Care Code Est Pt Level 4 (56846) Complex EM visit Add On G2211 Diagnoses HTN (hypertension) I10 Coronary artery disease involving coronary bypass graft of [place] heart without angina pectoris I25.810 Coronary Disease-Associated Artery/Lesion type: bypass graft [place] vs. transplanted heart: [place] heart Associated angina: without angina Paroxysmal atrial fibrillation I48.0 High cholesterol E78.00 Assessment & Plan Assessment & Plan (1) HTN (hypertension): Code(s): I10 - Essential (primary) hypertension Category: Medical Plan: Controlled. Continue Coreg, lisinopril (2) CAD (coronary artery disease): Code(s): I25.10 - Atherosclerotic heart disease of [place] coronary artery without angina pectoris Category: Medical Qualifiers: Coronary Disease-Associated Artery/Lesion type: bypass graft [place] vs. transplanted heart: [place] heart Associated angina: without angina Qualified Code(s): I25.810 - Atherosclerosis of coronary artery bypass graft(s) without angina pectoris Plan: Stable, no recent anginal pain. Continue following with Cardiology. Continue Eliquis, atorvastatin, carvedilol (3) Paroxysmal atrial fibrillation: Code(s): I48.0 - Paroxysmal atrial fibrillation Category: Medical Plan: Rate controlled. Continue Eliquis, carvedilol (4) High cholesterol: Code(s): E78.00 - Pure hypercholesterolemia, unspecified Category: Medical Plan: Lipid panel ordered. Continue atorvastatin Plan Follow-up in the office in 4 months. Labs to be completed today Orders: Orders Basic Metabolic Panel Today E78.00 - Pure hypercholesterolemia, unspecified, I10 - Essential (primary) hypertension, I25.5 - Ischemic cardiomyopathy, I48.0 - Paroxysmal atrial fibrillation Complete Blood Count Auto Diff Today E78.00 - Pure hypercholesterolemia, unspecified, I10 - Essential (primary) hypertension, I25.5 - Ischemic cardiomyopathy, I48.0 - Paroxysmal atrial fibrillation Liver Panel Today E78.00 - Pure hypercholesterolemia, unspecified, I10 - Essent ial (primary) hypertension, I25.5 - Ischemic cardiomyopathy, I48.0 - Paroxysmal atrial fibrillation Lipid Panel Today E78.00 - Pure hypercholesterolemia, unspecified, I10 - Essential (primary) hypertension, I25.5 - Ischemic cardiomyopathy, I48.0 - Paroxysmal atrial fibrillation
[2025-04-25 15:07] VITALS: BP 138/76; PULSE 84; TEMP 36.5; O2SAT 98; BMI 24.2
--- OUTSIDE RECORDS SUMMARY | 2025-04-25 16:40 | XMS_ITS | Clinical Summary ---
Author Organization [facility] Address [address] [place] [address] Phone Care Team Providers Care Solar Site Assessment Specialist Name Role Phone Physician, Pcp Unknown Primary Care Provider Grace vailable Allergies No known active allergies Social History Tobacco Use Types Packs/Day Years [...] Patients (1 - 1-dose 75+ series) 11/13/2011 Depression Screening 07/03/2024 Cholesterol Screening (Lipid Panel) 10/19/2024 Falls Risk Assessment 10/19/2024 Medicare Annual Wellness Visit 10/19/2024 Social Influencers of Health Screening 10/19/2024 COVID-19 Vaccine ( season) 2025 04/06/2023, 05/09/2022, 11/23/2021, Additional history exists Influenza Vaccine (#1) 2025 4, 05/09/2022, 04/22/2021, Additional history exists Hypertension/CHF/CAD Annual [...] Procedure Name Priority Date/Time Associated Diagnosis Comments BASIC METABOLIC PANEL STAT 10/19/2024 9:32 PM EDT from Last 3 Months or Most Recently Relevant to Health Maintenance Results * (ABNORMAL) Basic metabolic panel (10/19/2024 9:32 PM EDT) Sodium 140 133 - 145 mmol/L LAB CHEMISTRY METHOD 10/19/2024 10:36 PM EDT [facility] Potassium 4.0 3.5 - 5.5 mmol/L LAB CHEMISTRY METHOD 10/19/2024 10:36 PM EDT [facility] Chloride 106 96 - 110 mmol/L LAB CHEMISTRY METHOD 10/19/2024 10:36 PM EDT [facility] CO2 27 21 - 32 mmol/L LAB CHEMISTRY METHOD 10/19/2024 10:36 PM EDT [facility] Anion Gap 7 3 - 11 LAB CHEMISTRY METHOD 10/19/2024 10:36 PM EDT [facility] Glucose 100 70 - 100 mg/dL LAB CHEMISTRY METHOD 10/19/2024 10:36 PM EDT [facility] BUN 28(H) 5 - 25 mg/dL LAB CHEMISTRY METHOD 10/19/2024 10:36 PM EDT [facility] Creatinine 1.41(H) 0.70 - 1.30 mg/dL LAB CHEMISTRY METHOD 10/19/2024 10:36 PM EDT [facility] eGFR 48(L) >=60 mL/min/1. 73m2 LAB CHEMISTRY METHOD 10/19/2024 10:36 PM EDT [facility] Comment:Calculation based on the [...] Resu lt [facility] [address] [place] [address], from Last 3 Months or Most Recently Relevant to Health Maintenance Insurance MEDICARE [employer] Care Teams Solar Site Assessment Specialist Relationship Specialty Start Date End Date Physician, Pcp Unknown PCP - General 10/19/24
--- OUTSIDE RECORDS SUMMARY | 2025-04-25 16:40 | XMS_ITS ---
Author Organization [facility] Care Team Providers Care Manager Home Improvement Name Role Phone Thao Condon Unavailable Unavailable Yahaira Toussaint Unavailable Unavailable Lety Bland Unavailable Unavailable Allergies and adverse reactions Code CodeSystem Substance Reaction Severity StartDate Concern Status dust mites Unknown 07/20/2022 active Grass Unknown 07/20/2022 active Pollen Unknown 07/20/2022 active Care Team Name Role Address Phone Organization Dates Yahaira Toussaint PCP [address] [facility] [address], [place], [address], [place] (Office): : [facility] 07/20/2022 - 08/05/2022 [place], [address], [facility] (Office): : [facility] 07/20/2022 - 08/05/2022 Lety Bland [address] [facility] [address], [place], [address], [place] (Office): : [facility] 07/20/2022 - 08/05/2022 Mental Status Section Date Assessment Total Score Description 08/05/2022 BIMS 15 cognitively int act CAM 0 No delirium ind icated 07/26/2022 BIMS 15 cognitively int act CAM 0 No delirium ind icated PHQ-9 02 minimal depress ion Insurance Providers Problems Problem # Description Date of onset Resolved Date Code CodeSystem Concern Status 1 UNSPECIFIED FALL, SUBSEQUENT ENCOUNTER 07/21/[address] active 2 COVID-19 07/20/[address] active 3 DYSPHAGIA, OROPHARYNGEAL PHASE 07/20/[address] active 4 ESSENTIAL (PRIMARY) HYPERTENSION 07/20/[address] active 5 HYPERLIPIDEMIA, UNSPECIFIED 07/20/[address] active 6 ISCHEMIC CARDIOMYOPATHY 07/20/[address] active 7 PRESENCE OF CARDIAC PACEMAKER 07/20/[address] active 8 SYNCOPE AND COLLAPSE 07/20/[address] active 9 UNSPECIFIED ATRIAL FIBRILLATION 07/20/[address] active 10 UNSTEADINESS ON FEET 07/20/[address] active Reason for Referral No Reasons for Referral Entered Social History Social History Observation Description Start Date End Date Code Code System Current Smoking Status Tobacco smoking consumption unknown 405422947 SNOMED CT Sex Assigned At Male 1935 [address]-2 [facility] Gender Identity Sexual Orientation Vital Signs Code Code System Vitals Name Values and Units Timing Information 9279-1 LOINC Respiratory Rate Value=17.0 Units=/m in 08/05/2022 8462-4 LOINC Blood Pressure-Diastolic Value=68 Un its=mmHg 08/05/2022 8480-6 LOINC Blood Pressure-Systolic Vlctl=541 Un its=mmHg 08/05/2022 8310-5 LOINC Body Temperature Value=97.7 Units= F 08/05/2022 8867-4 LOINC Heart rate Value=76.0 Units=/min 08/2022 76975-7 INC O2 % BldC Oximetry Value=98.0 Units= % 08/05/2022 30111-4 LOINC Pain Level Value=0.0 08/05/2022 40893-4 LOINC Weight Qgjjg=837.0 Units=Lbs 07/2022 8302-2 LOINC Height Value=73.0 Units=Inches 07/20/2022
--- OUTSIDE RECORDS SUMMARY | 2025-04-25 16:41 | XMS_ITS | Patient Health Record ---
Author Organization [facility] Address [address] [place] [address] Care Team Providers Care Lounge Car Attendant Name Role Phone Sowmya (RETIRED) Jan GUTIÉRREZ Primary Care Provide r Mynor Jansen Jr Unavailable Allergies Allergen (clinical drug ingredient) Drug/Non Drug Allergy documented on EMR Reaction Allergy Type Onset Date Status Dust Mites Unknown Allergy Active lawns (uncoded) Unknown Allergy Acti ve Reason For Referral No Information Medications Medication SIG (Take, Route, Frequency, Duration) Notes Start Date End Date Status Carvedilol 6.25 MG TAKE 1 TABLET BY FRANKLIN TH TWICE A DAY Oral; Duration: 90 Active ZyrTEC 5 MG 1 tablet Orally Once a day; Duration: 30 day(s) 01/31/2022 Active Eliquis 5 MG Oral; Duration: 30 Active Nystatin 128590 UNIT/GM APPLY TO AFFECTE D AREA TWICE A DAY DIRECTED External; Duration: 30 Active MiraLax (colon prep) 17 GM/SCOOP mixed with Gatorade or Crystal Light Orally begin at 5:00 p.m. the day before the procedure; Duration: 1 day 01/31/2022 Active Zolpidem Tartrate 5 MG TAKE 1 TABLET BY MOUTH EVERY DAY Oral; Duration: 30 Active Lisinopril 10 MG TAKE 1 TABLET BY FRANKLIN TH EVERY DAY Oral; Duration: 90 Active Atorvastatin Calcium 10 MG TAKE 1 TABLET BY MOUTH EVERY DAY Oral; Duration: 90 Active Ketoconazole 2 % External; Duration: 15 Active Immunizations Vaccine Route Administration Date [...] Problem Status W/U Status Risk Notes Problem Long-term current use of anticoagulant (943918738) termination clerk (current) use of anticoagulants (Z79.01) Active confirmed Problem Rectal pain (02136574) Rectal pain (K62.89) Active confirmed Plan Of Treatment Future Test Test Name Order Date COLONOSCOPY 01/31/2022 Insurance Providers Payer Name Payer Address Payer Phone Subscriber Number Group Number Insured Name Patient Relationship to Insured Coverage Start Date Coverage End Date MEDICARE OF [place] [address] [place] [address] [id number] WILMER ZAMORA Self - patient is the insured MED[employer] ATTN CLAIMS [address] [place] [address] [phone] [id number] WILMER ZAMORA Self - patient is the insured Medical (General) History Medical History History ICD Code Coronary artery disease status post CABG Atrial fibrillation Ischemic cardiomyopathy, ICD placement Hemorrhoids Hypertension Elevated cholesterol Surgical History Surgery Date(Month/Year) hernia torn quadriceps varicose veins ankle tendons deviated septum hemmroidectomy x 2 ICD placement
== END 2025-04-25 16:46 | disposition home or self-care (01) ==
LOC: HO.HMCHD 15:01
PROVIDERS: Visit Provider Physician Assistant
DX: I10 Essential (primary) hypertension (principal); I25.810 Atherosclerosis of coronary artery bypass graft(s) without angina pectoris; I48.0 Paroxysmal atrial fibrillation; E78.00 Pure hypercholesterolemia, unspecified

== ENCOUNTER → 2025-04-25 15:01 | Outpatient (BNVA) | payer MEDICARE, SELFPAY | PROVIDERS: Visit Provider Physician Assistant | DX: I10 Essential (primary) hypertension (principal); I25.810 Atherosclerosis of coronary artery bypass graft(s) without angina pectoris; I48.0 Paroxysmal atrial fibrillation; E78.00 Pure hypercholesterolemia, unspecified; Z79.01 Long term (current) use of anticoagulants; Z79.899 Other long term (current) drug therapy; Z13.30 Encounter for screening examination for mental health and behavioral disorders, unspecified; Z13.39 Encounter for screening examination for other mental health and behavioral disorders | CPT/HCPCS: 96127; 99212 ==

== ENCOUNTER 2025-05-21 13:56 | Outpatient (AMB) | payer MEDICARE, SELFPAY ==
[2025-05-21 13:58] VITALS: BP 120/80; PULSE 78; BMI 24.0
--- NOTE | 2025-05-21 13:58 | A.OFFVIS_ITS ---
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 Present Accompanied by: Other Relationship Allergies grass pollen Allergy (Intermediate, Verified 04/25/25 14:57) Sneezing mite-Dermatophagoides farinae, alexis (dust mite - [place]) Allergy (Intermediate, Verified 04/25/25 14:57) Sneezing Medication List - Last Reconciled 05/21/25 by Dion Amanda MD acetaminophen 500 - 1,000 mg PO Q6H PRN apixaban (Eliquis) 2.5 mg PO BID atorvastatin 10 mg PO DAILY carvedilol 6.25 mg PO BID 90 days cetirizine 10 mg PO DAILY PRN docusate sodium 100 mg PO BID lisinopril 10 mg PO DAILY 90 days multivitamin 1 tab PO DAILY nystatin 1 appl topical BID PRN polyvinyl alcohol 1.4% 1 drp ophthalmic (eye) BID PRN zolpidem 5 mg PO BEDTIME PRN HPI Comments Details: James comes for follow-up after his pulse generator change. He has been doing well. He occasionally gets lightheaded especially when he has [employer] up. He does walk around with the help of a walker at home. He denies any significant cardiac complaints. No prolonged palpitation irregular heartbeat. No syncope or ICD discharge. No chest pain syndrome. [facility] Medical History Biventricular ICD (implantable cardioverter-defibrillator) in place Paroxysmal atrial fibrillation Lab test positive for detection of COVID-19 virus Ischemic cardiomyopathy Atrial fibrillation CAD (coronary artery disease) Bradycardia High cholesterol HTN (hypertension) Hx of senior living use of blood thinners Pacemaker Surgical History Hx of nasal septoplasty History of esophagogastroduodenoscopy (EGD) Hx of endoscopic retrograde cholangiopancreatography Hx laparoscopic cholecystectomy History of surgery Hx of hernia repair AICD (automatic cardioverter/defibrillator) present Hx of CABG History of colonoscopy H/O hemorrhoidectomy Family History Mother No problems noted. Father No problems noted. Social History Household Members: None Housing: Apartment Housing Other:: SR. housing Are you a primary rn critical care to a significant other at home: No Do you presently have visiting nurse or other home services: No Alcohol intake: never Patient Tobacco Use Status: Former Tobacco user Tobacco use type: Cigarette and Cigar Years Smoked: 20 e-Cigarette/Vaping Use: Never Used Second Hand Smoke Exposure: No Advance Directives Date on File: 03/10/22 service: No Current occupational status: retired Cognitive needs: No Hearing needs: No Vision needs: Yes (reading glasses) Review of Systems Const Denies chills, Denies fatigue, Denies fever(s), Denies frequent falls, Denies weakness, Denies weight gain and Denies weight loss ENT Denies dizziness Card Denies chest pain, Denies leg edema, Denies lightheadedness, Denies palpitations, Denies dyspnea, Denies dyspnea on exertion, Denies orthopnea and Denies other (loss of consciousness) Resp Denies cough, Denies dyspnea and Denies dyspnea on exertion GI Denies hematochezia and Denies change in stool character Musc Denies abnormal gait, Denies muscle weakness, Denies numbness, Denies radiating pain into limb and Denies tingling Neuro Denies Abnormal speech present, Denies abnormal gait, Denies dizziness, Denies frequent falls, Denies numbness, Denies tingling and Denies weakness Endo Denies fatigue and Denies palpitations Physical Exam Vital Signs: Last Vital Signs Pulse 78 05/21/25 13:58 BP 120/80 05/21/25 13:58 BMI result Body Mass Index 24.0 Const General: cooperative, comfortable, no acute distress, alert, awake and Physically active Nutritional Appearance: thin and other (Frail) Orientation/consciousness: patient oriented x3 Limitations: no limitations HEENT Head: Yes normocephalic and Yes atraumatic Neck Neck: Yes trachea midline, Yes supple and Yes no JVD Resp Effort & Inspection: normal respiratory effort Auscultation: clear to auscultation bilaterally Cardio Jugular venous distension: no JVD Palpation: abnormal PMI displaced PMI Rate: regular rate Rhythm: regular rhythm Heart sounds: S1 normal heart sound present, S2 normal heart sound present, no click, no gallops, no murmurs and no rubs GI Auscultation: normal bowel sounds Skin General skin exam: no rashes or lesions noted Neuro General: patient oriented x3 and no focal motor deficits Speech: No Abnormal speech present Extrem General: Yes no clubbing, cyanosis or edema Psych Appearance: grossly normal Office Procedures Cardiac Device Check Cardiac Device Check Details: Biventricular Medtronic ICD in place. Battery life on a recently implanted devices 3.7 years due to high LV thresholds. LV thresholds measured at 4 volts at 1 milliseconds. RV pacing thresholds are also slightly elevated. Atrial pacing thresholds adequate. Pacing and shock lead impedance is stable. No arrhythmias detected 18066-FP Cardiac Device Check, multi lead implantable defibrillator Procedure code (CPT) selection complete Assessment & Plan Assessment & Plan (1) Ischemic cardiomyopathy: Code(s): I25.5 - Ischemic cardiomyopathy Category: Medical Plan: Ischemic cardiomyopathy with moderate LV systolic dysfunction with no signs of heart failure with moderately reduced LV ejection fraction since cardiac resynchronization therapy. He is currently on lisinopril and carvedilol. He is currently not on any diuretic regimen. Discussed with patient about heart failure management. He does have orthostatic lightheadedness and this is probably related to reduced oral intake. Discussed with him orthostatic precautions increasing his fluid intake. (2) CAD (coronary artery disease): Code(s): I25.10 - Atherosclerotic heart disease of [place] coronary artery without angina pectoris Category: Medical Qualifiers: Associated angina: without angina Coronary Disease-Associated Artery/Lesion type: bypass graft [place] vs. transplanted heart: [place] heart Qualified Code(s): I25.810 - Atherosclerosis of coronary artery bypass graft(s) without angina pectoris Plan: CAD with coronary artery bypass grafting with no symptoms of angina. Currently on full oral anticoagulation with Eliquis and would avoid aspirin therapy. Continue to maintain statin therapy with target goal LDL less than 70 mg/dL. Blood pressure is well optimized. (3) Paroxysmal atrial fibrillation: Code(s): I48.0 - Paroxysmal atrial fibrillation Category: Medical Plan: Paroxysmal atrial fibrillation without any obvious clinical recurrence. Will continue monitor by device telemetry. Continue carvedilol therapy. Avoidance of stimulants was discussed. No indication for antiarrhythmic drug therapy at this point in time. (4) Biventricular ICD (implantable cardioverter-defibrillator) in place: Code(s): Z95.810 - Presence of automatic (implantable) cardiac defibrillator Category: Medical Plan: Biventricular ICD in place, working well. Recent device battery change. Will continue monitor remote telemetry for heart failure as well as device function. Will follow up in the clinic in 6 months time with Med[employer] rep. Thank you for allowing me to partake in his care Coding Level of Care Code Est Pt Level 4 (44907) Complex EM visit Add On G2211 Diagnoses Ischemic cardiomyopathy I25.5 Coronary artery disease involving coronary bypass graft of [place] heart without angina pectoris I25.810 Associated angina: without angina Coronary Disease-Associated Artery/Lesion type: bypass graft [place] vs. transplanted heart: [place] heart Paroxysmal atrial fibrillation I48.0 Biventricular ICD (implantable cardioverter-defibrillator) in place Z95.810 CPT Codes Cardiac Device Check - Cardiac Device 6: 83119-QS Cardiac Device Check, multi lead implantable defibrillator ([id number])
--- OUTSIDE RECORDS SUMMARY | 2025-05-22 02:07 | XMS_ITS | Patient Health Record ---
Author Organization 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 Name Role Phone Sowmya (RETIRED) Jan GUTIÉRREZ Primary Care Provide r Mynor Jansen Jr Unavailable Allergies Allergen (clinical drug ingredient) Drug/Non Drug Allergy documented on EMR Reaction Allergy Type Onset Date Status lawns (uncoded) Unknown Allergy Acti ve Dust Mites Unknown Allergy Active Reason For Referral No Information Medications Medication SIG (Take, Route, Frequency, Duration) Notes Start Date End Date Status Carvedilol 6.25 MG Tablet TAKE 1 TABLET BY MOUTH TWICE A DAY Oral; Duration: 90 Active ZyrTEC 5 MG Tablet 1 tablet Orally Once a day; Duration: 30 day(s) 01/31/2022 Active Eliquis 5 MG Tablet Oral; Duration: 30 Active Nystatin 256870 UNIT/GM Cream APPLY TO AFFECTED AREA TWICE A DAY DIRECTED External; Duration: 30 Active MiraLax (colon prep) 17 GM/SCOOP Powder mixed with Gatorade or Crystal Light Orally begin at 5:00 p.m. the day before the procedure; Duration: 1 day 01/31/2022 Active Zolpidem Tartrate 5 MG Tablet TAKE 1 TABLET BY MOUTH EVERY DAY Oral; Duration: 30 Active Lisinopril 10 MG Tablet TAKE 1 TABLET BY MOUTH EVERY DAY Oral; Duration: 90 Active Atorvastatin Calcium 10 MG Tablet TAKE 1 TABLET BY MOUTH EVERY DAY Oral; Duration: 90 Active Ketoconazole 2 % Cream External; Duration: 15 Active Immunizations Vaccine Route Administration Date Status Comme nts Influenza Unknown 04/21/2021 Administered Social History Tobacco Use: Social History Observation Description Date Details (start date - stop date) Never Smoker NA - NA Social History Drugs/Alcohol: Social Info Question Answer Notes Alcohol Screen Did you have a drink containing alcohol in the past year? No Points 0 Interpretation Negative Tobacco Use: Social Info Question Answer Notes Tobacco Use/Smoking Patient is a nonsmoker Additional Details Category Social Info Options Details Miscellaneous: Marital status: single Occupation: retired Problems Problem Type SNOMED Code ICD Code Onset Dates Problem Status W/U Status Risk Notes Problem Long-term current use of anticoagulant (235913966) retirement (current) use of anticoagulants (Z79.01) Active confirmed Problem Rectal pain (61200666) Rectal pain (K62.89) Active confirmed Plan Of Treatment Future Test Test Name Order Date COLONOSCOPY 01/31/2022 Insurance Providers Payer Name Payer Address Payer Phone Subscriber Number Group Number Insured Name Patient Relationship to Insured Coverage Start Date Coverage End Date MEDICARE OF [place] [address] [place] [address] [phone] [id number] WILMER ZAMORA Self - patient is the insured MED[employer] ATTN CLAIMS [address] [place] [address] [id number] WILMER ZAMORA Self - patient is the insured Medical (General) History Medical History History ICD Code Coronary artery disease status post CABG Atrial fibrillation Ischemic cardiomyopathy, ICD placement Hemorrhoids Hypertension Elevated cholesterol Surgical History Surgery Date(Month/Year) hernia torn quadriceps varicose veins ankle tendons deviated septum hemmroidectomy x 2 ICD placement
== END 2025-05-21 14:33 | disposition home or self-care (01) ==
LOC: HO.HCS 13:56
PROVIDERS: Visit Provider Internal Medicine Cardiovascular Disease
DX: I25.5 Ischemic cardiomyopathy (principal); I25.810 Atherosclerosis of coronary artery bypass graft(s) without angina pectoris; I48.0 Paroxysmal atrial fibrillation; Z95.810 Presence of automatic (implantable) cardiac defibrillator
CPT/HCPCS: 93284; 99214; G2211

== ENCOUNTER → 2025-05-21 13:56 | Outpatient (BNVA) | payer MEDICARE, SELFPAY | PROVIDERS: Visit Provider Internal Medicine Cardiovascular Disease | DX: Z45.02 Encounter for adjustment and management of automatic implantable cardiac defibrillator (principal); I25.810 Atherosclerosis of coronary artery bypass graft(s) without angina pectoris; I48.0 Paroxysmal atrial fibrillation; Z87.891 Personal history of nicotine dependence | CPT/HCPCS: 93284; 99212 ==

== ENCOUNTER → 2025-07-02 10:51 | Outpatient (BNV) | payer MEDICARE, SELFPAY | PROVIDERS: PCP Physician Assistant; Visit Provider Internal Medicine Cardiovascular Disease | DX: Z95.810 Presence of automatic (implantable) cardiac defibrillator (principal) | CPT/HCPCS: 93295 ==